=== PATIENT | female | born 1940 | race Caucasian/White ===

== ENCOUNTER → 2023-04-27 08:55 | Outpatient (REF) | payer OTHER, BC, SELFPAY | LOC: HWRCS 08:55 | PROVIDERS: ATTENDING PHYSICIAN Internal Medicine; FAMILY PHYSICIAN Family Medicine | DX: I35.0 Nonrheumatic aortic (valve) stenosis (principal) | CPT/HCPCS: 93306 ==

== ENCOUNTER 2023-08-06 00:07 | Emergency (ER) | payer OTHER, BC, SELFPAY ==
[2023-08-06] VITALS (7 sets, daily range): BP systolic 150–173; BP diastolic 72–91; PULSE 54–67; BMI 19.3
[2023-08-06 00:46] LABS: % Basophils 0.7 % (0-2); % Eosinophils 2.2 % (0-6); % Immature Granulocytes 0.4 % (0-0.5); % Lymphocytes 25.6 % (20.5-51.1); % Neutrophils 61.1 % (42.2-75.2); Absolute Eosinophils 0.1 10^3/uL (0-0.7); Absolute Lymphocytes 1.2 10^3/uL (1.2-3.4); Absolute Monocytes 0.5 10^3/uL (0.1-0.6); Absolute Neutrophils 2.7 10^3/uL (1.4-6.5); Hematocrit 34.5 % (37.0-47.0); Hemoglobin 12.3 g/dL (12.0-16.0); Mean Corp Hgb Conc. 35.7 g/dL (33.0-37.0); Mean Corpuscular Hgb 33.8 pg (27.0-31.0); Mean Corpuscular Volume 94.8 fL (81.0-99.0); Mean Platelet Volume 10.1 fL (7.4-10.4); Nucleated Red Blood Cells % 0 %; Platelet Count 208 10^3/uL (130-400); Red Blood Cell Count 3.64 10^6/uL (4.20-5.40); White Blood Cell Count 4.5 10^3/uL (4.8-10.8)
[2023-08-06 01:00] LABS: ALT (SGPT) 31 U/L (0-35); AST (SGOT) 43 U/L (14-36); Albumin 4.1 g/dl (3.5-5.0); Alkaline Phosphatase 74 U/L (38-126); Blood Urea Nitrogen 10 mg/dl (7-17); Calcium 9.3 mg/dl (8.4-10.2); Carbon Dioxide 28 mmol/L (22-30); Chloride 90 mmol/L (98-107); Estimated Creatinine Clearance 55 ml/min; Glucose 104 mg/dl (70-99); Potassium 4.3 mmol/L (3.5-5.1); Sodium 125 mmol/L (135-145); Total Bilirubin 1.9 mg/dl (0.2-1.3); eGFR > 60.00
--- NOTE | 2023-08-06 01:18 | ED.GENMED ---
History of Present Illness
General
Chief Complaint: Abdominal Symptoms
Source: patient and family
Exam Limitations: none
Time Seen by Provider: 08/06/23 00:38
Nursing documentation reviewed up to this point in time: agreed with
History of Present Illness
History of Present Illness:
Pleasant 82-year-old female who presents with hypertension and dizziness. She complains of nausea and vomiting. Was seen at urgent care and diagnosed with dehydration. She was given Zofran which did not help her symptoms.
Past History
Past History
ED Past Medical History: Cancer (Cervical cancer, treated with hysterectomy and radiation), HTN and Other (Kidney stones)
ED Past Surgical History: and Gynecological (Hysterectomy with retroperitoneal symone dissection 18 years ago.)
Social History
Tobacco: Non-smoker
Alcohol: None
Personal:
Living: with family
Family History
Family History: Hypertension; Negative Early CAD or CAD
Phy Exam
Physical Exam
Physical Exam:
Physical Exam
Vital signs and allergy list reviewed and agreed with.
GENERAL: Alert , in minimal apparent distress
EYE: pupils equal, EOMI, anicteric. Funduscopic exam is normal. Negative nystagmus horizontal or vertical
NECK: Supple, no significant adenopathy. No masses. Trachea midline
ENT: Oropharynx is clear, mmm.
CARDIAC: Regular rate and rhythm . No M/R/G
LUNGS: Clear breath sounds bilaterally, no acute respiratory distress, no wheezes/rales/rhonchi
ABDOMEN: Soft, without focal tenderness, no r/g, no cvat. Normal BSx4q
NEUROLOGICAL: Alert and oriented, no focal neuro deficits
SKIN: Warm and dry, skin intact.
MUSCULOSKELETAL: No edema, well perfused. Moves all 4 extremities
PSYCH: Normal and appropriate interaction.
Course
Orders/Labs/Results
Orders:
Orders
08/06/23 00:40
Complete Blood Count/With Diff Urgent
Comprehensive Metabolic Panel Urgent
08/06/23 01:11
CT Head W/o Iv Contrast Urgent
Comment:
Reason For Exam: dizziness
0.9% Sodium Chloride 1000 ml [Nss] 1,000 ml IV BOLUS
Prochlorperazine [Compazine] 5 mg IV NOW STA
08/06/23 01:19
Electrocardiogram (*1) Urgent
Reason for Study: Vertigo / Dizzy
EKG- Treatment ONCE
08/06/23 02:54
Orthostatic VS- Treatment ONCE
08/06/23 03:23
Basic Metabolic Panel Urgent
Abnormal Lab Results
08/06/23 08/06/23
00:40 03:23
WBC 4.5 L 10^3/uL
(4.8-10.8)
RBC 3.64 L 10^6/uL
(4.20-5.40)
Hct 34.5 L %
(37.0-47.0)
MCH 33.8 H pg
(27.0-31.0)
Monocytes % 10.0 H %
(1.7-9.3)
Sodium 125 L mmol/L 128 L mmol/L
(135-145) (135-145)
Chloride 90 L mmol/L 96 L mmol/L
(98-107) (98-107)
Glucose 104 H mg/dl
(70-99)
Total Bilirubin 1.9 H mg/dl
(0.2-1.3)
AST 43 H U/L
(14-36)
08/06/23 00:40
08/06/23 03:23
Vital Signs
Initial and Last Documented VS:
Initial Vital Signs
Temp Pulse Resp BP Pulse Ox
97.7 F 52 17 167/80 99
08/06/23 00:15 08/06/23 00:15 08/06/23 00:15 08/06/23 00:15 08/06/23 00:15
Last Documented Vital Signs
Temp Pulse Resp BP Pulse Ox
97.7 F 52 17 150/77 99
08/06/23 00:15 08/06/23 00:15 08/06/23 00:15 08/06/23 04:05 08/06/23 03:55
*Radiology
Radiology exam reviewed: radiology read reviewed
*EKG
Interpreted by ED Provider?: Yes
EKG Intrepretation Date: 08/06/23
Interpretation: abnormal
Comparison EKG: no comparison EKG present
Heart Rate: 53
Rate: bradycardiac
Rhythm: sinus
[place]: normal axis
Interval: normal interval
QRS Pattern: normal QRS
Ischemia: no ischemia
*Distribution Center Administrator Interpretation
Rate: normal
Heart Rate: 65
Rhythm: sinus
*Critical Care Note
Total Time (30-74mins, 75-104mins- exclusive of procedures): Not Applicable
Update Note
Update Note:
08/06/2023 0358 AM: Patient was able to ambulate around the department with a very brisk and steady gait. She had no return of symptoms or complaints. Sodium has improved with fluids. Patient to be discharged home. She will keep an eye on her
fluid intake. She will follow-up with her family doctor.
ED Attending Note
-
Portions of this chart may have been created with voice recognition software.� Occasional wrong word or��sound alike� substitutions may have occurred due to the inherent limitations of voice recognition software.
Discharge Plan
Departure
Patient Disposition: Home (Routine Discharge)
Date of Disposition: 08/06/23
Time of Disposition: 03:59
Patient with high blood pressure during this ER visit?: Yes
Condition: Good
Discharge Problem:
Vertigo, Acute hyponatremia
Instructions: Dehydration, Adult ED, Hyponatremia, BLOOD PRESSURE
Prescriptions:
No Action
levothyroxine 75 MCG tablet
75 mcg PO DAILY
cholecalciferol (vitamin D3) [Vitamin D3] 400 UNITS tablet
2,000 units PO DAILY
omega 1-yzn-war-fish oil [Fish Oil] 1,000 MG capsule
1,000 mg PO QPM
Prolia 60 MG/ML syringe
60 mg SQ [id number]
Rx Instructions:
Next dose 03/2022
aspirin 81 mg Tablet,Delayed Release (Dr/Ec)
81 mg PO DAILY
losartan 50 mg tablet
50 mg PO DAILY
bismuth subsalicylate [Pepto-Bismol] 262 mg/15 mL Suspension
262 mg PO QID PRN (Reason: GERD)
atorvastatin [Lipitor] 40 mg tablet
40 mg PO DAILY Qty: 30 0RF
gabapentin 300 mg Capsule
300 mg PO HS
calcium
650 mg PO DAILY
lorazepam 0.5 mg Tablet
0.5 mg PO DAILY PRN (Reason: anxiety)
colestipol 1 gram Tablet
1 g PO BID
Referrals:
Priscila Ramirez MD [Family Provider] -
Activity Restrictions/Additional Instructions:
It was a pleasure meeting you and taking part in your care. We hope for your continued healing and wellness.
Please read discharge instructions in their entirety. However, they are for general education and may not describe your exact diagnosis at discharge. Information on your ER visit and medical conditions were discussed with you along with appropriate
follow up information...
If indicated, please take your medications as instructed and indicated on discharge paperwork.
Please schedule a follow up appointment as directed. Call to schedule an appointment
Please return to the emergency department with ANY change in, persisting, or worsening of symptoms. If any of your symptoms do not improve, or persist, or become more severe within 6-12 hours, please return to the emergency department for further
care.
Please return to the emergency department if you develop a headache, neck pain/stiffness, fever greater than 100.4F, chest pain, shortness of breath, persistent nausea, vomiting, slurred speech, difficulty walking, numbness/tingling, weakness, signs
of infection or any other symptoms that are worrisome to you.
If you have any questions or concerns please do not hesitate to call the Hospital at or E-mail me directly at [email or web address]
Interventions
Interventions:
*Risk Screen - Suicide Last Done: 08/06/23 00:15
*General Assessment Last Done: 08/06/23 00:15
*Neglect/Abuse Screening Last Done: 08/06/23 00:15
ED- Fall Risk Assessment Last Done: 08/06/23 00:15
*ED COVID-19 Vaccine History Last Done: 08/06/23 00:15
*Nursing Disposition Last Done: 08/06/23 04:17
LX-Ekurqv-Hkdmagrsuh Assessment Last Done: 08/06/23 00:54
Discharge Date and Time
Discharge Date/Time: 08/06/23 04:18
Print Language: AMHARIC
[2023-08-06] MEDS: COMPAZINE 5 MG IV (01:25)
[2023-08-06] MEDS: NSS 1000 IV (01:25)
[2023-08-06 03:47] LABS: Blood Urea Nitrogen 9 mg/dl (7-17); Calcium 8.7 mg/dl (8.4-10.2); Carbon Dioxide 27 mmol/L (22-30); Chloride 96 mmol/L (98-107); Estimated Creatinine Clearance 55 ml/min; Glucose 90 mg/dl (70-99); Potassium 4.4 mmol/L (3.5-5.1); Sodium 128 mmol/L (135-145); eGFR > 60.00
== END 2023-08-06 04:18 | disposition home or self-care (01) ==
LOC: EMR 00:07
PROVIDERS: EMERGENCY PHYSICIAN Student in an Organized Health Care Education/Training Program; FAMILY PHYSICIAN Family Medicine
DX: R42 Dizziness and giddiness (principal); E87.1 Hypo-osmolality and hyponatremia; I10 Essential (primary) hypertension; E86.0 Dehydration
CPT/HCPCS: 99285; 96374; 70450; 80048; 80053; 85025; 93005

== ENCOUNTER → 2023-11-19 11:47 | Outpatient (REF) | payer OTHER, BC, SELFPAY | LOC: EMG 11:47 | PROVIDERS: ATTENDING PHYSICIAN Student in an Organized Health Care Education/Training Program; FAMILY PHYSICIAN Family Medicine | DX: R20.0 Anesthesia of skin (principal) | CPT/HCPCS: 95886; 95911 ==

== ENCOUNTER → 2024-01-03 07:56 | Outpatient (REF) | payer OTHER, BC, SELFPAY | LOC: RAD 07:56 | PROVIDERS: ATTENDING PHYSICIAN Nurse Practitioner Family; FAMILY PHYSICIAN Family Medicine | DX: R60.0 Localized edema (principal) | CPT/HCPCS: 93922; 93925; 93970 ==

== ENCOUNTER → 2024-01-21 06:40 | Outpatient (REF) | payer OTHER, BC, SELFPAY | LOC: PAVMRI 06:40 | PROVIDERS: ATTENDING PHYSICIAN Physical Medicine & Rehabilitation; FAMILY PHYSICIAN Family Medicine | DX: M54.16 Radiculopathy, lumbar region (principal) | CPT/HCPCS: 72148 ==

== ENCOUNTER 2024-01-24 15:18 | Emergency (ER) | payer OTHER, BC, SELFPAY ==
[2024-01-24 15:20] VITALS: BP 142/69
[2024-01-24 15:40] LABS: % Basophils 0.5 % (0-2); % Immature Granulocytes 0.4 % (0-0.5); % Lymphocytes 18.9 % (20.5-51.1); % Monocytes 10.6 % (1.7-9.3); % Neutrophils 67.6 % (42.2-75.2); Absolute Eosinophils 0.1 10^3/uL (0-0.7); Absolute Lymphocytes 1.1 10^3/uL (1.2-3.4); Absolute Monocytes 0.6 10^3/uL (0.1-0.6); Absolute Neutrophils 3.8 10^3/uL (1.4-6.5); Hematocrit 31.5 % (37.0-47.0); Hemoglobin 10.1 g/dL (12.0-16.0); Mean Corp Hgb Conc. 32.1 g/dL (33.0-37.0); Mean Corpuscular Hgb 33.7 pg (27.0-31.0); Mean Platelet Volume 9.2 fL (7.4-10.4); Nucleated Red Blood Cells % 0 %; Platelet Count 309 10^3/uL (130-400); Red Cell Dist. Width 14.3 % (11.5-14.5); White Blood Cell Count 5.6 10^3/uL (4.8-10.8)
[2024-01-24 16:00] LABS: ALT (SGPT) 30 U/L (0-35); AST (SGOT) 42 U/L (14-36); Albumin 3.6 g/dl (3.5-5.0); Alkaline Phosphatase 80 U/L (38-126); Blood Urea Nitrogen 16 mg/dl (7-17); Calcium 9.2 mg/dl (8.4-10.2); Carbon Dioxide 29 mmol/L (22-30); Chloride 104 mmol/L (98-107); Glucose 101 mg/dl (70-99); Potassium 3.8 mmol/L (3.5-5.1); Sodium 142 mmol/L (135-145); Total Bilirubin 0.5 mg/dl (0.2-1.3); Total Protein 6.4 g/dl (6.3-8.2); eGFR > 60.00
[2024-01-24 16:06] LABS: NT-proBNP 420 pg/ml
--- NOTE | 2024-01-24 16:16 | ED.GENMED ---
History of Present Illness
General
Chief Complaint: Swelling
Source: patient
Exam Limitations: none
Time Seen by Provider: 01/24/24 15:47
History of Present Illness
History of Present Illness:
See MDM
Past History
Past History
ED Past Medical History: Cancer (Cervical cancer, treated with hysterectomy and radiation), HTN and Other (Kidney stones)
ED Past Surgical History: and Gynecological (Hysterectomy with retroperitoneal symone dissection 18 years ago.)
Social History
Tobacco: Non-smoker
Alcohol: None
Personal:
Living: with family
Family History
Family History: Hypertension; Negative Early CAD or CAD
Phy Exam
Physical Exam
Physical Exam:
See MDM
Scores
Heart Failure Risk
Heart Failure Risk Score: Not Applicable
Course
Orders/Labs/Results
Orders:
Orders
01/24/24 15:31
Complete Blood Count/With Diff Urgent
Comprehensive Metabolic Panel Urgent
NT-proBNP Urgent
01/24/24 16:14
CT Abd Aorta Angio W/ Run Off Urgent
Comment:
Reason For Exam: b/l leg pain and swelling
Abnormal Lab Results
01/24/24
15:31
RBC 3.00 L 10^6/uL
(4.20-5.40)
Hgb 10.1 L g/dL
(12.0-16.0)
Hct 31.5 L %
(37.0-47.0)
MCV 105.0 H fL
(81.0-99.0)
MCH 33.7 H pg
(27.0-31.0)
MCHC 32.1 L g/dL
(33.0-37.0)
Absolute Lymphs (auto) 1.1 L 10^3/uL
(1.2-3.4)
Lymphocytes % 18.9 L %
(20.5-51.1)
Monocytes % 10.6 H %
(1.7-9.3)
Glucose 101 H mg/dl
(70-99)
AST 42 H U/L
(14-36)
01/24/24 15:31
01/24/24 15:31
Vital Signs
Initial and Last Documented VS:
Initial Vital Signs
Temp Pulse Resp BP Pulse Ox
98.6 F 67 18 142/69 99
01/24/24 15:20 01/24/24 15:20 01/24/24 15:20 01/24/24 15:20 01/24/24 15:20
Last Documented Vital Signs
Temp Pulse Resp BP Pulse Ox
98.6 F 67 18 142/69 99
01/24/24 15:20 01/24/24 15:20 01/24/24 15:20 01/24/24 15:20 01/24/24 15:20
MDM/Problems Addressed
Differential Diagnosis Includes:
HPI and MDM Narrative:
83-year-old female presenting for evaluation of bilateral leg swelling. This has been going on for months. She has since followed up with podiatry and her primary care doctor. She has received outpatient DVT rule out an arterial study. He has
received outpatient abdominal/pelvis MRI. Patient is frustrated that she does not have answers to why both of her legs are swelling. She is developing pain with walking. She does have vascular follow-up on Wednesday. Patient states that she
believes the ultrasound had some concern that required vascular surgery to get involved. She has not yet seen vascular surgery. I discussed with patient that her ultrasound is concerning for peripheral arterial disease. Case discussed with
vascular surgery and will obtain CTA aorta with runoff
Physical exam
General: Well appearing and non-toxic
HEENT: protecting airway
Neck: appears supple
CV: No evidence of cyanosis
Resp: No accessory muscle use
Abd: Non-distended
Extremities: Pitting edema bilateral lower extremities from knee down. Cap refill in distal right foot approximately 5 seconds. Cap refill in left foot approximately 3 seconds.
Neuro: alert
Psych: Normal affect
Skin: Intact
Problems Addressed including Acute and Chronic Conditions affecting care:
1. Peripheral arterial disease
Acuity: acute
Prognosis: stable
Details: Case discussed with vascular surgery. Will obtain CT aorta with runoff
Updates
CT shows significant atherosclerosis and plaque in the right arterial system. She has follow-up on Wednesday with vascular surgery. We discussed strict return precautions and having PCP follow-up the incidental findings on the CT
Differential Diagnosis (but not limited to): Arterial clot, claudication
Testing considered: DVT rule out
Drug therapy (if applicable): OTC meds, please see d/c instruction regarding Rx drugs
Amount and/or Complexity of Data Reviewed
Clinical info obtained from: Patient
External data reviewed: N/A
Labs I independently reviewed (but not limited to): Mild anemia
Radiology: The CT scan was personally and independently reviewed. In addition, official CT report reviewed.
Pulse Ox: not hypoxic
EKG independently reviewed: N/A
Financial Specialist: N/A
Critical Care: N/A
Risk of Complication:
Social Determinants of health: Good social support
Discussed with other providers: Vascular surgery
Escalation of Care includes Admit/Obs: After being observed in the Emergency Department, pt stable for discharge.
Occasional wrong word or 'sound a like' substitutions may have occurred due to the inherent limitations of voice recognition software. Read the chart carefully and recognize, using context, where substitutions have occurred.
*Critical Care Note
Total Time (30-74mins, 75-104mins- exclusive of procedures): Not Applicable
ED Attending Note
-
Portions of this chart may have been created with voice recognition software.� Occasional wrong word or��sound alike� substitutions may have occurred due to the inherent limitations of voice recognition software.
Discharge Plan
Departure
Patient Disposition: Home (Routine Discharge)
Date of Disposition: 01/24/24
Time of Disposition: 18:34
Patient with high blood pressure during this ER visit?: Yes
Discharge Problem:
Peripheral artery disease
Instructions: BLOOD PRESSURE
Prescriptions:
New
furosemide [Lasix] 20 mg tablet
20 mg PO DAILY Qty: 7 0RF
oxycodone 5 mg tablet
2.5 mg PO Q8H PRN (Reason: Pain) Qty: 7 0RF
No Action
levothyroxine 75 MCG tablet
75 mcg PO DAILY
cholecalciferol (vitamin D3) [Vitamin D3] 400 UNITS tablet
2,000 units PO DAILY
omega 1-ffx-tpj-fish oil [Fish Oil] 1,000 MG capsule
1,000 mg PO QPM
Prolia 60 MG/ML syringe
60 mg SQ [id number]
Rx Instructions:
Next dose 03/2022
aspirin 81 mg Tablet,Delayed Release (Dr/Ec)
81 mg PO DAILY
losartan 50 mg tablet
50 mg PO DAILY
bismuth subsalicylate [Pepto-Bismol] 262 mg/15 mL Suspension
262 mg PO QID PRN (Reason: GERD)
atorvastatin [Lipitor] 40 mg tablet
40 mg PO DAILY Qty: 30 0RF
gabapentin 300 mg Capsule
300 mg PO HS
calcium
650 mg PO DAILY
lorazepam 0.5 mg Tablet
0.5 mg PO DAILY PRN (Reason: anxiety)
colestipol 1 gram Tablet
1 g PO BID
Activity Restrictions/Additional Instructions:
Please return for any worsening symptoms.
You may return at any time if you have further concerns.
Please follow up with your doctor at the first available appointment, preferably this week. Please talk to your doctor about the incidental findings on the CT scan, specifically the lesion seen on the pancreas. The radiologist suggested a special
MRI to assess the pancreas.
Please keep your appointment with the vascular surgeon on Wednesday.
You were given a prescription for narcotics. If you require this pain medicine, please take a daily [id number] stool softener to avoid constipation.
I am placing you on a water pill which may help with your leg swelling. Make sure you have a potassium rich diet while on this medicine.
Thank you for choosing [facility].
Interventions
Interventions:
*General Assessment Last Done: 01/24/24 15:20
*Neglect/Abuse Screening Last Done: 01/24/24 15:20
ED- Fall Risk Assessment Last Done: 01/24/24 15:53
ED- Cardiac Assessment Last Done: 01/24/24 15:53
ED- Pulmonary Assessment Last Done: 01/24/24 15:53
ED-Skin Assessment Last Done: 01/24/24 15:53
Discharge Date and Time
Print Language: CHADIAN
== END 2024-01-24 19:03 | disposition home or self-care (01) ==
LOC: EMR 15:18
PROVIDERS: EMERGENCY PHYSICIAN Student in an Organized Health Care Education/Training Program; FAMILY PHYSICIAN Family Medicine
DX: I73.9 Peripheral vascular disease, unspecified (principal); I10 Essential (primary) hypertension; Z85.41 Personal history of malignant neoplasm of cervix uteri; Z90.710 Acquired absence of both cervix and uterus
CPT/HCPCS: 99284; 75635; 80053; 83880; 85025; Q9967

== ENCOUNTER 2024-02-13 02:31 | Inpatient (IN) | payer OTHER, BC, SELFPAY ==
[2024-02-12 17:06] VITALS: BMI 19.4
[2024-02-12 17:09] VITALS: BP 102/54
[2024-02-12 21:04] VITALS: BP 98/54
--- NOTE | 2024-02-12 21:18 | ED.GENMED ---
History of Present Illness
<Ruddy Morales Jr., PA-C - Last Filed: 02/12/24 23:37>
General
Chief Complaint: Extremity Pain (non-traumatic)
Source: patient, spouse and family
Exam Limitations: none
Time Seen by Provider: 02/12/24 20:14
Nursing documentation reviewed up to this point in time: agreed with
History of Present Illness
History of Present Illness:
83-year-old female with past history of significant vascular disease previous stroke hypertension hyperlipidemia presenting to the emergency department with worsening discomfort to the right leg with worsening purple discoloration. Has scheduled
vascular surgery in 1 week but claims symptoms were too severe. She has been calling her vascular surgeon and asking for pain medication but did not have any discussion about the worsening of symptoms. She has had trouble walking due to pain and
blistering of the foot. She denies any fevers chest pain shortness of breath.
Past History
<Ruddy Morales Jr., PA-C - Last Filed: 02/12/24 23:37>
Past History
ED Past Medical History: Cancer (Cervical cancer, treated with hysterectomy and radiation), HTN and Other (Kidney stones)
ED Past Surgical History: and Gynecological (Hysterectomy with retroperitoneal symone dissection 18 years ago.)
Social History
Tobacco: Non-smoker
Alcohol: None
Personal:
Living: with family
Family History
Family History: Hypertension; Negative Early CAD or CAD
Review of Systems
<ELTITIA Benitez Jr. Last Filed: 02/12/24 23:37>
Review of Systems
Allergies reviewed?: Yes
All Other Systems: ROS reviewed and negative except as documented in HPI and ROS
Phy Exam
<Ruddy Morales Jr., PA-C - Last Filed: 02/12/24 23:37>
Physical Exam
Physical Exam:
GENERAL: Alert , in no apparent distress
EYE: pupils equal and reactive
NECK: Supple, no significant adenopathy.
ENT: o/p clr, mmm.
CARDIAC: Regular rate and rhythm .
LUNGS: Clear breath sounds bilaterally, no acute respiratory distress, no wheezes/rales/rhonchi
ABDOMEN: Soft, without focal tenderness, no r/g, no cvat
NEUROLOGICAL: Alert and oriented, no focal neuro deficits
SKIN: Significant purple discoloration of the right lower extremity from the mid ebnitez distal increasing purple discoloration as you move distally. Cap refill roughly 15 seconds throughout the foot and toes. Patient able to move at the ankle and
move the toes of the right side which claims it feels somewhat weaker than the left. Also claims have some decreased sensation though she does have gross sensation intact. Unable to get a dorsalis pedis or posterior tibialis pulse with Doppler.
Warm and dry, skin intact.
MUSCULOSKELETAL: No edema, well perfused.
PSYCH: Normal and appropriate interaction.
Course
<Ruddy Morales Jr., LETITIA - Last Filed: 02/12/24 23:37>
Orders/Labs/Results
Orders:
Orders
02/12/24 21:07
CT Abd Aorta Angio W/ Run Off Urgent
Comment:
Reason For Exam: RLE vascular changes
02/12/24 21:10
CBC/With Diff [Complete Blood Count/With Diff] Urgent
CMP [Comprehensive Metabolic Panel] Urgent
PT/INR [Prothrombin Time] Urgent
PTT Urgent
02/12/24 21:[address] See Dose Instructions PO NOW STA
Discontinue all Active Warfarin orders?: Yes
Nursing to Place Non Medication Order As Directed
Physician Order: PTT 6 hours after initial start of Heparin infusion
Above order entered?: Yes
02/12/24 21:30
Heparin 88897 Units/250 ml 25,000 units in 250 ml IV PER PROTOCOL
Weight to be used for heparin protocol in kilograms (kg):: 46.6
Protocol:: Vascular Surgery
PTT Goal Range to be used:: PTT 73 to 111 seconds
Order type:: Initial
INITIAL Infusion Dose (UNITS/KG/hr) & then follow protocol:: 18 units/kg/hr
Infusion Dose in UNITS/hr & then follow protocol (UNITS/hr):: 800
INFUSION RATE in mL/hr & then follow protocol (mL/hr):: 8
PTT less than or equal to 64 seconds:: Notify Ordering Provider. obtain orders for rate increase &
possible bolus
PTT 64.1 to 72.9 seconds:: Increase rate by 100 units/hr (+ 1 mL/hr)
PTT 73 to 111 seconds:: Target Range. No change in rate.
PTT 111.1 to 130.9 seconds:: Decrease rate by 100 units/hr (- 1 mL/hr)
PTT 131 to 199.9 seconds:: HOLD for 1 hour. Then decrease rate by 200 units/hr (- 2 mL/hr)
PTT greater than or equal to 200 seconds:: STOP INFUSION. Notify Ordering provider to obtain further orders.
Lab follow-up:: Each change, PTT q6h until 2 consecutive are therapeutic. Then PTT
daily.
02/12/24 22:[address] See Dose Instructions IV DIRECTED
02/12/24 23:28
HYDROmorphone [Dilaudid] 0.5 mg IV NOW STA
02/13/24 04:12
Protime/PTT Urgent
Abnormal Lab Results
02/12/24
21:10
WBC 15.6 H 10^3/uL
(4.8-10.8)
RBC 2.77 L 10^6/uL
(4.20-5.40)
Hgb 9.0 L g/dL
(12.0-16.0)
Hct 26.5 L %
(37.0-47.0)
MCH 32.5 H pg
(27.0-31.0)
Abs Immat Gran (auto) 0.1 H 10^3/uL
(0-0.05)
Absolute Neuts (auto) 14.5 H 10^3/uL
(1.4-6.5)
Absolute Lymphs (auto) 0.5 L 10^3/uL
(1.2-3.4)
Immature Gran % 0.6 H %
(0-0.5)
Neutrophils % 92.7 H %
(42.2-75.2)
Lymphocytes % 3.3 L %
(20.5-51.1)
PT 15.8 H Sec
(11.4-14.6)
APTT 35.5 H Sec
(23.4-35.0)
Sodium 130 L mmol/L
(135-145)
Potassium 3.3 L mmol/L
(3.5-5.1)
BUN 18 H mg/dl
(7-17)
Glucose 124 H mg/dl
(70-99)
Calcium 8.3 L mg/dl
(8.4-10.2)
AST 64 H U/L
(14-36)
Total Protein 5.8 L g/dl
(6.3-8.2)
Albumin 3.0 L g/dl
(3.5-5.0)
02/12/24 21:10
02/12/24 21:10
Vital Signs
Initial and Last Documented VS:
Initial Vital Signs
Temp Pulse Resp BP Pulse Ox
98.1 F 71 16 102/54 98
02/12/24 17:09 02/12/24 17:09 02/12/24 17:09 02/12/24 17:09 02/12/24 17:09
Last Documented Vital Signs
Temp Pulse Resp BP Pulse Ox
98.1 F 61 29 107/60 99
02/12/24 17:09 02/12/24 23:30 02/12/24 23:30 02/12/24 23:00 02/12/24 23:30
<Becky Neal MD - Last Filed: 02/12/24 22:28>
Orders/Labs/Results
Orders:
Orders
02/12/24 21:07
CT Abd Aorta Angio W/ Run Off Urgent
Comment:
Reason For Exam: RLE vascular changes
02/12/24 21:10
CBC/With Diff [Complete Blood Count/With Diff] Urgent
CMP [Comprehensive Metabolic Panel] Urgent
PT/INR [Prothrombin Time] Urgent
PTT Urgent
02/12/24 21:[address] See Dose Instructions PO NOW STA
Discontinue all Active Warfarin orders?: Yes
Nursing to Place Non Medication Order As Directed
Physician Order: PTT 6 hours after initial start of Heparin infusion
Above order entered?: Yes
02/12/24 21:30
Heparin 31615 Units/250 ml 25,000 units in 250 ml IV PER PROTOCOL
Weight to be used for heparin protocol in kilograms (kg):: 46.6
Protocol:: Vascular Surgery
PTT Goal Range to be used:: PTT 73 to 111 seconds
Order type:: Initial
INITIAL Infusion Dose (UNITS/KG/hr) & then follow protocol:: 18 units/kg/hr
Infusion Dose in UNITS/hr & then follow protocol (UNITS/hr):: 800
INFUSION RATE in mL/hr & then follow protocol (mL/hr):: 8
PTT less than or equal to 64 seconds:: Notify Ordering Provider. obtain orders for rate increase &
possible bolus
PTT 64.1 to 72.9 seconds:: Increase rate by 100 units/hr (+ 1 mL/hr)
PTT 73 to 111 seconds:: Target Range. No change in rate.
PTT 111.1 to 130.9 seconds:: Decrease rate by 100 units/hr (- 1 mL/hr)
PTT 131 to 199.9 seconds:: HOLD for 1 hour. Then decrease rate by 200 units/hr (- 2 mL/hr)
PTT greater than or equal to 200 seconds:: STOP INFUSION. Notify Ordering provider to obtain further orders.
Lab follow-up:: Each change, PTT q6h until 2 consecutive are therapeutic. Then PTT
daily.
02/12/24 22:[address] See Dose Instructions IV DIRECTED
02/12/24 23:28
HYDROmorphone [Dilaudid] 0.5 mg IV NOW STA
02/13/24 04:12
Protime/PTT Urgent
Abnormal Lab Results
02/12/24
21:10
WBC 15.6 H 10^3/uL
(4.8-10.8)
RBC 2.77 L 10^6/uL
(4.20-5.40)
Hgb 9.0 L g/dL
(12.0-16.0)
Hct 26.5 L %
(37.0-47.0)
MCH 32.5 H pg
(27.0-31.0)
Abs Immat Gran (auto) 0.1 H 10^3/uL
(0-0.05)
Absolute Neuts (auto) 14.5 H 10^3/uL
(1.4-6.5)
Absolute Lymphs (auto) 0.5 L 10^3/uL
(1.2-3.4)
Immature Gran % 0.6 H %
(0-0.5)
Neutrophils % 92.7 H %
(42.2-75.2)
Lymphocytes % 3.3 L %
(20.5-51.1)
PT 15.8 H Sec
(11.4-14.6)
APTT 35.5 H Sec
(23.4-35.0)
Sodium 130 L mmol/L
(135-145)
Potassium 3.3 L mmol/L
(3.5-5.1)
BUN 18 H mg/dl
(7-17)
Glucose 124 H mg/dl
(70-99)
Calcium 8.3 L mg/dl
(8.4-10.2)
AST 64 H U/L
(14-36)
Total Protein 5.8 L g/dl
(6.3-8.2)
Albumin 3.0 L g/dl
(3.5-5.0)
02/12/24 21:10
02/12/24 21:10
Vital Signs
Initial and Last Documented VS:
Initial Vital Signs
Temp Pulse Resp BP Pulse Ox
98.1 F 71 16 102/54 98
02/12/24 17:09 02/12/24 17:09 02/12/24 17:09 02/12/24 17:09 02/12/24 17:09
Last Documented Vital Signs
Temp Pulse Resp BP Pulse Ox
98.1 F 61 29 107/60 99
02/12/24 17:09 02/12/24 23:30 02/12/24 23:30 02/12/24 23:00 02/12/24 23:30
<IZABELA Benitez Jr.C - Last Filed: 02/12/24 23:37>
MDM/Problems Addressed
MDM/Problems Addressed:
83-year-old female presenting to the emergency department with worsening right leg discomfort. Has known vascular disease to the femoral. Scheduled surgery in 1 week but claims symptoms are too severe to wait. Here unable to get distal pulses cap
refill is significantly extended. Case was discussed with vascular surgery recommending CT angiogram as well as heparin for further management. CT showing similar findings to previous with common femoral and superficial femoral occlusions. Case
again discussed with vascular surgery recommended heparin overnight monitoring reassessment in the morning.
<Ruddy Morales Jr., PA-C - Last Filed: 02/12/24 23:37>
*Critical Care Note
Total Time (30-74mins, 75-104mins- exclusive of procedures): Not Applicable
ED Attending Note
<Ruddy Morales Jr., PA-C - Last Filed: 02/12/24 23:37>
-
Portions of this chart may have been created with voice recognition software.� Occasional wrong word or��sound alike� substitutions may have occurred due to the inherent limitations of voice recognition software.
<Becky Neal MD - Last Filed: 02/12/24 22:28>
ED Attending Note
Patient seen and examined by attending physician: Yes
I performed the substantive portion of visit, reviewed & personally made and approve the management plan that is documented in note by myself or KWESI.: Yes
ED Attending Note:
83 yr old female with progressive R LE pain, has had a variety of specialists/workup, most recently with vascular and scheduled for bypass/stent on 02/17. However, especially in last week, R LE worse with increasing discoloartion. She is noting
difficulyt sleeping/walking due to pain. No f/c/n/v/cp/sob. Unclear if gravity helps sxs. ON exam, pt is uncomfortable. R LE with foot red/purple discoloration to distal benitez, foot is cool, painful to touch. Cap refill delayed. There are
bruising/wound noted heel area. Using Doppler, no dp or pt noted, but albe to get popliteal and femoral. Case d/w vascular and PA--plan is heparin gtt, pain control, CTA and discuss furthe rmanagement, suspect pt candidate for more urgent surgical
care.
Discharge Plan
Departure
Patient Disposition: Admit
Date of Disposition: 02/12/24
Time of Disposition: 23:36
Admit to: Telemetry
Admit to doctor: Yoni
Presentation/result/management discussed w/ accepting MD/DO: Hospitalist
Patient with high blood pressure during this ER visit?: No
Condition: Fair
Covid-19: Not Applicable
Discharge Problem:
Femoral artery occlusion, right
Prescriptions:
No Action
losartan 50 mg tablet
50 mg PO DAILY
atorvastatin [Lipitor] 40 mg tablet
40 mg PO DAILY Qty: 30 0RF
colestipol 1 gram Tablet
1 g PO BID
furosemide [Lasix] 20 mg tablet
20 mg PO DAILY Qty: 7 0RF
amoxicillin 500 mg Capsule
500 mg PO BID
cyanocobalamin (vitamin B-12) [Vitamin B-12] 1,000 mcg Tablet Extended Release
1,000 mcg PO DAILY
calcium carbonate [Calcium 600] 600 mg calcium (1,500 mg) Tablet
600 mg PO DAILY
docusate sodium [Colace] 100 mg Capsule
100 mg PO BID PRN (Reason: constipation)
oxycodone 5 mg Tablet
5 mg PO TID PRN (Reason: pain)
omega 6-crt-onf-fish oil [Fish Oil] 1,200 (144-216) mg Capsule
1 cap PO DAILY
Centrum Adult 50 Plus 80 mcg Tablet,Chewable
1 tab PO DAILY
Probiotic
1 cap PO DAILY
Referrals:
Priscila Ramirez MD [Family Provider] -
Interventions
Interventions:
*Risk Screen - Suicide Last Done: 02/12/24 17:09
*General Assessment Last Done: 02/12/24 21:31
*Neglect/Abuse Screening Last Done: 02/12/24 17:09
*ED COVID-19 Vaccine History Last Done: 02/12/24 21:16
ED-Skin Assessment Last Done: 02/12/24 21:29
ED-Peripheral Vascular Assessment Last Done: 02/12/24 21:29
ED-Musculoskeletal Assessment Last Done: 02/12/24 21:29
Discharge Date and Time
Print Language: DIVEHI
[2024-02-12 21:20] LABS: % Basophils 0.3 % (0-2); % Immature Granulocytes 0.6 % (0-0.5); % Lymphocytes 3.3 % (20.5-51.1); % Monocytes 3.1 % (1.7-9.3); % Neutrophils 92.7 % (42.2-75.2); Absolute Immature Granulocytes 0.1 10^3/uL (0-0.05); Absolute Lymphocytes 0.5 10^3/uL (1.2-3.4); Absolute Monocytes 0.5 10^3/uL (0.1-0.6); Absolute Neutrophils 14.5 10^3/uL (1.4-6.5); Hematocrit 26.5 % (37.0-47.0); Mean Corpuscular Hgb 32.5 pg (27.0-31.0); Mean Corpuscular Volume 95.7 fL (81.0-99.0); Mean Platelet Volume 8.9 fL (7.4-10.4); Nucleated Red Blood Cells % 0 %; Platelet Count 317 10^3/uL (130-400); Red Blood Cell Count 2.77 10^6/uL (4.20-5.40); Red Cell Dist. Width 13.8 % (11.5-14.5); White Blood Cell Count 15.6 10^3/uL (4.8-10.8)
[2024-02-12 21:21] VITALS: BP 93/55
[2024-02-12 21:31] LABS: INR 1.21; PT 15.8 Sec (11.4-14.6)
[2024-02-12 21:32] LABS: APTT 35.5 Sec (23.4-35.0)
[2024-02-12 21:36] LABS: ALT (SGPT) 32 U/L (0-35); AST (SGOT) 64 U/L (14-36); Alkaline Phosphatase 93 U/L (38-126); Blood Urea Nitrogen 18 mg/dl (7-17); Calcium 8.3 mg/dl (8.4-10.2); Carbon Dioxide 22 mmol/L (22-30); Chloride 99 mmol/L (98-107); Estimated Creatinine Clearance 46 ml/min; Glucose 124 mg/dl (70-99); Potassium 3.3 mmol/L (3.5-5.1); Sodium 130 mmol/L (135-145); Total Protein 5.8 g/dl (6.3-8.2); eGFR > 60.00
[2024-02-12 22:09] VITALS: BP 103/60
[2024-02-12] MEDS: HEPARIN 25000 UNITS/250 ML IV (22:12)
[2024-02-12 23:00] VITALS: BP 107/60
[2024-02-12] MEDS: DILAUDID 0.5 MG IV (23:36)
[2024-02-12 23:47] VITALS: BP 90/73
[2024-02-13] VITALS (60 sets, daily range): BP systolic 66–120; BP diastolic 46–91; BMI 18.8
--- NOTE | 2024-02-13 00:15 | EDRN ---
Pt.'s pulse ox. dropped to 88% on RA while sleeping s/p dilaudid administration. Pt. placed on 2L NC while sleeping, pulse ox. now 97%.
--- NOTE | 2024-02-13 02:07 | HPS.HSE ---
Family Physician
-
Family Physician: Priscila Ramirez
Chief Complaint
-
LE Pain
History of Present Illness
Patient is an 83y F with PMH significant for ASCVD, hypertension and prior stroke who presents to ED complaining of R > L LE pain. Patient notes that she has been having pain in the RLE since October. Her pain has steadily increased over
time. She had extensive evaluation ultimately revealing significant PAD in the RLE > LLE. Patient was scheduled for RLE angio on 02/17/23.
Unfortunately, her pain has continued to increase and this evening was quite unbearable. Prompting her to present to the ED for further evaluation and treatment.
Patient denies any chest pain, palpitations, cough, SOB, N/V/D, etc.
Patient states that she has chronic incontinence of bowel and bladder which she attributes to prior history of cervical cancer / XRT.
Medical History
Past Medical History
Past Medical History: Reports Other
Additional Past Medical History:
ASCVD (Carotid, PAD)
Hypertension
Polyneuropathy
Cervical Cancer s/p Surgery and XRT
Hypothyroidism
IBS
Past Surgical History: Reports Other
Additional Past Surgical History:
Left Wrist ORIF
Loop Recorder Implanted
Hysterectomy
Social History
Tobacco: Non-smoker
Alcohol: None
Drug: None
Family History
Family History: Not pertinent
Allergies / Home Medications
Allergies reflects when Allergies were last updated in [facility].
Home Medications with original date entered in [facility]
Allergy/Medication List:
Allergies
Allergy/AdvReac Type Severity Reaction Status Date / Time
alendronate sodium Allergy Severe Verified 02/12/24 17:09
[From Fosamax] abdominal
pain
pollen extracts Allergy seasonal Verified 02/12/24 17:09
allergies
Home Medications
losartan 50 mg tablet 50 mg PO DAILY Blood pressure 12/04/21
atorvastatin 40 mg tablet (Lipitor) 40 mg PO DAILY #30 tabs 12/05/21
colestipol 1 gram tablet 1 g PO BID 08/06/23
furosemide 20 mg tablet (Lasix) 20 mg PO DAILY #7 tabs 01/24/24
calcium carbonate (Calcium 600) 600 mg PO DAILY 02/08/24
cyanocobalamin (vitamin B-12) 1,000 mcg tablet,extended release (Vitamin B-12 ER) 1,000 mcg PO DAILY 02/08/24
docusate sodium 100 mg capsule (Colace) 100 mg PO BID PRN constipation 02/08/24
multivitamin with minerals-folic acid 80 mcg chewable tablet (Centrum Adult 50 Plus) 1 tab PO DAILY 02/08/24
omega 2-wsc-fbc-fish oil 1,200 mg (144 mg-216 mg) capsule (Fish Oil) 1 cap PO DAILY 02/08/24
oxycodone 5 mg tablet 5 mg PO TID PRN pain 02/08/24
Review of Systems
-
History Source: Patient
A 12 point ROS was completed and negative except as noted: Yes
Constitutional: Denies Fever or Chills
Respiratory: Denies Cough or Trouble Breathing
Cardiac: Denies Chest Pain or Palpitations
Abdomen/GI: Denies Abdominal Pain, Nausea, Vomiting or Diarrhea
: Reports Incontinence; Denies Dysuria
Musculoskeletal: Reports Muscle Pain and Edema
Neurological: Denies Dizzy
Psych: Denies Depression or Anxiety
Physical Exam
Vital Signs
Vital Signs
Temp Pulse Resp BP Pulse Ox
98.1 F 79 20 93/77 97
02/12/24 17:09 02/13/24 02:00 02/13/24 02:00 02/13/24 02:00 02/13/24 01:45
Physical Exam
General: Other (83y F in no acute distress.)
HEENT: Moist mucous membranes and PERRLA
Respiratory: Clear; No Wheezes, Rales or Rhonchi
Cardiac: S1/S2 and Regular Rhythm; No Murmur
GI: Other (Softly distended. Firm / distended bladder over suprapubic region. No tenderness / rebound. Pos BS.)
Musculoskeletal: Other (Edema of the LLE > RLE. LLE is warm without significant erythema. RLE is cool, red. Wound over plantar aspect of the R heel with associated ecchymosis / superficial hematoma.)
Hematologic/Lymphatic: Other (Cannot appreciate pulses in R foot. )
Laboratory Results
-
02/12/24 21:10
02/12/24 21:10
Laboratory Results
PT 15.8 Sec (11.4-14.6) H 02/12/24 21:10
INR 1.21 02/12/24 21:10
APTT 35.5 Sec (23.4-35.0) H 02/12/24 21:10
Total Bilirubin 1.0 mg/dl (0.2-1.3) 02/12/24 21:10
AST 64 U/L (14-36) H 02/12/24 21:10
ALT 32 U/L (0-35) 02/12/24 21:10
Alkaline Phosphatase 93 U/L (38-126) 02/12/24 21:10
Impression/Plan
-
A/P: Patient is an 83y F with PMH significant for ASCVD, HTN and history of cervical cancer who presents to ED complaining of uncontrolled LE pain.
ASCVD
PAD
Limb Ischemia of the RLE > LLE
- Admit for further evaluation and treatment.
- Supportive care with pain control, etc.
- IV heparin infusion overnight.
- Vascular Surgery evaluation - probable earlier revascularization procedure.
- Follow for clinical improvement.
- Continue current CV medications including ASA, statin, etc.
- Wound Care eval for R foot wound / local care.
- Cover with IV abx for now.
- Avoid hypotension.
Normocytic Anemia
- Progressed from baseline of 12 g/dl a few months ago to now 9 g/dL.
- Unclear etiology of worsened anemia.
- Heme test stools. Check iron studies, etc.
- Follow H&H and consider transfusion if needed.
Urinary Retention
Left Hydronephrosis
- Patient with urinary incontinence for some time.
- ? chronic urinary retention with overflow incontinence.
- Place Neal now for bladder decompression. Begin tamsulosin.
- Urology evaluation for additional recommendations.
- Note prior h/o hysterectomy and XRT.
Benign Hypertension
- Stable. Hold BP meds acutely to avoid hypotension.
Hypothyroidism
- Stable. Continue T4 replacement.
Mild Hyponatremia
Mild Hypokalemia
- Hold further Lasix for now.
- Gentle IVFs with LR and follow labs / lytes for improvement.
DVT Prophylaxis: On IV Heparin
Code Status: Full
[2024-02-13] MEDS: ZOSYN 50 IV ×4 (04:18→22:38)
[2024-02-13] MEDS: LR 1000 IV (04:50)
[2024-02-13 04:54] LABS: INR 1.22
[2024-02-13 04:56] LABS: APTT 88.1 Sec (23.4-35.0)
[2024-02-13 05:04] LABS: Iron 29 ug/dl (37-170)
[2024-02-13 05:05] LABS: Blood Urea Nitrogen 19 mg/dl (7-17); Calcium 7.9 mg/dl (8.4-10.2); Carbon Dioxide 19 mmol/L (22-30); Chloride 101 mmol/L (98-107); Estimated Creatinine Clearance 41 ml/min; Glucose 90 mg/dl (70-99); HDL Cholesterol 34 mg/dl; LDL Cholesterol, Calculated 24 mg/dl; Potassium 3.4 mmol/L (3.5-5.1); Sodium 132 mmol/L (135-145); Total Cholesterol 70 mg/dl (50-199); Triglyceride 60 mg/dl (10-149); Very Low Density Lipoprotein 12 mg/dl (0-30); eGFR > 60.00
[2024-02-13 05:14] LABS: Percent Saturation 13 % (20-50); Total Iron Binding Capacity 214 ug/dl (265-497)
[2024-02-13 05:53] LABS: Vitamin B12 698 pg/ml (239-931)
--- NOTE | 2024-02-13 07:44 | W.PN.HOSP.TC ---
Today's Communication/Plan
-
see A/P
Assessment / Plan
Assessment / Plan
83 yo F with PMH significant for ASCVD, hypertension and prior stroke; who presented to complaining of R > L LE pain. Patient notes that she has been having pain in the RLE since October. Her pain has steadily increased over time. She had
extensive evaluation ultimately revealing significant PAD in the RLE > LLE. Patient was scheduled for RLE angio on 02/17/23.
Unfortunately, her pain has continued to increase and became quite unbearable, prompting her to present to the ED
Patient states that she has chronic incontinence of bowel and bladder which she attributes to prior history of cervical cancer / XRT.
A/P:
# ASCVD
# PAD
# Critical Limb Ischemia of the RLE > LLE
Supportive care with pain control, etc.
IV heparin infusion.
Vascular Surgery evaluation - probable earlier revascularization procedure.
Pt is medically optimized and stable for urgent procedure. Benefits of procedure outweighs risks.
Follow for clinical improvement.
Continue current CV medications including ASA, statin, etc.
Wound Care eval for R foot wound / local care.
Cover with IV abx Zosyn for now.
Avoid hypotension.
# Normocytic Anemia
Progressed from baseline of 12 g/dl a few months ago to now 9 g/dL.
Unclear etiology of worsened anemia.
Heme test stools. Check iron studies, etc.
Follow H&H and consider transfusion if needed.
# Urinary Retention
# Left Hydronephrosis
# Note prior h/o hysterectomy and XRT.
Patient with urinary incontinence for some time.
? chronic urinary retention with overflow incontinence.
Placed Neal on admission for bladder decompression. Begin tamsulosin.
Urology evaluation for additional recommendations.
# Benign Hypertension, Stable.
Hold BP meds acutely to avoid hypotension.
# Hypothyroidism, Stable.
Continue T4 replacement.
# Mild Hyponatremia
# Mild Hypokalemia
Hold further IVF with BL LE edema
NOTE SPECIALIST Lasix on hold, consider resuming sooner than later.
Replete K
follow labs / lytes for improvement.
DVT Prophylaxis: On IV Heparin
Code Status: Full
DW RN
CC mx for critical limb ischemia
Anticipated Discharge: > 48 hours
Subjective/Interval History
-
Date of Service: February 13, 2024
Objective Data
-
Labs:
Laboratory Results
02/12/24 02/13/24 02/13/24
21:10 04:16 10:12
WBC 15.6 H
Hgb 9.0 L
Hct 26.5 L
Plt Count 317
PT 15.8 H 16.0 H Pending
INR 1.21 1.22 Pending
APTT 35.5 H 88.1 H Pending
Sodium 130 L 132 L
Potassium 3.3 L 3.4 L
Chloride 99 101
Carbon Dioxide 22 19 L
BUN 18 H 19 H
Creatinine 0.7 0.8
Glucose 124 H 90
Calcium 8.3 L 7.9 L
Total Bilirubin 1.0
AST 64 H
ALT 32
Alkaline Phosphatase 93
Vital Signs:
Vital Signs
Temp Pulse Resp BP Pulse Ox
36.7 C 69 17 116/89 96
02/12/24 17:09 02/13/24 06:15 02/13/24 06:15 02/13/24 06:01 02/13/24 06:15
Review of Systems
-
Musculoskeletal: Reports Other (R leg red and ischemic appearing )
Physical Exam
-
General: Well Developed, Well Nourished, No Apparent Distress, Comfortable and Conversant
HEENT: Normocephalic, Atraumatic, Nose Appears Normal, Ears Appear Normal and Oxygen (2L NC)
Respiratory: Clear to Auscultation and Non Labored Respirations; Negative Accessory Resp Muscle Use
Cardiac: Regular Rhythm and S1/S2
GI: Soft, Nontender, Nondistended and Normal Bowel Sounds
Musculoskeletal: Edema, Right Lower Extrem and Edema, Left Lower Extrem
Skin: Warm, Dry and Lesions (R LE )
Neuro: Awake and Alert
Psych: Calm and Intact Judgement/Insight
Data Reviewed
-
Labs: Labs Reviewed by me
--- NOTE | 2024-02-13 09:53 | CON.VAS ---
Medical History
-
Chief Complaint: RLE Pain
History of Present Illness:
83F known to vascular surgery service with RLE CLTI. Patient has had pain and a heel wound since october with worsening pain in the RLE. Seen by Ángel 01/25 who scheduled outpatient R fem endart on 02/17. Pain progressed over last few days and
became unbearable. Characteristic of rest pain. On exam, she has chronic diminshed sensation that is not worse. 5/5 motor function. Heel wound. Since heparin has been started, patient feels better. CTA reviwed by my and compared to 01/23 shows new
total R femoral occlusion; likely thrombus in situ.
Past Medical History
Past Medical History: CAD and Hypothyroidism
Allergies / Home Medications
Allergy/AdvReac Type Severity Reaction Status Date / Time
alendronate sodium Allergy Severe Verified 02/12/24 17:09
[From Fosamax] abdominal
pain
pollen extracts Allergy seasonal Verified 02/12/24 17:09
allergies
�Medication �Instructions �Recorded �Confirmed �Type
losartan 50 mg tablet 50 mg PO DAILY Blood pressure 12/04/21 02/13/24 History
atorvastatin 40 mg tablet (Lipitor) 40 mg PO DAILY #30 tabs 12/05/21 02/13/24 Rx
colestipol 1 gram tablet 1 g PO BID 08/06/23 02/13/24 History
furosemide 20 mg tablet (Lasix) 20 mg PO DAILY #7 tabs 01/24/24 02/13/24 Rx
calcium carbonate (Calcium 600) 600 mg PO DAILY 02/08/24 02/13/24 History
cyanocobalamin (vitamin B-12) 1,000 mcg PO DAILY 02/08/24 02/13/24 History
1,000 mcg tablet,extended release
(Vitamin B-12 ER)
docusate sodium 100 mg capsule 100 mg PO BID PRN constipation 02/08/24 02/13/24 History
(Colace)
multivitamin with minerals-folic 1 tab PO DAILY 02/08/24 02/13/24 History
acid 80 mcg chewable tablet
(Centrum Adult 50 Plus)
omega 9-sxa-boj-fish oil 1,200 mg 1 cap PO DAILY 02/08/24 02/13/24 History
(144 mg-216 mg) capsule (Fish Oil)
oxycodone 5 mg tablet 5 mg PO TID PRN pain 02/08/24 02/13/24 History
Physical Exam
Vital Signs
Temp Pulse Resp BP Pulse Ox
98.1 F 69 17 116/89 96
02/12/24 17:09 02/13/24 06:15 02/13/24 06:15 02/13/24 06:01 02/13/24 06:15
Lab Results
02/12/24 21:10
02/13/24 04:16
Physical Exam
General: Well Developed and Well Nourished
HEENT: Normocephalic
Respiratory: Clear
Cardiac: S1/S2
Breast: Deferred by me
GI: Soft
Skin: Warm
Neuro: Awake, AO x 3 and No Motor Deficits
Assessment / Plan
-
83F RLE CLTI with tissue loss.
-although CTA shows new R fem occlusion, clot is insitu thrombosis from high grade right femorla disease; leg not acutely threatened
-should patient develop worsening sensory or motor function, she will need urgent intervention.
-okay for diet today; NPO at midnight
-continue heparin drip
-cardiology consultation
-will plan for revasc this week
[2024-02-13 09:54] LABS: Ferritin 94.2 ng/ml (11.1-264.0)
[2024-02-13 10:41] LABS: Glycohemoglobin (HgbA1c) 5.2 % (4.0-5.6)
[2024-02-13 10:46] LABS: APTT 113.7 Sec (23.4-35.0)
[2024-02-13 10:50] LABS: INR 1.23
[2024-02-13] MEDS: LOW STRENGTH ASPIRIN 81 MG PO (11:32)
[2024-02-13] MEDS: FLOMAX 0.4 MG PO (11:32)
[2024-02-13] MEDS: LIPITOR 40 MG PO (11:32)
[2024-02-13] MEDS: KCL 40 MEQ PO (11:32)
[2024-02-13 14:00] LABS: Urine Albumin 1+ (Neg - Trace); Urine Bilirubin Negative (Negative); Urine Character Clear (Clear); Urine Color Yellow; Urine Glucose Negative (Negative); Urine Ketone Negative (Negative); Urine Leukocyte 2+ (Negative); Urine Nitrite Positive (Negative); Urine Occult Blood 4+ (Negative); Urine Urobilinogen Negative (Neg - 1+)
[2024-02-13 14:30] LABS: Urine Bacteria Few (Negative); Urine White Cell 80-90 /HPF (0-5)
[2024-02-13] MEDS: NSS 500 IV (17:07)
[2024-02-13 17:57] LABS: APTT 78.3 Sec (23.4-35.0)
--- NOTE | 2024-02-13 19:26 | W.PN.UPDATE ---
Update Note
Progress Note Update
Patient presenting w/ worsening known RLE pain - tentatively scheduled for endarterectomy w/ Vascular Surgery on 02/17.
Admitted for planned surgical intervention.
CT Angio => bilateral hydroureter (L>R), distended bladder
Notes chronic bladder and bowel incontinence - suspected overflow incontinence.
Neal catheter placed on admission in ED - clear yellow return of urine.
Cr WNL (no h/o CKD)
Plan:
- Maintain Neal catheter pending surgical intervention by Vascular Surgery
- Consider voiding trial vs. CIC teaching POD#1 pending post-void bladder scans
- No surgical indication for CT finding of bilateral hydroureter w/ normal renal function - possible ureteral reflux from neurogenic bladder vs. radiation fibrosis from XRT (h/o cervical cancer)
[2024-02-13] MEDS: DILAUDID 0.5 MG IV (22:37)
[2024-02-14] VITALS (15 sets, daily range): BP systolic 96–139; BP diastolic 59–110; BMI 18.0
--- NOTE | 2024-02-14 | PTCARENOTE ---
Received verbal report from MAHI Coulter. Pt arrived to unit via stretcher. Pt aaox3. sinus jas on monitor. Heparin gtt infusing at 7 mL/hr. Oriented pt to unit. admission assessment completed and q1 neurovascular assessments ongoing (see
worklist). Pt resting in bed with call harper in reach.
[2024-02-14 00:14] LABS: APTT 88.1 Sec (23.4-35.0)
[2024-02-14] MEDS: ZOSYN 50 IV ×4 (05:12→22:42)
[2024-02-14 05:51] LABS: % Basophils 0.4 % (0-2); % Eosinophils 0.8 % (0-6); % Immature Granulocytes 0.6 % (0-0.5); % Lymphocytes 8.7 % (20.5-51.1); % Monocytes 8.6 % (1.7-9.3); % Neutrophils 80.9 % (42.2-75.2); Absolute Eosinophils 0.1 10^3/uL (0-0.7); Absolute Immature Granulocytes 0.1 10^3/uL (0-0.05); Absolute Lymphocytes 0.9 10^3/uL (1.2-3.4); Absolute Monocytes 0.9 10^3/uL (0.1-0.6); Absolute Neutrophils 8.8 10^3/uL (1.4-6.5); Hematocrit 28.7 % (37.0-47.0); Hemoglobin 9.8 g/dL (12.0-16.0); Mean Corp Hgb Conc. 34.1 g/dL (33.0-37.0); Mean Corpuscular Hgb 32.6 pg (27.0-31.0); Mean Corpuscular Volume 95.3 fL (81.0-99.0); Mean Platelet Volume 9.7 fL (7.4-10.4); Nucleated Red Blood Cells % 0 %; Platelet Count 325 10^3/uL (130-400); Red Blood Cell Count 3.01 10^6/uL (4.20-5.40); Red Cell Dist. Width 14.1 % (11.5-14.5); White Blood Cell Count 10.8 10^3/uL (4.8-10.8)
[2024-02-14 06:17] LABS: Blood Urea Nitrogen 16 mg/dl (7-17); Calcium 7.7 mg/dl (8.4-10.2); Carbon Dioxide 22 mmol/L (22-30); Chloride 105 mmol/L (98-107); Estimated Creatinine Clearance 43 ml/min; Glucose 102 mg/dl (70-99); Magnesium 1.8 mg/dl (1.6-2.3); Potassium 3.7 mmol/L (3.5-5.1); Sodium 135 mmol/L (135-145); eGFR > 60.00
[2024-02-14 06:19] LABS: APTT 55.4 Sec (23.4-35.0)
[2024-02-14] MEDS: HEPARIN 25000 UNITS/250 ML IV ×2 (07:29→14:41)
[2024-02-14] MEDS: LOW STRENGTH ASPIRIN 81 MG PO (09:16)
[2024-02-14] MEDS: FLOMAX 0.4 MG PO (09:16)
[2024-02-14] MEDS: LIPITOR 40 MG PO (09:16)
--- NOTE | 2024-02-14 11:03 | W.PN.VS ---
Addendum entered and electronically signed by Yury Neal III, MD 02/14/24 20:01:
This patient was seen and examined with JOE Villarreal. I agree with the history and physical exam as well as the assessment and plan. I have the following additions:
OR tomorrow morning for right common femoral endarterectomy and possible additional endovascular intervention. Possible bypass.
Technical aspects of the procedure were discussed with patient and family in detail
Benefits and rationale for this approach were discussed with them in detail.
Operative risks were discussed with them in detail including but not limited to heart attack, stroke, bleeding, infection, wound healing complications, ongoing ischemia, need for additional procedures and limb loss.
Patient and family expressed clear understanding of our conversation and agreed to proceed with plan.
Signed:
Yury Neal III, MD
[facility] Vascular Surgery
[phone] (hmet)
Original Note:
Today's Communication / Plan
-
Patient seen and examined at bedside with Dr. Yury Neal III, below plan reviewed with attending.
Assessment/Plan
-
Assessment: 83-year-old female with PAD admitted for worsening of chronic limb threatening ischemia and rest pain
Plan:
Patient initially scheduled in the outpatient setting for surgery on 02/18/2024, we will expedite planned surgery of right lower extremity femoral endarterectomy with antegrade angio and possible intervention to tomorrow 02/15/2024.
Continue heparin infusion, will hold when patient is called to the OR tomorrow
N.p.o. after midnight
Plan relayed to hospitalist and nurse via [place] text
In anticipation of possible requirement of bypass for further revascularization options we will obtain venous ultrasound for mapping today
Given no changes in neurovascular assessment over the past 24 hours can change neurovascular checks to Q 4-hour
Patient should be in heel offloading boots at all times while in bed
Subjective Data
-
Date of Service: February 14, 2024
Patient reports ongoing right lower extremity foot pain, acutely worsened with elevation. Does endorse improvement in pain since admission with initiation of heparin and as needed pain medications. Denies calf or thigh pain. Denies decreased
motor or neuro sensation.
Objective Data
-
Vital Signs
Temp Pulse Resp BP Pulse Ox
97.9 F 57 15 138/69 96
02/14/24 07:45 02/14/24 10:00 02/14/24 10:00 02/14/24 10:00 02/14/24 10:42
Intake and Output
02/13/24 02/14/24 02/15/24
06:59 06:59 06:59
Output Total 500 / 500
Balance -500 / -500
Output:
Urine, Neal 500 / 500
Lab Results
02/14/24 05:29
02/14/24 05:29
Calcium 7.7 mg/dl (8.4-10.2) L 02/14/24 05:29
Magnesium 1.8 mg/dl (1.6-2.3) 02/14/24 05:29
Total Bilirubin 1.0 mg/dl (0.2-1.3) 02/12/24 21:10
AST 64 U/L (14-36) H 02/12/24 21:10
ALT 32 U/L (0-35) 02/12/24 21:10
Alkaline Phosphatase 93 U/L (38-126) 02/12/24 21:10
Total Protein 5.8 g/dl (6.3-8.2) L 02/12/24 21:10
Albumin 3.0 g/dl (3.5-5.0) L 02/12/24 21:10
Physical Exam
-
No apparent distress, resting in bed comfortably
No tachycardia
No dyspnea on room air
ABD flat
Right foot with new heel/plantar wound, Doppler popliteal and AT signal, calf soft, motor and sensation intact
--- NOTE | 2024-02-14 12:08 | WOUNDNOTE ---
RIGHT PLANTAR FOOT
--- NOTE | 2024-02-14 12:08 | WOUNDNOTE ---
RIGHT DORSAL FOOT
--- NOTE | 2024-02-14 12:29 | WOUNDNOTE ---
[facility] RN note: Patient admitted with right foot wound necrotic wound. Plan for angio tomorrow.
See H&P for complete history.
PMH: Cervical and endometrial cancer with radiation 30 years ago, severe PAD in bilateral LE, HTN, hyperlipidemia, frequent urination/stress incontinence, osteoporosis, hypothyroidism.
Wound Location and type/assessment: Patient admitted with stage 2 deep dermal wound of sacral/coccyx. Skin surrounding wound is non-blanchable red. Patient reports the wound has been ongoing since she experiences stress and fecal incontinence due
to past radiation treatment 30 years ago. She also reports she has been sitting more due to LE pain. Right foot is necrotic appearing, angio planned for tomorrow morning. No draining or odor noted to right foot. Heels intact and left foot intact.
Appetite: Fair to poor
Pressure redistribution devices in place: Centrella Max Air, turns well with assistance, heels off-loaded with pillows under calves.
Plan: Calazime and sacral silicone border foam to sacrum. Reviewed off-loading, skin care, and incontinence management with patient and daughter. Will update discharge and orders. Will follow peripherally regarding right foot wound. Will confirm
orders with hospitalist and MAHI Merlos updated. Patient repositioned with additional air cushion under sacrum. Updated care plan and will follow as needed.
[2024-02-14] MEDS: TYLENOL 650 MG PO (13:13)
--- NOTE | 2024-02-14 13:40 | PTCARENOTE ---
Patient is at ultrasound at this time in preparation for surgery tomorrow. Patient complaining of mild 'throbbing pain' on right lower leg. Vascular checks completed, and findings discussed with vascular surgeon. Patient eating well, compliant with
plan of care. Patient out of bed to commode once this shift with no weight bearing to right lower extremity. Wound care completred with wound care team. Sacral wound dressed and assessed.
--- NOTE | 2024-02-14 13:49 | W.PN.HOSP.TC ---
Today's Communication/Plan
-
Monitor vital signs see plan
Continue antibiotics
N.p.o. for OR tomorrow by vascular
IV heparin
Assessment / Plan
Assessment / Plan
83 yo F with PMH significant for ASCVD, hypertension and prior stroke; who presented to complaining of R > L LE pain. Patient notes that she has been having pain in the RLE since October. Her pain has steadily increased over time. She had
extensive evaluation ultimately revealing significant PAD in the RLE > LLE. Patient was scheduled for RLE angio on 02/17/23.
Unfortunately, her pain has continued to increase and became quite unbearable, prompting her to present to the ED
Patient states that she has chronic incontinence of bowel and bladder which she attributes to prior history of cervical cancer / XRT.
A/P:
# ASCVD
# PAD
# Critical Limb Ischemia of the RLE > LLE
Supportive care with pain control, etc.
IV heparin infusion.
Vascular Surgery evaluation - probable earlier revascularization procedure.
Pt is medically optimized and stable for urgent procedure. Benefits of procedure outweighs risks.
Follow for clinical improvement.
Continue current CV medications including ASA, statin, etc.
Wound Care eval for R foot wound / local care.
Cover with IV abx Zosyn for now.
Avoid hypotension.
# Normocytic Anemia
Progressed from baseline of 12 g/dl a few months ago to now 9 g/dL.
Unclear etiology of worsened anemia.
Follow H&H and consider transfusion if needed.
# Urinary Retention
# Left Hydronephrosis
# Note prior h/o hysterectomy and XRT.
Suspected UTI, continue antibiotics. Urine culture with E. coli
Patient with urinary incontinence for some time.
? chronic urinary retention with overflow incontinence.
Placed Neal on admission for bladder decompression. Begin tamsulosin.
Urology evaluation for additional recommendations.
# Benign Hypertension, Stable.
Hold BP meds acutely to avoid hypotension.
# Hypothyroidism, Stable.
Continue T4 replacement.
Prolonged QTc
Monitor
# Mild Hyponatremia
# Mild Hypokalemia
Hold further IVF with BL LE edema
[employer]MENT REPA[employer]ER Lasix on hold, consider resuming sooner than later.
follow labs / lytes for improvement.
DVT Prophylaxis: On IV Heparin
Code Status: Full
General: Well Developed, Well Nourished, No Apparent Distress, Comfortable and Conversant
HEENT: Normocephalic, Atraumatic, Nose Appears Normal, Ears Appear Normal and Oxygen (2L NC)
Respiratory: Clear to Auscultation and Non Labored Respirations; Negative Accessory Resp Muscle Use
Cardiac: Regular Rhythm and S1/S2
GI: Soft, Nontender, Nondistended and Normal Bowel Sounds
Musculoskeletal: Edema, Right Lower Extrem and Edema, Left Lower Extrem
Skin: Warm, Dry and Lesions (R LE )
Neuro: Awake and Alert
Psych: Calm and Intact Judgement/Insight
I spent a total of 52 minutes with the patient or on the floor. More than 50% of this time involved counseling and coordination of care.
Anticipated Discharge: > 48 hours
Subjective/Interval History
-
Date of Service: February 14, 2024
denies nausea
Objective Data
-
Labs:
Laboratory Results
02/14/24 02/14/24
05:29 13:19
WBC 10.8
Hgb 9.8 L
Hct 28.7 L
Plt Count 325
APTT 55.4 H Pending
Sodium 135
Potassium 3.7
Chloride 105
Carbon Dioxide 22
BUN 16
Creatinine 0.7
Glucose 102 H
Calcium 7.7 L
Vital Signs:
Vital Signs
Temp Pulse Resp BP Pulse Ox
97.9 F 70 12 139/99 96
02/14/24 07:45 02/14/24 12:00 02/14/24 12:00 02/14/24 12:00 02/14/24 10:42
I&O
02/13/24 02/14/24 02/15/24
06:59 06:59 06:59
Output Total 500 / 500
Balance -500 / -500
[2024-02-14 13:50] LABS: APTT 62.3 Sec (23.4-35.0)
--- NOTE | 2024-02-14 15:08 | PTCARENOTE ---
Patient had an episode of sinus tach. Patient is asymptomatic and is now in Normal sinus with PVCs. Notified Dr. Lozano.
[2024-02-14] MEDS: KCL 40 MEQ PO (15:23)
--- NOTE | 2024-02-14 15:42 | W.PN.URO.CBU ---
Today's Communication / Plan
-
- Maintain Neal catheter pending surgical intervention 02/14
- Recommend voiding trial w/n 24-48 hrs post-op once OOB/ambulatory
- Patient offered CIC teaching vs. baseline volitional voiding prior to discharge
- F/U w/ Dr. Nguyễn as outpatient - VUDS advised for bladder function study
Urology signing off - please TT w/ questions.
D/w patient and family in room.
Assessment / Plan
-
Bilateral hydroureter
Urinary retention
Overflow incontinence
Suspect underlying neurogenic bladder dysfunction contributing to chronic overflow incontinence and bilateral reflux.
Cr WNL - no renal compromise noted.
Notes chronic bladder and bowel incontinence.
Diagnosis
-
Date of Service: February 14, 2024
-
Patient Diagnosis:
Bilateral hydroureter
Urinary retention
Overflow incontinence
Subjective
-
Neal catheter w/ clear yellow UOP.
Patient comfortable w/o complaints.
Objective
-
Vital Signs
Temp Pulse Resp BP Pulse Ox
97.9 F 78 19 103/59 96
02/14/24 07:45 02/14/24 14:52 02/14/24 14:52 02/14/24 14:52 02/14/24 14:52
Intake and Output
02/13/24 02/14/24 02/15/24
06:59 06:59 06:59
Output Total 500 / 500
Balance -500 / -500
Output:
Urine, Neal 500 / 500
Laboratory Results
02/14/24 05:29
02/14/24 05:29
Physical Exam
-
General - well developed, well nourished, no acute distress
Abdomen - soft, non-tender, non-distended
- Neal catheter w/ clear yellow UOP
Skin - warm & dry with no rash
Neuro - AOx3, no motor deficits
Care Review
Data Reviewed
Discussed with: Hospitalist and Family
CT Scan: Report Pers Reviewed and Image Pers Reviewed
Total Time Spent with Patient (in minutes): 35
--- NOTE | 2024-02-14 15:52 | CM ---
CM met with pt, spouse and dtr bedside
Pt and spouse reside in [place] with dtr, KAREN and 23 y/o granddtr
[place] with 2 SHARLA, stair glide
Pt is indep with her ADLs with use of a WW, has quad cane as well
Supervision is provided while bathing
Denies financial insecurities
PCP- Priscila Ramirez
Rx- Cole Almanza
Plan for OR tomorrow with vascular surgery
Will likely benefit from post op PT/OT
Pt has a script for wheelchair provided by PCP
Would like assistance for setting up wheelchair on dc
Pt does not have POAs or advanced directives
Packet provided and she will complete
Pt would like dtr Kip Broadwater to be primary contact [phone]
Discharge Disposition- anticipate home with VN and new wheelchair, watch for higher needs
[2024-02-14] MEDS: MAGNESIUM SULFATE 50 IV (15:58)
[2024-02-14 21:20] LABS: APTT 133.5 Sec (23.4-35.0)
[2024-02-15] VITALS (28 sets, daily range): BP systolic 90–158; BP diastolic 50–90; BMI 18.8
--- NOTE | 2024-02-15 00:12 | PTCARENOTE ---
Patient AOx3, NSR on monitor. Q4 neurovascular checks completed. Patient is NPO due to scheduled surgery in AM. Heparin gtt held for 1 hour decreased to 9 per ptt assessment and heparin order. Neal in place draining yellow urine. Patient resting in
bed with call harper in reach, care ongoing.
[2024-02-15] MEDS: ZOSYN 50 IV ×4 (03:54→22:13)
[2024-02-15] MEDS: PERIDEX 0.12% ORAL RINSE 15 ML PO (05:40)
[2024-02-15] MEDS: SYNTHROID 88 MCG PO (05:40)
[2024-02-15] MEDS: BACTROBAN 2% OINTMENT 1 APPLIC NASAL (05:40)
[2024-02-15 06:32] LABS: Hematocrit 28.4 % (37.0-47.0); Hemoglobin 9.6 g/dL (12.0-16.0); Mean Corp Hgb Conc. 33.8 g/dL (33.0-37.0); Mean Corpuscular Hgb 32.4 pg (27.0-31.0); Mean Corpuscular Volume 95.9 fL (81.0-99.0); Mean Platelet Volume 9.5 fL (7.4-10.4); Platelet Count 377 10^3/uL (130-400); Red Blood Cell Count 2.96 10^6/uL (4.20-5.40); Red Cell Dist. Width 14.2 % (11.5-14.5); White Blood Cell Count 11.3 10^3/uL (4.8-10.8)
[2024-02-15 06:36] LABS: INR 1.09; PT 14.6 Sec (11.4-14.6)
[2024-02-15 06:38] LABS: APTT 103.5 Sec (23.4-35.0)
[2024-02-15 06:48] LABS: Blood Urea Nitrogen 11 mg/dl (7-17); Carbon Dioxide 24 mmol/L (22-30); Chloride 103 mmol/L (98-107); Estimated Creatinine Clearance 45 ml/min; Glucose 101 mg/dl (70-99); Potassium 4.5 mmol/L (3.5-5.1); Sodium 136 mmol/L (135-145); eGFR > 60.00
--- NOTE | 2024-02-15 07:26 | PTCARENOTE ---
Patient taken to OR by vascular team prior to patient report; did not meet or assess patient prior to transfer. Prior RN d/c'd heparin before sent to OR.
--- NOTE | 2024-02-15 07:33 | W.SUR.PREOP ---
Pre-Operative Surgical Note
-
I have examined this patient prior to the performance of the scheduled procedure.
The patient's condition is unchanged from the time of the current History and
Physical and the patient is able to undergo the scheduled procedure.
[2024-02-15 08:38] LABS: ACT-LR - POC 168 Seconds (116-155)
[2024-02-15 08:48] LABS: ACT-LR - POC 258 Seconds (116-155)
[2024-02-15 09:46] LABS: ACT-LR - POC 227 Seconds (116-155)
--- NOTE | 2024-02-15 10:21 | W.SUR.POST ---
Surgical Immediate Post Op
Note
Pre Op Diagnosis: Critical limb ischemia
Post Op Diagnosis: same
Procedure Performed: Right femoral endarterectomy with bovine pericardial patch angioplasty, on table angiogram via patch puncture, DCB proximal SFA
Primary Surgeon: Ángel
Assist: Nayely DIAZ
Anesthesia: General
Estimated Blood Loss: 50cc
Fluids: See anesthesia flow sheet
Drains/Shunts: none
Specimens/Cultures: R femoral plaque
Doppler/Duplex/Angio (Y/N): Y
Complications: none
Operative Findings: Palp Right DP pulse
[2024-02-15 10:59] LABS: Hematocrit 26.5 % (37.0-47.0); Hemoglobin 8.6 g/dL (12.0-16.0); Mean Corp Hgb Conc. 32.5 g/dL (33.0-37.0); Mean Corpuscular Hgb 32.6 pg (27.0-31.0); Mean Corpuscular Volume 100.4 fL (81.0-99.0); Mean Platelet Volume 9.2 fL (7.4-10.4); Platelet Count 341 10^3/uL (130-400); Red Blood Cell Count 2.64 10^6/uL (4.20-5.40); Red Cell Dist. Width 14.5 % (11.5-14.5); White Blood Cell Count 8.7 10^3/uL (4.8-10.8)
[2024-02-15 11:09] LABS: INR 1.22; PT 15.9 Sec (11.4-14.6)
[2024-02-15 11:11] LABS: APTT 39.4 Sec (23.4-35.0)
[2024-02-15 11:16] LABS: Blood Urea Nitrogen 9 mg/dl (7-17); Calcium 7.4 mg/dl (8.4-10.2); Carbon Dioxide 25 mmol/L (22-30); Chloride 105 mmol/L (98-107); Estimated Creatinine Clearance 52 ml/min; Glucose 112 mg/dl (70-99); Sodium 136 mmol/L (135-145); eGFR > 60.00
[2024-02-15] MEDS: LOW STRENGTH ASPIRIN 81 MG PO (11:27)
[2024-02-15] MEDS: PLAVIX 300 MG PO (11:27)
--- NOTE | 2024-02-15 11:38 | OR.RPT ---
Operative Report
Operative Report
Date of Operation: 02/15/2024
Pre Op Diagnosis: Acute on chronic limb threatening ischemia, right lower extremity with ischemic rest pain and dry gangrene of the foot
Post Op Diagnosis: Acute on chronic limb threatening ischemia, right lower extremity with ischemic rest pain and dry gangrene of the foot
Procedure:
1. Right common femoral endarterectomy with patch angioplasty using bovine pericardium
2. Drug-coated balloon angioplasty of right superficial femoral artery (5 mm x 80 mm Lutonix)
3. Right lower extremity arteriogram
Surgeon: Yury Neal III, MD
Extrusion Operator: JOE Quintero (Assisted with incision, exposure, endarterectomy, patch repair, closure)
Anesthesia: General
Complications: None
Estimated Blood Loss: 50 cc
History and Indications for Procedure: 83-year-old female with acute on chronic limb threatening ischemia of the right lower extremity manifested by severe ischemic rest pain and dry gangrenous wounds on the plantar surface of the foot.
Procedure in Detail: Amado Calle was correctly identified and placed supine on the operating table. After adequate induction of anesthesia her abdomen, pelvis, bilateral groins and right lower extremity circumferentially were prepped and draped
in the usual sterile fashion. She received preoperative antibiotics. A timeout procedure was performed with the nursing and anesthesia staff confirming the patient's identity as well as the nature and laterality of the procedure.
I made a vertical incision in the right groin. Electrocautery and sharp dissection were used to expose the right common femoral artery. Lymphatics were divided between silk ties. Dissection continued under the inguinal ligament to the distal
external iliac artery. This was encircled with a vessel loop. There was eggshell type calcification of the distal external iliac artery however I felt this was suitable for gentle clamping. The right common femoral artery was densely calcified
and occluded on the preoperative CT angiogram. Dissection was carried distally towards the femoral bifurcation which was also densely calcified. I continued dissection along the proximal superficial femoral artery and obtained a soft spot distal
to the calcified plaque and this was encircled with a vessel loop. The profunda femoral artery was soft and encircled with a vessel loop.
Systemic heparin was administered. The distal vessel loops were secured. A Derra clamp was applied to the distal external iliac artery. I used an 11 blade to make an arteriotomy in the soft area of the proximal superficial femoral artery. This
was extended proximally across the femoral bifurcation and common femoral artery with Brunson scissors. I ended the arteriotomy at the distal external iliac artery at the inguinal ligament. An endarterectomy was performed in the standard fashion
with a [place] elevator. The endarterectomy was carried onto the proximal superficial femoral artery. The distal endpoint in the proximal superficial femoral artery feathered with a slight distal intimal flap. This was tacked down with a single 6-0
Prolene along the posterior wall. The calcified plaque was completely removed from the common femoral artery. Additional plaque elements were removed with forceps and hemostat from the distal external iliac artery. The lumen of the distal
external iliac artery was widely patent. The endarterectomy plane was irrigated with heparinized saline solution. Any loose fronds of tissue and debris were removed. The profunda femoral artery origin was patent and free of plaque. The
superficial femoral artery and profunda femoral artery were allowed to back bleed and were individually flushed with heparinized saline solution. A precut piece of bovine pericardium was brought onto the field and sewn as a patch angioplasty with a
running 6-0 Prolene suture. Prior to the completion of the anastomosis the proximal clamp was temporarily released and allowed to forward bleed. The distal vessel loops similarly were temporarily released and allowed to backbleed. The area under
the anastomosis was flushed with heparinized saline to remove any potential thrombus or debris. The anastomosis was completed. The proximal clamp and distal vessel loops were released. There was a strong pulse in the common femoral artery,
proximal profunda femoral artery and proximal superficial femoral artery. The suture line was closely inspected for hemostasis which was achieved.
I then punctured the patch in an antegrade direction with a micropuncture needle. The wire was advanced under radiographic guidance down the superficial femoral artery. I then upsized to a 5 [place] sheath. A lower extremity arteriogram was
performed which demonstrated a moderate to high-grade stenosis in the proximal superficial femoral artery. The mid and distal superficial femoral artery were widely patent. The popliteal artery was widely patent. Tibial artery runoff was via the
anterior tibial and peroneal arteries predominantly. The posterior tibial artery was patent but flow lagged behind. At the ankle the peroneal artery reconstituted the posterior tibial artery via a very large robust posterior collateral. The
anterior tibial artery continued across the ankle to form the dorsalis pedis artery.
Under roadmap guidance and over the Zinioson wire I positioned a 5 mm x 80 mm Lutonix drug-coated balloon in the proximal superficial femoral artery. This was inflated to nominal pressure in the desired location and left in place for 3 minutes. I
slowly deflated the balloon and removed it over the wire. A completion arteriogram demonstrated an excellent technical result with a widely patent superficial femoral artery, brisk flow and no residual stenosis identified. Satisfied with this
result I then remove the wire and 5 [place] sheath. The patch puncture site was repaired with a 5-0 Prolene suture. Hemostasis was achieved.
Protamine was administered. The suture lines were both inspected for hemostasis. The wound was irrigated with saline solution. Hemostasis was achieved in the wound bed. The wound was then closed in layers and a sterile KAYA dressing was applied.
The patient tolerated the procedure well was taken to the recovery room in good condition.
Attestation: I was present and responsible for the entire procedure
Signed:
Yury Neal III, MD
[facility] Vascular Surgery
[phone] (rrbl)
[2024-02-15] MEDS: NSS 1000 IV (12:48)
--- NOTE | 2024-02-15 13:10 | CON.INTV ---
Consultation
Consultation Request
Date/Time Consultation Requested: 02/15/2024
Date/Time Consultation Performed: 02/15/2024
Requesting Provider: Dr. Neal
Performing Provider: Dr. Andrew Huang
Reason for Consultation: Status post right common femoral endarterectomy with patch angioplasty.
Medical History
-
History of Present Illness:
83-year-old female with history of atherosclerosis cardiovascular disease, peripheral arterial disease, hypertension, prior history of CVA. Came to [facility] initially complaining of bilateral lower extremity pain right greater than left.
Pain on lower extremities in October. Evaluation revealed significant peripheral arterial disease. Pain continued to increase, unable to ambulate properly.
Subsequently during this hospital stay evaluated by vascular surgery. He was deemed candidate for revascularization.
Procedure underwent on 02/15/2024. Transferred to the critical care unit for further care.
Currently she denies any complaints
Ordering lunch
Denies any pain
Past Medical History
Past Medical History: Other (See assessment and plan)
Social History
Tobacco: Non-smoker
Alcohol: None
Drug: None
Family History
Family History: Reviewed & Not Pertinent
Allergies / Home Medications
Allergies
Allergy/AdvReac Type Severity Reaction Status Date / Time
alendronate sodium Allergy Severe Verified 02/12/24 17:09
[From Fosamax] abdominal
pain
pollen extracts Allergy seasonal Verified 02/12/24 17:09
allergies
Home Medications
�Medication �Instructions �Recorded �Confirmed �Last Taken �Type
losartan 50 mg tablet 50 mg PO DAILY Blood pressure 12/04/21 02/13/24 02/12/24 History
atorvastatin 40 mg tablet (Lipitor) 40 mg PO DAILY #30 tabs 12/05/21 02/13/24 02/12/24 Rx
colestipol 1 gram tablet 2 g PO BID High Cholesterol 08/06/23 02/13/24 02/12/24 History
furosemide 20 mg tablet (Lasix) 20 mg PO DAILY #7 tabs 01/24/24 02/13/24 02/12/24 Rx
calcium carbonate (Calcium 600) 600 mg PO DAILY Supplement 02/08/24 02/08/24 Unknown History
cyanocobalamin (vitamin B-12) 1,000 mcg PO DAILY Supplement 02/08/24 02/08/24 Unknown History
1,000 mcg tablet,extended release
(Vitamin B-12 ER)
docusate sodium 100 mg capsule 100 mg PO DAILY Constipation 02/08/24 02/08/24 Unknown History
(Colace)
multivitamin with minerals-folic 1 tab PO DAILY Supplement 02/08/24 02/08/24 Unknown History
acid 80 mcg chewable tablet
(Centrum Adult 50 Plus)
omega 7-rsy-kze-fish oil 1,200 mg 1 cap PO DAILY Supplement 02/08/24 02/08/24 Unknown History
(144 mg-216 mg) capsule (Fish Oil)
oxycodone 5 mg tablet 5 mg PO TIDPRN PRN severe pain 02/08/24 02/08/24 Unknown History
levothyroxine 88 mcg tablet 88 mcg PO DAILY Thyroid 02/13/24 02/13/24 02/12/24 History
(Synthroid) 75 mcg
Review of Systems
Vitals / Labs / Diagnostic Testing
Vital Signs
Temp Pulse Resp BP Pulse Ox
98.4 F 52 16 121/56 99
02/15/24 12:45 02/15/24 12:45 02/15/24 12:45 02/15/24 12:45 02/15/24 12:45
Lab Data
02/15/24 10:49
02/15/24 10:49
Laboratory Results
02/14/24 02/14/24 02/15/24
13:19 20:58 06:01
PT 14.6
INR 1.09
APTT 62.3 H 133.5 H 103.5 H
02/15/24
10:49
PT 15.9 H
INR 1.22
APTT 39.4 H
Microbiology
02/13/24 13:20 Urine Urine Culture - Final
Escherichia coli
Diagnostic Testing:
Physical Exam
-
HEENT: Normocephalic
Cardiovascular: S1/S2
Respiratory: Non-Labored Respirations
GI: Soft and Non Distended
Neurology: Awake, Alert, AO x 3 and No Motor Deficits
Skin: Other (Both extremities are warm.) and Other (No incisional hematoma)
General: Comfortable
Assessment
-
83-year-old woman admitted with lower extremity pain. Found to have peripheral arterial disease. Also found to have urinary tract infection with hydronephrosis. Treated with antibiotics and optimized. Vascular evaluated patient and recommended
revascularization. Underwent right common femoral endarterectomy with patch angioplasty that underwent on 02/15/2024. Transferred to the critical care unit postoperatively per further care
Status post: 02/15/2024-Dr. Neal
Right common femoral endarterectomy with patch angioplasty using bovine pericardium
Drug-coated balloon angioplasty of right superficial femoral artery
Urinary retention with left hydronephrosis
Conditions present prior admission:
Peripheral arterial disease with critical limb ischemia right greater than left lower extremity
History of hysterectomy with XRT
Hypertension
Hypothyroidism
Polyneuropathy
History of cervical cancer status post hysterectomy and XRT
implantable loop recorder
Left wrist ORIF in the past
Assessment and plan:
Postoperative surgical intensive care unit monitoring
Supplemental oxygen as needed
Incentive spirometry
Aspiration precautions
Nebulizers if needed-currently not bronchospastic
Chest x-ray 11/21/18 reviewed-small right pleural effusion
Neuro and vascular checks per protocol
Groin without hematoma
Extremities are warm
Vascular surgery following-correspondence and operative notes reviewed
Continue hemodynamic monitoring
Follow hemoglobin-chronic anemia stable.
Follow renal function
Follow blood sugars target 1040-180 while in hospital.
Insulin supplementation as needed
E. coli UTI: On Zosyn per primary team-afebrile/leukocytosis resolved
Urinary incontinence: Neal in place per urology
Eventual voiding trial in the next 24 to 48 hours
Outpatient follow-up recommended
Gentle IV fluids for today.
Advance diet
DVT prophylaxis
Early nutrition
Early mobilization
--- NOTE | 2024-02-15 13:45 | PTCARENOTE ---
pt received from pacu. aaox3. states no pain or sob. room air breath sounds clear. ivf running as ordered. right groin site with peco drain intact. no swelling noted. right pulses present as documented. foot red. cap refill <2. reviewed pt
condition and plan of care. right heel dressing in place.
--- NOTE | 2024-02-15 13:49 | W.PN.HOSP.TC ---
Today's Communication/Plan
-
Monitor vital signs see plan
Continue with antibiotics for now
Maintain Neal for now
Vascular checks
Assessment / Plan
Assessment / Plan
83 yo F with PMH significant for ASCVD, hypertension and prior stroke; who presented to complaining of R > L LE pain. Patient notes that she has been having pain in the RLE since October. Her pain has steadily increased over time. She had
extensive evaluation ultimately revealing significant PAD in the RLE > LLE. Patient was scheduled for RLE angio on 02/17/23.
Unfortunately, her pain has continued to increase and became quite unbearable, prompting her to present to the ED
Patient states that she has chronic incontinence of bowel and bladder which she attributes to prior history of cervical cancer / XRT.
A/P:
# ASCVD
# PAD
# Critical Limb Ischemia of the RLE > LLE
Supportive care with pain control, etc.
IV heparin infusion.
Vascular Surgery following, status post right common femoral enterectomy 02/14. Postop transferred to ICU for frequent vascular monitoring.
Follow for clinical improvement.
Continue current CV medications including ASA, statin, etc.
Wound Care eval for R foot wound / local care.
Cover with IV abx Zosyn for now.
Avoid hypotension.
# Normocytic Anemia
Progressed from baseline of 12 g/dl a few months ago to now 9 g/dL.
Unclear etiology of worsened anemia.
Follow H&H and consider transfusion if needed.
# Urinary Retention
# Left Hydronephrosis
# Note prior h/o hysterectomy and XRT.
Suspected UTI, continue antibiotics. Urine culture with E. coli
Patient with urinary incontinence for some time.
? chronic urinary retention with overflow incontinence.
Placed Neal on admission for bladder decompression. Begin tamsulosin.
Urology following, patient will follow-up with them outpatient. Voiding trial once ambulatory
# Benign Hypertension, Stable.
Hold BP meds acutely to avoid hypotension.
# Hypothyroidism, Stable.
Continue T4 replacement.
Prolonged QTc
Monitor
# Mild Hyponatremia
# Mild Hypokalemia
Hold further IVF with BL LE edema
TRAFFIC II MANAGER Lasix on hold, consider resuming sooner than later.
follow labs / lytes for improvement.
DVT Prophylaxis: On IV Heparin
Code Status: Full
General: Well Developed, Well Nourished, No Apparent Distress, Comfortable and Conversant
HEENT: Normocephalic, Atraumatic, Nose Appears Normal, Ears Appear Normal and Oxygen (2L NC)
Respiratory: Clear to Auscultation and Non Labored Respirations; Negative Accessory Resp Muscle Use
Cardiac: Regular Rhythm and S1/S2
GI: Soft, Nontender, Nondistended and Normal Bowel Sounds
Musculoskeletal: Edema, Right Lower Extrem and Edema, Left Lower Extrem
Skin: Warm, Dry and Lesions (R LE )
Neuro: Awake and Alert
Psych: Calm and Intact Judgement/Insight
I spent a total of 51 minutes with the patient or on the floor. More than 50% of this time involved counseling and coordination of care.
Anticipated Discharge: > 48 hours
Subjective/Interval History
-
Date of Service: February 15, 2024
denies pain
Objective Data
-
Labs:
Laboratory Results
02/15/24 02/15/24 02/15/24
06:01 10:49 13:00
WBC 11.3 H 8.7
Hgb 9.6 L 8.6 L
Hct 28.4 L 26.5 L
Plt Count 377 341
PT 14.6 15.9 H
INR 1.09 1.22
APTT 103.5 H 39.4 H Pending
Sodium 136 136
Potassium 4.5 4.0
Chloride 103 105
Carbon Dioxide 24 25
BUN 11 9
Creatinine 0.7 0.6
Glucose 101 H 112 H
Calcium 8.0 L 7.4 L
Vital Signs:
Vital Signs
Temp Pulse Resp BP Pulse Ox
98.4 F 52 16 116/63 98
02/15/24 12:45 02/15/24 12:45 02/15/24 12:45 02/15/24 13:08 02/15/24 13:08
I&O
02/14/24 02/15/24 02/16/24
06:59 06:59 06:59
Intake Total 200 / 200
Output Total 500 / 500 700 / 700 2675 / 2675
Balance -500 / -500 -700 / -700 -2475 / -8385
[2024-02-15] MEDS: FLOMAX PO (15:38)
[2024-02-15] MEDS: LIPITOR PO (15:38)
[2024-02-15] MEDS: ROXICODONE 5 MG PO (15:41)
--- NOTE | 2024-02-15 18:57 | PTCARENOTE ---
can verify accuracy of vs starting at this time for shift.
--- NOTE | 2024-02-15 19:30 | PTCARENOTE ---
aquarium specialist, pt aaox3, pain tolerable at this time per pt, SB HR 50s, IV x 3 WNL. Neal WNL. KFlahertyNP aware of pt's SBPs prev few reads- pt for 500cc NSS bolus and 1u PRBC per covering vasc MD. POC discussed w/pt, call harper in reach.
[2024-02-15] MEDS: NSS 500 IV (19:42)
--- NOTE | 2024-02-15 20:00 | W.PN.UPDATE ---
Update Note
Progress Note Update
02/15/24
1929- Patient hypotensive sustained 90s SBP. Dr. Mooney, vascular surgeon called and updated, recommendations received: 500cc NSS bolus x1 and PRBC x1 (hgb 8.6 from 9.6). Orders placed and RN updated.
[2024-02-16] VITALS (18 sets, daily range): BP systolic 97–136; BP diastolic 52–101; BMI 19.8
--- NOTE | 2024-02-16 | PTCARENOTE ---
pt resting with eyes closed, no changes in assessment.
[2024-02-16] MEDS: ROXICODONE 5 MG PO ×3 (01:42→20:15)
[2024-02-16] MEDS: NSS 1000 IV (03:29)
[2024-02-16] MEDS: ZOSYN 50 IV ×4 (03:29→22:24)
[2024-02-16 04:04] LABS: Hematocrit 29.9 % (37.0-47.0); Hemoglobin 9.9 g/dL (12.0-16.0); Mean Corp Hgb Conc. 33.1 g/dL (33.0-37.0); Mean Corpuscular Hgb 32.1 pg (27.0-31.0); Mean Corpuscular Volume 97.1 fL (81.0-99.0); Mean Platelet Volume 9.6 fL (7.4-10.4); Platelet Count 335 10^3/uL (130-400); Red Blood Cell Count 3.08 10^6/uL (4.20-5.40); Red Cell Dist. Width 16.3 % (11.5-14.5); White Blood Cell Count 8.9 10^3/uL (4.8-10.8)
[2024-02-16 04:25] LABS: APTT 35.4 Sec (23.4-35.0); PT 14.7 Sec (11.4-14.6)
[2024-02-16 04:28] LABS: Blood Urea Nitrogen 14 mg/dl (7-17); Calcium 7.2 mg/dl (8.4-10.2); Carbon Dioxide 23 mmol/L (22-30); Chloride 105 mmol/L (98-107); Estimated Creatinine Clearance 47 ml/min; Glucose 91 mg/dl (70-99); Potassium 4.4 mmol/L (3.5-5.1); Sodium 134 mmol/L (135-145); eGFR > 60.00
[2024-02-16] MEDS: SYNTHROID 88 MCG PO (06:12)
--- NOTE | 2024-02-16 07:28 | W.PN.VS ---
Today's Communication / Plan
-
heplock ivf
downgrade to tele
increase ambulation today
Assessment/Plan
-
Assessment: 83-year-old female with PAD admitted for worsening of chronic limb threatening ischemia and rest pain
underwent Right fem endart
Plan:
doing well
vitals stable
hgb responded to transfusion
looks great overall
oob and ambulate
heplock ivf today
po meds
ok to downgrade to tele
Subjective Data
-
Date of Service: February 16, 2024
Patient doing well
no complaints
pain controlled
Objective Data
-
Vital Signs
Temp Pulse Resp BP Pulse Ox
97.7 F 52 9 112/54 98
02/16/24 03:00 02/16/24 06:00 02/16/24 06:00 02/16/24 06:00 02/16/24 06:00
Intake and Output
02/15/24 02/16/24 02/17/24
06:59 06:59 06:59
Intake Total 2420 / 2420
Output Total 700 / 700 3400 / 3400
Balance -700 / -700 -980 / -980
Intake:
Oral fluids 480 / 480
IV fluids (Total) 1640 / 1640
Normosol 200 / 200
Nss 1,000 ml @ 80 mls/hr IV . 1440 / 1440
[id number] JOSE DE JESUS Rx#:[id number]
IV piggybacks 50 / 50
Blood Product Amount Infused ( 250 / 250
mL)
Packed Rbc Leukoreduced Unit 250 / 250
[id number]
Output:
Urine, Neal 700 / 700 3125 / 3125
Urine, Voided 275 / 275
Lab Results
02/16/24 03:46
02/16/24 03:46
Calcium 7.2 mg/dl (8.4-10.2) L 02/16/24 03:46
Magnesium 1.8 mg/dl (1.6-2.3) 02/14/24 05:29
Total Bilirubin 1.0 mg/dl (0.2-1.3) 02/12/24 21:10
AST 64 U/L (14-36) H 02/12/24 21:10
ALT 32 U/L (0-35) 02/12/24 21:10
Alkaline Phosphatase 93 U/L (38-126) 02/12/24 21:10
Total Protein 5.8 g/dl (6.3-8.2) L 02/12/24 21:10
Albumin 3.0 g/dl (3.5-5.0) L 02/12/24 21:10
Physical Exam
-
rrr
ctab
dressing intact
abd soft
minimal tenderness
+DP pulse
[2024-02-16] MEDS: PLAVIX 75 MG PO (07:45)
[2024-02-16] MEDS: LOW STRENGTH ASPIRIN 81 MG PO (07:45)
[2024-02-16] MEDS: LIPITOR 40 MG PO (07:45)
[2024-02-16] MEDS: FLOMAX 0.4 MG PO (07:45)
--- NOTE | 2024-02-16 08:17 | PTCARENOTE ---
pt aaox3. states min pain 2/10 in groin. does not want pain med at this time. groin site c/d/i. right foot pulses present. ivf capped as ordered.
--- NOTE | 2024-02-16 12:54 | W.PN.HOSP.TC ---
Today's Communication/Plan
-
Monitor vitals
See plan
Ambulation per vascular surgery
Transfer to telemetry
Continue antibiotics
Maintain Neal for now
Assessment / Plan
Assessment / Plan
83 yo F with PMH significant for ASCVD, hypertension and prior stroke; who presented to complaining of R > L LE pain. Patient notes that she has been having pain in the RLE since October. Her pain has steadily increased over time. She had
extensive evaluation ultimately revealing significant PAD in the RLE > LLE. Patient was scheduled for RLE angio on 02/17/23.
Unfortunately, her pain has continued to increase and became quite unbearable, prompting her to present to the ED
Patient states that she has chronic incontinence of bowel and bladder which she attributes to prior history of cervical cancer / XRT.
A/P:
# ASCVD
# PAD
# Critical Limb Ischemia of the RLE > LLE
Supportive care with pain control, etc.
IV heparin infusion.
Vascular Surgery following, status post right common femoral enterectomy 02/14. Postop transferred to ICU for frequent vascular monitoring.
Follow for clinical improvement.
Continue current CV medications including ASA, statin, etc.
Wound Care eval for R foot wound / local care.
Cover with IV abx Zosyn for now.
Avoid hypotension.
# Normocytic Anemia
Progressed from baseline of 12 g/dl a few months ago to now 9 g/dL.
Unclear etiology of worsened anemia.
Follow H&H and consider transfusion if needed.
# Urinary Retention
# Left Hydronephrosis
# Note prior h/o hysterectomy and XRT.
Suspected UTI, continue antibiotics. Urine culture with E. coli
Patient with urinary incontinence for some time.
? chronic urinary retention with overflow incontinence.
Placed Neal on admission for bladder decompression. Begin tamsulosin.
Urology following, patient will follow-up with them outpatient. Voiding trial once ambulatory
# Benign Hypertension, Stable.
Hold BP meds acutely to avoid hypotension.
# Hypothyroidism, Stable.
Continue T4 replacement.
Prolonged QTc
Monitor
# Mild Hyponatremia
# Mild Hypokalemia
Hold further IVF with BL LE edema
MONITORING MANAGER Lasix on hold, consider resuming sooner than later.
follow labs / lytes for improvement.
DVT Prophylaxis: On IV Heparin
Code Status: Full
General: Well Developed, Well Nourished, No Apparent Distress, Comfortable and Conversant
HEENT: Normocephalic, Atraumatic, Nose Appears Normal, Ears Appear Normal and Oxygen (2L NC)
Respiratory: Clear to Auscultation and Non Labored Respirations; Negative Accessory Resp Muscle Use
Cardiac: Regular Rhythm and S1/S2
GI: Soft, Nontender, Nondistended and Normal Bowel Sounds
Musculoskeletal: Edema, Right Lower Extrem and Edema, Left Lower Extrem
Skin: Warm, Dry and Lesions (R LE )
Neuro: Awake and Alert
Psych: Calm and Intact Judgement/Insight
Anticipated Discharge: > 48 hours
Subjective/Interval History
-
Date of Service: February 16, 2024
denies pain
Objective Data
-
Labs:
Laboratory Results
02/16/24
03:46
WBC 8.9
Hgb 9.9 L
Hct 29.9 L
Plt Count 335
PT 14.7 H
INR 1.10
APTT 35.4 H
Sodium 134 L
Potassium 4.4
Chloride 105
Carbon Dioxide 23
BUN 14
Creatinine 0.7
Glucose 91
Calcium 7.2 L
Vital Signs:
Vital Signs
Temp Pulse Resp BP Pulse Ox
97.9 F 61 14 129/71 96
02/16/24 11:00 02/16/24 12:01 02/16/24 12:01 02/16/24 12:01 02/16/24 12:01
I&O
02/15/24 02/16/24 02/17/24
06:59 06:59 06:59
Intake Total 2420 / 2500 330 / 330
Output Total 700 / 700 3400 / 3440 480 / 480
Balance -700 / -700 -980 / -940 -150 / -150
--- NOTE | 2024-02-16 13:13 | W.PN.INTV ---
Today's Communication / Plan
Recommendations
Continue with postoperative care
Antibiotic
Increase activity as able
Continue neurovascular checks
Telemetry phase
Sign off
Assessment
-
83-year-old woman admitted with lower extremity pain. Found to have peripheral arterial disease. Also found to have urinary tract infection with hydronephrosis. Treated with antibiotics and optimized. Vascular evaluated patient and recommended
revascularization. Underwent right common femoral endarterectomy with patch angioplasty that underwent on 02/15/2024. Transferred to the critical care unit postoperatively per further care
Status post: 02/15/2024-Dr. Neal
Right common femoral endarterectomy with patch angioplasty using bovine pericardium
Drug-coated balloon angioplasty of right superficial femoral artery
Urinary retention with left hydronephrosis
Conditions present prior admission:
Peripheral arterial disease with critical limb ischemia right greater than left lower extremity
History of hysterectomy with XRT
Hypertension
Hypothyroidism
Polyneuropathy
History of cervical cancer status post hysterectomy and XRT
implantable loop recorder
Left wrist ORIF in the past
Assessment and plan:
Postoperative day 1
Doing well
Hemodynamically stable
Pain is controlled
No hematoma on incision
Bilateral extremities are warm.
Neuro and vascular checks per protocol
Groin without hematoma
Extremities are warm
Vascular surgery following-correspondence and operative notes reviewed
Continue postoperative care
Patient doing well from the surgical perspective
Hemodynamically stable
Follow hemoglobin-chronic anemia stable.
Follow renal function
E. coli UTI: On Zosyn per primary team-afebrile/leukocytosis resolved
Urinary incontinence: Neal in place per urology
Eventual voiding trial in the next 24 to 48 hours
Outpatient follow-up recommended
Discontinue IV fluids
Tolerating diet
DVT prophylaxis
Critical care team will sign off.
Patient has been transferred to telemetry.
Please call pulmonary if any respiratory issues or
Subjective Dataa
Subjective Data
Date of Service:
Date of Service: February 16, 2024
Chief Complaint: Door Opener Follow Up (Status post right common femoral endarterectomy 02/15/2024)
Subjective:
No overnight events
Denies any pain
Denies shortness of breath
Tolerating diet
Review of Systems
Cardiopulmonary: Dyspnea (n) and Dyspnea on Exertion (n)
GI: Abdominal Pain (n)
Objective Data
Data Reviewed
Vital Signs / I&O / Oxygen:
Vital Signs
Temp Pulse Resp BP Pulse Ox
97.9 F 61 14 129/71 96
02/16/24 11:00 02/16/24 12:01 02/16/24 12:01 02/16/24 12:01 02/16/24 12:01
Intake and Output
02/15/24 02/16/24 02/17/24
06:59 06:59 06:59
Intake Total 2420 / 2500 330 / 330
Output Total 700 / 700 3400 / 3440 480 / 480
Balance -700 / -700 -980 / -940 -150 / -150
SaO2 96
Nasal Cannula flow liters per 2
minute
Physical Exam
General: Comfortable
HEENT: Normocephalic
Cardiovascular: S1-S2
Respiratory: Non-Labored Respirations
GI: Soft and Non Distended
Neurology: Awake, Alert and No Motor Deficits
Skin: Warm, Other (Both extremities are warm) and Other (Incision intact without hematoma)
Labs/Micro/Reports
Lab Data
02/16/24 03:46
02/16/24 03:46
Laboratory Results
02/15/24 02/16/24
13:00 03:46
PT 14.7 H
INR 1.10
APTT Cancelled 35.4 H
Microbiology
02/13/24 13:20 Urine Urine Culture - Final
Escherichia coli
--- NOTE | 2024-02-16 13:19 | PTCARENOTE ---
report given to 2s rn. pt transferred to floor on tele.
--- NOTE | 2024-02-16 18:24 | PTCARENOTE ---
No void since catheter removal. Bladder scan=50ml. Dr. Lozano aware.
[2024-02-16] MEDS: TYLENOL 650 MG PO (19:15)
[2024-02-17] VITALS (7 sets, daily range): BP systolic 93–139; BP diastolic 62–94; BMI 19.4
[2024-02-17] MEDS: ROXICODONE 5 MG PO ×2 (00:32→20:13)
[2024-02-17] MEDS: ZOSYN 50 IV ×4 (04:19→21:52)
[2024-02-17] MEDS: SYNTHROID 88 MCG PO (04:49)
--- NOTE | 2024-02-17 05:27 | PTCARENOTE ---
Pt with urinary retention. CAFETERIA SUPERVISOR notified. bladder scan 950cc and initial st cath done at 2045 for 1100cc, bladder scan done again at 0430 825cc, CAFETERIA SUPERVISOR notified and 14 fr rice placed with output of 750cc yellow urine
[2024-02-17 07:45] LABS: Hematocrit 33.3 % (37.0-47.0); Hemoglobin 10.9 g/dL (12.0-16.0); Mean Corp Hgb Conc. 32.7 g/dL (33.0-37.0); Mean Corpuscular Hgb 31.3 pg (27.0-31.0); Mean Corpuscular Volume 95.7 fL (81.0-99.0); Mean Platelet Volume 9.3 fL (7.4-10.4); Platelet Count 391 10^3/uL (130-400); Red Blood Cell Count 3.48 10^6/uL (4.20-5.40); Red Cell Dist. Width 16.1 % (11.5-14.5); White Blood Cell Count 8.3 10^3/uL (4.8-10.8)
[2024-02-17] MEDS: LOW STRENGTH ASPIRIN 81 MG PO (08:06)
[2024-02-17] MEDS: PLAVIX 75 MG PO (08:06)
[2024-02-17] MEDS: LIPITOR 40 MG PO (08:06)
[2024-02-17] MEDS: FLOMAX 0.4 MG PO (08:06)
[2024-02-17 09:20] LABS: Hematocrit 32.9 % (37.0-47.0); Hemoglobin 10.7 g/dL (12.0-16.0)
--- NOTE | 2024-02-17 09:30 | CON.GI ---
Addendum entered and electronically signed by Rubi Bryant DO 02/17/24 14:10:
Patient seen and examined independently of the PETAL CUTTER. I agree with her note with my additions below
Caro is an 83-year-old female with history of endometrial cancer status post hysterectomy and radiation years ago, CVA, peripheral arterial disease admitted with right lower extremity pain underwent right common femoral endarterectomy with patch
angioplasty who had a Plavix load on 1231 with continuation of aspirin and Plavix daily. Also on antibiotics for an E. coli UTI. Today, 02/17/24 GI was asked to see her for hemodynamically stable rectal bleeding with passage of bright red blood with
clots. Her hemoglobin has been stable in the tens. Her last colonoscopy was in 2012. She is followed as an outpatient with Dr. Diaz for erratic bowel habits with alternating diarrhea and constipation. Also prior imaging showed a 1.2 cm
pancreatic tail cyst.
Currently she is in no acute distress. She is not in pain other than expected discomfort at the right femoral groin surgery. No prior GI bleeding.
She did get 1 unit of blood postop and her hemoglobin has been stable at 10. Postop it was 8.6 then given 1 unit and she has been in the tens since.
She underwent CT angio today which showed a suspected ' small' GI bleed in the sigmoid colon.
I did discuss this with interventional radiology with Dr. Esquivel. They would be unable to use the right groin of course since surgery. Her left femoral vasculature does not look amendable either. Her ANTWAN looks stenotic. If she became unstable
and there were no other options he would attempt it but would not be optimistic about success. She is stable so will not go that route.
I also discussed with vascular surgery, Dr. Rice who is okay for holding her Plavix and continuing the aspirin. He is also okay if she is on her left lateral side for colonoscopy.
I discussed with the patient potentially giving her an enema now and taking her for emergent sigmoidoscopy and trying to find the lesion versus prepping her since she is stable and proceeding for colonoscopy tomorrow.
Our discussion led to prepping her and going for colonoscopy tomorrow.
Clear liquid diet, MiraLAX Gatorade prep. Potentially enema in the morning depending on her prep. Monitor her hemoglobin every 6 hours and moved to IMU for monitoring. Ensure she has 2 IV access.
Type and screen is good from surgery.
Original Note:
Consultation
-
Date/Time Consultation Requested: 02/17/2418
Date/Time Consultation Performed: 02/17/24929
Requesting Provider: Jon Lozano MD
Performing Provider: JOE Lynch, Rubi Bryant DO
Reason for Consultation: rectal bleeding
Medical History
Chief Complaint / HPI
Chief Complaint: rectal bleeding
History of Present Illness:
Pt is an 83yo with hx ASCVD with PAD, carotid disease, endometrial and cervical Ca with prior surgery and radiation, HTN, CVA, hypothyroidism, polyneuropathy, IBS with admission 02/11 with LE pain with plan for angio 02/17 and noted with concern for
worsening of chronic limb threatening ischemia with rest pain with gangrene of foot. Pt went to OR 02/14 for right common femoral endarterectomy with patch angioplasty using bovine pericardium, drug coating balloon angioplasty of right
superficial artery and right LE arterogram. Pt was given Plavix load of 300mg on 02/14 with continued Plavix and ASA 81mg continued daily. Pt also noted with Ecoli UTI. Asked to see today for increased rectal bleeding passing large volumes of
clots. hbg was 10.1 on 01/23 then 9 02/11 on admission with drop as low as 8.6 on 02/14 then 10.9 02/16. Last colonoscopy [address] Knight with diverticulosis in sigmoid and descending colon, non bleeding hemorrhoids. Pt also noted with [address] angio 01/23 with femoral art stenosis, ileus enteritis less likely obstruction, pancreatic tail cystic lesion 1.2 pseudocyst vs IPMN consider MRI, and 02/11 CT with stable stenosis, worsening left hydroureter reflecting partial obstruction
distally from adhesions, and persistent diffuse ileus/enteritis.
In review with patient she has has issues for IBS for years with diarrhea and constipation. . She was on Viberzi but unable to afford and last few months using Colestipol which has not been as effective. She also admits to passing small
volume of clots intermittently for last few months. She also admits to chronic GERD but denies any nausea, vomiting, abdominal pain, or black stools.
Past Medical History
Past Medical History: Cancer (cervical and endometrial CA with prior surgery and XRT ), CVA, HTN, Hypothyroidism and Other (ASCVD with PAD, Carotid disease, polyneuropathy, IBS, osteoporosis, renal cyst, hepatic cyst, b/l sacroilitis,
cholelithiasis, rosacea)
Past Surgical History: Cardiac (loop recorder), , Gynecological (hysterectomy with BSO) and Orthopedic (wrist ORIF)
Social History
Tobacco: Non-Smoker
Alcohol: None
Drug: None
Personal:
Living: With Family
Employment: Retired
Family History
Family History: Other (father with lung CA, mother endometrial/cervical CA, )
Allergies / Home Medications
Allergy/AdvReac Type Severity Reaction Status Date / Time
alendronate sodium Allergy Severe Verified 02/12/24 17:09
[From Fosamax] abdominal
pain
pollen extracts Allergy seasonal Verified 02/12/24 17:09
allergies
�Medication �Instructions �Recorded
losartan 50 mg tablet 50 mg PO DAILY Blood pressure 12/04/21
atorvastatin 40 mg tablet (Lipitor) 40 mg PO DAILY #30 tabs 12/05/21
colestipol 1 gram tablet 2 g PO BID High Cholesterol 08/06/23
furosemide 20 mg tablet (Lasix) 20 mg PO DAILY #7 tabs 01/24/24
calcium carbonate (Calcium 600) 600 mg PO DAILY Supplement 02/08/24
cyanocobalamin (vitamin B-12) 1,000 mcg PO DAILY Supplement 02/08/24
1,000 mcg tablet,extended release
(Vitamin B-12 ER)
docusate sodium 100 mg capsule 100 mg PO DAILY Constipation 02/08/24
(Colace)
multivitamin with minerals-folic 1 tab PO DAILY Supplement 02/08/24
acid 80 mcg chewable tablet
(Centrum Adult 50 Plus)
omega 0-err-uol-fish oil 1,200 mg 1 cap PO DAILY Supplement 02/08/24
(144 mg-216 mg) capsule (Fish Oil)
oxycodone 5 mg tablet 5 mg PO TIDPRN PRN severe pain 02/08/24
levothyroxine 88 mcg tablet 88 mcg PO DAILY Thyroid 02/13/24
(Synthroid)
Review of Systems
-
History Source: Patient
Constitutional: Reports Weight Loss ( 15 years ago and kept wt off )
EENT: Reports No Symptoms
Respiratory: Reports No Symptoms
Cardiac: Reports No Symptoms
Abdomen/GI: Reports Diarrhea, Constipated and Bloody Stools
: Reports No Symptoms
Skin: Reports No Symptoms
Neurological: Reports Weakness
Endocrine: Reports No Symptoms
Hematologic/Lymphatic: Reports Bleeding
Vital Signs
Temp Pulse Resp BP Pulse Ox
98.0 F 57 18 129/94 97
02/17/24 07:00 02/17/24 07:00 02/17/24 07:00 02/17/24 07:00 02/17/24 07:00
Physical Exam
Exam
General: Well Developed, Well Nourished and No Apparent Distress
HEENT: Normocephalic and Anicteric
Respiratory: Clear
Cardiac: Regular Rhythm
GI: Soft, Non Tender and Distended (mild )
Rectal: Hemorrhoids and Other (large amount of red clots )
Genito-urinary: Other (rice with clear yellow urine )
Skin: Other (right groin with intact dressing and wound device )
Neuro: Awake, Alert and AO x 3
Psych: Calm
Results
WBC 8.3 10^3/uL (4.8-10.8) 02/17/24 05:58
Hgb 10.7 g/dL (12.0-16.0) L 02/17/24 08:59
Hct 32.9 % (37.0-47.0) L 02/17/24 08:59
MCV 95.7 fL (81.0-99.0) 02/17/24 05:58
Plt Count 391 10^3/uL (130-400) 02/17/24 05:58
Absolute Neuts (auto) 8.8 10^3/uL (1.4-6.5) H 02/14/24 05:29
PT 14.7 Sec (11.4-14.6) H 02/16/24 03:46
INR 1.10 02/16/24 03:46
APTT 35.4 Sec (23.4-35.0) H 02/16/24 03:46
Sodium 134 mmol/L (135-145) L 02/16/24 03:46
Potassium 4.4 mmol/L (3.5-5.1) 02/16/24 03:46
Chloride 105 mmol/L (98-107) 02/16/24 03:46
Carbon Dioxide 23 mmol/L (22-30) 02/16/24 03:46
BUN 14 mg/dl (7-17) 02/16/24 03:46
Creatinine 0.7 mg/dL (0.6-1.0) 02/16/24 03:46
Calcium 7.2 mg/dl (8.4-10.2) L 02/16/24 03:46
Total Bilirubin 1.0 mg/dl (0.2-1.3) 02/12/24 21:10
AST 64 U/L (14-36) H 02/12/24 21:10
ALT 32 U/L (0-35) 02/12/24 21:10
Alkaline Phosphatase 93 U/L (38-126) 02/12/24 21:10
Diagnostic Image Results:
02/12/24 CT Abd Aorta Angio W/ Run Off
1. Stable exam with prominent stenosis involving the right common and superficial femoral arteries as described.
2. Worsening left hydroureter possibly reflecting partial obstruction distally in the pelvis from adhesions.
3. Persistent findings suggesting diffuse ileus/enteritis.
01/24/24 CT Abd Aorta Angio W/ Run Off
1. Right common femoral artery contains moderate calcification with focal 70% stenosis. Right superficial femoral artery contains scattered plaque and calcification with focal near complete occlusion proximally and moderate stenosis throughout the
remainder.
2. Findings suggesting diffuse ileus/enteritis, less likely obstruction. Consider imaging follow-up as clinically indicated.
3. A cystic pancreatic tail lesion measuring 1.2 cm could represent a pseudocyst or side branch intraductal papillary mucinous neoplasm. Recommend nonemergent outpatient workup with dedicated MRI/MRCP abdomen without and with gadolinium contrast.
Prior GI Procedures:
EGD: none
Colonoscopy:
2012- colonoscopy - jesús --Diverticulosis in the sigmoid colon and in the
descending colon.
- Non-bleeding external hemorrhoids.
- Normal mucosa in the entire examined colon. Biopsied.
- The examined portion of the ileum was normal.
Assessment / Plan
-
Pt is an 83yo with hx ASCVD with PAD, carotid disease, endometrial and cervical Ca with prior surgery and radiation, HTN, CVA, hypothyroidism, polyneuropathy, IBS with admission 02/11 with LE pain with plan for angio 02/17 and noted with concern for
worsening of chronic limb threatening ischemia with rest pain with gangrene of foot. Pt went to OR 02/14 for right common femoral endarterectomy with patch angioplasty using bovine pericardium, drug coating balloon angioplasty of right
superficial artery and right LE arterogram. Pt was given Plavix load of 300mg on 02/14 with continued Plavix and ASA 81mg continued daily. Pt also noted with Ecoli UTI. Asked to see today for increased rectal bleeding passing large volumes of
clots. hbg was 10.1 on 01/23 then 9 02/11 on admission with drop as low as 8.6 on 02/14 then 10.9 02/16. Last colonoscopy [address] Knight with diverticulosis in sigmoid and descending colon, non bleeding hemorrhoids. Pt also noted with [address] angio 01/23 with femoral art stenosis, ileus enteritis less likely obstruction, pancreatic tail cystic lesion 1.2 pseudocyst vs IPMN consider MRI, and 02/11 CT with stable stenosis, worsening left hydroureter reflecting partial obstruction
distally from adhesions, and persistent diffuse ileus/enteritis.
-rectal bleeding with large volume clots on exam
-recent intermittent rectal bleeding prior to admission
-CT 01/23 and 02/12 with enteritis/ileus
-chronic limb ischemia with foot pain 02/14 s/p femoral endarterectomy, angio, bovine pericardium/drug coated stent, right superficial artery and right LE angio
-anemia
-pancreatic tail 1.2 cm lesion
-IBS with recent change from Viberzi to Colestipol due to cost
other med problems:
-endometrial/cervical CA with prior surgery and radiation
-ASCVD - PAD, carotid disease
-HTN
-CVA
-hypothyroidism
-polyneuropathy
-diverticulosis
-hemorrhoids
PLAN:
Etiology of bleeding related to recent noted Enteritis (? radiation inducted vs other) vs diverticular bleeding, ischemic process, mass vs other
with several large volume stools with clots this am will proceed with CTA now
unsure if Angio can be done with recent vascular procedure but CTA can assist with location of bleeding
trend hbg -- transfuse as needed
pt remain on ASA and Plavix -- dose given this am with recent vascular procedure 02/14
NPO
t/c eventual colon when able OP if bleeding improves vs Inpatient if persistent bleeding
t/c OP MRI with pancreatic tail lesion to further characterize
vascular following
will also need OP follow up with IBS issues and medication changes but symptoms may be due to underlying enteritis issues
will follow
-
-
Thank you for consultation and allowing me to participate in the patient's care. Please call the precision aircraft structure assembler GI physician during the after hours with any questions or concerns.
[2024-02-17] MEDS: PROTONIX IV 80 MG IV (09:34)
[2024-02-17] MEDS: NSS (PRESERVATIVE FREE) 20 ML IV (09:35)
--- NOTE | 2024-02-17 10:48 | PTCARENOTE ---
Pt incontinent of large blood clots and bright red liquid, with little stool. MD aware. Pt NPO, GI consulted. Pt off unit for CT scan.
--- NOTE | 2024-02-17 11:24 | CM ---
CM following re: discharge planning.
Reviewed pt's chart, met with pt.
Pt is a POD#2 s/p Right common femoral endarterectomy.
PT and OT evaluations requested to determine a level of care at discharge.
Pt feels she will need to go to a SNF upon the discharge and she preferred [facility] or [facility] [place] [facility]. CM will make a referral to requested SNF after PT/OT evaluations and recommendations.
D/C plan: pt feels she will need to go to a SNF. Preferred SNFs: [facility], [facility].
CM will follow with discharged plan updates as hospitalization progresses
--- NOTE | 2024-02-17 12:17 | W.PN.HOSP.TC ---
Today's Communication/Plan
-
monitor vitals
see plan
CTA
GI evaluation
PPI
monitor H/H
NPO
Assessment / Plan
Assessment / Plan
83 yo F with PMH significant for ASCVD, hypertension and prior stroke; who presented to complaining of R > L LE pain. Patient notes that she has been having pain in the RLE since October. Her pain has steadily increased over time. She had
extensive evaluation ultimately revealing significant PAD in the RLE > LLE. Patient was scheduled for RLE angio on 02/17/23.
Unfortunately, her pain has continued to increase and became quite unbearable, prompting her to present to the ED
Patient states that she has chronic incontinence of bowel and bladder which she attributes to prior history of cervical cancer / XRT.
A/P:
# ASCVD
# PAD
# Critical Limb Ischemia of the RLE > LLE
Supportive care with pain control, etc.
IV heparin infusion.
Vascular Surgery following, status post right common femoral enterectomy 02/14.
Follow for clinical improvement.
On aspirin, Plavix and statin
Wound Care eval for R foot wound / local care.
Cover with IV abx Zosyn for now.
Avoid hypotension.
consider holding plavix if ok with vascular
Anemia likely secondary to acute blood loss
rectal bleeding 1/2
GI consulted
N.p.o.
PPI
CTA
Trend hemoglobin
Transfuse as necessary to keep hemoglobin greater than 8
# Urinary Retention
# Left Hydronephrosis
# Note prior h/o hysterectomy and XRT.
Suspected UTI, continue antibiotics. Urine culture with E. coli
Patient with urinary incontinence for some time.
? chronic urinary retention with overflow incontinence.
Placed Neal on admission for bladder decompression. Begin tamsulosin.
Urology following, patient will follow-up with them outpatient. Voiding trial once ambulatory. Failed voiding trial x 1
# Benign Hypertension, Stable.
Hold BP meds acutely to avoid hypotension.
# Hypothyroidism, Stable.
Continue T4 replacement.
Prolonged QTc
Monitor
# Mild Hyponatremia
# Mild Hypokalemia
Hold further IVF with BL LE edema
ORACLE ANALYST Lasix on hold, consider resuming sooner than later.
follow labs / lytes for improvement.
DVT Prophylaxis: On IV Heparin
Code Status: Full
General: Well Developed, Well Nourished, No Apparent Distress, Comfortable and Conversant
HEENT: Normocephalic, Atraumatic, Nose Appears Normal, Ears Appear Normal and Oxygen (2L NC)
Respiratory: Clear to Auscultation and Non Labored Respirations; Negative Accessory Resp Muscle Use
Cardiac: Regular Rhythm and S1/S2
GI: Soft, Nontender, Nondistended and Normal Bowel Sounds
Musculoskeletal: Edema, Right Lower Extrem and Edema, Left Lower Extrem
Skin: Warm, Dry and Lesions (R LE )
Neuro: Awake and Alert
Psych: Calm and Intact Judgement/Insight
I spent a total of 52 minutes with the patient or on the floor. More than 50% of this time involved counseling and coordination of care.
Anticipated Discharge: > 48 hours
Subjective/Interval History
-
Date of Service: February 17, 2024
Episode of bright red blood per rectum this morning
Objective Data
-
Labs:
Laboratory Results
02/17/24 02/17/24 02/17/24
05:58 08:59 15:00
WBC 8.3
Hgb 10.9 L 10.7 L Pending
Hct 33.3 L 32.9 L Pending
Plt Count 391
02/17/24
23:00
WBC
Hgb Pending
Hct Pending
Plt Count
Vital Signs:
Vital Signs
Temp Pulse Resp BP Pulse Ox
98.1 F 61 18 132/88 97
02/17/24 11:00 02/17/24 11:00 02/17/24 11:00 02/17/24 11:00 02/17/24 11:00
I&O
02/16/24 02/17/24 02/18/24
06:59 06:59 06:59
Intake Total 2420 / 2500 330 / 330
Output Total 3400 / 3440 2330 / 2330
Balance -980 / -940 -1999 / -1999
[2024-02-17] MEDS: NSS 1000 IV (13:02)
[2024-02-17 14:40] LABS: Hematocrit 29.2 % (37.0-47.0); Hemoglobin 9.7 g/dL (12.0-16.0)
[2024-02-17] MEDS: GAVILAX 238 GM PO (14:46)
--- NOTE | 2024-02-17 15:09 | PTCARENOTE ---
Pt incontinent of many large bloody bms today, with large clots. Miralax/gatorade bowel prep started at 1500.
--- NOTE | 2024-02-17 16:19 | PN.CDI ---
CDI
- -
CDI:
Physician Documentation Request
Admit Date: 02/13/24 02:31
Dear Doctor Blake,
Please review the following and provide your response in the progress notes.
Clinical Indicators:
Height: 5 ft 1 in
Weight:95 lb ( 02/13)
BMI:18.0 ( 02/13 )
Other Clinical Notes: Nutrition note 02/16,'BMI: 18.0 (underweight)..'
If possible, please provide an associated diagnosis related to the abnormal BMI, such as:
Underweight
Cachectic
- Other
Use of terms such as suspected, likely, concern for, or probable (associated with a specific diagnosis that is being evaluated, monitored, or treated as if it exists) are acceptable and can be coded in the inpatient setting, when documented at the
time of discharge.
Thank you,
Jessica Oswald RN
CDI Specialist
[place] [facility]
Please use your independent medical judgment in providing your response.
--- NOTE | 2024-02-17 16:22 | PN.CDI ---
CDI
- -
CDI:
Physician Documentation Request
Admit Date: 02/13/24 02:31
Dear Doctor Blake,
Please review the following and provide your response in the progress notes.
Clinical Indicators:
Pt admitted with PVD/Critical limb ischemia right leg
Documented per [facility] note 02/13,'Patient admitted with stage 2 deep dermal wound of sacral/coccyx....Calazime and sacral silicone border foam to sacrum.....'
Physician documentation of the type and location of wounds is required for compliant documentation. Based on the above clinical findings and your assessment, please provide the following in your progress note:
1. Location of the ulcer/wound, including laterality.
2. Type (etiology) of ulcer/wound:
- Pressure (decubitus) ulcer
- Non-pressure ulcer
- Other
Use of terms such as suspected, likely, concern for, or probable (associated with a specific diagnosis that is being evaluated, monitored, or treated as if it exists) are acceptable and can be coded in the inpatient setting, when documented at the
time of discharge.
Thank you,
Jessica Oswald RN
CDI Specialist
[place] [facility]
Please use your independent medical judgment in providing your response.
*Source: National Pressure Ulcer Advisory Panel (NPUAP)
--- NOTE | 2024-02-17 18:22 | W.PN.VS ---
Today's Communication / Plan
-
See plan below for today 02/17/2024.
Assessment/Plan
-
Assessment: 83-year-old female with PAD admitted for worsening of chronic limb threatening ischemia and rest pain
underwent Right fem endart
Plan:
Doing well from a postoperative standpoint. Okay for out of bed/PT/OT from a vascular surgical perspective. However, patient being worked up for ongoing GI bleed with finding on CT angiogram of small blush in the sigmoid colon. Likely
colonoscopy tomorrow.
-
Total Time Spent with Patient (in minutes): 10
Subjective Data
-
Date of Service: February 17, 2024
This is a late entry. Patient was seen earlier this afternoon. At that time she was without specific complaints. She had had earlier bright red bowel movements. Was being scheduled for colonoscopy for tomorrow. She was in good spirits and
without significant complaints. No abdominal pain.
Objective Data
-
Vital Signs
Temp Pulse Resp BP Pulse Ox
97.1 F 79 16 139/77 99
02/17/24 15:10 02/17/24 15:10 02/17/24 15:10 02/17/24 15:10 02/17/24 15:10
Intake and Output
02/16/24 02/17/24 02/18/24
06:59 06:59 06:59
Intake Total 2420 / 2500 330 / 330 1180 / 1180
Output Total 3400 / 3440 2330 / 2330 1450 / 1450
Balance -980 / -940 -2000 / -2000 -270 / -270
Intake:
Oral fluids 480 / 480 200 / 200 1080 / 1080
IV fluids (Total) 1640 / 1720 80 / 80
Normosol 200 / 200
Nss 1,000 ml @ 80 mls/hr IV . 1440 / 1520 80 / 80
[id number] JOSE DE JESUS Rx#:[id number]
IV piggybacks 50 / 50 50 / 50 100 / 100
Blood Product Amount Infused ( 250 / 250
mL)
Packed Rbc Leukoreduced Unit 250 / 250
[id number]
Output:
Urine, Neal 3125 / 3165 2029 / 2030 1450 / 1450
Urine, Voided 275 / 275 300 / 300
Lab Results
02/16/24 03:46
Calcium 7.2 mg/dl (8.4-10.2) L 02/16/24 03:46
Magnesium 1.8 mg/dl (1.6-2.3) 02/14/24 05:29
Total Bilirubin 1.0 mg/dl (0.2-1.3) 02/12/24 21:10
AST 64 U/L (14-36) H 02/12/24 21:10
ALT 32 U/L (0-35) 02/12/24 21:10
Alkaline Phosphatase 93 U/L (38-126) 02/12/24 21:10
Total Protein 5.8 g/dl (6.3-8.2) L 02/12/24 21:10
Albumin 3.0 g/dl (3.5-5.0) L 02/12/24 21:10
Physical Exam
-
Vital signs reviewed. She is awake and alert. Abdomen soft, nondistended, nontender. Right groin dressing clean dry and intact. Groins flat. 2+ palpable femoral pulse. Right foot warm with palpable DP pulse 2+.
[2024-02-17] MEDS: TYLENOL 650 MG PO (18:25)
--- NOTE | 2024-02-17 19:00 | PTCARENOTE ---
Patient received right at change of shift into room [address] [place] [address]. Pt settled in bed and placed on monitor. Report given to MAHI Montoya.
--- NOTE | 2024-02-17 19:04 | PTCARENOTE ---
Pt transferred to IMU, report given to MAHI Gonsalez
[2024-02-17] MEDS: NSS (PRESERVATIVE FREE) 10 ML IV (20:16)
[2024-02-17] MEDS: PROTONIX IV 40 MG IV (20:16)
--- NOTE | 2024-02-17 21:36 | PTCARENOTE ---
Pt c/o new 11/24 'jumping pain', when asked if it can be described as shooting pt states yes, in LLE. When assessed LLE (ankle down) is pink, cool, having a mottled appearance, cap refill >2 seconds (4 seconds), pedal pulses present with Doppler.
Sensation is present and pt able to wiggle toes and ankle. messaged [employer]. instructed to reach out to pets and pet supplies salesperson vascular. Leon text sent, This RN spoke to Dr. Menjivar and made him aware of new assessment. This RN is continuing assess Pts sensation and
mobility of limb LLE, and making vascular aware of any changes assessed. no new orders at this time.
[2024-02-18] VITALS (24 sets, daily range): BP systolic 97–133; BP diastolic 53–91; BMI 21.4
[2024-02-18 00:01] LABS: Hematocrit 24.8 % (37.0-47.0)
[2024-02-18] MEDS: NSS 1000 IV ×2 (00:01→17:01)
--- NOTE | 2024-02-18 01:05 | PTCARENOTE ---
hgb 8.0. DEPUTY FIRE CHIEF made aware. order received for 1 unit PRBC. T&S drawn and sent. Blood consent present in chart.
[2024-02-18] MEDS: ZOSYN 50 IV ×4 (03:30→21:01)
[2024-02-18] MEDS: SYNTHROID 88 MCG PO (05:44)
[2024-02-18 06:40] LABS: % Basophils 0.5 % (0-2); % Eosinophils 1.1 % (0-6); % Immature Granulocytes 1.1 % (0-0.5); % Monocytes 5.4 % (1.7-9.3); % Neutrophils 80.9 % (42.2-75.2); Absolute Basophils 0.1 10^3/uL (0-0.2); Absolute Eosinophils 0.1 10^3/uL (0-0.7); Absolute Immature Granulocytes 0.1 10^3/uL (0-0.05); Absolute Lymphocytes 1.2 10^3/uL (1.2-3.4); Absolute Monocytes 0.6 10^3/uL (0.1-0.6); Absolute Neutrophils 8.7 10^3/uL (1.4-6.5); Hematocrit 30.2 % (37.0-47.0); Hemoglobin 9.9 g/dL (12.0-16.0); Mean Corp Hgb Conc. 32.8 g/dL (33.0-37.0); Mean Corpuscular Hgb 32.1 pg (27.0-31.0); Mean Corpuscular Volume 98.1 fL (81.0-99.0); Mean Platelet Volume 9.3 fL (7.4-10.4); Nucleated Red Blood Cells % 0.3 %; Platelet Count 324 10^3/uL (130-400); Red Blood Cell Count 3.08 10^6/uL (4.20-5.40); Red Cell Dist. Width 15.5 % (11.5-14.5); White Blood Cell Count 10.8 10^3/uL (4.8-10.8)
[2024-02-18 06:57] LABS: Blood Urea Nitrogen 8 mg/dl (7-17); Calcium 7.4 mg/dl (8.4-10.2); Carbon Dioxide 22 mmol/L (22-30); Chloride 105 mmol/L (98-107); Estimated Creatinine Clearance 55 ml/min; Glucose 87 mg/dl (70-99); Potassium 4.3 mmol/L (3.5-5.1); Sodium 133 mmol/L (135-145); eGFR > 60.00
--- NOTE | 2024-02-18 07:52 | W.PN.VS ---
Addendum entered and electronically signed by Yury Neal III, MD 02/18/24 10:43:
This patient was seen and examined with JOE Quintero. I agree with the history and physical exam as well as the assessment and plan. I have the following additions:
Patient comfortable and without complaints this morning
Right groin jessie dressing dry and holding suction
Right foot is warm with palpable DP pulse
Colonoscopy today for ongoing GI bleeding
Continue to transfuse as needed
May need colorectal surgery involvement if colonoscopy cannot identify/control bleeding source
Continue aspirin (Plavix on hold)
Signed:
Yury Neal III, MD
[facility] Vascular Surgery
[phone] (cell)
Original Note:
Today's Communication / Plan
-
Seen and assessed with Dr. Neal
Assessment/Plan
-
Assessment: 83-year-old female with PAD admitted for worsening of chronic limb threatening ischemia and rest pain
underwent Right fem endart
Plan:
Colonoscopy today
Right heel offloading boot for walking ordered
Out of bed/ambulate
Monitor hemoglobin
Doing well overall from vascular standpoint
Subjective Data
-
Date of Service: February 18, 2024
Patient seen at bedside this a.m. with Dr. Neal. Patient offers no complaints at this time. Patient was noted to have severe pain to the right foot and toes overnight which patient states has completely resolved. Patient also was noted to have
low hemoglobin overnight and was given 1 unit of packed red blood cells.
Objective Data
-
Vital Signs
Temp Pulse Resp BP Pulse Ox
97.5 F 68 18 133/79 98
02/18/24 06:01 02/18/24 06:01 02/18/24 06:01 02/18/24 06:01 02/18/24 02:48
Intake and Output
02/17/24 02/18/24 02/19/24
06:59 06:59 06:59
Intake Total 330 / 330 1430 / 1430
Output Total 2330 / 2330 1949 225 / 225
Balance -1999 / -2000 -520 / -745 -225 / -225
Intake:
Oral fluids 200 / 200 1080 / 1080
IV fluids (Total) 80 / 80
Nss 1,000 ml @ 80 mls/hr IV . 80 / 80
[id number] REPLACED BY [facility] Rx#:[id number]
IV piggybacks 50 / 50 100 / 100
Blood Product Amount Infused ( 250 / 250
mL)
Packed Rbc Leukoreduced Unit 250 / 250
[id number]
Output:
Urine, Neal 2029 225 / 225
Urine, Voided 300 / 300
Other:
Number of unmeasured liquid
stools
Rectum 2
Lab Results
02/18/24 06:18
02/18/24 06:18
Calcium 7.4 mg/dl (8.4-10.2) L 02/18/24 06:18
Magnesium 1.8 mg/dl (1.6-2.3) 02/14/24 05:29
Total Bilirubin 1.0 mg/dl (0.2-1.3) 02/12/24 21:10
AST 64 U/L (14-36) H 02/12/24 21:10
ALT 32 U/L (0-35) 02/12/24 21:10
Alkaline Phosphatase 93 U/L (38-126) 02/12/24 21:10
Total Protein 5.8 g/dl (6.3-8.2) L 02/12/24 21:10
Albumin 3.0 g/dl (3.5-5.0) L 02/12/24 21:10
Physical Exam
-
No apparent distress, resting in bed comfortably
No tachycardia
No dyspnea on room air
ABD flat
Groins flat. 2+ palpable femoral pulse. Right foot warm with palpable DP pulse 2+.
--- NOTE | 2024-02-18 09:18 | PTCARENOTE ---
Patient transferred to GI lab at approximately 0810. Patient noted to be incontinent of large amount of blood; Dr Blake in room and made aware.
--- NOTE | 2024-02-18 09:46 | PTCARENOTE ---
Patient currently in GI lab; cannot verify accuracy of vital signs captured while in GI.
[2024-02-18] MEDS: NSS (PRESERVATIVE FREE) 10 ML IV ×2 (10:45→20:38)
[2024-02-18] MEDS: PROTONIX IV 40 MG IV ×2 (10:45→20:41)
[2024-02-18] MEDS: FLOMAX 0.4 MG PO (10:48)
[2024-02-18] MEDS: LOW STRENGTH ASPIRIN PO (10:48)
[2024-02-18] MEDS: LIPITOR 40 MG PO (10:48)
[2024-02-18] MEDS: ROXICODONE 5 MG PO ×2 (11:00→16:07)
--- NOTE | 2024-02-18 11:09 | CM ---
Patient who is s/p Right common femoral endarterectomy, angioplasties right femoral arteries, RLE arteriogram. Colonoscopy today. Room air. Receiving IV Abx, Roxicodone, IVF. Right groin jessie dressing. Order for right foot heel offloading boot.
Messages with Dr Lozano; will need PT/OT Evals, however patient needs offloading boot from [place] before she can walk.
Per prior CM notes 02/17/24, patient prefers [facility] or [facility].
CM will make a referral to requested SNFs after PT/OT evaluations are available.
Plan follow up after seen by PT/OT.
--- NOTE | 2024-02-18 11:11 | PTCARENOTE ---
Patient returned from GI via stretcher; pulled over onto bed [id number]. RN giving report stated she changed patient 4 times for blood with clots. Verified with Dr Blake that patient may receive po meds but to hold aspirin. Ordered 1 unit PRBCs;
currently infusing.
--- NOTE | 2024-02-18 15:30 | W.PN.HOSP.TC ---
Today's Communication/Plan
-
Monitor vital signs
see plan
1 unit PRBC
Continue to monitor hemoglobin
Monitor further bleeding
PT/OT when able
Assessment / Plan
Assessment / Plan
83 yo F with PMH significant for ASCVD, hypertension and prior stroke; who presented to complaining of R > L LE pain. Patient notes that she has been having pain in the RLE since October. Her pain has steadily increased over time. She had
extensive evaluation ultimately revealing significant PAD in the RLE > LLE. Patient was scheduled for RLE angio on 02/17/23.
Unfortunately, her pain has continued to increase and became quite unbearable, prompting her to present to the ED
Patient states that she has chronic incontinence of bowel and bladder which she attributes to prior history of cervical cancer / XRT.
A/P:
# ASCVD
# PAD
# Critical Limb Ischemia of the RLE > LLE
Supportive care with pain control, etc.
IV heparin infusion.
Vascular Surgery following, status post right common femoral enterectomy 02/14.
Follow for clinical improvement.
On aspirin, Plavix and statin
Wound Care eval for R foot wound / local care.
Cover with IV abx Zosyn for now.
Avoid hypotension.
consider holding plavix if ok with vascular
Anemia likely secondary to acute blood loss from hemorrhoids and diverticulosis
rectal bleeding /2
GI following, status post colonoscopy with multiple large diverticula in sigmoid colon. Stricture in the sigmoid colon. Barium enema ordered by GI. Per GI n.p.o. for now. Plavix on hold. Aspirin per GI and vascular. Transfuse as necessary.
Monitor H&H
PPI
CTA showed active sigmoid bleed. GI spoke with IR 1/2 Pool. The patient right groin would be unable to use due to her recent surgery. Left femoral vasculature also was not amenable. If patient becomes unstable no further options then IR can
try.
Trend hemoglobin
Transfuse as necessary to keep hemoglobin greater than 8
# Urinary Retention
# Left Hydronephrosis
# Note prior h/o hysterectomy and XRT.
Suspected UTI, continue antibiotics. Urine culture with E. coli
Patient with urinary incontinence for some time.
? chronic urinary retention with overflow incontinence.
Placed Neal on admission for bladder decompression. Begin tamsulosin.
Urology following, patient will follow-up with them outpatient. Voiding trial once ambulatory. Failed voiding trial x 1
# Benign Hypertension, Stable.
Hold BP meds acutely to avoid hypotension.
# Hypothyroidism, Stable.
Continue T4 replacement.
Prolonged QTc
Monitor
# Mild Hyponatremia
# Mild Hypokalemia
Hold further IVF with BL LE edema
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
follow labs / lytes for improvement.
DVT Prophylaxis: On IV Heparin
Code Status: Full
PT/OT when able
General: Well Developed, Well Nourished, No Apparent Distress, Comfortable and Conversant
HEENT: Normocephalic, Atraumatic, Nose Appears Normal, Ears Appear Normal and Oxygen (2L NC)
Respiratory: Clear to Auscultation and Non Labored Respirations; Negative Accessory Resp Muscle Use
Cardiac: Regular Rhythm and S1/S2
GI: Soft, Nontender, Nondistended and Normal Bowel Sounds
Musculoskeletal: Edema, Right Lower Extrem and Edema, Left Lower Extrem
Skin: Warm, Dry and Lesions (R LE )
Neuro: Awake and Alert
Psych: Calm and Intact Judgement/Insight
I spent a total of 52 minutes with the patient or on the floor. More than 50% of this time involved counseling and coordination of care.
Anticipated Discharge: > 48 hours
Subjective/Interval History
-
Date of Service: February 18, 2024
denies pain
Objective Data
-
Labs:
Laboratory Results
02/18/24 02/18/24 02/18/24
06:18 12:00 15:29
WBC 10.8
Hgb 9.9 L D Cancelled Pending
Hct 30.2 L Cancelled Pending
Plt Count 324
Sodium 133 L
Potassium 4.3
Chloride 105
Carbon Dioxide 22
BUN 8
Creatinine 0.6
Glucose 87
Calcium 7.4 L
02/18/24 02/18/24
18:00 21:00
WBC
Hgb Cancelled Pending
Hct Cancelled Pending
Plt Count
Sodium
Potassium
Chloride
Carbon Dioxide
BUN
Creatinine
Glucose
Calcium
Vital Signs:
Vital Signs
Temp Pulse Resp BP Pulse Ox
97.4 F 70 20 119/71 93
02/18/24 13:10 02/18/24 14:00 02/18/24 14:00 02/18/24 14:00 02/18/24 13:10
I&O
02/17/24 02/18/24 02/19/24
06:59 06:59 06:59
Intake Total 330 / 330 1430 / 1430 500 / 500
Output Total 2330 / 2330 1950 / 2175 1525 / 1525
Balance -1999 / -1999 -520 / -745 -1025 / -1025
[2024-02-18 15:39] LABS: Hemoglobin 9.8 g/dL (12.0-16.0)
--- NOTE | 2024-02-18 16:34 | PTCARENOTE ---
Patient received off-loading boot from [facility]. PRBCs infused without difficulty. Remains incontinent of bowel: bloody with clots on return from GI lab and white/red after return from barium enema. Medicated with roxicodone as ordered for c/o R foot
pain. Denies nausea or abdominal pain. Family at bedside. See worklist for full assessment and vital signs.
[2024-02-18 21:01] LABS: Hematocrit 25.8 % (37.0-47.0); Hemoglobin 8.8 g/dL (12.0-16.0)
[2024-02-19] VITALS (15 sets, daily range): BP systolic 93–136; BP diastolic 55–113; BMI 21.2
[2024-02-19] MEDS: NSS 1000 IV ×2 (03:03→19:03)
[2024-02-19] MEDS: ZOSYN 50 IV ×4 (03:04→21:45)
[2024-02-19] MEDS: ROXICODONE 5 MG PO ×4 (03:09→19:49)
[2024-02-19 03:26] LABS: % Basophils 0.6 % (0-2); % Lymphocytes 10.4 % (20.5-51.1); % Monocytes 4.7 % (1.7-9.3); % Neutrophils 81.3 % (42.2-75.2); Absolute Basophils 0.1 10^3/uL (0-0.2); Absolute Eosinophils 0.2 10^3/uL (0-0.7); Absolute Immature Granulocytes 0.1 10^3/uL (0-0.05); Absolute Lymphocytes 1.1 10^3/uL (1.2-3.4); Absolute Monocytes 0.5 10^3/uL (0.1-0.6); Absolute Neutrophils 8.6 10^3/uL (1.4-6.5); Hematocrit 25.5 % (37.0-47.0); Hemoglobin 8.5 g/dL (12.0-16.0); Mean Corp Hgb Conc. 33.3 g/dL (33.0-37.0); Mean Corpuscular Hgb 30.8 pg (27.0-31.0); Mean Corpuscular Volume 92.4 fL (81.0-99.0); Mean Platelet Volume 9.3 fL (7.4-10.4); Nucleated Red Blood Cells % 0.3 %; Platelet Count 287 10^3/uL (130-400); Red Blood Cell Count 2.76 10^6/uL (4.20-5.40); White Blood Cell Count 10.6 10^3/uL (4.8-10.8)
[2024-02-19 03:52] LABS: Blood Urea Nitrogen 5 mg/dl (7-17); Calcium 6.9 mg/dl (8.4-10.2); Carbon Dioxide 22 mmol/L (22-30); Chloride 109 mmol/L (98-107); Estimated Creatinine Clearance 55 ml/min; Glucose 79 mg/dl (70-99); Sodium 135 mmol/L (135-145); eGFR > 60.00
[2024-02-19] MEDS: CALCIUM GLUCONATE 100 IV (04:56)
[2024-02-19] MEDS: SYNTHROID 88 MCG PO (04:59)
--- NOTE | 2024-02-19 05:24 | PTCARENOTE ---
Pt resting well overnight. Admits to 3-4/10 pain to right heel. Medicated with Roxicodone x 1 with good relief. Neurovascular checks completed as documented. Incontinent x 1 for loose leone bm. CHG bath given with shampoo. Neal drained 300ml yellow
urine. Sacrum dressing changed during bath. Rest of assessment unchanged from previous. IVF's infusing as ordered. AM Ca+ 6.9. Ruth DIAZ TT'd and Calcium gluconate ordered and infusing. Maintained on Q2hr turns. KAYA to right groin in
place. VSS. Afebrile. SR on CM. Call harper remains within reach. Will continue to monitor.
[2024-02-19] MEDS: FLOMAX 0.4 MG PO (08:47)
[2024-02-19] MEDS: LOW STRENGTH ASPIRIN 81 MG PO (08:47)
[2024-02-19] MEDS: PROTONIX IV 40 MG IV ×2 (08:48→19:50)
[2024-02-19] MEDS: NSS (PRESERVATIVE FREE) 10 ML IV ×2 (08:48→19:50)
[2024-02-19] MEDS: LIPITOR 40 MG PO (08:54)
--- NOTE | 2024-02-19 09:54 | W.PN.VS ---
Today's Communication / Plan
-
doing well from vasc standpoint
Assessment/Plan
-
Assessment: 83-year-old female with PAD admitted for worsening of chronic limb threatening ischemia and rest pain
underwent Right fem endart
Plan:
Right heel offloading boot for walking ordered
Out of bed/ambulate
Monitor hemoglobin
Doing well overall from vascular standpoint
no vascular issues at this time
Subjective Data
-
Date of Service: February 19, 2024
doing well
no complaints
Objective Data
-
Vital Signs
Temp Pulse Resp BP Pulse Ox
97.6 F 75 13 129/63 98
02/19/24 03:18 02/19/24 06:00 02/19/24 06:00 02/19/24 06:00 02/19/24 06:00
Intake and Output
02/18/24 02/19/24 02/20/24
06:59 06:59 06:59
Intake Total 1430 / 1430 1700 / 1700
Output Total 1949 245 / 245
Balance -520 / -745 -750 / -750
Intake:
Oral fluids 1080 / 1080
IV fluids (Total) 1000 / 1000
IV piggybacks 100 / 100 200 / 200
Blood products 250 / 250
Blood Product Amount Infused ( 250 / 250 250 / 250
mL)
Packed Rbc Leukoreduced Unit 250 / 250
[id number]
Packed Rbc Leukoreduced Unit 250 / 250
[id number]
Output:
Urine, Neal 19490 / 245
Other:
Number of unmeasured liquid
stools
Rectum 2
Lab Results
02/19/24 03:03
Calcium 6.9 mg/dl (8.4-10.2) L* 02/19/24 03:03
Magnesium 1.8 mg/dl (1.6-2.3) 02/14/24 05:29
Total Bilirubin 1.0 mg/dl (0.2-1.3) 02/12/24 21:10
AST 64 U/L (14-36) H 02/12/24 21:10
ALT 32 U/L (0-35) 02/12/24 21:10
Alkaline Phosphatase 93 U/L (38-126) 02/12/24 21:10
Total Protein 5.8 g/dl (6.3-8.2) L 02/12/24 21:10
Albumin 3.0 g/dl (3.5-5.0) L 02/12/24 21:10
Physical Exam
-
rrr ctab
dressing intact
+DP pulse
[2024-02-19 10:03] LABS: Hematocrit 25.4 % (37.0-47.0); Hemoglobin 8.6 g/dL (12.0-16.0)
--- NOTE | 2024-02-19 10:51 | W.PN.GI.CBS2 ---
Today's Communication / Plan
-
Adv to [facility] for now, if remains stable low residue diet for dinner
Results of barium enema d/w pt and daughter
Will follow with you
Assessment / Plan
-
Caro 83yo with hx ASCVD with PAD, carotid disease, endometrial and cervical Ca with prior surgery and radiation, HTN, CVA, hypothyroidism, polyneuropathy, IBS with admission 02/11 with LE pain with plan for angio 02/17 and noted with concern for
worsening of chronic limb threatening ischemia with rest pain with gangrene of foot. Pt went to OR 02/14 for right common femoral endarterectomy with patch angioplasty using bovine pericardium, drug coating balloon angioplasty of right
superficial artery and right LE arterogram. Pt was given Plavix load of 300mg on 02/14 with continued Plavix and ASA 81mg continued daily. Pt also noted with Ecoli UTI. GI consulted with hematochezia thought related to diverticular
Impression:
-rectal bleeding with large volume clots on exam
-recent intermittent rectal bleeding prior to admission
-CT 01/23 and 02/12 with enteritis/ileus
-chronic limb ischemia with foot pain 02/14 s/p femoral endarterectomy, angio, bovine pericardium/drug coated stent, right superficial artery and right LE angio
-anemia
-pancreatic tail 1.2 cm lesion
-IBS with recent change from Viberzi to Colestipol due to cost
-endometrial/cervical CA with prior surgery and radiation
-ASCVD - PAD, carotid disease
-HTN
-CVA
-hypothyroidism
-polyneuropathy
-diverticulosis
-hemorrhoids
Plan:
- Colonoscopy done 02/17 incomplete due to diverticular stricture. Suspect diverticular bleeding now stopped
- Results of barium enema d/w pt
- Monitor stool output, Hbg thus far stable
- Continue to hold plavix
- Adv to [facility] and low residue diet for dinner if tolerates
- Will need OP MRI to FU on pancreatic tail cyst
Will follow with you.
Subjective
Subjective
Date of Service: February 19, 2024
No further rectal bleeding. Denies abd pain, nausea/vomiting. Daughter is bedside. She is eager to have diet today
Objective
Data Reviewed
Laboratory Data:
Laboratory Results
02/19/24 03:03
Laboratory Results
PT 14.7 Sec (11.4-14.6) H 02/16/24 03:46
INR 1.10 02/16/24 03:46
APTT 35.4 Sec (23.4-35.0) H 02/16/24 03:46
Magnesium 1.8 mg/dl (1.6-2.3) 02/14/24 05:29
Total Bilirubin 1.0 mg/dl (0.2-1.3) 02/12/24 21:10
AST 64 U/L (14-36) H 02/12/24 21:10
ALT 32 U/L (0-35) 02/12/24 21:10
Alkaline Phosphatase 93 U/L (38-126) 02/12/24 21:10
Vital Signs and I&O:
Vital Signs
Temp Pulse Resp BP Pulse Ox
97.5 F 75 13 129/63 98
02/19/24 07:05 02/19/24 06:00 02/19/24 06:00 02/19/24 06:00 02/19/24 06:00
I&O
02/18/24 02/19/24 02/20/24
06:59 06:59 06:59
Intake Total 1430 / 1430 1700 / 1700
Output Total 1950 / 2175 2450 / 2450
Balance -520 / -745 -750 / -750
Physical Exam
Physical Exam
GEN: No acute distress, conversant, pleasant
HEENT: anicteric, extraocular movements intact, clear oropharynx without exudates
GI: soft, soft, non-distended, large midline surgical scar not tender to palpation, normal active bowel sounds, no hepatosplenomegaly
EXT: warm, well perfused, trace edema bilaterally
NEURO: AAOx3, non-focal
--- NOTE | 2024-02-19 14:19 | W.PN.HOSP.TC ---
Today's Communication/Plan
-
Monitor vital signs see plan
PT/OT
Monitor hemoglobin
Trial of clears
Aspirin
Replete calcium
Assessment / Plan
Assessment / Plan
83 yo F with PMH significant for ASCVD, hypertension and prior stroke; who presented to complaining of R > L LE pain. Patient notes that she has been having pain in the RLE since October. Her pain has steadily increased over time. She had
extensive evaluation ultimately revealing significant PAD in the RLE > LLE. Patient was scheduled for RLE angio on 02/17/23.
Unfortunately, her pain has continued to increase and became quite unbearable, prompting her to present to the ED
Patient states that she has chronic incontinence of bowel and bladder which she attributes to prior history of cervical cancer / XRT.
A/P:
# ASCVD
# PAD
# Critical Limb Ischemia of the RLE > LLE
Supportive care with pain control, etc.
Vascular Surgery following, status post right common femoral enderectomy 02/14.
Follow for clinical improvement.
Wound Care eval for R foot wound / local care.
Cover with IV abx Zosyn for now.
Avoid hypotension.
Holding Plavix per vascular
Aspirin
Anemia likely secondary to acute blood loss from hemorrhoids and diverticulosis
rectal bleeding /2
GI following, status post colonoscopy with multiple large diverticula in sigmoid colon. Stricture in the sigmoid colon. Barium enema noted. GI discussed findings with patient. Per GI n.p.o. for now. Plavix on hold. Aspirin per GI and vascular.
Transfuse as necessary. Monitor H&H
PPI
CTA showed active sigmoid bleed. GI spoke with IR 1/2 Pool. The patient right groin would be unable to use due to her recent surgery. Left femoral vasculature also was not amenable. If patient becomes unstable no further options then IR can
try. Bleeding now appears to be getting better. Started on clears
Trend hemoglobin
Transfuse as necessary to keep hemoglobin greater than 8
# Urinary Retention
# Left Hydronephrosis
# Note prior h/o hysterectomy and XRT.
Suspected UTI, continue antibiotics. Urine culture with E. coli
Patient with urinary incontinence for some time.
? chronic urinary retention with overflow incontinence.
Placed Neal on admission for bladder decompression. Begin tamsulosin.
Urology following, patient will follow-up with them outpatient. Voiding trial once ambulatory. Failed voiding trial x 1
# Benign Hypertension, Stable.
Hold BP meds acutely to avoid hypotension.
Hypocalcemia
Replete
# Hypothyroidism, Stable.
Continue T4 replacement.
Prolonged QTc
Monitor
# Mild Hyponatremia
# Mild Hypokalemia
Hold further IVF with BL LE edema
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
follow labs / lytes for improvement.
stage 2 deep dermal wound of sacral/coccyx
BMI is appropriate
DVT Prophylaxis: SCD's
Code Status: Full
PT/OT when able
General: Well Developed, Well Nourished, No Apparent Distress, Comfortable and Conversant
HEENT: Normocephalic, Atraumatic, Nose Appears Normal, Ears Appear Normal and Oxygen (2L NC)
Respiratory: Clear to Auscultation and Non Labored Respirations; Negative Accessory Resp Muscle Use
Cardiac: Regular Rhythm and S1/S2
GI: Soft, Nontender, Nondistended and Normal Bowel Sounds
Musculoskeletal: Edema, Right Lower Extrem and Edema, Left Lower Extrem
Skin: Warm, Dry and Lesions (R LE )
Neuro: Awake and Alert
Psych: Calm and Intact Judgement/Insight
I spent a total of 52 minutes with the patient or on the floor. More than 50% of this time involved counseling and coordination of care.
Anticipated Discharge: > 48 hours
Subjective/Interval History
-
Date of Service: February 19, 2024
denies pain
Objective Data
-
Labs:
Laboratory Results
02/19/24 02/19/24
03:03 09:38
WBC 10.6
Hgb 8.5 L 8.6 L
Hct 25.5 L 25.4 L
Plt Count 287
Sodium 135
Potassium 4.0
Chloride 109 H
Carbon Dioxide 22
BUN 5 L
Creatinine 0.6
Glucose 79
Calcium 6.9 L*
Vital Signs:
Vital Signs
Temp Pulse Resp BP Pulse Ox
97.5 F 76 18 121/69 96
02/19/24 07:05 02/19/24 12:00 02/19/24 12:00 02/19/24 12:00 02/19/24 12:00
I&O
02/18/24 02/19/24 02/20/24
06:59 06:59 06:59
Intake Total 1430 / 1430 1700 / 1700
Output Total 1950 / 2175 2450 / 2450
Balance -520 / -745 -750 / -750
[2024-02-19] MEDS: NSS IV (19:03)
[2024-02-20] VITALS (21 sets, daily range): BP systolic 91–169; BP diastolic 53–147; PULSE 70; BMI 21.5
[2024-02-20] MEDS: ZOSYN 50 IV ×2 (03:54→08:58)
[2024-02-20] MEDS: ROXICODONE 5 MG PO ×4 (03:54→20:29)
[2024-02-20] MEDS: SYNTHROID 88 MCG PO (03:56)
[2024-02-20 04:05] LABS: % Basophils 0.6 % (0-2); % Eosinophils 2.2 % (0-6); % Immature Granulocytes 0.6 % (0-0.5); % Lymphocytes 14.2 % (20.5-51.1); % Monocytes 6.1 % (1.7-9.3); % Neutrophils 76.3 % (42.2-75.2); Absolute Basophils 0.1 10^3/uL (0-0.2); Absolute Eosinophils 0.2 10^3/uL (0-0.7); Absolute Immature Granulocytes 0.1 10^3/uL (0-0.05); Absolute Lymphocytes 1.4 10^3/uL (1.2-3.4); Absolute Monocytes 0.6 10^3/uL (0.1-0.6); Absolute Neutrophils 7.7 10^3/uL (1.4-6.5); Hematocrit 22.5 % (37.0-47.0); Hemoglobin 7.3 g/dL (12.0-16.0); Mean Corp Hgb Conc. 32.4 g/dL (33.0-37.0); Mean Corpuscular Hgb 30.7 pg (27.0-31.0); Mean Corpuscular Volume 94.5 fL (81.0-99.0); Mean Platelet Volume 9.4 fL (7.4-10.4); Nucleated Red Blood Cells % 0 %; Platelet Count 301 10^3/uL (130-400); Red Blood Cell Count 2.38 10^6/uL (4.20-5.40); Red Cell Dist. Width 17.2 % (11.5-14.5); White Blood Cell Count 10.1 10^3/uL (4.8-10.8)
--- NOTE | 2024-02-20 04:17 | PTCARENOTE ---
Pt sleeping throughout shift. Medicated with Roxicodone x 2 for 5/10 pain to right heel/foot with good relief. VSS. Afebrile. SB/SR on CM. Neurovascular checks to RLE without change. One loose BM overnight without melena. Neal draining clear yellow
urine. Sudhir remains intact right groin. IVF's infusing as ordered. Maintained on Q2hr turns. Air cushion under sacrum with turns. Rest of assessment unchanged from previous. Call harper remains within reach. Will continue to monitor.
[2024-02-20 04:32] LABS: Blood Urea Nitrogen 4 mg/dl (7-17); Calcium 6.9 mg/dl (8.4-10.2); Carbon Dioxide 21 mmol/L (22-30); Chloride 110 mmol/L (98-107); Estimated Creatinine Clearance 48 ml/min; Glucose 75 mg/dl (70-99); Potassium 3.9 mmol/L (3.5-5.1); Sodium 135 mmol/L (135-145); eGFR > 60.00
--- NOTE | 2024-02-20 05:30 | PTCARENOTE ---
Ca+ 6.9 and Hgb 7.3. Pt without active bleeding. Ruth DIAZ TT'd and made aware. Orders entered for Calcium gluconate rider which is infusing at present time and 1 unit PRBC. Will report off to day shift RN.
[2024-02-20] MEDS: CALCIUM GLUCONATE 100 IV (05:48)
[2024-02-20] MEDS: FLOMAX 0.4 MG PO (08:07)
[2024-02-20] MEDS: LOW STRENGTH ASPIRIN 81 MG PO (08:07)
[2024-02-20] MEDS: PROTONIX IV 40 MG IV ×2 (08:07→20:30)
[2024-02-20] MEDS: NSS (PRESERVATIVE FREE) 10 ML IV ×2 (08:07→20:30)
[2024-02-20] MEDS: LIPITOR 40 MG PO (08:07)
--- NOTE | 2024-02-20 12:55 | W.PN.GI.CBS2 ---
Today's Communication / Plan
-
C/w ASA
D/w vascular surgeon today about plavix. Continue to hold
Tolerating low residue diet
OP FU with GI Dr Diaz. Will sign off please call for ?
Assessment / Plan
-
Caro 83yo with hx ASCVD with PAD, carotid disease, endometrial and cervical Ca with prior surgery and radiation, HTN, CVA, hypothyroidism, polyneuropathy, IBS with admission 02/11 with LE pain with plan for angio 02/17 and noted with concern for
worsening of chronic limb threatening ischemia with rest pain with gangrene of foot. Pt went to OR 02/14 for right common femoral endarterectomy with patch angioplasty using bovine pericardium, drug coating balloon angioplasty of right
superficial artery and right LE arterogram. Pt was given Plavix load of 300mg on 02/14 with continued Plavix and ASA 81mg continued daily. Pt also noted with Ecoli UTI. GI consulted with hematochezia thought related to diverticular
Impression:
-rectal bleeding with large volume clots on exam
-recent intermittent rectal bleeding prior to admission
-CT 01/23 and 02/12 with enteritis/ileus
-chronic limb ischemia with foot pain 02/14 s/p femoral endarterectomy, angio, bovine pericardium/drug coated stent, right superficial artery and right LE angio
-anemia
-pancreatic tail 1.2 cm lesion
-IBS with recent change from Viberzi to Colestipol due to cost
-endometrial/cervical CA with prior surgery and radiation
-ASCVD - PAD, carotid disease
-HTN
-CVA
-hypothyroidism
-polyneuropathy
-diverticulosis
-hemorrhoids
Plan:
- Colonoscopy done 02/17 incomplete due to diverticular stricture. Suspect diverticular bleeding now stopped given tanned stools on low residue diet
- Agree with transfusion of 1u PRBC today
- Continue to hold plavix. D/w vascular surgery today 02/19 and ok to hold for now.
- C/w ASA
- C/w low residue diet
- She can FU with Dr Diaz in our office. Will need OP MRI to FU on pancreatic tail cyst.
GI will sign off please call for ?
D/c paperwork updated for GI info
Subjective
Subjective
Date of Service: February 20, 2024
She is passing tanned stools and tolerating low residue diet. She feels well. Denies abd pain, nausea or vomiting
Objective
Data Reviewed
Laboratory Data:
Laboratory Results
02/20/24 03:35
02/20/24 03:35
Laboratory Results
PT 14.7 Sec (11.4-14.6) H 02/16/24 03:46
INR 1.10 02/16/24 03:46
APTT 35.4 Sec (23.4-35.0) H 02/16/24 03:46
Magnesium 1.8 mg/dl (1.6-2.3) 02/14/24 05:29
Total Bilirubin 1.0 mg/dl (0.2-1.3) 02/12/24 21:10
AST 64 U/L (14-36) H 02/12/24 21:10
ALT 32 U/L (0-35) 02/12/24 21:10
Alkaline Phosphatase 93 U/L (38-126) 02/12/24 21:10
Vital Signs and I&O:
Vital Signs
Temp Pulse Resp BP Pulse Ox
98.1 F 69 22 122/61 97
02/20/24 11:37 02/20/24 10:29 02/20/24 10:29 02/20/24 10:29 02/20/24 10:29
I&O
02/19/24 02/20/24 02/21/24
06:59 06:59 06:59
Intake Total 1700 / 1700 1360 / 1360 0 / 0
Output Total 2450 / 2450 1825 / 1825
Balance -750 / -750 -465 / -465 0 / 0
Physical Exam
Physical Exam
GEN: No acute distress, conversant, pleasant
HEENT: anicteric, extraocular movements intact, clear oropharynx without exudates
GI: soft, scars well healed non-distended, not tender to palpation, normal active bowel sounds, no hepatosplenomegaly
EXT: warm, well perfused, trace edema bilaterally
NEURO: AAOx3, non-focal
--- NOTE | 2024-02-20 14:12 | W.PN.HOSP.TC ---
Today's Communication/Plan
-
monitor vital signs
see plan
PT/OT
Continue aspirin, hold Plavix
Transfuse 1 unit today, monitor h/H
Replete calcium
Assessment / Plan
Assessment / Plan
83 yo F with PMH significant for ASCVD, hypertension and prior stroke; who presented to complaining of R > L LE pain. Patient notes that she has been having pain in the RLE since October. Her pain has steadily increased over time. She had
extensive evaluation ultimately revealing significant PAD in the RLE > LLE. Patient was scheduled for RLE angio on 02/17/23.
Unfortunately, her pain has continued to increase and became quite unbearable, prompting her to present to the ED
Patient states that she has chronic incontinence of bowel and bladder which she attributes to prior history of cervical cancer / XRT.
A/P:
# ASCVD
# PAD
# Critical Limb Ischemia of the RLE > LLE
Supportive care with pain control, etc.
Vascular Surgery following, status post right common femoral enderectomy 02/14.
Follow for clinical improvement.
Wound Care eval for R foot wound / local care.
Cover with IV abx Zosyn for now.
Avoid hypotension.
Holding Plavix per vascular
Aspirin
Anemia likely secondary to acute blood loss from hemorrhoids and diverticulosis
rectal bleeding /
GI following, status post colonoscopy with multiple large diverticula in sigmoid colon. Stricture in the sigmoid colon. Barium enema noted. GI discussed findings with patient regarding stricture. Plavix on hold. Okay to use aspirin and hold
Plavix. Vascular surgery following. Transfuse as necessary. Monitor H&H
PPI
CTA showed active sigmoid bleed. GI spoke with IR 1/2 Pool. The patient right groin would be unable to use due to her recent surgery. Left femoral vasculature also was not amenable. If patient becomes unstable no further options then IR can
try. Bleeding now appears to be getting better. Started on clears
Trend hemoglobin
Transfuse as necessary to keep hemoglobin greater than 8
# Urinary Retention
# Left Hydronephrosis
# Note prior h/o hysterectomy and XRT.
Suspected UTI, continue antibiotics. Urine culture with E. coli. Switch to cefdinir to complete course
Patient with urinary incontinence for some time.
? chronic urinary retention with overflow incontinence.
Placed Neal on admission for bladder decompression. Begin tamsulosin.
Urology following, patient will follow-up with them outpatient. Voiding trial once ambulatory. Failed voiding trial x 1
F/U w/ Dr. Nguyễn as outpatient - VUDS advised for bladder function study
# Benign Hypertension, Stable.
Hold BP meds acutely to avoid hypotension.
Hypocalcemia
Replete
# Hypothyroidism, Stable.
Continue T4 replacement.
Prolonged QTc
Monitor
# Mild Hyponatremia
# Mild Hypokalemia
Both now improving
Hold further IVF with BL LE edema
[employer] Lasix on hold, consider resuming sooner than later.
follow labs / lytes for improvement.
stage 2 deep dermal wound of sacral/coccyx
BMI is appropriate
DVT Prophylaxis: SCD's. start pharm ppx if hgb remains stable and no further bleeding
Code Status: Full
PT/OT when able
General: Well Developed, Well Nourished, No Apparent Distress, Comfortable and Conversant
HEENT: Normocephalic, Atraumatic, Nose Appears Normal, Ears Appear Normal and Oxygen (2L NC)
Respiratory: Clear to Auscultation and Non Labored Respirations; Negative Accessory Resp Muscle Use
Cardiac: Regular Rhythm and S1/S2
GI: Soft, Nontender, Nondistended and Normal Bowel Sounds
Musculoskeletal: Edema, Right Lower Extrem and Edema, Left Lower Extrem
Skin: Warm, Dry and Lesions (R LE )
Neuro: Awake and Alert
Psych: Calm and Intact Judgement/Insight
I spent a total of 51 minutes with the patient or on the floor. More than 50% of this time involved counseling and coordination of care.
Anticipated Discharge: 24 - 48 hours
Subjective/Interval History
-
Date of Service: February 20, 2024
denies pain
Objective Data
-
Labs:
Laboratory Results
02/20/24
03:35
WBC 10.1
Hgb 7.3 L
Hct 22.5 L
Plt Count 301
Sodium 135
Potassium 3.9
Chloride 110 H
Carbon Dioxide 21 L
BUN 4 L
Creatinine 0.7
Glucose 75
Calcium 6.9 L*
Vital Signs:
Vital Signs
Temp Pulse Resp BP Pulse Ox
98.2 F 67 21 110/57 96
02/20/24 13:15 02/20/24 13:15 02/20/24 13:15 02/20/24 13:15 02/20/24 13:15
I&O
02/19/24 02/20/24 02/21/24
06:59 06:59 06:59
Intake Total 1700 / 1700 1360 / 1360 250 / 250
Output Total 2450 / 2450 1825 / 1825
Balance -750 / -750 -465 / -465 250 / 250
--- NOTE | 2024-02-20 20:00 | PTCARENOTE ---
Resumed care of pt sitting in chair AAOx3. Pt assisted back to bed X2 assist with walker. Pt with significant right foot pain with ambulation. Right foot shoe in place. pt settled in bed per comfort. Pain medication administered as ordered. HR in
the 60's in NSR/SB on the monitor with occasional PVC's, POX 95% on Ra. Lungs clear. + bowel. Pt inc of pantoja colored loose stool, daxa care provided. Neal catheter in place draining yellow urine. Right groin jessie drain in place. Right heel dressing
in place. Sacral foam in place. Palpable peripheral pulses present, see Neurovascular check documentation. +1 pitting B/L LE edema noted. Heels elevated on pillows. Waffle pillow under sacrum per pt request. Left wrist int in place. Call harper in
reach. Will continue to monitor.
[2024-02-20] MEDS: OMNICEF 300 MG PO (20:29)
[2024-02-20 23:41] LABS: Hematocrit 26.1 % (37.0-47.0); Hemoglobin 8.7 g/dL (12.0-16.0)
[2024-02-21] VITALS (18 sets, daily range): BP systolic 100–154; BP diastolic 58–95; BMI 21.9
--- NOTE | 2024-02-21 01:06 | PTCARENOTE ---
Pt with episode of large loose blood clotty stool. Tiny care provided. Wound care provided to stage 2 sacral wound. No other changes in assessment noted at this time. Vital signs stable. Repeat H&H stable. Will continue to monitor.
[2024-02-21 05:06] LABS: Blood Urea Nitrogen 6 mg/dl (7-17); Calcium 7.8 mg/dl (8.4-10.2); Carbon Dioxide 24 mmol/L (22-30); Chloride 107 mmol/L (98-107); Estimated Creatinine Clearance 48 ml/min; Glucose 101 mg/dl (70-99); Potassium 4.4 mmol/L (3.5-5.1); Sodium 135 mmol/L (135-145); eGFR > 60.00
[2024-02-21 05:09] LABS: Hematocrit 23.8 % (37.0-47.0); Hemoglobin 7.8 g/dL (12.0-16.0); Mean Corp Hgb Conc. 32.8 g/dL (33.0-37.0); Mean Corpuscular Hgb 31.8 pg (27.0-31.0); Mean Corpuscular Volume 97.1 fL (81.0-99.0); Mean Platelet Volume 9.4 fL (7.4-10.4); Platelet Count 362 10^3/uL (130-400); Red Blood Cell Count 2.45 10^6/uL (4.20-5.40); Red Cell Dist. Width 17.2 % (11.5-14.5); White Blood Cell Count 12.2 10^3/uL (4.8-10.8)
[2024-02-21] MEDS: SYNTHROID 88 MCG PO (06:11)
[2024-02-21] MEDS: OMNICEF 300 MG PO ×2 (09:24→20:26)
[2024-02-21] MEDS: LIPITOR 40 MG PO (09:24)
[2024-02-21] MEDS: ROXICODONE 5 MG PO ×3 (09:24→23:23)
[2024-02-21] MEDS: LOW STRENGTH ASPIRIN 81 MG PO (09:25)
[2024-02-21] MEDS: FLOMAX 0.4 MG PO (09:25)
[2024-02-21] MEDS: PROTONIX IV 40 MG IV ×2 (09:25→20:26)
[2024-02-21] MEDS: NSS (PRESERVATIVE FREE) 10 ML IV ×2 (09:26→20:26)
--- NOTE | 2024-02-21 13:54 | PTCARENOTE ---
Assumed care of pt this am after walking rounds. Pt is awke, alert and oriented x3. She anxious in regard to her current hospitalization and ongoing rectal bleeding with clots. She passed 2 moderate amounts of clots this am. Dr. Guardado and Dr. Mel Blake
notified. Pt receiving 1 unit PRBCs at this time and tolerating. RN at bedside x first 15 minutes, and pt without complaints. Teach back for reporting s/s of blood reaction symptoms completed. GI doctor notified of GI clotting episodes and Dr. Guardado
also.
--- NOTE | 2024-02-21 14:53 | CON.CRS ---
Consultation
-
Date/Time Consultation Requested: 02/21/2024, 13:51
Date/Time Consultation Performed: 02/21/2024, 15:30
Requesting Provider: Sonido Guardado DO
Performing Provider: Terrance Donovan MD
Reason for Consultation: rectal bleeding
Medical History
-
Chief Complaint: rectal bleeding
History of Present Illness:
83-year-old female presents to [facility] on 02/03/2024 complaining of right greater than left lower extremity pain. She apparently had been having this left lower extremity pain since October 2023 and having increasing in severity. She
ultimately went to the operating room for right femoral endarterectomy and bovine pericardial patch angioplasty with Dr. Neal from vascular surgery. She was loaded with Plavix and continued on Plavix daily and aspirin 81 until today. She had been
having increased rectal bleeding and passage of large clots over the past 4 to 5 days. GI saw the patient in consultation and she underwent a colonoscopy. There was red blood and clot in the sigmoid and rectum and severe stenosis in the sigmoid
colon that could not be transversed. She then underwent a barium enema which showed mild relative narrowing in the proximal and mid sigmoid colon with no evidence of leak. CT of the abdomen and pelvis showed a small GI bleed in the mid sigmoid
colon. She is not a candidate for embolization per IR. She has been transfused several times the last being today due to hemoglobin of 7.8., As recently today due to anemia with a hemoglobin this morning of 7.8. She had apparently stopped
bleeding yesterday but has rebled again today after her morning dose of aspirin and is currently bleeding. She states she has never had rectal bleeding prior to this hospitalization. She denies a history of rectal or colon cancer or previous colon
surgeries. She has not been on blood thinners prior to this admission. SHe denies nausea or vomiting. Typically her bowels are 'all over the place' for the past twenty years after pelvic radiation from cervical cancer 32 years ago. She is tolerating
a diet without difficulty. Given the continued bleeding, we have been asked to see the patient in consultation for further surgical opinion.
Past Medical History
Past Medical History: Other (cervical and endometrial CA with prior surgery and XRT, CVA, HTN, Hypothyroidism, ASCVD with PAD, Carotid disease, polyneuropathy, IBS, osteoporosis, renal cyst, hepatic cyst, b/l sacroilitis, cholelithiasis, rosacea)
Past Surgical History: Other (loop recorder, , hysterectomy with BSO, wrist ORIF)
Social History
Tobacco: Non-Smoker
Alcohol: None
Drug: None
Living: With Family
Family History
Family History: Reviewed & Not Pertinent
Allergies / Home Medications
Allergy/AdvReac Type Severity Reaction Status Date / Time
alendronate sodium Allergy Severe Verified 02/12/24 17:09
[From Fosamax] abdominal
pain
pollen extracts Allergy seasonal Verified 02/12/24 17:09
allergies
�Medication �Instructions �Recorded �Confirmed �Type
losartan 50 mg tablet 50 mg PO DAILY Blood pressure 12/04/21 02/13/24 History
atorvastatin 40 mg tablet (Lipitor) 40 mg PO DAILY #30 tabs 12/05/21 02/13/24 Rx
colestipol 1 gram tablet 2 g PO BID High Cholesterol 08/06/23 02/13/24 History
furosemide 20 mg tablet (Lasix) 20 mg PO DAILY #7 tabs 01/24/24 02/13/24 Rx
calcium carbonate (Calcium 600) 600 mg PO DAILY Supplement 02/08/24 02/08/24 History
cyanocobalamin (vitamin B-12) 1,000 mcg PO DAILY Supplement 02/08/24 02/08/24 History
1,000 mcg tablet,extended release
(Vitamin B-12 ER)
docusate sodium 100 mg capsule 100 mg PO DAILY Constipation 02/08/24 02/08/24 History
(Colace)
multivitamin with minerals-folic 1 tab PO DAILY Supplement 02/08/24 02/08/24 History
acid 80 mcg chewable tablet
(Centrum Adult 50 Plus)
omega 1-jpd-tmv-fish oil 1,200 mg 1 cap PO DAILY Supplement 02/08/24 02/08/24 History
(144 mg-216 mg) capsule (Fish Oil)
oxycodone 5 mg tablet 5 mg PO TIDPRN PRN severe pain 02/08/24 02/08/24 History
levothyroxine 88 mcg tablet 88 mcg PO DAILY Thyroid 02/13/24 02/13/24 History
(Synthroid)
Review of Systems
-
History Source: Patient
All other systems: Negative unless noted
Abdomen/GI: Diarrhea, Constipated and Bloody Stools
A 10 point review of systems was completed, and was negative except as per HPI.
Physical Exam
Vital Signs
Temp 97.8 F 02/21/24 13:55
Pulse 66 02/21/24 13:55
Resp Rate 20 02/21/24 13:55
Blood pressure 142/69 02/21/24 13:55
SaO2 92 02/21/24 12:11
02/20/24 02/21/24 02/22/24
06:59 06:59 06:59
Actual Weight 51.5 kg 52.6 kg
Body Mass Index (BMI) 21.9
Lab Results / Allergies
02/21/24 04:18
WBC 12.2 10^3/uL (4.8-10.8) H 02/21/24 04:18
Hgb 7.8 g/dL (12.0-16.0) L 02/21/24 04:18
Hct 23.8 % (37.0-47.0) L 02/21/24 04:18
Plt Count 362 10^3/uL (130-400) D 02/21/24 04:18
Abs Immat Gran (auto) Cancelled 02/21/24 06:00
Neutrophils % Cancelled 02/21/24 06:00
Allergy/AdvReac Type Severity Reaction Status Date / Time
alendronate sodium Allergy Severe Verified 12/28/24 17:09
[From Fosamax] abdominal
pain
pollen extracts Allergy seasonal Verified 02/12/24 17:09
allergies
Physical Exam
General: Well Developed, Well Nourished and No Apparent Distress
GI: Soft, Non Tender and Distended (?mild)
Rectal: Other (dark clotty blood in underwear)
Skin: Warm and Dry
Neuro: AO x 3
Data Reviewed
-
CT Scan: Image Personally Visualized and interpreted, Report Reviewed by me and Discussed with Patient
Labs: Labs Reviewed by me, Discussed with Physician and Discussed with Patient
Old Records: Reviewed
Assessment / Plan
-
Assessment: 83-year-old female status post right femoral endarterectomy with bovine pericardial patch angioplasty on 02/15/2024 now with rectal bleeding status post multiple transfusions and found to have a sigmoid colon stricture on colonoscopy,
with persistent bloody bowel movements
Plan:
This is a challenging case given her recent surgery. I will discuss this case with Dr. Donovan, my colorectal surgeon, who will see the patient later today in consultation. Agree with holding Plavix and aspirin for now. Continue to trend hemoglobin
and transfuse as needed. Agree with clear liquids. Will follow.
--- NOTE | 2024-02-21 14:57 | CM ---
Patient who is s/p Right common femoral endarterectomy, angioplasties right femoral arteries, RLE arteriogram, s/p transfusions. Room air. Clear liquids. Offloading boot for right foot. PT recommends skilled rehab. OT Eval pending.
Met with patient who expressed concern about her medical status, specifically whether she is continuing to have rectal bleeding- encouraged her to speak with MD bess; her condition. Discussed eventual d/c to SNF for rehab -patient confirms she would
want to go to [facility] - agree to make referrals.
SNF referrals placed.
CM continuing to follow for d/c needs.
Plan follow up SNF referrals.
--- NOTE | 2024-02-21 15:15 | W.PN.HOSP.TC ---
Today's Communication/Plan
-
Transfuse 1 more unit PRBC
N.p.o. due to recurrent LGIB
Hold aspirin and Plavix
Colorectal surgery consult
Assessment / Plan
Assessment / Plan
#LGIB from diverticular bleed
-Status post colonoscopy with multiple large diverticula and sigmoid stricture
-Status post 1 unit of PRBC yesterday for hemoglobin goal >8.0 with recent vascular intervention
-Hemoglobin down trended after unit of PRBC, hemoglobin this morning 7.8
-Now holding both DAPT due to ongoing bleeding despite holding Plavix
-Per GI no further intervention they can perform, IR stated not candidate for embolization
-Will consult colorectal surgery for consideration of sigmoidectomy
-Hold anticoagulation, trend CBC with hemoglobin goal >8.0
-Transfuse 1 more unit of PRBC today
#Critical limb ischemia of RLE
-Status post right common femoral endarterectomy on 02/14
-Was on aspirin and Plavix as well as statin; Plavix held for GIB
-Has had continuing GI bleeding, holding aspirin as of today
-Will monitor lower extremities closely for signs of ischemia
-Avoid hypotension, plan to resume aspirin when possible
#Urinary retention with suspected UTI
#Left hydronephrosis
#H/O hysterectomy and XRT
-Was started on IV Zosyn empirically; urine culture showing E. coli
-Status post Neal catheter, failed TOV x 1 while nonambulatory
-Will plan for trial of void when ambulatory; continue with Flomax
-Plan to transition to cefdinir to complete 7-day antibiotic
-Will follow-up with Dr. Hughes with urology as OP, plan for VUDS
#Hypertension
-No known history of hypertensive systemic disease
-Home regimen includes losartan and Lasix
-Holding antihypertensive regimen due to hypotension on arrival
-Plan to resume antihypertensives sequentially as BP improves
#Hypothyroidism
-Unclear etiology, remains on home levothyroxine regimen
-No signs of thyroid dysfunction at this time
#Electrolyte depletion
-Had low potassium and sodium upon arrival
-Has improved with Lasix on hold
-Trend BMP
#Stage II deep dermal wound of sacrum/coccyx
Diet: N.p.o. pending colorectal evaluation
DVT prophylaxis: SCDs
CODE STATUS: Full
Anticipated Discharge: > 48 hours
Subjective/Interval History
-
Date of Service: February 21, 2024
Seen and examined at the bedside. No acute events overnight, however after morning medications had bloody bowel movement with some clots noted by RN. AFVSS otherwise
Patient states she feels generally well and has no acute complaints. Denies abdomen pain or lower extremity pain at this time.
Hemoglobin down trended to 7.8 following unit of blood yesterday
Objective Data
-
Labs:
Laboratory Results
02/21/24 02/21/24
04:18 20:00
WBC 12.2 H Pending
Hgb 7.8 L Pending
Hct 23.8 L Pending
Plt Count 362 D Pending
Sodium 135
Potassium 4.4
Chloride 107
Carbon Dioxide 24
BUN 6 L
Creatinine 0.7
Glucose 101 H
Calcium 7.8 L
Vital Signs:
Vital Signs
Temp Pulse Resp BP Pulse Ox
97.8 F 66 20 142/69 92
02/21/24 13:55 02/21/24 13:55 02/21/24 13:55 02/21/24 13:55 02/21/24 12:11
I&O
02/20/24 02/21/24 02/22/24
06:59 06:59 06:59
Intake Total 1360 / 1360 730 / 730 0 / 0
Output Total 1825 / 1825 700 / 700 1300 / 1300
Balance -465 / -465 30 / 30 -1300 / -1300
Review of Systems
-
History Source: Patient
All other systems: Reviewed and negative
Physical Exam
-
General: Well Developed, No Apparent Distress, Comfortable and Other (Thin female)
HEENT: Normocephalic, Atraumatic, Moist Mucous Membranes and Anicteric
Respiratory: Clear to Auscultation and Non Labored Respirations
Cardiac: Regular Rhythm and S1/S2; Negative Murmur, Rub or Gallop
GI: Soft, Nontender, Nondistended and Normal Bowel Sounds
Musculoskeletal: No Clubbing, No Cyanosis and No Edema
Skin: Warm, Dry, Normal Turgor and Other (Distal lower extremities warm with signs of adequate perfusion); Negative Rash
Neuro: AO x 3 and Nonfocal/Grossly Intact
Psych: Calm
Data Reviewed
-
Labs: Labs Reviewed by me, Discussed with Physician (Colorectal surgery) and Discussed with Patient
--- NOTE | 2024-02-21 19:47 | PTCARENOTE ---
Patient's rt groin KAYA dressing is soiled with stool. Dr. Neal notified and telephone order received to remove the dressing, cleanse with soap and water and apply a clean dry dressing. Wound is approximated with abner and stitches. no drainage
noted. Area is soft with swelling but no pain upon palpation.
[2024-02-21 21:06] LABS: Hematocrit 29.8 % (37.0-47.0); Hemoglobin 10.2 g/dL (12.0-16.0); Mean Corp Hgb Conc. 34.2 g/dL (33.0-37.0); Mean Corpuscular Hgb 31.3 pg (27.0-31.0); Mean Corpuscular Volume 91.4 fL (81.0-99.0); Platelet Count 327 10^3/uL (130-400); Red Blood Cell Count 3.26 10^6/uL (4.20-5.40); White Blood Cell Count 8.2 10^3/uL (4.8-10.8)
[2024-02-22] VITALS (17 sets, daily range): BP systolic 112–156; BP diastolic 58–113; PULSE 62; O2SAT 100; BMI 20.5
--- NOTE | 2024-02-22 00:46 | PTCARENOTE ---
Caring for pt overnight. aaox3, pleasant. Repeat H&H improved. Pain meds given around 2300 for throbbing pain in R foot. R foot dressing CDI. R groin dressing CDI. NSR/SB on monitor. VSS. NO other issues, will monitor.
[2024-02-22 04:59] LABS: % Basophils 0.5 % (0-2); % Eosinophils 2.9 % (0-6); % Immature Granulocytes 0.5 % (0-0.5); % Lymphocytes 13.9 % (20.5-51.1); % Monocytes 7.6 % (1.7-9.3); % Neutrophils 74.6 % (42.2-75.2); Absolute Eosinophils 0.2 10^3/uL (0-0.7); Absolute Lymphocytes 1.1 10^3/uL (1.2-3.4); Absolute Monocytes 0.6 10^3/uL (0.1-0.6); Absolute Neutrophils 5.7 10^3/uL (1.4-6.5); Hematocrit 30.9 % (37.0-47.0); Hemoglobin 10.4 g/dL (12.0-16.0); Mean Corp Hgb Conc. 33.7 g/dL (33.0-37.0); Mean Corpuscular Hgb 31.9 pg (27.0-31.0); Mean Corpuscular Volume 94.8 fL (81.0-99.0); Mean Platelet Volume 9.3 fL (7.4-10.4); Nucleated Red Blood Cells % 0 %; Platelet Count 335 10^3/uL (130-400); Red Blood Cell Count 3.26 10^6/uL (4.20-5.40); Red Cell Dist. Width 17.2 % (11.5-14.5); White Blood Cell Count 7.6 10^3/uL (4.8-10.8)
[2024-02-22] MEDS: ROXICODONE 5 MG PO ×3 (05:04→16:31)
[2024-02-22] MEDS: SYNTHROID 88 MCG PO (05:04)
[2024-02-22 05:19] LABS: Blood Urea Nitrogen 3 mg/dl (7-17); Calcium 7.7 mg/dl (8.4-10.2); Carbon Dioxide 24 mmol/L (22-30); Chloride 107 mmol/L (98-107); Estimated Creatinine Clearance 55 ml/min; Glucose 84 mg/dl (70-99); Potassium 4.1 mmol/L (3.5-5.1); Sodium 135 mmol/L (135-145); eGFR > 60.00
[2024-02-22] MEDS: LIPITOR 40 MG PO (08:56)
[2024-02-22] MEDS: FLOMAX 0.4 MG PO (08:56)
[2024-02-22] MEDS: OMNICEF 300 MG PO (08:56)
[2024-02-22] MEDS: PROTONIX IV 40 MG IV ×2 (08:57→19:52)
[2024-02-22] MEDS: FLUSH (NSS) 1 FLUSH IV (08:57)
[2024-02-22] MEDS: NSS (PRESERVATIVE FREE) 10 ML IV ×2 (08:57→19:53)
--- NOTE | 2024-02-22 09:02 | W.PN.CRS1 ---
Today's Communication / Plan
-
As below
Assessment/Plan
-
83-year-old female with PMH of CAD, HTN, HLD, hypothyroidism, CVA, cervical cancer s/p hysterectomy and RT, fecal/bladder incontinence, PAD (being worked up as an outpatient and had a planned angio for 02/18/2024) who presented with significant
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
developed a GI bleed with bright red blood and clots per rectum on 02/16; CTA showed a small blush in the mid sigmoid colon; IR options were limited due to her recent vascular procedure so she underwent a colonoscopy on 02/[address] Snowden, which
demonstrated blood and blood clot in the rectum and sigmoid, sigmoid diverticulosis and a sigmoid stricture that was not able to be traversed with a gastroscope; her Plavix was held starting 02/16, but her ASA was continued; she required PRBCs x 2 on
02/17; her GI bleed improved and she had brown stool on 02/19; she received a PRBC x 1 on 02/19; her diet was advanced, but last night and today, she had multiple episodes of blood and blood clots per rectum again; her hemoglobin this a.m. was 7.8 and she
received another PRBC on 02/20; due to inability to perform colonoscopy and limited options for IR, colorectal surgery was consulted for possible surgical resection
AFVSS
WBC 7.6 from 8.2, Hb 10.4 from 10.2, CR 0.6, UOP 2.7 L
� Acute GI bleed s/p revascularization procedure requiring DAPT; Plavix being held since 02/16
�D/w vascular surgery, due to risk of complications with revascularization, unable to hold aspirin
�D/w IR; right groin is not available for access; patient has stenosis of left SFA, iliac and ANTWAN, so embolization would be technically challenging and high likelihood of not being successful
�If rebleeds, will order CTA prior to IR attempt
�No blood per rectum since yesterday; continue nonoperative measures
�Continue n.p.o. with complete bowel rest for another 24 hours
� Appreciate vascular surgery for activity restrictions; okay for OOB from my standpoint
� Appreciate GI; currently signed off
� Remainder of care per hospitalist
Subjective Data
Subjective Data
Date of Service: February 22, 2024
No overnight events.
Denies pain.
No nausea/vomiting. Pt is NPO.
No blood OH overnight. No BMs since yesterday.
Objective Data
-
Vital Signs
Temp Pulse Resp BP Pulse Ox
97.7 F 62 14 141/77 97
02/22/24 07:27 02/22/24 08:00 02/22/24 08:00 02/22/24 08:00 02/22/24 08:00
Intake & Output
02/21/24 02/22/24 02/23/24
06:59 06:59 06:59
Intake Total 730 / 730 1280 / 1280
Output Total 700 / 700 2700 / 2700 450 / 450
Balance 30 / 30 -1420 / -1420 -450 / -450
Intake:
Oral fluids 480 / 480 780 / 780
Blood products 250 / 250
Blood Product Amount Infused ( 250 / 250 250 / 250
mL)
Packed Rbc Leukoreduced Unit 250 / 250
[id number]
Packed Rbc Leukoreduced Unit 250 / 250
[id number]
Output:
Urine, Neal 700 / 700 2700 / 2700 450 / 450
Lab Results
02/22/24 04:38
02/22/24 04:38
Physical Exam
-
General: No Acute Distress and AOx3
HEENT: Grossly Normal
Abdomen: Soft, Non Distended, Non Tender, No Guarding and No Rebound
Skin: Warm and Dry
--- NOTE | 2024-02-22 09:32 | CM ---
Patient who is s/p Right common femoral endarterectomy, angioplasties right femoral arteries, RLE arteriogram, s/p transfusions. Room air. NPO. Receiving IV Protonix, Roxicodone prn. Offloading boot for right foot. PT recommends skilled rehab.
OT Eval pending.
SNF referrals reviewed in [facility]; declined by [facility] due to not accepting [facility] insurance. No response [facility].
Spoke with [facility]; discussed patient's status, rehab needs, home setup. She will review the referral and let CM know if she can accept. They may have an available bed on Wednesday if patient is medically ready for d/c.
CM continuing to follow for d/c needs.
Plan follow up with [facility] for acceptance.
--- NOTE | 2024-02-22 12:03 | PTCARENOTE ---
Patient out to chair with assistance x1 and left offload shoe. Medicated patient with pain medication as ordered for pain at left heel rating 5/10. NPO except for sips and medication as per colorectal surgery. Patient AAOX3. Uses call harper
appropriately. VS stable.
--- NOTE | 2024-02-22 12:29 | W.PN.HOSP.TC ---
Today's Communication/Plan
-
Continue with aspirin, hold Plavix
Trend CBC
N.p.o. for now
Continue antibiotics
Assessment / Plan
Assessment / Plan
#LGIB from diverticular bleed
-Status post colonoscopy with multiple large diverticula and sigmoid stricture
-Status post 2 unit of PRBC with repeat hemoglobin 10.4, no signs of rebleed
-Per vascular surgery, needs to be on antiplatelet agent due to high risk following endarterectomy
-Per GI no further intervention they can perform, IR stated not candidate for embolization due to PAD
-Colorectal surgery following, considering sigmoidectomy
-Hold Plavix, continue with aspirin
-Trend CBC, hemoglobin goal >8
#Critical limb ischemia of RLE
-Status post right common femoral endarterectomy on 02/14
-Was on aspirin and Plavix as well as statin; Plavix held for GIB
-Will monitor lower extremities closely for signs of ischemia
-Avoid hypotension, continue with aspirin and statin
#Urinary retention with suspected UTI
#Left hydronephrosis
#H/O hysterectomy and XRT
-Was started on IV Zosyn empirically; urine culture showing E. coli
-Status post Neal catheter, failed TOV x 1 while nonambulatory
-Will plan for trial of void when ambulatory; continue with Flomax
-Plan to transition to cefdinir to complete 7-day antibiotic when not n.p.o.
-Will follow-up with Dr. Hughes with urology as OP, plan for VUDS
#Hypertension
-No known history of hypertensive systemic disease
-Home regimen includes losartan and Lasix
-Holding antihypertensive regimen due to hypotension on arrival
-Plan to resume antihypertensives sequentially as BP improves
#Hypothyroidism
-Unclear etiology, remains on home levothyroxine regimen
-No signs of thyroid dysfunction at this time
#Electrolyte depletion
-Had low potassium and sodium upon arrival
-Has improved with Lasix on hold
-Trend BMP
#Stage II deep dermal wound of sacrum/coccyx
Diet: N.p.o. pending colorectal evaluation
DVT prophylaxis: SCDs
CODE STATUS: Full
Anticipated Discharge: > 48 hours
Subjective/Interval History
-
Date of Service: February 22, 2024
Seen and examined while sitting in the chair today. No acute events overnight. AFVSS this morning
Hemoglobin improved to 10.4 after unit of blood. Denies any recurrence of bloody stools. Denies dark stools as well. States she feels very well today
Denies any acute complaint
Objective Data
-
Labs:
Laboratory Results
02/22/24
04:38
WBC 7.6
Hgb 10.4 L
Hct 30.9 L
Plt Count 335
Sodium 135
Potassium 4.1
Chloride 107
Carbon Dioxide 24
BUN 3 L
Creatinine 0.6
Glucose 84
Calcium 7.7 L
Vital Signs:
Vital Signs
Temp Pulse Resp BP Pulse Ox
97.9 F 62 14 141/77 97
02/22/24 11:10 02/22/24 08:00 02/22/24 08:00 02/22/24 08:00 02/22/24 08:00
I&O
02/21/24 02/22/24 02/23/24
06:59 06:59 06:59
Intake Total 730 / 730 1280 / 1280
Output Total 700 / 700 2700 / 2700 450 / 450
Balance 30 / 30 -1420 / -1420 -450 / -450
Review of Systems
-
History Source: Patient
All other systems: Reviewed and negative
Physical Exam
-
General: Well Developed, No Apparent Distress, Comfortable and Other (Thin female)
HEENT: Normocephalic, Atraumatic, Moist Mucous Membranes and Anicteric
Respiratory: Clear to Auscultation and Non Labored Respirations
Cardiac: Regular Rhythm, S1/S2 and Other (Palpable peripheral pulses, good capillary refill to distal extremities); Negative Murmur, Rub or Gallop
GI: Soft, Nontender, Nondistended and Normal Bowel Sounds
Musculoskeletal: No Clubbing, No Cyanosis and No Edema
Skin: Warm, Dry and Normal Turgor; Negative Rash
Neuro: AO x 3 and Nonfocal/Grossly Intact
Psych: Calm
Data Reviewed
-
Labs: Labs Reviewed by me, Discussed with Physician (Colorectal surgery) and Discussed with Patient
[2024-02-22] MEDS: TYLENOL 650 MG PO (16:30)
[2024-02-23] VITALS (12 sets, daily range): BP systolic 102–150; BP diastolic 56–84; BMI 20.2
--- NOTE | 2024-02-23 01:22 | PTCARENOTE ---
Assumed care for patient overnight, received report from mike RN. Pt AAOx3, pleasant. NSR on tele, HR down to low 50's when sleeping. RLE warm positive pulses. LLE cooler than the right pulses with doppler. Pt on RA 95%. Rice draining yellow
urine, verbal order to remove rice @ 0600 verified order. Groin dressing clean dry and intact. Pt denies pain at this time, will reassess. Hygiene care done. Pt rings call harper appropriately, call harper is within reach.
[2024-02-23] MEDS: TYLENOL 650 MG PO (06:01)
[2024-02-23] MEDS: ROXICODONE 5 MG PO ×4 (06:01→22:34)
[2024-02-23] MEDS: SYNTHROID 88 MCG PO (06:02)
[2024-02-23 06:14] LABS: % Basophils 0.9 % (0-2); % Eosinophils 2.1 % (0-6); % Immature Granulocytes 0.3 % (0-0.5); % Lymphocytes 12.2 % (20.5-51.1); % Neutrophils 78.5 % (42.2-75.2); Absolute Basophils 0.1 10^3/uL (0-0.2); Absolute Eosinophils 0.2 10^3/uL (0-0.7); Absolute Lymphocytes 0.9 10^3/uL (1.2-3.4); Absolute Monocytes 0.5 10^3/uL (0.1-0.6); Absolute Neutrophils 6.1 10^3/uL (1.4-6.5); Hematocrit 30.9 % (37.0-47.0); Hemoglobin 10.4 g/dL (12.0-16.0); Mean Corp Hgb Conc. 33.7 g/dL (33.0-37.0); Mean Corpuscular Hgb 31.6 pg (27.0-31.0); Mean Corpuscular Volume 93.9 fL (81.0-99.0); Mean Platelet Volume 9.2 fL (7.4-10.4); Nucleated Red Blood Cells % 0 %; Platelet Count 382 10^3/uL (130-400); Red Blood Cell Count 3.29 10^6/uL (4.20-5.40); White Blood Cell Count 7.7 10^3/uL (4.8-10.8)
[2024-02-23 06:34] LABS: Blood Urea Nitrogen 7 mg/dl (7-17); Calcium 7.8 mg/dl (8.4-10.2); Carbon Dioxide 22 mmol/L (22-30); Chloride 105 mmol/L (98-107); Estimated Creatinine Clearance 55 ml/min; Glucose 54 mg/dl (70-99); Potassium 4.2 mmol/L (3.5-5.1); Sodium 134 mmol/L (135-145); eGFR > 60.00
[2024-02-23 07:06] LABS: Glucose - Point of Care 54 mg/dl (70-99)
[2024-02-23 07:56] LABS: Glucose - Point of Care 94 mg/dl (70-99)
--- NOTE | 2024-02-23 08:34 | W.PN.CRS1 ---
Today's Communication / Plan
-
clears
no blood bm x 2 days
Assessment/Plan
-
83-year-old female with PMH of CAD, HTN, HLD, hypothyroidism, CVA, cervical cancer s/p hysterectomy and RT, fecal/bladder incontinence, PAD (being worked up as an outpatient and had a planned angio for 02/18/2024) who presented with significant
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
developed a GI bleed with bright red blood and clots per rectum on 02/16; CTA showed a small blush in the mid sigmoid colon; IR options were limited due to her recent vascular procedure so she underwent a colonoscopy on 02/[address] Snowden, which
demonstrated blood and blood clot in the rectum and sigmoid, sigmoid diverticulosis and a sigmoid stricture that was not able to be traversed with a gastroscope; her Plavix was held starting 02/16, but her ASA was continued; she required PRBCs x 2 on
02/17; her GI bleed improved and she had brown stool on 02/19; she received a PRBC x 1 on 02/19; her diet was advanced, but last night and today, she had multiple episodes of blood and blood clots per rectum again; her hemoglobin this a.m. was 7.8 and she
received another PRBC on 02/20; due to inability to perform colonoscopy and limited options for IR, colorectal surgery was consulted for possible surgical resection
AFVSS
WBC 7.7 from 8.4, Hb 10.4 from 10.4
� Acute GI bleed s/p revascularization procedure requiring DAPT; Plavix being held since 02/16
�D/w vascular surgery, due to risk of complications with revascularization, unable to hold aspirin
�D/w IR; right groin is not available for access; patient has stenosis of left SFA, iliac and ANTWAN, so embolization would be technically challenging and high likelihood of not being successful
�If rebleeds, will order CTA prior to IR attempt
�No blood per rectum since 02/20; continue nonoperative measures
�Start on clear liquid diet today
� Appreciate GI; currently signed off
� Remainder of care per hospitalist
Subjective Data
Subjective Data
Date of Service: February 23, 2024
Patient states she has not had a bowel movement today but she did yesterday. She denies nausea or vomiting. She does not have any more bleeding.
Objective Data
-
Vital Signs
Temp Pulse Resp BP Pulse Ox
97.6 F 63 16 139/67 98
02/23/24 07:51 02/23/24 06:00 02/23/24 06:00 02/23/24 06:00 02/23/24 06:00
Intake & Output
02/22/24 02/23/24 02/24/24
06:59 06:59 06:59
Intake Total 1280 / 1280 240 / 240
Output Total 2700 / 2700 925 / 925
Balance -1420 / -1420 -685 / -685
Intake:
Oral fluids 780 / 780 240 / 240
Blood products 250 / 250
Blood Product Amount Infused ( 250 / 250
mL)
Packed Rbc Leukoreduced Unit 250 / 250
[id number]
Output:
Urine, Neal 2700 / 2700 925 / 925
Lab Results
02/23/24 05:49
02/23/24 05:49
Physical Exam
-
General: No Acute Distress and AOx3
Abdomen: Soft, Non Distended and Non Tender
Skin: Warm and Dry
[2024-02-23] MEDS: LOW STRENGTH ASPIRIN 81 MG PO (10:05)
[2024-02-23] MEDS: FLOMAX 0.4 MG PO (10:05)
[2024-02-23] MEDS: LIPITOR 40 MG PO (10:05)
[2024-02-23] MEDS: PROTONIX IV 40 MG IV ×2 (10:05→21:25)
[2024-02-23] MEDS: NSS (PRESERVATIVE FREE) 10 ML IV ×2 (10:06→21:26)
[2024-02-23] MEDS: FLUSH (NSS) 1 FLUSH IV (10:06)
--- NOTE | 2024-02-23 10:20 | WOUNDNOTE ---
[facility] RN NOTE: Visited patient to follow up on wounds since vascular surgery on 02/14. Patient is s/p Right common femoral endarterectomy with patch angioplasty using bovine pericardium, Drug-coated balloon angioplasty of right superficial femoral
artery, and right lower extremity arteriogram. Right foot is now pink with + pulse. Right heel wound with adherent black and yellow adherent eschar/slough and small opening with some purulent drainage. Pictures of right heel wound texted to Briseyda
JOSE G Adler NP and Dr. Guardado. Stage 2 on sacrum with non-blanchable periwound and sacral skin. Patient states she has been off-loading areas but it continues to feel uncomfortable at times. Patient given and instructed on use of Z Roc
Fluidized positioner to help off-load sacrum. Explained to patient that the positioner should not be directly applied to the sacrum, but may help position under back and leg to off-load sacrum. Patient now on clear liquid diet but was NPO for
several days. We discussed importance of good nutrition in wound healing and patient states understanding and is looking forward to diet advancing. MAHI Fairchild given update. Will continue to follow with patient during in-patient stay.
--- NOTE | 2024-02-23 14:08 | W.PN.HOSP.TC ---
Today's Communication/Plan
-
Advance diet per colorectal surgery
Trend CBC
Speak to podiatry about debridement
Assessment / Plan
Assessment / Plan
#LGIB from diverticular bleed
-Status post colonoscopy with multiple large diverticula and sigmoid stricture
-Status post 2 unit of PRBC with repeat hemoglobin 10.4, no signs of rebleed
-Per vascular surgery, needs to be on antiplatelet agent due to high risk following endarterectomy
-Per GI no further intervention they can perform, IR stated not candidate for embolization due to PAD
-Currently on clear liquid diet, planning to transition to full liquid tomorrow if no rebleeding
-Colorectal surgery following, considering sigmoidectomy
-Hold Plavix, continue with aspirin
-Trend CBC, hemoglobin goal >8
#Critical limb ischemia of RLE
-Status post right common femoral endarterectomy on 02/14
-Was on aspirin and Plavix as well as statin; Plavix held for GIB
-Will monitor lower extremities closely for signs of ischemia
-Avoid hypotension, continue with aspirin and statin
-Will speak with podiatry about debridement of tissue
#Urinary retention with suspected UTI
#Left hydronephrosis
#H/O hysterectomy and XRT
-Was started on IV Zosyn empirically; urine culture showing E. coli
-Status post Neal catheter, failed TOV x 1 while nonambulatory
-Will plan for trial of void when ambulatory; continue with Flomax
-Plan to transition to cefdinir to complete 7-day antibiotic when not n.p.o.
-Will follow-up with Dr. Hughes with urology as OP, plan for VUDS
#Hypertension
-No known history of hypertensive systemic disease
-Home regimen includes losartan and Lasix
-Holding antihypertensive regimen due to hypotension on arrival
-Plan to resume antihypertensives sequentially as BP improves
#Hypothyroidism
-Unclear etiology, remains on home levothyroxine regimen
-No signs of thyroid dysfunction at this time
#Electrolyte depletion
-Had low potassium and sodium upon arrival
-Has improved with Lasix on hold
-Trend BMP
#Stage II deep dermal wound of sacrum/coccyx
Diet: CLD, possible full liquids tomorrow
DVT prophylaxis: SCDs
CODE STATUS: Full
Anticipated Discharge: > 48 hours
Subjective/Interval History
-
Date of Service: February 23, 2024
Seen and examined at the bedside. No acute events reported overnight. AFVSS this morning.
Hemoglobin remained stable. Trend denies any blood in the stool or melena
Denies any acute complaints.
Objective Data
-
Labs:
Laboratory Results
02/23/24
05:49
WBC 7.7
Hgb 10.4 L
Hct 30.9 L
Plt Count 382
Sodium 134 L
Potassium 4.2
Chloride 105
Carbon Dioxide 22
BUN 7
Creatinine 0.6
Glucose 54 L*
Calcium 7.8 L
Vital Signs:
Vital Signs
Temp Pulse Resp BP Pulse Ox
97.7 F 61 14 125/66 98
02/23/24 11:05 02/23/24 10:00 02/23/24 10:00 02/23/24 10:00 02/23/24 06:00
I&O
02/22/24 02/23/24 02/24/24
06:59 06:59 06:59
Intake Total 1280 / 1280 240 / 240
Output Total 2700 / 2700 925 / 925
Balance -1420 / -1420 -685 / -685
Review of Systems
-
History Source: Patient
All other systems: Reviewed and negative
Physical Exam
-
General: Well Developed, No Apparent Distress, Comfortable and Other (Thin female)
HEENT: Normocephalic, Atraumatic, Moist Mucous Membranes and Anicteric
Respiratory: Clear to Auscultation and Non Labored Respirations
Cardiac: Regular Rhythm and S1/S2; Negative Murmur, Rub or Gallop
GI: Soft, Nontender, Nondistended and Normal Bowel Sounds
Musculoskeletal: No Clubbing, No Cyanosis and No Edema
Skin: Warm, Dry, Normal Turgor and Other (Necrotic appearing tissue near right heel wound); Negative Rash
Neuro: AO x 3 and Nonfocal/Grossly Intact
Psych: Calm
Data Reviewed
-
Labs: Labs Reviewed by me, Discussed with Patient and Discussed with Family
--- NOTE | 2024-02-23 16:31 | PTCARENOTE ---
Patient unable to void after rice catheter removal. Patient bladder scanned for > 440. Patient tried to void on commode and unable to void but had small burgundy BM. Straight cathed patient as per protocol for 520 mls clear yellow urine. Will
continue to monitor.
--- NOTE | 2024-02-23 16:35 | CM ---
Patient who is s/p Right common femoral endarterectomy, angioplasties right femoral arteries, RLE arteriogram, s/p transfusions. Plan debridement right heel by podiatry. Room air. Receiving Plavix, Roxicodone, IV Protonix. Clear liquids. Seen
by wound care nurse today. Offloading boot for right foot. PT/OT recommend skilled rehab.
Spoke with [facility]; they cannot accept due to stage 2 decub sacrum, as they have no wound care nurse presently.
CM continuing to follow for d/c needs.
Plan speak with patient about alternate SNF choices.
--- NOTE | 2024-02-23 18:15 | PTCARENOTE ---
Patient out of bed to chair assist x1 with walker. Off load shoe on right foot. Right heel dressing done by wound banquet director. Patient currently out of bed to chair. Medicated with pain medication as ordered for sacral wound and right heel pain.
VS stable.
[2024-02-24] VITALS (9 sets, daily range): BP systolic 113–143; BP diastolic 60–96; BMI 20.5
[2024-02-24] MEDS: SYNTHROID 88 MCG PO (05:02)
[2024-02-24] MEDS: ROXICODONE 5 MG PO ×3 (05:25→20:26)
--- NOTE | 2024-02-24 05:39 | W.PN.UPDATE ---
Update Note
Progress Note Update
patient continues to retain urine, 850 CC Bladder scan. was straight cath x [address] Neal cath. Recently treated with antibiotics for UTI.
[2024-02-24 05:56] LABS: % Basophils 0.7 % (0-2); % Eosinophils 1.8 % (0-6); % Immature Granulocytes 0.2 % (0-0.5); % Lymphocytes 14.2 % (20.5-51.1); % Monocytes 5.9 % (1.7-9.3); % Neutrophils 77.2 % (42.2-75.2); Absolute Basophils 0.1 10^3/uL (0-0.2); Absolute Eosinophils 0.2 10^3/uL (0-0.7); Absolute Lymphocytes 1.2 10^3/uL (1.2-3.4); Absolute Monocytes 0.5 10^3/uL (0.1-0.6); Absolute Neutrophils 6.5 10^3/uL (1.4-6.5); Hematocrit 32.7 % (37.0-47.0); Hemoglobin 10.9 g/dL (12.0-16.0); Mean Corp Hgb Conc. 33.3 g/dL (33.0-37.0); Mean Corpuscular Hgb 31.6 pg (27.0-31.0); Mean Corpuscular Volume 94.8 fL (81.0-99.0); Mean Platelet Volume 9.2 fL (7.4-10.4); Nucleated Red Blood Cells % 0 %; Platelet Count 434 10^3/uL (130-400); Red Blood Cell Count 3.45 10^6/uL (4.20-5.40); Red Cell Dist. Width 16.9 % (11.5-14.5); White Blood Cell Count 8.5 10^3/uL (4.8-10.8)
[2024-02-24 06:15] LABS: Blood Urea Nitrogen 5 mg/dl (7-17); Calcium 8.1 mg/dl (8.4-10.2); Carbon Dioxide 22 mmol/L (22-30); Chloride 104 mmol/L (98-107); Estimated Creatinine Clearance 55 ml/min; Glucose 91 mg/dl (70-99); Potassium 4.2 mmol/L (3.5-5.1); Sodium 134 mmol/L (135-145); eGFR > 60.00
--- NOTE | 2024-02-24 07:23 | PTCARENOTE ---
Rice placed this morning. pt unable to void since previous rice removal yesterday morning. Pt was straight cathed multiple times, and assisted to BSC in hopes of voiding, but no success. Tolerated rice catheter insertion. Clear yellow urine
draining at bedside, urine sample sent. Small brown/burgundy BM in BSC. Denies nausea, tolerating clears; pt hoping to eat solid food soon. NSR/SB on tele. Neurovascular checks unchanged. Pt repositioned throughout the night using the foam pillow,
heels floated. Right groin site dressing and sacrum dressing changed. PRN oxycodone provided for right foot pain. Call harper and tray table within reach, pt calls appropriately. Pt appreciative of care.
[2024-02-24 07:27] LABS: Urine Albumin Trace (Neg - Trace); Urine Bilirubin Negative (Negative); Urine Character Clear (Clear); Urine Color Yellow; Urine Glucose Negative (Negative); Urine Ketone Negative (Negative); Urine Leukocyte Trace (Negative); Urine Nitrite Negative (Negative); Urine Occult Blood 2+ (Negative); Urine Urobilinogen Negative (Neg - 1+)
[2024-02-24] MEDS: FLOMAX 0.4 MG PO (08:48)
[2024-02-24] MEDS: NSS (PRESERVATIVE FREE) 10 ML IV (08:50)
[2024-02-24] MEDS: PROTONIX IV 40 MG IV (08:50)
[2024-02-24] MEDS: LOW STRENGTH ASPIRIN 81 MG PO (08:50)
[2024-02-24] MEDS: LIPITOR 40 MG PO (08:50)
[2024-02-24 09:10] LABS: Urine Squamous Cell 0-2 /LPF (Few)
[2024-02-24 09:11] LABS: Urine Urothelial Cell 0-2 /LPF (FEW)
[2024-02-24 09:12] LABS: Urine Red Blood Cell 0-2 /HPF (0-2)
--- NOTE | 2024-02-24 09:46 | W.PN.CRS1 ---
Today's Communication / Plan
-
regular diet
continue to hold plavix
Assessment/Plan
-
83-year-old female with PMH of CAD, HTN, HLD, hypothyroidism, CVA, cervical cancer s/p hysterectomy and RT, fecal/bladder incontinence, PAD (being worked up as an outpatient and had a planned angio for 02/18/2024) who presented with significant
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
developed a GI bleed with bright red blood and clots per rectum on 02/16; CTA showed a small blush in the mid sigmoid colon; IR options were limited due to her recent vascular procedure so she underwent a colonoscopy on 02/[address] Snowden, which
demonstrated blood and blood clot in the rectum and sigmoid, sigmoid diverticulosis and a sigmoid stricture that was not able to be traversed with a gastroscope; her Plavix was held starting 02/16, but her ASA was continued; she required PRBCs x 2 on
02/17; her GI bleed improved and she had brown stool on 02/19; she received a PRBC x 1 on 02/19; her diet was advanced, but last night and today, she had multiple episodes of blood and blood clots per rectum again; her hemoglobin this a.m. was 7.8 and she
received another PRBC on 02/20; due to inability to perform colonoscopy and limited options for IR, colorectal surgery was consulted for possible surgical resection
AFVSS
WBC 8.5 from 7.7, Hb 10.9 from 10.4
� Acute GI bleed s/p revascularization procedure requiring DAPT; Plavix being held since 02/16 - would prefer it held 7 full days if possible
�D/w vascular surgery, due to risk of complications with revascularization, unable to hold aspirin
�D/w IR; right groin is not available for access; patient has stenosis of left SFA, iliac and ANTWAN, so embolization would be technically challenging and high likelihood of not being successful
�If rebleeds, will order CTA prior to IR attempt
�No blood per rectum since 02/20. Had a normal BM yesterday.
�Advance diet to regular.
� Appreciate GI; currently signed off
� Remainder of care per hospitalist
Subjective Data
Subjective Data
Date of Service: February 24, 2024
Patient states she has no nausea or vomiting. She has had no blood in her stool yesterday or today. She did have a bowel movement yesterday. She denies pain. She tolerated fulls without difficulty.
Objective Data
-
Vital Signs
Temp Pulse Resp BP Pulse Ox
97.8 F 55 11 130/70 98
02/24/24 07:15 02/24/24 06:00 02/24/24 06:00 02/24/24 06:00 02/23/24 21:56
Intake & Output
02/23/24 02/24/24 02/25/24
06:59 06:59 06:59
Intake Total 240 / 240 2320 / 2320
Output Total 925 / 925 800 / 800
Balance -685 / -685 1520 / 1520
Intake:
Oral fluids 240 / 240 1800 / 1800
Neal intermittent irrigation 520 / 520
Output:
Urine, Neal 925 / 925 300 / 300
Straight cath output 500 / 500
Lab Results
02/24/24 05:23
02/24/24 05:23
Physical Exam
-
General: No Acute Distress and AOx3
Abdomen: Soft, Non Distended and Non Tender
Skin: Warm and Dry
--- NOTE | 2024-02-24 11:19 | CM ---
Patient seen at bedside, update provided regarding [facility] not having wound care nurse currently. Patient also asked about [facility] and CM updated her that currently they were not accepting [employer] at [facility]. Patient then stated she would talk to
her daughter about other options but she was anticipating further surgery so it would be a while. CM will continue to follow for discharge planning needs.
Plan; SNF; pending patient choice for further referrals
--- NOTE | 2024-02-24 14:12 | W.PN.HOSP.TC ---
Today's Communication/Plan
-
Continue aspirin and trend CBC
Podiatry consult for debridement
Maintain Neal catheter
Assessment / Plan
Assessment / Plan
#LGIB from diverticular bleed
-Status post colonoscopy with multiple large diverticula and sigmoid stricture
-Status post 2 unit of PRBC with repeat hemoglobin 10.4, no signs of rebleed
-Per vascular surgery, needs to be on antiplatelet agent due to high risk following endarterectomy
-Per GI no further intervention they can perform, IR stated not candidate for embolization due to PAD
-Has been advanced back to full diet as of this morning, no further evidence of bleeding
-Colorectal surgery following, considering sigmoidectomy if rebleeding occurs
-Hold Plavix, continue with aspirin
-Trend CBC, hemoglobin goal >8
#Critical limb ischemia of RLE
#Skin necrosis
-Status post right common femoral endarterectomy on 02/14
-Was on aspirin and Plavix as well as statin; Plavix held for GIB
-Will monitor lower extremities closely for signs of ischemia
-Avoid hypotension, continue with aspirin and statin
-Podiatry consulted for debridement
-Continue vascular checks
#Urinary retention with suspected UTI
#Left hydronephrosis
#H/O hysterectomy and XRT
-Was started on IV Zosyn empirically; urine culture showing E. coli
-Status post Neal catheter, failed TOV x 1 while nonambulatory
-Completed course of antibiotics for UTI (Zosyn and cefdinir)
-Currently on Flomax, nonambulatory; failed TOV x 2
-Will follow-up with Dr. Hughes with urology as OP, plan for VUDS
#Hypertension
-No known history of hypertensive systemic disease
-Home regimen includes losartan and Lasix
-Holding antihypertensive regimen due to hypotension on arrival
-Plan to resume antihypertensives sequentially as BP improves
#Hypothyroidism
-Unclear etiology, remains on home levothyroxine regimen
-No signs of thyroid dysfunction at this time
#Electrolyte depletion
-Had low potassium and sodium upon arrival
-Has improved with Lasix on hold
-Trend BMP
#Stage II deep dermal wound of sacrum/coccyx
Diet: CLD, possible full liquids tomorrow
DVT prophylaxis: SCDs
CODE STATUS: Full
Anticipated Discharge: > 48 hours
Subjective/Interval History
-
Date of Service: February 24, 2024
Seen and examined at the bedside. No acute events reported overnight. AFVSS this morning.
Hemoglobin this morning continues to be stable. She denies any blood in her stool or melena.
Denies any acute complaints.
Objective Data
-
Labs:
Laboratory Results
02/24/24
05:23
WBC 8.5
Hgb 10.9 L
Hct 32.7 L
Plt Count 434 H
Sodium 134 L
Potassium 4.2
Chloride 104
Carbon Dioxide 22
BUN 5 L
Creatinine 0.6
Glucose 91
Calcium 8.1 L
Vital Signs:
Vital Signs
Temp Pulse Resp BP Pulse Ox
97.8 F 72 15 128/60 98
02/24/24 07:15 02/24/24 12:00 02/24/24 12:00 02/24/24 10:00 02/23/24 21:56
I&O
02/23/24 02/24/24 02/25/24
06:59 06:59 06:59
Intake Total 240 / 240 2320 / 2320
Output Total 925 / 925 800 / 800
Balance -685 / -685 1520 / 1520
Review of Systems
-
History Source: Patient
All other systems: Reviewed and negative
Physical Exam
-
General: Well Developed, No Apparent Distress, Comfortable and Other (Thin)
HEENT: Normocephalic, Atraumatic, Moist Mucous Membranes and Anicteric
Respiratory: Clear to Auscultation and Non Labored Respirations
Cardiac: Regular Rhythm, S1/S2 and Other (Peripheral pulses palpable); Negative Murmur, Rub or Gallop
GI: Soft, Nontender, Nondistended and Normal Bowel Sounds
Musculoskeletal: No Clubbing, No Cyanosis and No Edema
Skin: Warm, Dry, Normal Turgor and Other (Right foot wrapped in bandage); Negative Rash
Neuro: AO x 3 and Nonfocal/Grossly Intact
Psych: Calm
Data Reviewed
-
Labs: Labs Reviewed by me and Discussed with Patient
--- NOTE | 2024-02-24 15:32 | CON.SURG ---
Surgical Consultation
-
History of Present Illness
Patient is an 83y F with PMH significant for ASCVD, hypertension and prior stroke who presents to with R leg pain now s/p R femoral endarterectomy. Patient is known to Dr. Reyez for bilateral lower extremity pain with known peripheral vascular
disease. She has a multiple month history of worsening right heel pain with a new pressure sore. It had continued to worsen which eventually prompted her presentation to , requiring vascular intervention. Since the RLE procedure, her pain has
improved. Patient denies any chest pain, palpitations, cough, SOB, N/V/D.
Medical History
Past Medical History
Past Medical History: Reports Other
Additional Past Medical History:
ASCVD (Carotid, PAD)
Hypertension
Polyneuropathy
Cervical Cancer s/p Surgery and XRT
Hypothyroidism
IBS
Past Surgical History: Reports Other
Additional Past Surgical History:
Left Wrist ORIF
Loop Recorder Implanted
Hysterectomy
Social History
Tobacco: Non-smoker
Alcohol: None
Drug: None
Family History
Family History: Not pertinent
Allergies / Home Medications
Allergies reflects when Allergies were last updated in [facility].
Home Medications with original date entered in [facility]
Allergy/Medication List:
Allergies
Allergy/AdvReac Type Severity Reaction Status Date / Time
alendronate sodium Allergy Severe Verified 02/12/24 17:09
[From Fosamax] abdominal
pain
pollen extracts Allergy seasonal Verified 02/12/24 17:09
allergies
Home Medications
losartan 50 mg tablet 50 mg PO DAILY Blood pressure 12/04/21
atorvastatin 40 mg tablet (Lipitor) 40 mg PO DAILY #30 tabs 12/05/21
colestipol 1 gram tablet 1 g PO BID 08/06/23
furosemide 20 mg tablet (Lasix) 20 mg PO DAILY #7 tabs 01/24/24
calcium carbonate (Calcium 600) 600 mg PO DAILY 02/08/24
cyanocobalamin (vitamin B-12) 1,000 mcg tablet,extended release (Vitamin B-12 ER) 1,000 mcg PO DAILY 02/08/24
docusate sodium 100 mg capsule (Colace) 100 mg PO BID PRN constipation 02/08/24
multivitamin with minerals-folic acid 80 mcg chewable tablet (Centrum Adult 50 Plus) 1 tab PO DAILY 02/08/24
omega 6-her-mmh-fish oil 1,200 mg (144 mg-216 mg) capsule (Fish Oil) 1 cap PO DAILY 02/08/24
oxycodone 5 mg tablet 5 mg PO TID PRN pain 02/08/24
Review of Systems
-
History Source: Patient
A 12 point ROS was completed and negative except as noted: Yes
Constitutional: Denies Fever or Chills
Respiratory: Denies Cough or Trouble Breathing
Cardiac: Denies Chest Pain or Palpitations
Abdomen/GI: Denies Abdominal Pain, Nausea, Vomiting or Diarrhea
: Reports Incontinence; Denies Dysuria
Musculoskeletal: Reports Muscle Pain and Edema
Neurological: Denies Dizzy
Psych: Denies Depression or Anxiety
Physical Exam
Physical Exam
General: Other (83y F in no acute distress.)
HEENT: Moist mucous membranes and PERRLA
Respiratory: Clear; No Wheezes, Rales or Rhonchi
Cardiac: S1/S2 and Regular Rhythm; No Murmur
GI: Other (Softly distended. Firm / distended bladder over suprapubic region. No tenderness / rebound. Pos BS.)
Musculoskeletal: Other (Edema of the LLE > RLE. LLE is warm without significant erythema. RLE is cool, red. Wound over plantar aspect of the R heel with associated ecchymosis / superficial hematoma.)
RLE Exam
DP/PT pulses palpable, 1/4 with sluggish capillary refill
Right decubitus ulcer with overlying eschar with palpable bogginess.
No deep probing wounds, purulence, or fluctuance. Notable surrounding erythema
Laboratory Results
-
02/12/24 21:10
02/12/24 21:10
Laboratory Results
PT 15.8 Sec (11.4-14.6) H 02/12/24 21:10
INR 1.21 02/12/24 21:10
APTT 35.5 Sec (23.4-35.0) H 02/12/24 21:10
Total Bilirubin 1.0 mg/dl (0.2-1.3) 02/12/24 21:10
AST 64 U/L (14-36) H 02/12/24 21:10
ALT 32 U/L (0-35) 02/12/24 21:10
Alkaline Phosphatase 93 U/L (38-126) 02/12/24 21:10
Impression/Plan
Patient is an 83y F with PMH significant for ASCVD, hypertension and prior stroke who presents to with R leg pain now s/p R femoral endarterectomy. She has a right heel decubitus ulcer without any purulence or deep probing
-Patient seen and evaluated at bedside
-Recommend daily dressing changes with betadine to decubitus ulcer, 4x4/ABD and loosely wrapped kerlix
-Radiographs show no definitive evidence of osteomyelitis, but bogginess of ulcer is concerning
-Recommend R ankle/rearfoot MRI
-Can hold antibiotics assuming patient remains hemodynamically stable
-Recommend strict heel offloading precautions to RLE
-WBAT in rearfoot offloading shoe is acceptable
-Will continue to follow
--- NOTE | 2024-02-24 17:21 | PTCARENOTE ---
OOB to bsc/ recliner chair this pm with heel relief boot intact. Podiatry consult now completed. Dressing changed earlier now changed by provider. Started regular diet today- tolerating and making good choices however she has been having some
incontinence of loose stool this afternoon. Used bsc just now- encouraging/ discussed kegel exercises. Neal patent - cleansed several times with the stools she was having. Also foams kept being soiled so cleansed sacral wound and placed thick
layer Cal[place]. Tele remains [id number], BP 130/80 this pm. May downgrade to tele per provider.
--- NOTE | 2024-02-24 20:30 | PTCARENOTE ---
Pt arrived via wheelchair from IMU. Pt was able to transfer to bed using RW. VSS. no complaints of pain. oriented to room and call harper. bed in lowest position and locked.
--- NOTE | 2024-02-24 21:27 | PTCARENOTE ---
Called and gave verbal report to Guera RN. Transported patient to [address] [place] [address], room 2105 by wheelchair. No issues while transporting.
[2024-02-25] VITALS (9 sets, daily range): BP systolic 109–171; BP diastolic 58–76; PULSE 61; O2SAT 99; BMI 21.2
[2024-02-25] MEDS: SYNTHROID 88 MCG PO (05:44)
[2024-02-25] MEDS: FLOMAX 0.4 MG PO (08:02)
[2024-02-25] MEDS: LIPITOR 40 MG PO (08:02)
[2024-02-25] MEDS: LOW STRENGTH ASPIRIN 81 MG PO (08:03)
[2024-02-25 08:25] LABS: Hematocrit 29.5 % (37.0-47.0); Hemoglobin 10.1 g/dL (12.0-16.0); Mean Corp Hgb Conc. 34.2 g/dL (33.0-37.0); Mean Corpuscular Hgb 32.1 pg (27.0-31.0); Mean Corpuscular Volume 93.7 fL (81.0-99.0); Mean Platelet Volume 9.5 fL (7.4-10.4); Platelet Count 372 10^3/uL (130-400); Red Blood Cell Count 3.15 10^6/uL (4.20-5.40); Red Cell Dist. Width 16.5 % (11.5-14.5); White Blood Cell Count 7.1 10^3/uL (4.8-10.8)
--- NOTE | 2024-02-25 09:38 | W.PN.CRS1 ---
Today's Communication / Plan
-
continue diet
recommend holding plavix for 7 days total
will s/o, please call us if rebleeds
Assessment/Plan
-
83-year-old female with PMH of CAD, HTN, HLD, hypothyroidism, CVA, cervical cancer s/p hysterectomy and RT, fecal/bladder incontinence, PAD (being worked up as an outpatient and had a planned angio for 02/18/2024) who presented with significant
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
developed a GI bleed with bright red blood and clots per rectum on 02/16; CTA showed a small blush in the mid sigmoid colon; IR options were limited due to her recent vascular procedure so she underwent a colonoscopy on 02/[address] Snowden, which
demonstrated blood and blood clot in the rectum and sigmoid, sigmoid diverticulosis and a sigmoid stricture that was not able to be traversed with a gastroscope; her Plavix was held starting 02/16, but her ASA was continued; she required PRBCs x 2 on
02/17; her GI bleed improved and she had brown stool on 02/19; she received a PRBC x 1 on 02/19; her diet was advanced, but last night and today, she had multiple episodes of blood and blood clots per rectum again; her hemoglobin this a.m. was 7.8 and she
received another PRBC on 02/20; due to inability to perform colonoscopy and limited options for IR, colorectal surgery was consulted for possible surgical resection
AFVSS
WBC 7.1, Hgb 10.1
� Acute GI bleed s/p revascularization procedure requiring DAPT; Plavix being held since 02/16 - would prefer it held 7 full days if possible, okay to restart if no further bleeding
�D/w vascular surgery, due to risk of complications with revascularization, unable to hold aspirin
�D/w IR; right groin is not available for access; patient has stenosis of left SFA, iliac and ANTWAN, so embolization would be technically challenging and high likelihood of not being successful
�If rebleeds, will order CTA prior to IR attempt
�No blood per rectum since 02/20
�Continue regular diet
� Appreciate GI; currently signed off
� Remainder of care per hospitalist
- Will sign off, please contact us if she rebleeds
Subjective Data
Subjective Data
Date of Service: February 25, 2024
Patient states she has no bleeding or pain. She had two loose brown stools over the past 24 hours. She no complaints.
Objective Data
-
Vital Signs
Temp Pulse Resp BP Pulse Ox
97.2 F 59 16 149/75 100
02/25/24 07:04 02/25/24 07:04 02/25/24 07:04 02/25/24 07:04 02/25/24 07:04
Intake & Output
02/24/24 02/25/24 02/26/24
06:59 06:59 06:59
Intake Total 2320 / 2320 1020 / 1020
Output Total 800 / 800 1425 / 1425
Balance 1520 / 1520 -405 / -405
Intake:
Oral fluids 1800 / 1800 1020 / 1020
Neal intermittent irrigation 520 / 520
Output:
Urine, Neal 300 / 300 1425 / 1425
Straight cath output 500 / 500
Other:
Number of unmeasured liquid
stools
Rectum 5
Lab Results
02/25/24 05:27
02/24/24 05:23
Physical Exam
-
General: No Acute Distress and AOx3
Abdomen: Soft, Non Distended and Non Tender
Skin: Warm and Dry
--- NOTE | 2024-02-25 11:15 | WOUNDNOTE ---
R FOOT/ANKLE (ANTERIOR)
--- NOTE | 2024-02-25 11:15 | WOUNDNOTE ---
R PLANTAR HEEL/FOOT
--- NOTE | 2024-02-25 11:30 | WOUNDNOTE ---
WO RN note: Patient's sacral ulcer pink with yellow fibrin deep dermal stage 2 vs stage 3. Sacral silicone border foam changed. R heel dressing changed. R heel eschar detached laterally draining purulent serous drainage. +R pedal pulse palpable.
Betadine, gauze pads, ABD pad and loosely wrapped Kerlix applied as ordered. [place] texted Dr. Singh re: R lateral heel picture noting purulent serous drainage asking if debridement planned. Dr. Singh responded he is waiting for the MRI
results. Patient is on a [employer] Accumax with air chair cushion under her sacral/coccyx. Her heels remained elevated off bed with pillow under LLE and bariatric air chair cushion and pillow under RLE. Patient has a Globped heel off loading shoe
for RLE. Spoke with MAHI Camjeo who will apply an air overlay on patient's bed while patient in MRI. Instructed patient pressure injury prevention measures and she understands importance of consistent heel pressure relief. Protective foam applied to L
heel. Patient very thin however she reports a good appetite. Instructed patient to take the air cushions and the small Z david fluidizer positioner with her when discharged. Patient reports she likes using the positioner for turning. Patient can turn
self in bed. Will follow as needed.
--- NOTE | 2024-02-25 12:55 | W.PN.HOSP.TC ---
Today's Communication/Plan
-
Follow-up MRI
Trend daily CBC
Plavix to resume 02/28 if no bleeding
Assessment / Plan
Assessment / Plan
#LGIB from diverticular bleed
-Status post colonoscopy with multiple large diverticula and sigmoid stricture
-Status post 2 unit of PRBC with repeat hemoglobin 10.4, no signs of rebleed
-Per vascular surgery, needs to be on antiplatelet agent due to high risk following endarterectomy
-Per GI no further intervention they can perform, IR stated not candidate for embolization due to PAD
-Has been advanced back to full diet as of this morning, no further evidence of bleeding
-Colorectal surgery following, considering sigmoidectomy if rebleeding occurs
-Hold Plavix, continue with aspirin
-Plan to resume Plavix after 7 days without bleed (02/28)
-Trend CBC, hemoglobin goal >8
#Critical limb ischemia of RLE
#Skin necrosis
-Status post right common femoral endarterectomy on 02/14
-Was on aspirin and Plavix as well as statin; Plavix held for GIB
-Will monitor lower extremities closely for signs of ischemia
-Avoid hypotension, continue with aspirin and statin
-Podiatry consulted for debridement, MRI without contrast pending
-Continue vascular checks
#Urinary retention with suspected UTI
#Left hydronephrosis
#H/O hysterectomy and XRT
-Was started on IV Zosyn empirically; urine culture showing E. coli
-Status post Neal catheter, failed TOV x 1 while nonambulatory
-Completed course of antibiotics for UTI (Zosyn and cefdinir)
-Currently on Flomax, nonambulatory; failed TOV x 2
-Will follow-up with Dr. Hughes with urology as OP, plan for VUDS
#Hypertension
-No known history of hypertensive systemic disease
-Home regimen includes losartan and Lasix
-Holding antihypertensive regimen due to hypotension on arrival
-Plan to resume antihypertensives sequentially as BP improves
#Hypothyroidism
-Unclear etiology, remains on home levothyroxine regimen
-No signs of thyroid dysfunction at this time
#Electrolyte depletion
-Had low potassium and sodium upon arrival
-Has improved with Lasix on hold
-Trend BMP
#Stage II deep dermal wound of sacrum/coccyx
Diet: CLD, possible full liquids tomorrow
DVT prophylaxis: SCDs
CODE STATUS: Full
Anticipated Discharge: 24 - 48 hours
Subjective/Interval History
-
Date of Service: February 25, 2024
Seen and examined at the bedside. No acute events reported overnight. AFVSS this morning
Hemoglobin remained stable. She denies any blood in the stool. Tolerating full diet.
Denies any new complaints
Objective Data
-
Labs:
Laboratory Results
02/25/24
05:27
WBC 7.1
Hgb 10.1 L
Hct 29.5 L
Plt Count 372
Vital Signs:
Vital Signs
Temp Pulse Resp BP Pulse Ox
97.9 F 60 16 144/66 99
02/25/24 11:10 02/25/24 11:10 02/25/24 11:10 02/25/24 11:10 02/25/24 11:10
I&O
02/24/24 02/25/24 02/26/24
06:59 06:59 06:59
Intake Total 2320 / 2320 1020 / 1020
Output Total 800 / 800 1425 / 1425
Balance 1520 / 1520 -405 / -405
Review of Systems
-
History Source: Patient
All other systems: Reviewed and negative
Physical Exam
-
General: Well Developed, No Apparent Distress and Comfortable
HEENT: Normocephalic, Atraumatic and Moist Mucous Membranes
Respiratory: Clear to Auscultation and Non Labored Respirations
Cardiac: Regular Rhythm, S1/S2 and Other (Palpable RLE pulse, capillary refill to the RLE <2 seconds); Negative Murmur, Rub or Gallop
GI: Soft, Nontender, Nondistended and Normal Bowel Sounds
Musculoskeletal: No Clubbing, No Cyanosis and No Edema
Skin: Warm, Dry and Normal Turgor; Negative Rash
Neuro: AO x 3 and Nonfocal/Grossly Intact
Psych: Calm
Data Reviewed
-
Labs: Labs Reviewed by me, Discussed with Physician (colorectal) and Discussed with Patient
--- NOTE | 2024-02-25 16:14 | CM ---
Chart reviewed
Wound care following
PT/OT recs - SNF
Updates sent in care port
Will need auth
Plan - anticipate SNF when medically ready
[2024-02-25] MEDS: ROXICODONE 5 MG PO (20:43)
[2024-02-26 03:10] VITALS: BP 134/62
[2024-02-26] MEDS: SYNTHROID 88 MCG PO (05:49)
[2024-02-26 06:00] VITALS: BMI 21.4
[2024-02-26 07:20] VITALS: BP 130/58
[2024-02-26 07:32] LABS: % Basophils 0.4 % (0-2); % Eosinophils 0.5 % (0-6); % Immature Granulocytes 0.4 % (0-0.5); % Lymphocytes 9.1 % (20.5-51.1); % Monocytes 7.7 % (1.7-9.3); % Neutrophils 81.9 % (42.2-75.2); Absolute Lymphocytes 0.8 10^3/uL (1.2-3.4); Absolute Monocytes 0.7 10^3/uL (0.1-0.6); Hematocrit 32.2 % (37.0-47.0); Hemoglobin 10.7 g/dL (12.0-16.0); Mean Corp Hgb Conc. 33.2 g/dL (33.0-37.0); Mean Corpuscular Hgb 31.5 pg (27.0-31.0); Mean Corpuscular Volume 94.7 fL (81.0-99.0); Mean Platelet Volume 9.4 fL (7.4-10.4); Nucleated Red Blood Cells % 0 %; Platelet Count 398 10^3/uL (130-400); Red Cell Dist. Width 16.4 % (11.5-14.5); White Blood Cell Count 8.5 10^3/uL (4.8-10.8)
[2024-02-26] MEDS: LOW STRENGTH ASPIRIN 81 MG PO (09:19)
[2024-02-26] MEDS: FLOMAX 0.4 MG PO (09:19)
[2024-02-26] MEDS: LIPITOR 40 MG PO (09:19)
--- NOTE | 2024-02-26 14:29 | W.PN.HOSP.TC ---
Today's Communication/Plan
-
Speak with ID about antibiotics
Continue to offload right heel
Trend CBC
OP trial of void
Resume Plavix on 02/27
Assessment / Plan
Assessment / Plan
#Nonpurulent cellulitis of right rear foot
#Dry gangrene
-Secondary to PAD/critical limb ischemia, now s/p right femoral endarterectomy
-X-ray of the foot as well as MRI without contrast did not show signs of osteomyelitis
-Was evaluated by podiatry, no plan for debridement while here
-No fevers or leukocytosis, has remained hemodynamically stable
-Podiatry recommending course of antibiotics
-No purulence or fluctuance on exam
Plan
-Will speak with ID regarding antibiotics versus close observation
-Continue with WBAT with rearfoot boot in place for heel offloading
-Continue with as needed analgesia
-Trend CBC and temperature curve
#LGIB from diverticular bleed
-Status post colonoscopy with multiple large diverticula and sigmoid stricture
-Status post 2 unit of PRBC with repeat hemoglobin 10.4, no signs of rebleed
-Per vascular surgery, needs to be on antiplatelet agent due to high risk following endarterectomy
-Per GI no further intervention they can perform, IR stated not candidate for embolization due to PAD
-Has been advanced back to full diet as of this morning, no further evidence of bleeding
-Colorectal surgery following, considering sigmoidectomy if rebleeding occurs
-Hold Plavix, continue with aspirin
-Trend CBC, hemoglobin goal >8
#Critical limb ischemia of RLE
-Status post right common femoral endarterectomy on 02/14
-Was on aspirin and Plavix as well as statin; Plavix held for GIB
-Avoid hypotension, continue with aspirin and statin
-Plan to resume Plavix on 02/28 if no further bleeding
-Continue vascular checks
#Urinary retention with suspected UTI
#Left hydronephrosis
#H/O hysterectomy and XRT
-Was started on IV Zosyn empirically; urine culture showing E. coli
-Status post Neal catheter, failed TOV x 1 while nonambulatory
-Completed course of antibiotics for UTI (Zosyn and cefdinir)
-Currently on Flomax, nonambulatory; failed TOV x 2
-Will follow-up with Dr. Hughes with urology as OP, plan for VUDS
#Hypertension
-No known history of hypertensive systemic disease
-Home regimen includes losartan and Lasix
-Holding antihypertensive regimen due to hypotension on arrival
-Plan to resume antihypertensives sequentially as BP improves
#Hypothyroidism
-Unclear etiology, remains on home levothyroxine regimen
-No signs of thyroid dysfunction at this time
#Electrolyte depletion
-Had low potassium and sodium upon arrival
-Has improved with Lasix on hold
-Trend BMP
#Stage II deep dermal wound of sacrum/coccyx
Diet: CLD, possible full liquids tomorrow
DVT prophylaxis: SCDs
CODE STATUS: Full
Anticipated Discharge: 24 - 48 hours
Subjective/Interval History
-
Date of Service: February 26, 2024
Seen and examined at the bedside. No acute events reported overnight. AFVSS this morning
Hemoglobin remained stable. Pain in lower extremities is well-controlled, did not need pain meds yesterday
Denies any new complaints today
Objective Data
-
Labs:
Laboratory Results
02/26/24
06:37
WBC 8.5
Hgb 10.7 L
Hct 32.2 L
Plt Count 398
Vital Signs:
Vital Signs
Temp Pulse Resp BP Pulse Ox
98.0 F 65 16 130/58 97
02/26/24 07:20 02/26/24 07:20 02/26/24 07:20 02/26/24 07:20 02/26/24 07:20
I&O
02/25/24 02/26/24 02/27/24
06:59 06:59 06:59
Intake Total 1020 / 1020 480 / 480 240 / 240
Output Total 1425 / 1425 550 / 1300 2049
Balance -405 / -405 -70 / -820 -1810 / -1810
Review of Systems
-
History Source: Patient
All other systems: Reviewed and negative
Physical Exam
-
General: Well Developed, No Apparent Distress, Comfortable and Other (Thin, frail-appearing)
HEENT: Normocephalic, Atraumatic, Moist Mucous Membranes and Anicteric
Respiratory: Clear to Auscultation and Non Labored Respirations
Cardiac: Regular Rhythm and S1/S2; Negative Murmur, Rub or Gallop
GI: Soft, Nontender, Nondistended and Normal Bowel Sounds
Musculoskeletal: No Clubbing, No Cyanosis and No Edema
Skin: Warm, Dry, Lesions (Necrotic ulcer with eschar of the right plantar surface of heel, no purulence or fluctuance), Normal Turgor and Other (Cap refill <2 seconds to lower extremities); Negative Rash
Neuro: AO x 3 and Nonfocal/Grossly Intact
Psych: Calm
Data Reviewed
-
MRI: Report Reviewed by me and Discussed with Physician (Podiatry)
Labs: Labs Reviewed by me and Discussed with Patient
--- NOTE | 2024-02-26 15:31 | W.PN.POD ---
Subjective
Objective
Temp Pulse Resp BP Pulse Ox
98.0 F 65 16 130/58 97
02/26/24 07:20 02/26/24 07:20 02/26/24 07:20 02/26/24 07:20 02/26/24 07:20
02/26/24 06:37
02/24/24 05:23
Vital Signs and Lab results were reviewed.
--- NOTE | 2024-02-26 15:36 | W.PN.SURGUPD ---
Surgical Update
Surgical Update
Patient is an 83y F with right heel decubitus ulcer now s/p R femoral endarterectomy
-Patient seen and evaluated at bedside
-MRI shows extensive cellulitis without any evidence of osteomyelitis or abscess
-Right heel ulcer is stable, debridement not warranted at this time
-Given extensive SSTI, would recommend antibiotics, ID recs appreciated
-Recommend continued daily dressing changes with betadine DSD, see previous note/orders
-Will continue to follow. Patient to follow up with Noam Singh or Jose Rafael Reyez 2 weeks after discharge at [facility]
[2024-02-26 15:45] VITALS: BP 132/78
[2024-02-26] MEDS: ZOSYN 50 IV ×2 (17:04→22:44)
[2024-02-26] MEDS: PEPCID 40 MG PO (18:07)
[2024-02-26 19:15] VITALS: BP 142/67
[2024-02-26 23:10] VITALS: BP 109/56
[2024-02-27] VITALS (7 sets, daily range): BP systolic 106–144; BP diastolic 50–73; PULSE 65; O2SAT 99
[2024-02-27] MEDS: ZOSYN 50 IV ×2 (04:52→09:34)
[2024-02-27] MEDS: SYNTHROID 88 MCG PO (04:59)
[2024-02-27 05:50] LABS: % Basophils 0.7 % (0-2); % Eosinophils 1.2 % (0-6); % Immature Granulocytes 0.3 % (0-0.5); % Lymphocytes 8.8 % (20.5-51.1); % Monocytes 7.5 % (1.7-9.3); % Neutrophils 81.5 % (42.2-75.2); Absolute Basophils 0.1 10^3/uL (0-0.2); Absolute Eosinophils 0.1 10^3/uL (0-0.7); Absolute Lymphocytes 0.6 10^3/uL (1.2-3.4); Absolute Monocytes 0.5 10^3/uL (0.1-0.6); Absolute Neutrophils 5.7 10^3/uL (1.4-6.5); Hematocrit 29.2 % (37.0-47.0); Hemoglobin 9.7 g/dL (12.0-16.0); Mean Corp Hgb Conc. 33.2 g/dL (33.0-37.0); Mean Corpuscular Hgb 31.9 pg (27.0-31.0); Mean Corpuscular Volume 96.1 fL (81.0-99.0); Mean Platelet Volume 9.7 fL (7.4-10.4); Nucleated Red Blood Cells % 0 %; Platelet Count 347 10^3/uL (130-400); Red Blood Cell Count 3.04 10^6/uL (4.20-5.40); Red Cell Dist. Width 16.4 % (11.5-14.5); White Blood Cell Count 6.9 10^3/uL (4.8-10.8)
[2024-02-27 06:19] LABS: Blood Urea Nitrogen 9 mg/dl (7-17); Calcium 8.4 mg/dl (8.4-10.2); Carbon Dioxide 25 mmol/L (22-30); Chloride 101 mmol/L (98-107); Estimated Creatinine Clearance 55 ml/min; Glucose 78 mg/dl (70-99); Potassium 3.9 mmol/L (3.5-5.1); Sodium 133 mmol/L (135-145); eGFR > 60.00
[2024-02-27] MEDS: FLOMAX 0.4 MG PO (09:34)
[2024-02-27] MEDS: LOW STRENGTH ASPIRIN 81 MG PO (09:35)
[2024-02-27] MEDS: LIPITOR 40 MG PO (09:35)
--- NOTE | 2024-02-27 12:05 | CON.ID ---
Consultation
-
Date/Time Consultation Requested: 02/27/24 9:15
Date/Time Consultation Performed: 02/27/24 12:05
Requesting Provider: Dr Guardado
Performing Provider: Dr Crenshaw
Reason for Consultation: Non-purulent cellulitis/gangrene of right heel, Abx and duration
Chief Complaint / Past History
Chief Complaint
lower extremity pain
History of Present Illness
Ms Calle is an 83 year old female with history of ASCVD, stroke who presented here 02/12 - two weeks ago - for bilateral lower extremity pain right > left, increasing through time, began in october, known to have PAD and scheduled for RLE
angioplasty 02/17 however pain became unbearable and presented to the ER. Patient denied any chest pain, palpitations, cough, SOB, N/V/D, etc. Note chronic bowel/bladder incontinence due to cervical cancer/XRT. Since arrival here she has been
afebrile, bp stable, WBC count initally normal, cr normal throughout her stay she was assessed as having critical limb ischemia, started empirically on IV zosyn, course also notable for urinary retention and UTI with UA 80-90 wbc/hpf and culture
100K E coli, taken to the OR 02/12 and underwent Right femoral endarterectomy with bovine pericardial patch angioplasty, on table angiogram via patch puncture, DCB proximal SFA, procedure was uncomplicated. Patient was on zosyn 02/11-02/19 then
switched to cefdinir 02/19-02/21 (10 day course). Antibiotics were stopped afternoon of 02/21. Course additionally notable for lower GI bleeding from diverticula, sigmoid strictrue also noted on colonoscopy, IR stated not a candidate for embolization
due to PAD, sigmoidectomy was considered. Also note stage II dermal wound of sacrum and coccyx. Did develop dry gangrene of the R calcaneal region; MRI without evidence of osteomyelitis, seen by podatiry, who recommended antibiotics. Patient is
currently on zosyn restared yesterday. ID is consulted at podiatry recommendation for 'severe cellulitis' on MRI report.
Past History
Additional Past Medical History:
ASCVD (Carotid, PAD)
Hypertension
Polyneuropathy
Cervical Cancer s/p Surgery and XRT
Hypothyroidism
IBS
Additional Past Surgical History:
Left Wrist ORIF
Loop Recorder Implanted
Hysterectomy
Allergy History:
alendronate sodium [From Fosamax] Allergy (Verified 02/12/24 17:09)
Severe abdominal pain
pollen extracts Allergy (Verified 02/12/24 17:09)
seasonal allergies
Medications Reviewed: Yes
Social History
Tobacco: Non-Smoker
Alcohol: None
Drug: None
Family History
Family History: Not Pertinent
Review of Systems
Review of Systems
General: Negative Fever or Chills
All systems: All other systems were reviewed and were negative
Vital Signs
Temp Pulse Resp BP Pulse Ox
98.1 F 61 16 130/68 99
02/27/24 07:15 02/27/24 07:15 02/27/24 07:15 02/27/24 07:15 02/27/24 07:15
Physical Exam
Physical Exam
Constitutional: No Acute Distress
Cardiovascular: Regular Rate and S1/S2; Negative Murmur or Rub
Pulmonary: Clear and Symmetric; Negative Wheezes, Rales or Rhonchi
Gastrointestinal: Soft, Non Tender, Non Distended and Normal Bowel Sounds
Skin: Warm and Dry; Negative Rash or Jaundice
Wound: Other (dry gangrene of plantar surface of the right foot without surrounding erythema, warmth, selling, or drainage)
Lab / Diagnostic Study Results
02/27/24 04:21
02/27/24 04:21
Abs Immat Gran (auto) 0.0 10^3/uL (0-0.05) 02/27/24 04:21
Absolute Neuts (auto) 5.7 10^3/uL (1.4-6.5) 02/27/24 04:21
Absolute Lymphs (auto) 0.6 10^3/uL (1.2-3.4) L 02/27/24 04:21
Absolute Monos (auto) 0.5 10^3/uL (0.1-0.6) 02/27/24 04:21
Absolute Basos (auto) 0.1 10^3/uL (0-0.2) 02/27/24 04:21
Immature Gran % 0.3 % (0-0.5) 02/27/24 04:21
Neutrophils % 81.5 % (42.2-75.2) H 02/27/24 04:21
Lymphocytes % 8.8 % (20.5-51.1) L 02/27/24 04:21
Monocytes % 7.5 % (1.7-9.3) 02/27/24 04:21
Eosinophils % 1.2 % (0-6) 02/27/24 04:21
Basophils % 0.7 % (0-2) 02/27/24 04:21
PT 14.7 Sec (11.4-14.6) H 02/16/24 03:46
INR 1.10 02/16/24 03:46
Ur Squamous Epith Cells 0-2 /LPF (Few) 02/24/24 05:56
Microbiology Results
Micro:
02/13/24 13:20 Urine Culture - Final
Urine Escherichia coli
Assessment / Plan
Dry Gangrene on plantar surface of right foot
Resolved - critical limb ischemia of the RLE
Claudication LLE
- reviewed patients two week admission course
- cellulitis is typically a clinical diagnosis, feel that MRI changes interpreted as 'severe cellulitis' were actually the ischemic injury that has now developed into dry gangrene
- no need for further antibiotics, has already had 12 days of broad spectrum rx in any case - stopped
- follow up with vascular surgery
Care Review
Plan reviewed with: Physician (Dr Guardado - no cellulitis on physical exam)
--- NOTE | 2024-02-27 12:34 | W.PN.HOSP.TC ---
Today's Communication/Plan
-
Discontinue Zosyn
Continue aspirin and plan to resume Plavix 02/28 if no rebleeding
Trend CBC
Will need to reconsult colorectal surgery if diverticular bleed recurs
Plan for SNF this week
OP urology follow-up for trial of void
Assessment / Plan
Assessment / Plan
#Nonpurulent cellulitis of right rear foot
#Dry gangrene
-Secondary to PAD/critical limb ischemia, now s/p right femoral endarterectomy
-X-ray of the foot as well as MRI without contrast did not show signs of osteomyelitis
-Was evaluated by podiatry, no plan for debridement while here
-No fevers or leukocytosis, has remained hemodynamically stable
-Podiatry recommending course of antibiotics, ID states not needed
-No purulence or fluctuance on exam
Plan
-Discontinue Zosyn
-Continue with WBAT with rearfoot boot in place for heel offloading
-Continue with as needed analgesia
-Trend CBC and temperature curve
#LGIB from diverticular bleed
-Status post colonoscopy with multiple large diverticula and sigmoid stricture
-Status post 2 unit of PRBC with repeat hemoglobin 10.4, no signs of rebleed
-Per vascular surgery, needs to be on antiplatelet agent due to high risk following endarterectomy
-Per GI no further intervention they can perform, IR stated not candidate for embolization due to PAD
-Has been advanced back to full diet as of this morning, no further evidence of bleeding
-Colorectal surgery following, considering sigmoidectomy if rebleeding occurs
-Hold Plavix, continue with aspirin
-Trend CBC, hemoglobin goal >8
#Critical limb ischemia of RLE
-Status post right common femoral endarterectomy on 02/14
-Was on aspirin and Plavix as well as statin; Plavix held for GIB
-Avoid hypotension, continue with aspirin and statin
-Plan to resume Plavix on 02/28 if no further bleeding
-Continue vascular checks
#Urinary retention with suspected UTI
#Left hydronephrosis
#H/O hysterectomy and XRT
-Was started on IV Zosyn empirically; urine culture showing E. coli
-Status post Neal catheter, failed TOV x 1 while nonambulatory
-Completed course of antibiotics for UTI (Zosyn and cefdinir)
-Currently on Flomax, nonambulatory; failed TOV x 2
-Will follow-up with Dr. Hughes with urology as OP, plan for VUDS
#Hypertension
-No known history of hypertensive systemic disease
-Home regimen includes losartan and Lasix
-Holding antihypertensive regimen due to hypotension on arrival
-Plan to resume antihypertensives sequentially as BP improves
#Hypothyroidism
-Unclear etiology, remains on home levothyroxine regimen
-No signs of thyroid dysfunction at this time
#Electrolyte depletion
-Had low potassium and sodium upon arrival
-Has improved with Lasix on hold
-Trend BMP
#Stage II deep dermal wound of sacrum/coccyx
Diet: CLD, possible full liquids tomorrow
DVT prophylaxis: SCDs
CODE STATUS: Full
Anticipated Discharge: 24 - 48 hours
Subjective/Interval History
-
Date of Service: February 27, 2024
Seen and examined at the bedside. No acute events reported overnight. AFVSS this morning.
Hemoglobin is lower today down to 9.7. She continues to deny any rectal bleeding or hematochezia. States she feels well.
Denies any new complaints
Objective Data
-
Labs:
Laboratory Results
02/27/24
04:21
WBC 6.9
Hgb 9.7 L
Hct 29.2 L
Plt Count 347
Sodium 133 L
Potassium 3.9
Chloride 101
Carbon Dioxide 25
BUN 9
Creatinine 0.6
Glucose 78
Calcium 8.4
Vital Signs:
Vital Signs
Temp Pulse Resp BP Pulse Ox
98.1 F 61 16 130/68 99
02/27/24 07:15 02/27/24 07:15 02/27/24 07:15 02/27/24 07:15 02/27/24 07:15
I&O
02/26/24 02/27/24 02/28/24
06:59 06:59 06:59
Intake Total 480 / 480 1180 / 1180
Output Total 550 / 1300 3425 / 3425
Balance -70 / -820 -2245 / -2245
Review of Systems
-
History Source: Patient
All other systems: Reviewed and negative
Physical Exam
-
General: Well Developed, No Apparent Distress, Comfortable and Other (Thin and frail)
HEENT: Normocephalic, Atraumatic, Moist Mucous Membranes and Anicteric
Respiratory: Clear to Auscultation and Non Labored Respirations
Cardiac: Regular Rhythm, S1/S2 and Other (Palpable lower extremity pulse, cap refill <2 seconds); Negative Murmur, Rub or Gallop
GI: Soft, Nontender, Nondistended and Normal Bowel Sounds
Musculoskeletal: No Clubbing, No Cyanosis and No Edema
Skin: Warm, Dry and Normal Turgor; Negative Rash
Neuro: AO x 3 and Nonfocal/Grossly Intact
Psych: Calm
[2024-02-27] MEDS: SENNA SYRUP 8.8 MG PO (13:25)
--- NOTE | 2024-02-27 15:20 | PTCARENOTE ---
Addendum entered by Nell Pennington RN 02/27/24 16:56:
update received med PRAFO boot for off loading in bed from [facility], please f/u with wound
Original Note:
called [facility] in [place], regarding the PRAFO off-loading boot order, unsure if ordered. LM
[2024-02-27] MEDS: SENOKOT-S 1 TABLET PO (21:32)
[2024-02-28] MEDS: ROXICODONE 5 MG PO (03:46)
[2024-02-28] MEDS: SYNTHROID 88 MCG PO (05:04)
[2024-02-28 06:00] VITALS: BMI 20.2
[2024-02-28 06:28] LABS: % Basophils 0.8 % (0-2); % Eosinophils 1.4 % (0-6); % Immature Granulocytes 0.3 % (0-0.5); % Lymphocytes 11.1 % (20.5-51.1); % Monocytes 7.5 % (1.7-9.3); % Neutrophils 78.9 % (42.2-75.2); Absolute Basophils 0.1 10^3/uL (0-0.2); Absolute Eosinophils 0.1 10^3/uL (0-0.7); Absolute Lymphocytes 0.7 10^3/uL (1.2-3.4); Absolute Monocytes 0.5 10^3/uL (0.1-0.6); Hematocrit 28.5 % (37.0-47.0); Hemoglobin 9.3 g/dL (12.0-16.0); Mean Corp Hgb Conc. 32.6 g/dL (33.0-37.0); Mean Corpuscular Hgb 31.1 pg (27.0-31.0); Mean Corpuscular Volume 95.3 fL (81.0-99.0); Mean Platelet Volume 9.7 fL (7.4-10.4); Nucleated Red Blood Cells % 0 %; Platelet Count 339 10^3/uL (130-400); Red Blood Cell Count 2.99 10^6/uL (4.20-5.40); Red Cell Dist. Width 15.9 % (11.5-14.5); White Blood Cell Count 6.4 10^3/uL (4.8-10.8)
[2024-02-28 06:43] LABS: Blood Urea Nitrogen 11 mg/dl (7-17); Calcium 7.9 mg/dl (8.4-10.2); Carbon Dioxide 26 mmol/L (22-30); Chloride 102 mmol/L (98-107); Estimated Creatinine Clearance 55 ml/min; Glucose 73 mg/dl (70-99); Potassium 4.3 mmol/L (3.5-5.1); Sodium 134 mmol/L (135-145); eGFR > 60.00
[2024-02-28 07:12] VITALS: BP 128/64
[2024-02-28] MEDS: LOW STRENGTH ASPIRIN 81 MG PO (07:40)
[2024-02-28] MEDS: LIPITOR 40 MG PO (07:40)
[2024-02-28] MEDS: FLOMAX 0.4 MG PO (07:40)
--- NOTE | 2024-02-28 11:07 | CM ---
Chart reviewed. Met with pt
Will need SNF when medically ready -
[facility] does not accept insurance
[facility] - no beds
Discussed with pt - discussed other poss options - requested referral to be sent to [facility]
Referrals sent in [facility]
Will need auth
Plan - anticipate SNF when medically ready and auth obtained
--- NOTE | 2024-02-28 11:45 | W.PN.ID1 ---
Date of Service
Date of Service: February 28, 2024
Today's Communication
- remains well off of antibiotics
- follow up with vascular surgery
Assessment / Plan
Dry Gangrene on plantar surface of right foot
Resolved - critical limb ischemia of the RLE
Claudication LLE
- cellulitis is typically a clinical diagnosis, feel that MRI changes interpreted as 'severe cellulitis' were actually the ischemic injury that has now developed into dry gangrene
- remains well off of antibiotics
- follow up with vascular surgery
Chief Complaint
-: Other (dry gangrene)
Subjective / Review of Systems
remains afebrile
bp stable
no complaints
Vital Signs / Physical Exam
Vital Signs
Vital Signs
Temp Pulse Resp BP Pulse Ox
97.9 F 57 16 128/64 99
02/28/24 07:12 02/28/24 07:12 02/28/24 07:12 02/28/24 07:12 02/28/24 07:12
Physical Exam
Constitutional: No Acute Distress and Chronically Ill
Cardiovascular: Regular Rate and S1/S2; Negative Murmur or Rub
Pulmonary: Clear and Symmetric; Negative Wheezes or Rales
Gastrointestinal: Soft, Non Tender, Non Distended and Normal Bowel Sounds
Skin: Warm and Dry; Negative Rash or Jaundice
Wound: Other (deferred dressing take down today)
Objective Data
Lab Data
Lab Results
02/28/24 04:50
02/28/24 04:50
PT 14.7 Sec (11.4-14.6) H 02/16/24 03:46
INR 1.10 02/16/24 03:46
APTT 35.4 Sec (23.4-35.0) H 02/16/24 03:46
Estimated Creat Clear 55 ml/min 02/28/24 04:50
Total Bilirubin 1.0 mg/dl (0.2-1.3) 02/12/24 21:10
AST 64 U/L (14-36) H 02/12/24 21:10
ALT 32 U/L (0-35) 02/12/24 21:10
Alkaline Phosphatase 93 U/L (38-126) 02/12/24 21:10
Most recent labs reviewed.
Micro Results:
02/13/24 13:20 Urine Culture - Final
Urine Escherichia coli
--- NOTE | 2024-02-28 11:54 | W.PN.HOSP.TC ---
Today's Communication/Plan
-
Monitor vital signs see plan
PT/OT
Continue with aspirin
Restart Plavix tomorrow if no further bleeding
Discharge planning
Assessment / Plan
Assessment / Plan
#Nonpurulent cellulitis of right rear foot
#Dry gangrene
-Secondary to PAD/critical limb ischemia, now s/p right femoral endarterectomy
-X-ray of the foot as well as MRI without contrast did not show signs of osteomyelitis
-Was evaluated by podiatry, no plan for debridement while here
-No fevers or leukocytosis, has remained hemodynamically stable
-Podiatry recommending course of antibiotics, ID states not needed
-No purulence or fluctuance on exam
Plan
-Discontinue further abx per ID
-Continue with WBAT with rearfoot boot in place for heel offloading
-Continue with as needed analgesia
-Trend CBC and temperature curve
#LGIB from diverticular bleed
-Status post colonoscopy with multiple large diverticula and sigmoid stricture
-Status post 2 unit of PRBC with repeat hemoglobin 10.4, no signs of rebleed
-Per vascular surgery, needs to be on antiplatelet agent due to high risk following endarterectomy
-Per GI no further intervention they can perform, IR stated not candidate for embolization due to PAD
-Has been advanced back to full diet as of this morning, no further evidence of bleeding
-Colorectal surgery following, considering sigmoidectomy if rebleeding occurs
-Hold Plavix, continue with aspirin. Per colorectal surgery restart Plavix 02/28 if no further bleeding
-Trend CBC, hemoglobin goal >8
#Critical limb ischemia of RLE
-Status post right common femoral endarterectomy on 02/14
-Was on aspirin and Plavix as well as statin; Plavix held for GIB
-Avoid hypotension, continue with aspirin and statin
-Plan to resume Plavix on 02/28 if no further bleeding
-Continue vascular checks
#Urinary retention with suspected UTI
#Left hydronephrosis
#H/O hysterectomy and XRT
-Was started on IV Zosyn empirically; urine culture showing E. coli
-Status post Neal catheter, failed TOV x 1 while nonambulatory
-Completed course of antibiotics for UTI (Zosyn and cefdinir)
-Currently on Flomax, nonambulatory; failed TOV x 2
-Will follow-up with Dr. Nguyễn with urology as OP, plan for VUDS
#Hypertension
-No known history of hypertensive systemic disease
-Home regimen includes losartan and Lasix
-Holding antihypertensive regimen due to hypotension on arrival
-Plan to resume antihypertensives sequentially as BP improves
Hyponatremia
Monitor
#Hypothyroidism
-Unclear etiology, remains on home levothyroxine regimen
-No signs of thyroid dysfunction at this time
#Electrolyte depletion
-Had low potassium and sodium upon arrival
-Has improved with Lasix on hold
-Trend BMP
#Stage II deep dermal wound of sacrum/coccyx
DVT prophylaxis: SCDs
CODE STATUS: Full
PT/OT rec SNF;
General: Well Developed, No Apparent Distress, Comfortable and Other (Thin and frail)
HEENT: Normocephalic, Atraumatic, Moist Mucous Membranes and Anicteric
Respiratory: Clear to Auscultation and Non Labored Respirations
Cardiac: Regular Rhythm, S1/S2 and Other (Palpable lower extremity pulse, cap refill <2 seconds); Negative Murmur, Rub or Gallop
GI: Soft, Nontender, Nondistended and Normal Bowel Sounds
Musculoskeletal: No Clubbing, No Cyanosis and No Edema
Skin: Warm, Dry and Normal Turgor; Negative Rash
Neuro: AO x 3 and Nonfocal/Grossly Intact
Psych: Calm
Anticipated Discharge: 24 - 48 hours
Subjective/Interval History
-
Date of Service: February 28, 2024
Denies pain
Objective Data
-
Labs:
Laboratory Results
02/28/24
04:50
WBC 6.4
Hgb 9.3 L
Hct 28.5 L
Plt Count 339
Sodium 134 L
Potassium 4.3
Chloride 102
Carbon Dioxide 26
BUN 11
Creatinine 0.6
Glucose 73
Calcium 7.9 L
Vital Signs:
Vital Signs
Temp Pulse Resp BP Pulse Ox
97.9 F 57 16 128/64 99
02/28/24 07:12 02/28/24 07:12 02/28/24 07:12 02/28/24 07:12 02/28/24 07:12
I&O
02/27/24 02/28/24 02/29/24
06:59 06:59 06:59
Intake Total 1180 / 1180 260 / 260
Output Total 3425 / 3425 1425 / 1425
Balance -2245 / -2245 -1165 / -1165
[2024-02-28 15:11] VITALS: BP 117/61
[2024-02-28 23:15] VITALS: BP 120/60
[2024-02-29 05:38] LABS: % Basophils 0.7 % (0-2); % Eosinophils 1.3 % (0-6); % Immature Granulocytes 0.3 % (0-0.5); % Lymphocytes 12.6 % (20.5-51.1); % Monocytes 8.4 % (1.7-9.3); % Neutrophils 76.7 % (42.2-75.2); Absolute Basophils 0.1 10^3/uL (0-0.2); Absolute Eosinophils 0.1 10^3/uL (0-0.7); Absolute Lymphocytes 0.9 10^3/uL (1.2-3.4); Absolute Monocytes 0.6 10^3/uL (0.1-0.6); Absolute Neutrophils 5.3 10^3/uL (1.4-6.5); Hematocrit 25.4 % (37.0-47.0); Hemoglobin 8.6 g/dL (12.0-16.0); Mean Corp Hgb Conc. 33.9 g/dL (33.0-37.0); Mean Corpuscular Hgb 32.1 pg (27.0-31.0); Mean Corpuscular Volume 94.8 fL (81.0-99.0); Mean Platelet Volume 9.8 fL (7.4-10.4); Nucleated Red Blood Cells % 0 %; Platelet Count 332 10^3/uL (130-400); Red Blood Cell Count 2.68 10^6/uL (4.20-5.40); Red Cell Dist. Width 15.9 % (11.5-14.5); White Blood Cell Count 6.9 10^3/uL (4.8-10.8)
[2024-02-29 05:50] LABS: Blood Urea Nitrogen 11 mg/dl (7-17); Calcium 7.7 mg/dl (8.4-10.2); Carbon Dioxide 26 mmol/L (22-30); Chloride 102 mmol/L (98-107); Estimated Creatinine Clearance 55 ml/min; Glucose 78 mg/dl (70-99); Potassium 3.9 mmol/L (3.5-5.1); Sodium 135 mmol/L (135-145); eGFR > 60.00
[2024-02-29 06:00] VITALS: BMI 19.8
[2024-02-29] MEDS: SYNTHROID 88 MCG PO (06:11)
[2024-02-29] MEDS: ROXICODONE 5 MG PO (06:11)
[2024-02-29 07:00] VITALS: BP 133/64
[2024-02-29] MEDS: LIPITOR 40 MG PO (08:10)
[2024-02-29] MEDS: FLOMAX 0.4 MG PO (08:10)
[2024-02-29] MEDS: LOW STRENGTH ASPIRIN 81 MG PO (08:10)
--- NOTE | 2024-02-29 11:22 | W.PN.ID1 ---
Date of Service
Date of Service: February 29, 2024
Today's Communication
- remains well off of antibiotics
- follow up with vascular surgery
ID service will no longer actively follow this patient please recall for further questions
Assessment / Plan
Dry Gangrene on plantar surface of right foot
Resolved - critical limb ischemia of the RLE
Claudication LLE
- cellulitis is typically a clinical diagnosis, feel that MRI changes interpreted as 'severe cellulitis' were actually the ischemic injury that has now developed into dry gangrene
- remains well off of antibiotics
- follow up with vascular surgery
ID service will no longer actively follow this patient please recall for further questions
Chief Complaint
-: Other (dry gangrene)
Subjective / Review of Systems
afebrile
bp stable
no events overnight
dc planning
Vital Signs / Physical Exam
Vital Signs
Vital Signs
Temp Pulse Resp BP Pulse Ox
98.4 F 59 16 133/64 100
02/29/24 07:00 02/29/24 07:00 02/29/24 07:00 02/29/24 07:00 02/29/24 07:00
Physical Exam
Constitutional: No Acute Distress
Cardiovascular: Regular Rate and S1/S2; Negative Murmur or Rub
Pulmonary: Clear and Symmetric; Negative Wheezes or Rales
Gastrointestinal: Soft, Non Tender, Non Distended and Normal Bowel Sounds
Skin: Warm, Dry and Rash (dry gangrene of the R plantar foot without surrounding erythema, warmth, tenderness or drainage); Negative Jaundice
Objective Data
Lab Data
Lab Results
02/29/24 04:42
02/29/24 04:42
PT 14.7 Sec (11.4-14.6) H 02/16/24 03:46
INR 1.10 02/16/24 03:46
APTT 35.4 Sec (23.4-35.0) H 02/16/24 03:46
Estimated Creat Clear 55 ml/min 02/29/24 04:42
Total Bilirubin 1.0 mg/dl (0.2-1.3) 02/12/24 21:10
AST 64 U/L (14-36) H 02/12/24 21:10
ALT 32 U/L (0-35) 02/12/24 21:10
Alkaline Phosphatase 93 U/L (38-126) 02/12/24 21:10
Most recent labs reviewed.
no leukocytosis and L shift nearly resolved
Micro Results:
02/13/24 13:20 Urine Culture - Final
Urine Escherichia coli
--- NOTE | 2024-02-29 11:43 | W.PN.HOSP.TC ---
Today's Communication/Plan
-
Monitor vital signs
see plan
Restarted Plavix
Possible discharge tomorrow to rehab if no further bleeding
Monitor hemoglobin
Assessment / Plan
Assessment / Plan
#Nonpurulent cellulitis of right rear foot
#Dry gangrene
-Secondary to PAD/critical limb ischemia, now s/p right femoral endarterectomy
-X-ray of the foot as well as MRI without contrast did not show signs of osteomyelitis
-Was evaluated by podiatry, no plan for debridement while here
-No fevers or leukocytosis, has remained hemodynamically stable
-Podiatry recommending course of antibiotics, ID states not needed
-No purulence or fluctuance on exam
Plan
-Discontinue further abx per ID
-Continue with WBAT with rearfoot boot in place for heel offloading
-Continue with as needed analgesia
-Trend CBC and temperature curve
#LGIB from diverticular bleed
-Status post colonoscopy with multiple large diverticula and sigmoid stricture
-Status post 2 unit of PRBC with repeat hemoglobin 10.4, no signs of rebleed
-Per vascular surgery, needs to be on antiplatelet agent due to high risk following endarterectomy
-Per GI no further intervention they can perform, IR stated not candidate for embolization due to PAD
-Has been advanced back to full diet as of this morning, no further evidence of bleeding
-Colorectal surgery following, considering sigmoidectomy if rebleeding occurs
-Hold Plavix, continue with aspirin. Per colorectal surgery restart Plavix 02/28 if no further bleeding. Currently no further bleeding. Plavix restartED
-Trend CBC, hemoglobin goal >8
#Critical limb ischemia of RLE
-Status post right common femoral endarterectomy on 02/14
-Was on aspirin and Plavix as well as statin; Plavix held for GIB
-Avoid hypotension, continue with aspirin and statin
- resume Plavix on 1/14 if no further bleeding
-Continue vascular checks
#Urinary retention with suspected UTI
#Left hydronephrosis
#H/O hysterectomy and XRT
-Was started on IV Zosyn empirically; urine culture showing E. coli
-Status post Neal catheter, failed TOV x 1 while nonambulatory
-Completed course of antibiotics for UTI (Zosyn and cefdinir)
-Currently on Flomax, nonambulatory; failed TOV x 2
-Will follow-up with Dr. Nguyễn with urology as OP, plan for VUDS
#Hypertension
-No known history of hypertensive systemic disease
-Home regimen includes losartan and Lasix
-Holding antihypertensive regimen due to hypotension on arrival
-Plan to resume antihypertensives sequentially as BP improves
Hyponatremia
Monitor
#Hypothyroidism
-Unclear etiology, remains on home levothyroxine regimen
-No signs of thyroid dysfunction at this time
#Electrolyte depletion
-Had low potassium and sodium upon arrival
-Has improved with Lasix on hold
-Trend BMP
#Stage II deep dermal wound of sacrum/coccyx
DVT prophylaxis: SCDs
CODE STATUS: Full
PT/OT rec SNF;
General: Well Developed, No Apparent Distress, Comfortable and Other (Thin and frail)
HEENT: Normocephalic, Atraumatic, Moist Mucous Membranes and Anicteric
Respiratory: Clear to Auscultation and Non Labored Respirations
Cardiac: Regular Rhythm, S1/S2 and Other (Palpable lower extremity pulse, cap refill <2 seconds); Negative Murmur, Rub or Gallop
GI: Soft, Nontender, Nondistended and Normal Bowel Sounds
Musculoskeletal: No Clubbing, No Cyanosis and No Edema
Skin: Warm, Dry and Normal Turgor; Negative Rash
Neuro: AO x 3 and Nonfocal/Grossly Intact
Psych: Calm
Anticipated Discharge: Within 24 hours
Subjective/Interval History
-
Date of Service: February 29, 2024
Denies pain
Objective Data
-
Labs:
Laboratory Results
02/29/24
04:42
WBC 6.9
Hgb 8.6 L
Hct 25.4 L
Plt Count 332
Sodium 135
Potassium 3.9
Chloride 102
Carbon Dioxide 26
BUN 11
Creatinine 0.5 L
Glucose 78
Calcium 7.7 L
Vital Signs:
Vital Signs
Temp Pulse Resp BP Pulse Ox
98.4 F 59 16 133/64 100
02/29/24 07:00 02/29/24 07:00 02/29/24 07:00 02/29/24 07:00 02/29/24 07:00
I&O
02/28/24 02/29/24 03/01/24
06:59 06:59 06:59
Intake Total 260 / 260 2019
Output Total 1425 / 1425 800 / 800
Balance -1165 / -1165 1220 / 1220
[2024-02-29] MEDS: PLAVIX 75 MG PO (12:32)
[2024-02-29 15:00] VITALS: BP 141/59
--- NOTE | 2024-02-29 15:46 | CM ---
Addendum entered by Liya Jiang 02/29/24 16:35:
Auth started in [facility]
Ref # [id number]
Clinicals faxed to [phone]
Plan - anticipate transfer to [facility] when auth obtained and medically ready
Original Note:
Chart reviewed and met with pt. For discharge tomorrow
Updated pt regarding SNF bed availability
[facility]- no beds. [facility] - do not accept insurance
[facility] can accept - tomorrow - Pt aware and agreeable
Will need auth - Updated OT notes needed - message sent to OT
Will start auth when OT eval updated
Plan - anticipate transfer to [facility] when auth obtained and medically ready
[2024-02-29] MEDS: TYLENOL 650 MG PO (20:53)
[2024-02-29 23:15] VITALS: BP 114/54
[2024-03-01] MEDS: SYNTHROID 88 MCG PO (05:08)
[2024-03-01 06:00] VITALS: BMI 19.8
[2024-03-01 06:48] LABS: % Basophils 1.4 % (0-2); % Eosinophils 3.1 % (0-6); % Immature Granulocytes 0.4 % (0-0.5); % Lymphocytes 17.4 % (20.5-51.1); % Monocytes 11.6 % (1.7-9.3); % Neutrophils 66.1 % (42.2-75.2); Absolute Basophils 0.1 10^3/uL (0-0.2); Absolute Eosinophils 0.2 10^3/uL (0-0.7); Absolute Lymphocytes 0.9 10^3/uL (1.2-3.4); Absolute Monocytes 0.6 10^3/uL (0.1-0.6); Absolute Neutrophils 3.4 10^3/uL (1.4-6.5); Hematocrit 27.7 % (37.0-47.0); Hemoglobin 8.9 g/dL (12.0-16.0); Mean Corp Hgb Conc. 32.1 g/dL (33.0-37.0); Mean Corpuscular Hgb 31.1 pg (27.0-31.0); Mean Corpuscular Volume 96.9 fL (81.0-99.0); Mean Platelet Volume 9.8 fL (7.4-10.4); Nucleated Red Blood Cells % 0 %; Platelet Count 316 10^3/uL (130-400); Red Blood Cell Count 2.86 10^6/uL (4.20-5.40); Red Cell Dist. Width 15.9 % (11.5-14.5); White Blood Cell Count 5.2 10^3/uL (4.8-10.8)
[2024-03-01 07:02] VITALS: BP 130/63
[2024-03-01 07:02] LABS: Blood Urea Nitrogen 10 mg/dl (7-17); Calcium 8.3 mg/dl (8.4-10.2); Carbon Dioxide 27 mmol/L (22-30); Chloride 103 mmol/L (98-107); Estimated Creatinine Clearance 55 ml/min; Glucose 70 mg/dl (70-99); Sodium 135 mmol/L (135-145); eGFR > 60.00
[2024-03-01] MEDS: FLOMAX 0.4 MG PO (07:56)
[2024-03-01] MEDS: LOW STRENGTH ASPIRIN 81 MG PO (07:56)
[2024-03-01] MEDS: LIPITOR 40 MG PO (07:56)
[2024-03-01] MEDS: PLAVIX 75 MG PO (07:56)
[2024-03-01] MEDS: TYLENOL 650 MG PO (08:02)
--- NOTE | 2024-03-01 10:36 | W.PN.UPDATE ---
Update Note
Progress Note Update
Asked to reevaluate to assess if patient is eligible for removal of abner and sutures as she is 2 weeks out from vascular surgery, Right common femoral endarterectomy with patch angioplasty using bovine pericardium
2. Drug-coated balloon angioplasty of right superficial femoral artery (5 mm x 80 mm Lutonix). Right groin surgical site CDI, no erythema or warmth, no evidence of infection, suture line well-approximated. However, palpable small seroma at the
distal end medial end of incision. Given evidence of seroma will keep sutures and abner in for 1 additional week, and have them removed in the outpatient setting. Adjusted follow-up appointment to 03/08/2024 and placed new appointment on
discharge instructions. Reviewed with on-call attending Dr. Chris Macias who agrees with plan.
--- NOTE | 2024-03-01 10:41 | W.PN.HOSP.TC ---
Today's Communication/Plan
-
Monitor vital signs see plan
No further bleeding
Continue aspirin and Plavix per vascular recommendation
Discharged today to SNF
Time of discharge 39 minutes
Assessment / Plan
Assessment / Plan
#Nonpurulent cellulitis of right rear foot
#Dry gangrene
-Secondary to PAD/critical limb ischemia, now s/p right femoral endarterectomy
-X-ray of the foot as well as MRI without contrast did not show signs of osteomyelitis
-Was evaluated by podiatry, no plan for debridement while here
-No fevers or leukocytosis, has remained hemodynamically stable
-Podiatry recommending course of antibiotics, ID states not needed
-No purulence or fluctuance on exam
Plan
-Discontinue further abx per ID
-Continue with WBAT with rearfoot boot in place for heel offloading
-Continue with as needed analgesia
-Trend CBC and temperature curve
#LGIB from diverticular bleed
-Status post colonoscopy with multiple large diverticula and sigmoid stricture
-Status post 2 unit of PRBC with repeat hemoglobin 10.4, no signs of rebleed
-Per vascular surgery, needs to be on antiplatelet agent due to high risk following endarterectomy
-Per GI no further intervention they can perform, IR stated not candidate for embolization due to PAD
-Has been advanced back to full diet as of this morning, no further evidence of bleeding
-Colorectal surgery following, considering sigmoidectomy if rebleeding occurs
-Hold Plavix, continue with aspirin. Per colorectal surgery restart Plavix 02/28 if no further bleeding. Currently no further bleeding. Plavix restarted; no further bleeding
-Trend CBC, hemoglobin goal >8
#Critical limb ischemia of RLE
-Status post right common femoral endarterectomy on 02/14
-Was on aspirin and Plavix as well as statin; Plavix held for GIB
-Avoid hypotension, continue with aspirin and statin
- resume Plavix on 02/28 if no further bleeding
-Continue vascular checks
As vascular surgery again 12/30 to see if sutures can come out. Vascular surgery evaluated and patient still has small seroma so vascular surgery wants patient to follow-up with them outpatient in a week and suture likely will be removed in the
outpatient setting.
#Urinary retention with suspected UTI
#Left hydronephrosis
#H/O hysterectomy and XRT
-Was started on IV Zosyn empirically; urine culture showing E. coli
-Status post Neal catheter, failed TOV x 1 while nonambulatory
-Completed course of antibiotics for UTI (Zosyn and cefdinir)
-Currently on Flomax, nonambulatory; failed TOV x 2
-Will follow-up with Dr. Nguyễn with urology as OP, plan for VUDS
#Hypertension
-No known history of hypertensive systemic disease
-Home regimen includes losartan and Lasix
-Holding antihypertensive regimen due to hypotension on arrival
-Plan to resume antihypertensives sequentially as BP improves
Hyponatremia
Monitor
#Hypothyroidism
-Unclear etiology, remains on home levothyroxine regimen
-No signs of thyroid dysfunction at this time
#Electrolyte depletion
-Had low potassium and sodium upon arrival
-Has improved with Lasix on hold
-Trend BMP
#Stage II deep dermal wound of sacrum/coccyx
DVT prophylaxis: SCDs
CODE STATUS: Full
PT/OT rec SNF;
General: Well Developed, No Apparent Distress, Comfortable and Other (Thin and frail)
HEENT: Normocephalic, Atraumatic, Moist Mucous Membranes and Anicteric
Respiratory: Clear to Auscultation and Non Labored Respirations
Cardiac: Regular Rhythm, S1/S2 and Other (Palpable lower extremity pulse, cap refill <2 seconds); Negative Murmur, Rub or Gallop
GI: Soft, Nontender, Nondistended and Normal Bowel Sounds
Musculoskeletal: No Clubbing, No Cyanosis and No Edema
Skin: Warm, Dry and Normal Turgor; Negative Rash
Neuro: AO x 3 and Nonfocal/Grossly Intact
Psych: Calm
Anticipated Discharge: Today
Subjective/Interval History
-
Date of Service: March 01, 2024
denies pain
Objective Data
-
Labs:
Laboratory Results
03/01/24
04:17
WBC 5.2
Hgb 8.9 L
Hct 27.7 L
Plt Count 316
Sodium 135
Potassium 4.0
Chloride 103
Carbon Dioxide 27
BUN 10
Creatinine 0.6
Glucose 70
Calcium 8.3 L
Vital Signs:
Vital Signs
Temp Pulse Resp BP Pulse Ox
98.0 F 63 16 130/63 99
03/01/24 07:02 03/01/24 07:02 03/01/24 07:02 03/01/24 07:02 03/01/24 07:02
I&O
02/29/24 03/01/24 03/02/24
06:59 06:59 06:59
Intake Total 2019 720 / 720
Output Total 800 / 800 2900 / 2900
Balance 1220 / 1220 -2180 / -2180
--- NOTE | 2024-03-01 10:54 | W.DCSUMMARY ---
Discharge Summary
Discharge Data
Date of Admission: 02/13/24
Date of Discharge: 03/01/24
-
Pending Results: No
Hospital Course
83-year-old female with past medical history of hypertension, hypothyroidism, CVA, PAD came to the hospital with critical limb ischemia of right lower extremity. Patient was seen by vascular surgery and underwent right common femoral
endarterectomy. Later patient hospital course was complicated with gastrointestinal bleed. Patient was seen by gastroenterology. CT scan was done which showed active bleed however given patient's significant PAD, IR stated patient is not an ideal
candidate for any embolization at this time. In the meantime patient Plavix was held. Patient required blood transfusion to improve her hemoglobin. Her bleeding later stopped and GI did not recommend any further intervention. Patient was also
seen by colorectal surgery who considered sigmoidectomy if patient has rebleeding. Per colorectal surgery recommendation Plavix was restarted. While she was hospitalized she also had a nonpurulent cellulitis of right rear foot for which she was
seen by podiatry who did not recommended any debridement. Patient was treated with antibiotics which was later stopped by infectious disease. She also had urinary retention with urinary tract infection which was treated with antibiotics. She had
voiding trial twice while she was in the hospital which she failed. She was discharged with Neal catheter with instructions to follow-up with urology outpatient. Patient was also eval by physical therapy who recommended SNF. When she had no
further bleeding on aspirin and Plavix, she was then discharged to SNF with instructions to follow-up with all her physicians outpatient.
Discharge Plan
-
Patient Disposition: [facility]ci/SNF
Discharge Diagnosis/Procedures: Critical limb ischemia of right lower extremity status post right common femoral enderectomy
Urinary retention with urinary tract infection
GI bleed
Nonpurulent cellulitis
Condition: Fair
Diet: As tolerated
Activity: As tolerated and No strenuous activity
Driving Restrictions: No driving for 24 hours
Bathing Restrictions: OK to Shower
Activity Restrictions/Additional Instructions:
Wound Care Instructions
Sacral/Coccyx- Clean with soap and water and apply Calazime to open area. Cover with silicone border foam. Change Q 48 hours and as needed if soiled.
Right heel daily dressing with betadine to decubitus ulcer/ 4x4s/ ABD and loosely wrapped kerlex.
Elevate heels off bed.
WBAT in rear foot off loading shoe.
Air cushion, gel cushion, or 4 inch foam cushion to chair (Can order on [employer]).
Frequent incontinence care
Use a barrier ointment to protect skin from incontinence
Change position in bed/chair frequently
Increase protein and ensure good hydration
For your right groin surgical incision, you may leave it open to air. You may shower per usual but ensure that it is patted dry following shower. Do not submerge your incision in a tub or pool.
Please follow-up with vascular surgery for right groin incision and abner.
Stand Alone Forms: DC Instr - Vascular OR
Referrals:
Leah Gomez PA-C [Specified Professional Personl] - 03/08/24 9:30 am
Ace Nguyễn MD [Active] -
(Please call [facility] to schedule a follow up visit within 3-4 weeks of discharge.
You will be scheduled for a urodynamic study in the office after your initial office visit. )
Ya Diaz MD [Active] - (will need GI follow up for IBS, bleeding and to review pancreatic cyst and Outpatient MRI )
Terrance Donovan MD [Active] -
Noam Singh MD [Active] -
Priscila Ramirez MD [Family Provider] - in less than 1 week
Prescriptions:
New
acetaminophen 325 mg Tablet
650 mg PO Q4HPRN PRN (Reason: Mild Pain / Temp > 101) Qty: 0 0RF
sennosides-docusate sodium 8.6-50 mg Tablet
1 tab PO DAILYPRN PRN (Reason: constipation) Qty: 0 0RF
clopidogrel 75 mg Tablet
75 mg PO DAILY Qty: 0 0RF
tamsulosin 0.4 mg Capsule
0.4 mg PO DAILY Qty: 0 0RF
aspirin 81 mg Tablet,Chewable
81 mg PO DAILY Qty: 0 0RF
Continued
atorvastatin [Lipitor] 40 mg tablet
40 mg PO DAILY Qty: 30 0RF
colestipol 1 gram Tablet
2 g PO BID
cyanocobalamin (vitamin B-12) [Vitamin B-12] 1,000 mcg Tablet Extended Release
1,000 mcg PO DAILY
calcium carbonate [Calcium 600] 600 mg calcium (1,500 mg) Tablet
600 mg PO DAILY
docusate sodium [Colace] 100 mg Capsule
100 mg PO DAILY
omega 8-gsb-xql-fish oil [Fish Oil] 1,200 (144-216) mg Capsule
1 cap PO DAILY
Centrum Adult 50 Plus 80 mcg Tablet,Chewable
1 tab PO DAILY
levothyroxine [Synthroid] 88 mcg Tablet
88 mcg PO DAILY
Held
losartan 50 mg tablet
50 mg PO DAILY
Hold Instructions: Restart when blood pressure is greater than 140/90
Discontinued
furosemide [Lasix] 20 mg tablet
20 mg PO DAILY Qty: 7 0RF
oxycodone 5 mg Tablet
5 mg PO TIDPRN PRN (Reason: severe pain)
Discharge Orders:
Discharge Patient (As Directed); Ordered 03/01/24
Ordered By: oJn Lozano
Discharge Date and Time
Discharge Date/Time: 03/01/24 16:45
Print Language: ICELANDIC
--- NOTE | 2024-03-01 11:13 | CM ---
Addendum entered by Liya Jiang 03/01/24 12:43:
Pt given IMM
Transport at 1600
Facility and pt made aware
Original Note:
Auth approved for SNF
Certification # - [id number]
Approved 03/01-03/07/[address] Lugo made aware
Info given to Noemi at [facility]
Medically ready for discharge
Transport to be arranged
Plan - transfer to [facility]
R - [phone]
F - [phone]
[2024-03-01 14:43] VITALS: BP 114/52
== END 2024-03-01 16:45 | DRG 270 ==
LOC: 2 SOUTH 02:31
PROVIDERS: Internal Medicine; Internal Medicine Gastroenterology; Nurse Practitioner; Nurse Practitioner Acute Care; Nurse Practitioner Gerontology; Physician Assistant; Surgery Vascular Surgery; ADMITTING PHYSICIAN Hospitalist; ATTENDING PHYSICIAN Internal Medicine; CONSULT PHYSICIAN Internal Medicine; CONSULT PHYSICIAN Internal Medicine Critical Care Medicine; CONSULT PHYSICIAN Student in an Organized Health Care Education/Training Program; CONSULT PHYSICIAN Surgery; EMERGENCY PHYSICIAN Emergency Medicine; FAMILY PHYSICIAN Family Medicine; OTHER PHYSICIAN Surgery Vascular Surgery
PROC: 047K3Z1 Dilation of Right Femoral Artery using Drug-Coated Balloon, Percutaneous Approach (ICD-10-PCS; 2024-02-15)
PROC: 04CH0ZZ Extirpation of Matter from Right External Iliac Artery, Open Approach (ICD-10-PCS; 2024-02-15)
PROC: 04UH0KZ Supplement Right External Iliac Artery with Nonautologous Tissue Substitute, Open Approach (ICD-10-PCS; 2024-02-15)
PROC: 30233N1 Transfusion of Nonautologous Red Blood Cells into Peripheral Vein, Percutaneous Approach (ICD-10-PCS; 2024-02-15)
PROC: 0DJD8ZZ Inspection of Lower Intestinal Tract, Via Natural or Artificial Opening Endoscopic (ICD-10-PCS; 2024-02-18)
DX: I70.261 Atherosclerosis of native arteries of extremities with gangrene, right leg (principal); K57.31 Diverticulosis of large intestine without perforation or abscess with bleeding; D62 Acute posthemorrhagic anemia; E87.1 Hypo-osmolality and hyponatremia; N13.6 Pyonephrosis; K56.699 Other intestinal obstruction unspecified as to partial versus complete obstruction; N39.490 Overflow incontinence; B96.20 Unspecified Escherichia coli [E. coli] as the cause of diseases classified elsewhere; E87.6 Hypokalemia; E03.9 Hypothyroidism, unspecified; G62.9 Polyneuropathy, unspecified; I10 Essential (primary) hypertension; I35.0 Nonrheumatic aortic (valve) stenosis; I36.1 Nonrheumatic tricuspid (valve) insufficiency; E78.2 Mixed hyperlipidemia; M81.0 Age-related osteoporosis without current pathological fracture; L89.152 Pressure ulcer of sacral region, stage 2; R33.8 Other retention of urine; I70.212 Atherosclerosis of native arteries of extremities with intermittent claudication, left leg; K21.9 Gastro-esophageal reflux disease without esophagitis; K64.9 Unspecified hemorrhoids; E83.51 Hypocalcemia; I25.10 Atherosclerotic heart disease of native coronary artery without angina pectoris; Z79.82 Long term (current) use of aspirin; Z79.899 Other long term (current) drug therapy; Z92.3 Personal history of irradiation; Z90.710 Acquired absence of both cervix and uterus; Z86.73 Personal history of transient ischemic attack (TIA), and cerebral infarction without residual deficits; Z85.41 Personal history of malignant neoplasm of cervix uteri; Z79.890 Hormone replacement therapy
CPT/HCPCS: 88304; 88311; 35371; 37224; 51702; 73620; 73721; 74174; 74270; 75635; 75710; 80048; 80053; 80061; 81003; 81015; 82607; 82728; 82962; 83036; 83540; 83550; 83735; 85014; 85018; 85025; 85027; 85610; 85730; 86850; 86900; 86901; 86920; 87077; 87086; 87186; 93005; 93970; 96365; 96366; 96367; 96375; 97116; 97163; 97167; 97530; 97535; 99285; P9016; P9045; Q9967

== ENCOUNTER → 2024-03-27 07:56 | Outpatient (REF) | payer OTHER, BC, SELFPAY | LOC: WOUND 07:56 | PROVIDERS: ATTENDING PHYSICIAN Surgery; FAMILY PHYSICIAN Family Medicine | DX: L89.613 Pressure ulcer of right heel, stage 3 (principal); L89.322 Pressure ulcer of left buttock, stage 2; I73.9 Peripheral vascular disease, unspecified; I87.2 Venous insufficiency (chronic) (peripheral); I77.9 Disorder of arteries and arterioles, unspecified; I35.0 Nonrheumatic aortic (valve) stenosis; R26.81 Unsteadiness on feet | CPT/HCPCS: 11042; 99204 ==

== ENCOUNTER → 2024-03-27 09:01 | Outpatient (REF) | payer OTHER, BC, SELFPAY | LOC: RAD 09:01 | PROVIDERS: ATTENDING PHYSICIAN Surgery; FAMILY PHYSICIAN Family Medicine; OTHER PHYSICIAN Surgery Vascular Surgery | DX: L89.613 Pressure ulcer of right heel, stage 3 (principal); I87.2 Venous insufficiency (chronic) (peripheral) | CPT/HCPCS: 93922; 93925 ==

== ENCOUNTER → 2024-04-03 13:46 | Outpatient (REF) | payer OTHER, BC, SELFPAY | LOC: WOUND 13:46 | PROVIDERS: ATTENDING PHYSICIAN Surgery; FAMILY PHYSICIAN Family Medicine | DX: L89.613 Pressure ulcer of right heel, stage 3 (principal); L89.322 Pressure ulcer of left buttock, stage 2; I73.9 Peripheral vascular disease, unspecified; I87.2 Venous insufficiency (chronic) (peripheral); I77.9 Disorder of arteries and arterioles, unspecified | CPT/HCPCS: 11043 ==

== ENCOUNTER → 2024-04-20 08:46 | Outpatient (REF) | payer OTHER, BC, SELFPAY | LOC: WOUND 08:46 | PROVIDERS: ATTENDING PHYSICIAN Surgery; FAMILY PHYSICIAN Family Medicine | DX: L89.613 Pressure ulcer of right heel, stage 3 (principal); L89.322 Pressure ulcer of left buttock, stage 2; I73.9 Peripheral vascular disease, unspecified; I87.2 Venous insufficiency (chronic) (peripheral); I77.9 Disorder of arteries and arterioles, unspecified; I35.0 Nonrheumatic aortic (valve) stenosis; R26.81 Unsteadiness on feet | CPT/HCPCS: 11043 ==

== ENCOUNTER → 2024-04-27 08:49 | Outpatient (REF) | payer OTHER, BC, SELFPAY | LOC: WOUND 08:49 | PROVIDERS: ATTENDING PHYSICIAN Surgery; FAMILY PHYSICIAN Family Medicine | DX: L89.613 Pressure ulcer of right heel, stage 3 (principal); I73.9 Peripheral vascular disease, unspecified; I87.2 Venous insufficiency (chronic) (peripheral); I77.9 Disorder of arteries and arterioles, unspecified; I35.0 Nonrheumatic aortic (valve) stenosis; R26.81 Unsteadiness on feet | CPT/HCPCS: 11042 ==

== ENCOUNTER → 2024-04-27 09:48 | Outpatient (REF) | payer OTHER, BC, SELFPAY | LOC: RAD 09:48 | PROVIDERS: ATTENDING PHYSICIAN Surgery; FAMILY PHYSICIAN Family Medicine | DX: L89.613 Pressure ulcer of right heel, stage 3 (principal) | CPT/HCPCS: 73630 ==

== ENCOUNTER 2024-04-29 17:46 | Emergency (ER) | payer OTHER, BC, SELFPAY ==
[2024-04-29 17:48] VITALS: BP 125/61
[2024-04-29 18:05] LABS: % Basophils 1.1 % (0-2); % Eosinophils 2.5 % (0-6); % Immature Granulocytes 0.2 % (0-0.5); % Lymphocytes 20.4 % (20.5-51.1); % Monocytes 12.7 % (1.7-9.3); % Neutrophils 63.1 % (42.2-75.2); Absolute Basophils 0.1 10^3/uL (0-0.2); Absolute Eosinophils 0.1 10^3/uL (0-0.7); Absolute Lymphocytes 1.2 10^3/uL (1.2-3.4); Absolute Monocytes 0.7 10^3/uL (0.1-0.6); Absolute Neutrophils 3.6 10^3/uL (1.4-6.5); Hematocrit 23.7 % (37.0-47.0); Hemoglobin 7.8 g/dL (12.0-16.0); Mean Corp Hgb Conc. 32.9 g/dL (33.0-37.0); Mean Platelet Volume 9.3 fL (7.4-10.4); Nucleated Red Blood Cells % 0 %; Platelet Count 314 10^3/uL (130-400); Red Blood Cell Count 2.52 10^6/uL (4.20-5.40); White Blood Cell Count 5.7 10^3/uL (4.8-10.8)
[2024-04-29 18:25] LABS: ALT (SGPT) 67 U/L (0-35); AST (SGOT) 74 U/L (14-36); Albumin 3.4 g/dl (3.5-5.0); Alkaline Phosphatase 125 U/L (38-126); Blood Urea Nitrogen 25 mg/dl (7-17); Calcium 9.7 mg/dl (8.4-10.2); Carbon Dioxide 27 mmol/L (22-30); Chloride 103 mmol/L (98-107); Glucose 94 mg/dl (70-99); Potassium 4.3 mmol/L (3.5-5.1); Sodium 135 mmol/L (135-145); Total Bilirubin 0.6 mg/dl (0.2-1.3); Total Protein 6.6 g/dl (6.3-8.2); eGFR > 60.00
--- NOTE | 2024-04-29 19:26 | ED.GENMED ---
History of Present Illness
General
Chief Complaint: Catheter/Tube Problem
Source: patient, spouse and family
Exam Limitations: none
Time Seen by Provider: 04/29/24 19:10
Nursing documentation reviewed up to this point in time: agreed with
History of Present Illness
History of Present Illness:
83-year-old female presents to the emergency department due to blood in her urine for the past few days, and today noticed the urine was not coming out. She feels her abdomen is full.
Past History
Past History
ED Past Medical History: Cancer (Cervical cancer, treated with hysterectomy and radiation), HTN and Other (Kidney stones)
ED Past Surgical History: and Gynecological (Hysterectomy with retroperitoneal symone dissection 18 years ago.)
Social History
Tobacco: Non-smoker
Alcohol: None
Personal:
Living: with family
Family History
Family History: Hypertension; Negative Early CAD or CAD
Review of Systems
Review of Systems
Allergies reviewed?: Yes
All Other Systems: Not applicable
Constitutional: Reports no symptoms
EENT: Reports no symptoms
Respiratory: Reports no symptoms
Cardiac: Reports no symptoms
ABD/GI: Reports no symptoms
: Reports difficulty voiding and bleeding
Musculoskeletal: Reports no symptoms
Skin: Reports no symptoms
Neurological: Reports no symptoms
Endocrine: Reports no symptoms
Hematologic/Lymphatic: Reports no symptoms
Psychiatric: Reports no symptoms
Phy Exam
Physical Exam
Physical Exam:
Physical Exam
General: no apparent distress, not acutely ill
Neck: supple. no meningeal signs. normal posterior pharynx
Heart: s1/s2 regular rate and rhythm, no murmur. equal radial
pulses.
HEENT: Pupils equal round reactive to light, EOMI
Lungs: no acute respiratory distress. clear bilaterally
Abdomen: normal bowel sounds. not tender. no CVAT, suprapubic fullness
: Neal catheter in place, not draining
Neuro: alert and oriented. no focal neurological deficits cranial nerves II through XII intact
Skin: no rash
Psychiatric: well kept. interactive and cooperative
Extremities: no edema. no calf tenderness. negative homans. good distal pulses
Course
Orders/Labs/Results
Orders:
Orders
04/29/24 17:56
Complete Blood Count/With Diff Urgent
Comprehensive Metabolic Panel Urgent
Abnormal Lab Results
04/29/24
17:56
RBC 2.52 L 10^6/uL
(4.20-5.40)
Hgb 7.8 L g/dL
(12.0-16.0)
Hct 23.7 L %
(37.0-47.0)
MCHC 32.9 L g/dL
(33.0-37.0)
RDW 16.0 H %
(11.5-14.5)
Absolute Monos (auto) 0.7 H 10^3/uL
(0.1-0.6)
Lymphocytes % 20.4 L %
(20.5-51.1)
Monocytes % 12.7 H %
(1.7-9.3)
BUN 25 H mg/dl
(7-17)
AST 74 H U/L
(14-36)
ALT 67 H U/L
(0-35)
Albumin 3.4 L g/dl
(3.5-5.0)
04/29/24 17:56
04/29/24 17:56
Vital Signs
Initial and Last Documented VS:
Initial Vital Signs
Temp Pulse Resp BP Pulse Ox
98.1 F 78 18 125/61 100
04/29/24 17:48 04/29/24 17:48 04/29/24 17:48 04/29/24 17:48 04/29/24 17:48
Last Documented Vital Signs
Temp Pulse Resp BP Pulse Ox
98.1 F 78 18 125/61 100
04/29/24 17:48 04/29/24 17:48 04/29/24 17:48 04/29/24 17:48 04/29/24 17:48
MDM/Problems Addressed
Differential Diagnosis Includes:
Hematuria, clogged Neal
MDM/Problems Addressed:
83-year-old female with clogged Neal catheter. Catheter replaced. Patient has anemia, no indication for transfusion at this time. Stable for discharge.
Chronic conditions affecting care: Neurological disorder (Prior CVA)
*Pulse Oximetry
Patient hypoxic: no
*Critical Care Note
Total Time (30-74mins, 75-104mins- exclusive of procedures): Not Applicable
Data Reviewed
Review of Other/Old Records Reveals: Labs
Source: records (Prior hemoglobin 8.9)
Patient Management
Social determinants of health affecting care: Living situation
Escalation/DeEscalation of care consider admission/obs:
Admit not indicated
ED Attending Note
-
Portions of this chart may have been created with voice recognition software.� Occasional wrong word or��sound alike� substitutions may have occurred due to the inherent limitations of voice recognition software.
Discharge Plan
Departure
Patient Disposition: Home (Routine Discharge)
Date of Disposition: 04/29/24
Time of Disposition: 20:51
Patient with high blood pressure during this ER visit?: Yes
Condition: Good
Discharge Problem:
Complication, blocked Neal catheter
Instructions: How to Care for Your Neal Catheter, BLOOD PRESSURE
Prescriptions:
No Action
losartan 50 mg tablet
50 mg PO DAILY
atorvastatin [Lipitor] 40 mg tablet
40 mg PO DAILY Qty: 30 0RF
colestipol 1 gram Tablet
2 g PO BID
cyanocobalamin (vitamin B-12) [Vitamin B-12] 1,000 mcg Tablet Extended Release
1,000 mcg PO DAILY
calcium carbonate [Calcium 600] 600 mg calcium (1,500 mg) Tablet
600 mg PO DAILY
docusate sodium [Colace] 100 mg Capsule
100 mg PO DAILY
omega 4-xyp-qks-fish oil [Fish Oil] 1,200 (144-216) mg Capsule
1 cap PO DAILY
Centrum Adult 50 Plus 80 mcg Tablet,Chewable
1 tab PO DAILY
levothyroxine [Synthroid] 88 mcg Tablet
88 mcg PO DAILY
acetaminophen 325 mg Tablet
650 mg PO Q4HPRN PRN (Reason: Mild Pain / Temp > 101) Qty: 0 0RF
sennosides-docusate sodium 8.6-50 mg Tablet
1 tab PO DAILYPRN PRN (Reason: constipation) Qty: 0 0RF
clopidogrel 75 mg Tablet
75 mg PO DAILY Qty: 0 0RF
tamsulosin 0.4 mg Capsule
0.4 mg PO DAILY Qty: 0 0RF
aspirin 81 mg Tablet,Chewable
81 mg PO DAILY Qty: 0 0RF
Referrals:
Ace Nguyễn MD [Active] - Call in 1-3 days for appt
Priscila Ramirez MD [Family Provider] - Call in 1-3 days for appt
Interventions
Interventions:
*Risk Screen - Suicide Last Done: 04/29/24 17:50
*General Assessment Last Done: 04/29/24 17:50
*Neglect/Abuse Screening Last Done: 04/29/24 17:50
*ED- Fall Risk Assessment Last Done: 04/29/24 17:49
*ED COVID-19 Vaccine History Last Done: 04/29/24 17:49
RJ-Fnmgtw-Hidmakfhwz Assessment Last Done: 04/29/24 19:56
ED-Female Genitourinary Assessment Last Done: 04/29/24 19:56
Discharge Date and Time
Print Language: YAKUT
== END 2024-04-29 21:16 | disposition home or self-care (01) ==
LOC: EMR 17:46
PROVIDERS: Emergency Medicine; EMERGENCY PHYSICIAN Emergency Medicine; FAMILY PHYSICIAN Family Medicine
DX: T83.091A Other mechanical complication of indwelling urethral catheter, initial encounter (principal); X58.XXXA Exposure to other specified factors, initial encounter; D64.9 Anemia, unspecified; I10 Essential (primary) hypertension; Z85.41 Personal history of malignant neoplasm of cervix uteri; Z86.73 Personal history of transient ischemic attack (TIA), and cerebral infarction without residual deficits; Z90.710 Acquired absence of both cervix and uterus
CPT/HCPCS: 51702; 99283; 80053; 85025

== ENCOUNTER → 2024-05-04 08:50 | Outpatient (REF) | payer OTHER, BC, SELFPAY | LOC: WOUND 08:50 | PROVIDERS: ATTENDING PHYSICIAN Surgery; FAMILY PHYSICIAN Family Medicine | DX: L89.613 Pressure ulcer of right heel, stage 3 (principal); I73.9 Peripheral vascular disease, unspecified; I87.2 Venous insufficiency (chronic) (peripheral); I77.9 Disorder of arteries and arterioles, unspecified; I35.0 Nonrheumatic aortic (valve) stenosis; R26.81 Unsteadiness on feet | CPT/HCPCS: 11042 ==

== ENCOUNTER → 2024-05-11 08:47 | Outpatient (REF) | payer OTHER, BC, SELFPAY | LOC: WOUND 08:47 | PROVIDERS: ATTENDING PHYSICIAN Surgery; FAMILY PHYSICIAN Family Medicine | DX: L89.613 Pressure ulcer of right heel, stage 3 (principal); I73.9 Peripheral vascular disease, unspecified; I87.2 Venous insufficiency (chronic) (peripheral); I77.9 Disorder of arteries and arterioles, unspecified; I35.0 Nonrheumatic aortic (valve) stenosis; R26.81 Unsteadiness on feet | CPT/HCPCS: 11042 ==

== ENCOUNTER → 2024-05-15 06:20 | Day surgery (SDC) | payer OTHER, BC, SELFPAY | LOC: SDS 06:20 | PROVIDERS: ATTENDING PHYSICIAN Surgery | DX: D41.4 Neoplasm of uncertain behavior of bladder (principal); Z53.9 Procedure and treatment not carried out, unspecified reason ==

== ENCOUNTER → 2024-05-18 08:47 | Outpatient (REF) | payer OTHER, BC, SELFPAY | LOC: WOUND 08:47 | PROVIDERS: ATTENDING PHYSICIAN Surgery; FAMILY PHYSICIAN Family Medicine | DX: L89.613 Pressure ulcer of right heel, stage 3 (principal); I73.9 Peripheral vascular disease, unspecified; I87.2 Venous insufficiency (chronic) (peripheral); I77.9 Disorder of arteries and arterioles, unspecified; I35.0 Nonrheumatic aortic (valve) stenosis; R26.81 Unsteadiness on feet | CPT/HCPCS: 11042 ==

== ENCOUNTER 2024-06-02 06:16 | Day surgery (SDC) | payer OTHER, BC, SELFPAY ==
--- NOTE | 2024-05-29 15:32 | PTCARENOTE ---
Abnormal Hgb 7.8 on 04/29/24 reported to Evelia at Dr Nguyễn's office, more recent labwork uploaded to chart.
[2024-06-02] VITALS (11 sets, daily range): BP systolic 119–158; BP diastolic 58–107; BMI 19.8
[2024-06-02] MEDS: NORMOSOL-R/PLASMALYTE-A 1000 IV (12:06)
--- NOTE | 2024-06-02 14:15 | W.IMMPOSTOP ---
Surgical Immed Post Op Note
-
Primary Surgeon: Delma
Pre-op Diagnosis: Hematuria, radiation cystitis, inflammatory bladder lesions (not grossly c/w urothelial carcinoma)
Post-op Diagnosis: Same
Procedure Performed: TURBT (left lateral wall and bladder base) + extensive fulguration of bladder urothelium (predominantly posterior bladder wall)
Anesthesia Type: GETA
Specimen / Cultures: Bladder tumor/None
Estimated Blood Loss: Negligible
Complications: None
Operative Findings: final cystoscopy w/ satisfactory hemostasis, easy filling/emptying of bladder, manual irrigation of catheter at conclusion of procedure w/ faintly pink-tinged UOP, no active bleeding from urothelium.
[2024-06-02] MEDS: DETROL LA 4 MG PO (14:37)
[2024-06-02] MEDS: TYLENOL 650 MG PO (14:43)
== END 2024-06-02 15:55 | disposition home or self-care (01) ==
LOC: SDS 06:16
PROVIDERS: ATTENDING PHYSICIAN Surgery
DX: N32.89 Other specified disorders of bladder (principal); R31.9 Hematuria, unspecified
CPT/HCPCS: 52235; 88307; A9589

== ENCOUNTER → 2024-06-08 08:48 | Outpatient (REF) | payer OTHER, BC, SELFPAY | LOC: WOUND 08:48 | PROVIDERS: ATTENDING PHYSICIAN Surgery; FAMILY PHYSICIAN Family Medicine | DX: L89.613 Pressure ulcer of right heel, stage 3 (principal); I73.9 Peripheral vascular disease, unspecified; I87.2 Venous insufficiency (chronic) (peripheral); I77.9 Disorder of arteries and arterioles, unspecified; I35.0 Nonrheumatic aortic (valve) stenosis; R26.81 Unsteadiness on feet | CPT/HCPCS: 99213 ==

== ENCOUNTER → 2024-06-22 09:30 | Outpatient (REF) | payer OTHER, BC, SELFPAY | LOC: WOUND 09:30 | PROVIDERS: ATTENDING PHYSICIAN Surgery; FAMILY PHYSICIAN Family Medicine | DX: L89.613 Pressure ulcer of right heel, stage 3 (principal); I73.9 Peripheral vascular disease, unspecified; I87.2 Venous insufficiency (chronic) (peripheral); I77.9 Disorder of arteries and arterioles, unspecified; I35.0 Nonrheumatic aortic (valve) stenosis; R26.81 Unsteadiness on feet | CPT/HCPCS: 99213 ==

== ENCOUNTER → 2024-07-13 08:54 | Outpatient (REF) | payer OTHER, BC, SELFPAY | LOC: WOUND 08:54 | PROVIDERS: ATTENDING PHYSICIAN Surgery; FAMILY PHYSICIAN Family Medicine | DX: L89.613 Pressure ulcer of right heel, stage 3 (principal); I73.9 Peripheral vascular disease, unspecified; I87.2 Venous insufficiency (chronic) (peripheral); I77.9 Disorder of arteries and arterioles, unspecified; I35.0 Nonrheumatic aortic (valve) stenosis; R26.81 Unsteadiness on feet | CPT/HCPCS: 99212 ==

== ENCOUNTER → 2024-07-21 13:52 | Outpatient (REF) | payer OTHER, BC, SELFPAY | LOC: RAD 13:52 | PROVIDERS: ATTENDING PHYSICIAN Physician Assistant; FAMILY PHYSICIAN Family Medicine | DX: I77.9 Disorder of arteries and arterioles, unspecified (principal) | CPT/HCPCS: 93922; 93925 ==

== ENCOUNTER 2024-09-01 09:53 | Day surgery (SDC) | payer OTHER, BC, SELFPAY ==
[2024-09-01] VITALS (28 sets, daily range): BP systolic 112–157; BP diastolic 56–108
[2024-09-01 10:35] LABS: Hematocrit 36.2 % (37.0-47.0); Hemoglobin 12.4 g/dL (12.0-16.0); Mean Corp Hgb Conc. 34.3 g/dL (33.0-37.0); Mean Corpuscular Volume 91.2 fL (81.0-99.0); Platelet Count 271 10^3/uL (130-400); Red Cell Dist. Width 18.1 % (11.5-14.5)
[2024-09-01 10:45] LABS: APTT 29.6 Sec (23.4-35.0); INR 1.07; PT 14.3 Sec (11.4-14.6)
[2024-09-01 11:00] LABS: Blood Urea Nitrogen 11 mg/dl (7-17); Calcium 10.3 mg/dl (8.4-10.2); Carbon Dioxide 29 mmol/L (22-30); Chloride 102 mmol/L (98-107); Glucose 78 mg/dl (70-99); Potassium 4.1 mmol/L (3.5-5.1); Sodium 133 mmol/L (135-145); eGFR > 60.00
[2024-09-01] MEDS: NSS 500 IV (11:00)
--- NOTE | 2024-09-01 13:50 | W.SUR.POST ---
Surgical Immediate Post Op
Note
Pre Op Diagnosis: Peripheral arterial disease
Post Op Diagnosis: Peripheral arterial disease
Procedure Performed: RLE angiogram, angioplasty + stent mid/distal SFA. LLE diagnostic angiogram.
Primary Surgeon: Yury Neal III, MD
Secondary Surgeons: Michael Velazquez MD
Anesthesia: see anesthesia report
Estimated Blood Loss: 2 cc
Fluids: see anesthesia report
Drains/Shunts: none
Specimens/Cultures: none
Doppler/Duplex/Angio (Y/N): Y
Complications: none
Operative Findings: RLE angiogram, mid/distal SFA stenosis with distal reconstitution.
--- NOTE | 2024-09-01 14:28 | OR.RPT ---
Operative Report
Operative Report
Date of Operation: 09/01/2024
Pre Op Diagnosis:
1. Peripheral arterial occlusive disease with nonhealing right foot wound
2. Left foot hammertoe with possible upcoming podiatric surgery
Post Op Diagnosis:
1. Peripheral arterial occlusive disease with nonhealing right foot wound
2. Left foot hammertoe with possible upcoming podiatric surgery
Procedure:
1.) Balloon angioplasty and stenting of right proximal superficial femoral artery occlusion (6 mm x 60 mm Zilver PTX; postdilated with 5 mm angioplasty balloon)
2.) Diagnostic aortobiiliac arteriogram
3.) Diagnostic BILATERAL lower extremity arteriograms
4.) Ultrasound-guided percutaneous access to the left common femoral artery
Surgeon: Yury Neal III, MD
Parts Runner: Michael Velazquez MD PGY-6
Anesthesia: Sedation with local
Fluoroscopy:
19.1 min
139 mGy
23.75 gy.cm2
Complications: None
Estimated Blood Loss: Less than 20 cc
History and Indications for Procedure: 83-year-old female who is status post right femoral endarterectomy for nonhealing foot wound. She has a smaller but persistent foot wound and on surveillance imaging was found to have a new proximal SFA
occlusion. I brought her back to the operating room for right lower extremity arteriogram and possible endovascular intervention. She also has a symptomatic hammertoe on the left and is contemplating podiatric surgery in the future. I recommended
a left lower extremity arteriogram to evaluate her arterial disease before any surgery.
Procedure in Detail: Caro Calle was correctly identified and placed supine on the operating table. After adequate induction of anesthesia the bilateral groins were prepped and draped in the usual sterile fashion. A timeout was performed with the
nursing and anesthesia staff confirming the patient's identity as well as the nature and laterality of the procedure.
The left common femoral artery was identified under ultrasound guidance. The artery was patent and significant calcified luminal plaque was identified. The superior and inferior aspects of the femoral head were identified with radiographic guidance
and marked at the skin level. The proposed puncture site was infiltrated with local anesthesia. Under ultrasound guidance we accessed the left common femoral artery with a micropuncture needle and upsized to a 5 Fr sheath over a Badge wire. The
wire and a ShepherYagantec hook flush catheter were advanced into the distal abdominal aorta and a diagnostic aorto-biiliac arteriogram was performed:
AORTO-ILIAC ARTERIOGRAM:
Aorta: Calcified but patent with no significant stenosis identified
Right common iliac artery: Patent with no significant stenosis identified
Right external iliac artery: Patent with no significant stenosis identified
Left common iliac artery: Patent with no significant stenosis identified
Left external iliac artery: Patent with no significant stenosis identified
Under roadmap guidance using a Glidewire and the Shepherds hook catheter we selected the right common iliac artery and then the external iliac artery. A catheter was tracked up and over the aortic bifurcation and placed in the distal external iliac
artery. A diagnostic right lower extremity arteriogram was then performed which demonstrated the following:
RIGHT LOWER EXTREMITY:
Common femoral artery: Widely patent femoral endarterectomy with no stenosis identified
Profunda femoral artery: Widely patent with no stenosis identified
Superficial femoral artery: Proximal occlusion, short segment with distal reconstitution identified
Popliteal artery: Patent with no stenosis identified
Patent three-vessel tibial artery runoff identified
ENDOVASCULAR INTERVENTION: Systemic heparin was administered. Exchanged out for a 6 Fr 45 cm sheath over a Storq wire. Selected the superficial femoral stump artery under roadmap guidance with Quickcross catheter and glidewire. The segmental SFA
occlusion was crossed with a Quickcross and stiff Glidewire. The wire and catheter were advanced into the distal superficial femoral artery and subtraction angio confirmed proper position in the true lumen. Exchanged out for a V18 wire. A 5 mm x 100
mm angioplasty balloon was placed across the occlusion under roadmap guidance. The balloon was inflated to nominal pressure and then deflated and removed over the wire. I followed this with a 6 mm x 60 mm Zilver PTX stent which was positioned and
deployed in the proximal superficial femoral artery in the desired location under roadmap guidance. The stent was profiled with a 5 mm angioplasty balloon.
COMPLETION ARTERIOGRAM: Excellent technical result. Widely patent superficial femoral artery with brisk flow. SFA stent widely patent with no residual stenosis identified. Brisk runoff through the popliteal artery and again demonstrated
three-vessel tibial artery runoff which was brisk.
Satisfied with this result we concluded the procedure. The sheath tip was pulled back into the left external iliac artery. A runoff arteriogram of the left lower extremity was performed which demonstrated the following:
LEFT LOWER EXTREMITY:
Common femoral artery: Significant calcified plaque. High-grade stenosis with sluggish flow
Profunda femoral artery: Calcified plaque at the origin. Stenosis.
Superficial femoral artery: High-grade stenosis with calcified plaque at the origin and proximal aspect contributing to sluggish flow throughout the SFA
Popliteal artery: Patent with no stenosis identified above the knee, behind the knee or below the knee
Two-vessel tibial artery runoff is identified through the anterior tibial artery and peroneal artery.
The posterior tibial artery appears to be occluded.
The sheath was secured in place with the plan to pull it in the recovery area. The patient tolerated the procedure well and was taken to the recovery area in stable condition.
Attestation: I was present and responsible for the entire procedure.
Signed:
Yury Neal III, MD
Vascular Surgery
[facility]
[2024-09-01] MEDS: PLAVIX 300 MG PO (14:39)
[2024-09-01] MEDS: NSS 1000 IV (17:10)
[2024-09-01] MEDS: TYLENOL 650 MG PO (17:15)
== END 2024-09-01 19:30 | disposition home or self-care (01) ==
LOC: CATH 09:53
PROVIDERS: ATTENDING PHYSICIAN Surgery Vascular Surgery; OTHER PHYSICIAN Internal Medicine; PRIMARYCARE PHYSICIAN Family Medicine
DX: I70.235 Atherosclerosis of native arteries of right leg with ulceration of other part of foot (principal); L97.519 Non-pressure chronic ulcer of other part of right foot with unspecified severity; Z79.82 Long term (current) use of aspirin; M20.42 Other hammer toe(s) (acquired), left foot; Z79.890 Hormone replacement therapy; Z79.899 Other long term (current) drug therapy
CPT/HCPCS: 37226; 75625; 75710; 80048; 85027; 85610; 85730; C1725; C1769; C1874; C1894

== ENCOUNTER → 2024-09-25 14:41 | Outpatient (REF) | payer OTHER, BC, SELFPAY | LOC: DHVS 14:41 | PROVIDERS: ATTENDING PHYSICIAN Surgery Vascular Surgery; FAMILY PHYSICIAN Family Medicine | DX: I73.9 Peripheral vascular disease, unspecified (principal) | CPT/HCPCS: 93922; 93925 ==

== ENCOUNTER 2024-09-28 12:50 | Inpatient (IN) | payer OTHER, BC, SELFPAY ==
[2024-09-28 06:46] VITALS: BP 124/63
[2024-09-28 07:27] VITALS: BMI 19.6
--- NOTE | 2024-09-28 07:27 | ED.GENMED ---
History of Present Illness
General
Chief Complaint: Abdominal Symptoms
Source: patient and spouse
Exam Limitations: none
Time Seen by Provider: 09/28/24 07:07
Nursing documentation reviewed up to this point in time: agreed with
History of Present Illness
History of Present Illness:
Note:
CHIEF COMPLAINT(S)
Diarrhea and constipation.
HISTORY OF PRESENT ILLNESS
The patient is an 83-year-old female with a significant past medical history of endometrial and cervical cancer. She presented to the hospital due to worsening diarrhea, which began on Wednesday. She describes experiencing diarrhea consistently for
years, attributing it to the effects of radiation therapy, which has reportedly damaged her bowels. The patient reports a longstanding history of bowel irregularities, alternating between diarrhea and constipation, which has been increasingly
problematic. Due to the severity that led her to cancel an appointment she had with Dr. Holbrook because of the symptom, she seeks answers and a more expedient resolution than the three-month wait she faces. She denies any current pain but reports
discomfort and loud gastric noises. She also reports feeling that the symptoms exacerbate her existing discomfort and has a history of undergoing stent placements.
PAST MEDICAL AND SURGICAL HISTORY
History of endometrial and cervical cancer, previously treated with radiation. She has undergone a hysterectomy as part of her treatment.
SOCIAL DETERMINANTS AFFECTING HEALTH
The patient indicates scheduled medical appointments that are difficult to maintain due to her symptoms, affecting her ability to get timely medical help.
PHYSICAL EXAM
General: Afebrile, no evident distress.
Skin: Warm, dry.
Head: Normocephalic, atraumatic.
Neck: Supple, trachea midline.
Eyes, ears, nose, mouth, and throat: Oral mucosa moist.
Cardiovascular: Regular heart rate and rhythm, heart sounds S1, S2 present, no pathological murmurs noted.
Respiratory: Lungs clear to auscultation bilaterally, no respiratory distress observed.
Gastrointestinal: Abdomen soft, nondistended, notable for vertical lower abdominal incision scar, likely from past surgery.
Back: Normal range of motion, normal alignment.
Musculoskeletal: Normal range of motion, normal strength.
Neurological: Alert and oriented to person, place, time, and situation. No focal neurological deficit observed.
Psychiatric: Cooperative, appropriate mood and affect.
PLAN
1. Obtain laboratory tests to evaluate possible underlying causes of her diarrhea and constipation.
2. Conduct a computed tomography scan of the abdomen with contrast to assess any structural abnormalities or complications.
3. Address the patients concerns regarding rapid follow-up by recommending consultation with a marble mechanic helper, if not already scheduled, to address chronic diarrhea and associated symptoms.
DIFFERENTIAL DIAGNOSIS
The Differential Diagnosis includes, in no particular order and is not limited to:
1. Radiation enteritis
2. Irritable bowel syndrome
3. Infectious gastroenteritis
4. Inflammatory bowel disease
5. Diverticulitis
6. Bowel obstruction
7. Colorectal cancer
8. Celiac disease
9. Medication-induced diarrhea
10. Microscopic colitis
CARE-UPDATE
09/28/24 - 12:09
The differential diagnosis includes possible ileus versus small bowel obstruction; however, a recent episode of diarrhea makes small bowel obstruction less likely. The patient exhibits hyponatremia and will be admitted to the hospitalist service for
further evaluation and management.
Disposition:
SUMMARY OF ENCOUNTER
The patient, an 83-year-old female with a history of endometrial and cervical cancer, presented to the emergency department with complaints of worsening diarrhea, which she has experienced consistently for years. She attributes the bowel
irregularities to the effects of past radiation therapy, having a history of alternating episodes of diarrhea and constipation. She expressed concern over the severity of her symptoms recently, which have disrupted her daily activities and medical
appointments. Her examination in the emergency department showed no acute distress, and her vital signs were stable. A decision was made to admit her for further workup and management.
DISPOSITION
Admit to hospitalist service.
MANAGEMENT OF THE PATIENTS CARE WAS DISCUSSED WITH
Discussion with hospitalist regarding admission for further evaluation and management of her gastrointestinal symptoms.
PLAN
Admit to hospitalist service to manage and investigate the chronic diarrhea and constipation further. Plan involves conducting lab tests, a comprehensive CT abdomen with contrast for assessment of any structural abnormalities, and ensuring
appropriate specialist follow-up.
MEDICAL DECISION MAKING
- Number and Complexity of Problems Addressed: Chronic conditions affecting care: endometrial and cervical cancer, history of radiation therapy. Differential Diagnosis includes possible ileus, radiation enteritis, IBS, infectious gastroenteritis,
IBD, diverticulitis, bowel obstruction, colorectal cancer, celiac disease, medication-induced diarrhea, microscopic colitis.
-Data:
Category 1: Lab tests and CT imaging with contrast ordered to evaluate causes of diarrhea and constipation.
Category 2: Discussion of management with hospitalist for admission.
Care significantly affected by Social Determinants of Health: Difficulty maintaining scheduled medical appointments and obtaining timely help due to symptoms.
DIAGNOSIS
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
Past History
Past History
ED Past Medical History: Cancer (Cervical cancer, treated with hysterectomy and radiation), HTN and Other (Kidney stones)
ED Past Surgical History: and Gynecological (Hysterectomy with retroperitoneal symone dissection 18 years ago.)
Social History
Tobacco: Non-smoker
Alcohol: None
Personal:
Living: with family
Family History
Family History: Hypertension; Negative Early CAD or CAD
Phy Exam
Physical Exam
Physical Exam:
.
Course
Orders/Labs/Results
Orders:
Orders
09/28/24 07:27
CT Abd/pel W Iv And Oral Contr Urgent
Comment:
Reason For Exam: lower abd pain, blood in stool
IV Insert/Care/Rem.- Treatment PRN
Iohexol [Omnipaque] See Protocol PO NOW STA
09/28/24 08:22
Complete Blood Count/With Diff Urgent
Comprehensive Metabolic Panel Urgent
Lipase Urgent
Serum Osmolality Urgent
Comment: ADD ON
09/28/24 09:50
Osmolality, Random Urine Urgent
Date Specimen was Collected: 09/28/24
Time Specimen was Collected: 10:56
Urine Sodium Urgent
Date Specimen was Collected: 09/28/24
Time Specimen was Collected: 10:56
09/28/24 09:52
Add On- LAB Urgent
Tests Added?: serum osmolality
09/28/24 11:13
0.9% Sodium Chloride 1000 ml [Nss] 1,000 ml IV BOLUS
Abnormal Lab Results
09/28/24
08:22
RBC 3.87 L 10^6/uL
(4.20-5.40)
Hct 35.7 L %
(37.0-47.0)
MCH 31.3 H pg
(27.0-31.0)
RDW 15.9 H %
(11.5-14.5)
Absolute Lymphs (auto) 0.7 L 10^3/uL
(1.2-3.4)
Neutrophils % 82.8 H %
(42.2-75.2)
Lymphocytes % 9.7 L %
(20.5-51.1)
Sodium 125 L mmol/L
(135-145)
Chloride 96 L mmol/L
(98-107)
Creatinine 0.5 L mg/dL
(0.6-1.0)
Serum Osmolality 264 L mOsm/kg
(275-300)
Total Bilirubin 2.6 H mg/dl
(0.2-1.3)
AST 39 H U/L
(14-36)
ALT 36 H U/L
(0-35)
09/28/24 08:22
09/28/24 08:22
Vital Signs
Initial and Last Documented VS:
Initial Vital Signs
Temp Pulse Resp BP Pulse Ox
98.5 F 68 16 124/63 97
09/28/24 06:46 09/28/24 06:46 09/28/24 06:46 09/28/24 06:46 09/28/24 06:46
Last Documented Vital Signs
Temp Pulse Resp BP Pulse Ox
98.5 F 68 16 124/63 97
09/28/24 06:46 09/28/24 06:46 09/28/24 06:46 09/28/24 06:46 09/28/24 07:28
*Pulse Oximetry
SaO2: 97
Oxygen Mode of Delivery: Room air
Patient hypoxic: no
*Critical Care Note
Total Time (30-74mins, 75-104mins- exclusive of procedures): Not Applicable
ED Attending Note
-
Portions of this chart may have been created with voice recognition software.� Occasional wrong word or��sound alike� substitutions may have occurred due to the inherent limitations of voice recognition software.
Discharge Plan
Departure
Patient Disposition: Admit
Date of Disposition: 09/28/24
Time of Disposition: 11:14
Admit to: Telemetry
Presentation/result/management discussed w/ accepting MD/DO: Hospitalist
Patient with high blood pressure during this ER visit?: Yes
Condition: Fair
Discharge Problem:
Acute hyponatremia, Ileus
Prescriptions:
No Action
losartan 50 mg tablet
50 mg PO DAILY
atorvastatin [Lipitor] 40 mg tablet
40 mg PO DAILY Qty: 30 0RF
cyanocobalamin (vitamin B-12) [Vitamin B-12] 1,000 mcg Tablet Extended Release
1,000 mcg PO DAILY
calcium carbonate [Calcium 600] 600 mg calcium (1,500 mg) Tablet
600 mg PO DAILY
omega 9-aae-zlr-fish oil [Fish Oil] 1,200 (144-216) mg Capsule
1 cap PO DAILY
levothyroxine [Synthroid] 88 mcg Tablet
88 mcg PO DAILY
sennosides-docusate sodium 8.6-50 mg Tablet
1 tab PO DAILYPRN PRN (Reason: constipation) Qty: 0 0RF
aspirin 81 mg Tablet,Chewable
81 mg PO DAILY Qty: 0 0RF
loperamide 2 mg Capsule
2 mg PO Q6HPRN PRN (Reason: diarrhea)
acetaminophen [Tylenol Extra Strength] 500 mg Tablet
1,000 mg PO Q6H PRN (Reason: pain)
Metamucil Packet
1 packet PO DAILY Qty: 0
Saccharomyces boulardii [Florastor] 250 mg Capsule
250 mg PO DAILY Qty: 0
cholecalciferol (vitamin D3) [Vitamin D3] 25 mcg (1,000 unit) Tablet
25 mcg PO DAILY Qty: 0
ferrous sulfate 27 mg iron Tablet
27 mg PO DAILY
clopidogrel 75 mg Tablet
75 mg PO DAILY Qty: 90 0RF
Theragen Tablet
1 tab PO DAILY
Referrals:
Priscila Ramirez MD [Family Provider, Family Practice]
Interventions
Interventions:
*Risk Screen - Suicide Last Done: 09/28/24 06:46
*Neglect/Abuse Screening Last Done: 09/28/24 06:46
*ED- Fall Risk Assessment Last Done: 09/28/24 06:46
*ED COVID-19 Vaccine History Last Done: 09/28/24 06:46
Discharge Date and Time
Print Language: SWEDISH
[2024-09-28] MEDS: OMNIPAQUE 50 ML PO (07:37)
[2024-09-28 08:46] LABS: Hematocrit 35.7 % (37.0-47.0); Hemoglobin 12.1 g/dL (12.0-16.0); Mean Corp Hgb Conc. 33.9 g/dL (33.0-37.0); Mean Corpuscular Volume 92.2 fL (81.0-99.0); Nucleated Red Blood Cells % 0 %; Platelet Count 230 10^3/uL (130-400); Red Cell Dist. Width 15.9 % (11.5-14.5)
[2024-09-28 09:21] LABS: ALT (SGPT) 36 U/L (0-35); AST (SGOT) 39 U/L (14-36); Albumin 4.0 g/dl (3.5-5.0); Alkaline Phosphatase 120 U/L (38-126); Blood Urea Nitrogen 15 mg/dl (7-17); Calcium 9.5 mg/dl (8.4-10.2); Carbon Dioxide 22 mmol/L (22-30); Chloride 96 mmol/L (98-107); Estimated Creatinine Clearance 55 ml/min; Glucose 82 mg/dl (70-99); Lipase 49 U/L (23-300); Potassium 4.7 mmol/L (3.5-5.1); Sodium 125 mmol/L (135-145); Total Protein 7.1 g/dl (6.3-8.2); eGFR > 60.00
[2024-09-28 11:20] VITALS: BP 132/74
--- NOTE | 2024-09-28 12:13 | HPS.HSE ---
Family Physician
-
Family Physician: Priscila Ramirez
Chief Complaint
-
Diarrhea
History of Present Illness
Patient is an 83 y/o female past medical history of ASCVD, hypertension, hyperlipidemia, and cervical cancer s/p hysterectomy and radiation resulting in urinary retention and irritable bowels who presents with diarrhea. Patient reports increasing
difficulty with her bowels. She reports she previously was having diarrhea so she started taking Imodium which then caused her to become constipated. She then started taking increased dose Metamucil and is now complaining about increased diarrhea
again. She presented to the emergency department today as diarrhea has been worse over the past several days, described as almost non-stop. She reports very poor appetite, and notes yesterday she developed increased reflux with sour taste in her
mouth. She denies any fevers, sweats or chills. She notes she has also been increasing her fluid intake drinking about 2L of water, plus 2 dose of metamucil mixed with 8oz water each plus coffee in the morning.
Medical History
Past Medical History
Past Medical History: Reports Other
Additional Past Medical History:
Peripheral Arterial Disease: Right Proximal SFA stent, Right Common Femoral Endarterectomy
Essential Hypertension
Hyperlipidemia
Polyneuropathy
Cervical Cancer s/p Surgery and XRT
Chronic Urinary Retention requiring intermittent straight cath
Hypothyroidism
IBS
Past Surgical History: Reports Other
Additional Past Surgical History:
Right Femoral Endarterectomy
Left Wrist ORIF
Loop Recorder Implanted
Hysterectomy
Bilateral Breast Lumpectomy
Hernia Repair
Social History
Tobacco: Non-smoker
Alcohol: None
Drug: None
Family History
Family History: Not pertinent
Allergies / Home Medications
Allergies reflects when Allergies were last updated in [facility].
Home Medications with original date entered in [facility]
Allergy/Medication List:
Allergies
Allergy/AdvReac Type Severity Reaction Status Date / Time
No Known Allergies Allergy Unverified 09/28/24 06:46
Home Medications
losartan 50 mg tablet 50 mg PO DAILY Blood pressure 12/04/21
atorvastatin 40 mg tablet (Lipitor) 40 mg PO DAILY #30 tabs 12/05/21
calcium carbonate (Calcium 600) 600 mg PO DAILY Supplement 02/08/24
cyanocobalamin (vitamin B-12) 1,000 mcg tablet,extended release (Vitamin B-12 ER) 1,000 mcg PO DAILY Supplement 02/08/24
omega 0-jmp-slv-fish oil 1,200 mg (144 mg-216 mg) capsule (Fish Oil) 1 cap PO DAILY Supplement 02/08/24
levothyroxine 88 mcg tablet (Synthroid) 88 mcg PO DAILY Thyroid 02/13/24
aspirin 81 mg chewable tablet 81 mg PO DAILY #0 tabs 03/01/24
sennosides 8.6 mg-docusate sodium 50 mg tablet 1 tab PO DAILYPRN PRN constipation #0 tabs 03/01/24
loperamide 2 mg capsule 2 mg PO Q6HPRN PRN diarrhea 05/10/24
acetaminophen 500 mg tablet (Tylenol Extra Strength) 1,000 mg PO Q6H PRN pain 05/31/24
psyllium 1 packet PO DAILY ##0 06/02/24
Saccharomyces boulardii 250 mg capsule (Florastor) 250 mg PO DAILY ##0 08/30/24
cholecalciferol (vitamin D3) 25 mcg (1,000 unit) tablet (Vitamin D3) 25 mcg PO DAILY ##0 08/30/24
clopidogrel 75 mg tablet 75 mg PO DAILY #90 tabs 09/01/24
ferrous sulfate 27 mg iron tablet 27 mg PO DAILY 09/01/24
therapeutic multivitamin 1 tab PO DAILY 09/28/24
Review of Systems
-
A 12 point ROS was completed and negative except as noted: Yes
Constitutional: Denies Fever or Chills
Respiratory: Denies Cough or Trouble Breathing
Cardiac: Denies Chest Pain or Palpitations
Abdomen/GI: Reports See HPI
Physical Exam
Vital Signs
Vital Signs
Temp Pulse Resp BP Pulse Ox
98.5 F 68 16 124/63 97
09/28/24 06:46 09/28/24 06:46 09/28/24 06:46 09/28/24 06:46 09/28/24 07:28
Physical Exam
General: Comfortable and Conversant
HEENT: Anicteric and Moist mucous membranes
Respiratory: Clear and Non Labored Respirations
Cardiac: S1/S2 and Regular Rhythm
GI: Soft and Other (Slight distention but non-tender to palpation)
Genito-urinary: Clear Urine
Musculoskeletal: No Clubbing, No Cyanosis and Other (Trace lower extremity edema)
Skin: Warm and Dry
Neuro: Awake, Alert, Oriented and Nonfocal/grossly intact
Psych: Calm
Laboratory Results
-
09/28/24 08:22
09/28/24 08:22
Laboratory Results
Total Bilirubin 2.6 mg/dl (0.2-1.3) H 09/28/24 08:22
AST 39 U/L (14-36) H 09/28/24 08:22
ALT 36 U/L (0-35) H 09/28/24 08:22
Alkaline Phosphatase 120 U/L (38-126) 09/28/24 08:22
Lipase 49 U/L (23-300) 09/28/24 08:22
Abd/Pelvis CT Scan:
Small bowel loops are distended. No point of transition is identified and findings may be related to an ileus as opposed to a small bowel obstruction. There is air and stool in the colon but no contrast within the colon.
The gallbladder is distended with calculi but no evidence of acute cholecystitis
There are large bilateral renal cysts
There are large hepatic cysts
Data Reviewed
-
CT Scan: Report Reviewed by me
Lab Data: Labs Reviewed by me
Impression/Plan
-
Small Bowel Ileus, likely cause of her alternating diarrhea and constipation
-Hold all anti-diarrhea and constipation medications
-Allow clear liquids
-Check stool studies to evaluate for other causes of diarrhea
-Check Abd X-Ray in AM to follow oral contrast from CT scan
-Consider surgical consult
Hyponatremia, suspect related to excess fluid intake as patient reports about 90oz per day
-Check urine electrolyte
-Start fluid restriction
-Monitor sodium every 4 hours
Elevated Bilirubin
-Patient without complaints of abdominal pain
-CT scan without significant biliary duct dilation
-Check repeat LFTs in AM
Peripheral Arterial Disease: Right Proximal SFA stent, Right Common Femoral Endarterectomy
-Continue aspirin and clopidogrel
-Continue atorvastatin
Essential Hypertension
-Continue losartan with hold parameters
Hypothyroidism
-Continue levothyroxine
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
-Continue bladder scans with intermittent straight cath
Hx Cervical Cancer s/p Surgery and XRT
DVT proph: Lovenox
Code Status: Full Code
[2024-09-28] MEDS: NSS 1000 IV (12:23)
--- NOTE | 2024-09-28 13:16 | W.PN.UPDATE ---
Update Note
Progress Note Update
This note serves as an addendum to the H&P by gas station service attendant KWESI�
Katelyn DIETERICK
HPI
83F HX ASCVD, hypertension, hyperlipidemia, and cervical cancer s/p hysterectomy and radiation resulting in urinary retention and irritable bowels who presents with diarrhea.
PHX; se above
Relevant�VS:
Vital Signs
Temp Pulse Resp BP Pulse Ox
98.5 F 68 16 124/63 97
09/28/24 06:46 09/28/24 06:46 09/28/24 06:46 09/28/24 06:46 09/28/24 07:28
PE
Physical Exam
General: No toxic
HEENT: Anicteric and Moist mucous membranes
Respiratory: Clear and Non Labored Respirations
Cardiac: S1/S2 and Regular Rhythm
GI: Soft and mild distention but non-tender to palpation
Genito-urinary: Clear Urine
MS : No Clubbing, No Cyanosis and Other (Trace lower extremity edema)
Skin: Warm and Dry
Neuro: Awake, Alert, Oriented and Nonfocal/grossly intact
Psych: Calm
Relevant data�
Abnormal Lab Results
09/28/24
08:22
RBC 3.87 L
Hct 35.7 L
MCH 31.3 H
RDW 15.9 H
Absolute Lymphs (auto) 0.7 L
Neutrophils % 82.8 H
Lymphocytes % 9.7 L
Sodium 125 L
Chloride 96 L
Creatinine 0.5 L
Serum Osmolality 264 L
Total Bilirubin 2.6 H
AST 39 H
ALT 36 H
Abd/Pelvis CT Scan:
Small bowel loops are distended. No point of transition is identified and findings may be related to an ileus as opposed to a small bowel obstruction. There is air and stool in the colon but no contrast within the colon.
The gallbladder is distended with calculi but no evidence of acute cholecystitis
There are large bilateral renal cysts
There are large hepatic cysts
ASSESSMENT & PLAN
Small Bowel Ileus, likely cause of her alternating diarrhea and constipation
-Hold all anti-diarrhea and constipation medications
- clear liquids - ADAT
-Check stool studies to evaluate for other causes of diarrhea
-Check Abd X-Ray in AM to follow oral contrast from CT scan
- To consider surgical consult in AM if no progress
Hyponatremia, suspect related to excess fluid intake as patient reports about 90oz per day
-Check urine electrolyte
-Start fluid restriction
-Monitor sodium every 4 hours
Elevated Bilirubin
-Patient without complaints of abdominal pain
-CT scan without significant biliary duct dilation
-Check repeat LFTs in AM
DVT Px: LMWH
Full Code:
IP MS
[2024-09-28 14:02] VITALS: BP 155/69; BMI 18.2
[2024-09-28 14:28] LABS: Sodium 126 mmol/L (135-145)
--- NOTE | 2024-09-28 15:32 | PTCARENOTE ---
Received patient from ED on stretcher. Walked from stretcher to bed with cane brought from home. AAOx3 able to make needs known. Pt straight caths self. At 1500 was bladder scanned fro 526 and SC with an output of 500cc of yellow clear urine.
Discussed with patient CLD and fluid restrict due to her dx hyponatremia. Discussed with patient what can cause hyponatremia. Oriented pt to room and use of call harper. Denies/discomfort pain. Call harper within reach.
[2024-09-28] MEDS: LOVENOX 30 MG SC (19:19)
[2024-09-28 21:21] LABS: Glucose - Point of Care 81 mg/dl (70-99)
[2024-09-28 23:08] LABS: Sodium 130 mmol/L (135-145)
[2024-09-28 23:13] VITALS: BP 129/63
[2024-09-29 03:07] LABS: Sodium 132 mmol/L (135-145)
[2024-09-29] MEDS: SYNTHROID 88 MCG PO (05:58)
[2024-09-29] MEDS: LOW STRENGTH ASPIRIN 81 MG PO (07:49)
[2024-09-29] MEDS: FLOMAX 0.4 MG PO (07:49)
[2024-09-29] MEDS: PLAVIX 75 MG PO (07:49)
[2024-09-29] MEDS: COZAAR 50 MG PO (07:49)
[2024-09-29] MEDS: FLORASTOR 250 MG PO (07:49)
[2024-09-29] MEDS: LIPITOR 40 MG PO (07:49)
[2024-09-29 07:57] LABS: Hematocrit 35.2 % (37.0-47.0); Hemoglobin 12.2 g/dL (12.0-16.0); Mean Corp Hgb Conc. 34.7 g/dL (33.0-37.0); Mean Corpuscular Volume 91.7 fL (81.0-99.0); Platelet Count 225 10^3/uL (130-400); Red Cell Dist. Width 15.7 % (11.5-14.5)
[2024-09-29 08:21] LABS: ALT (SGPT) 30 U/L (0-35); AST (SGOT) 31 U/L (14-36); Albumin 3.6 g/dl (3.5-5.0); Alkaline Phosphatase 115 U/L (38-126); Blood Urea Nitrogen 11 mg/dl (7-17); Calcium 9.8 mg/dl (8.4-10.2); Carbon Dioxide 22 mmol/L (22-30); Chloride 105 mmol/L (98-107); Estimated Creatinine Clearance 51 ml/min; Glucose 70 mg/dl (70-99); Magnesium 2.2 mg/dl (1.6-2.3); Potassium 4.4 mmol/L (3.5-5.1); Sodium 132 mmol/L (135-145); Total Protein 6.6 g/dl (6.3-8.2); eGFR > 60.00
[2024-09-29 08:36] VITALS: BP 147/58
[2024-09-29 10:54] VITALS: BMI 19.5
--- NOTE | 2024-09-29 13:44 | CM ---
Patient seen at bedside
IA completed
Dx: hyponatremia, small bowel ileus
PMH: ASCVD, hypertension, hyperlipidemia, and cervical cancer s/p hysterectomy and radiation
Lives with , daughter, son in law & grand-daughter in 2 story home, 2STE, flight of stairs to bed/bath, powder room on 1st floor
PLOF: Independent with walker/cane
DME: Cane, walker, stair glide
has had [facility] in past, [facility] in past
Denies insecurities
pcp: Priscila Ramirez
Pharmacy: [facility]
PLAN: TBD, follow hospital progress, CM to follow for needs
--- NOTE | 2024-09-29 14:17 | CON.GI ---
Addendum entered and electronically signed by Roel Dillard MD 09/29/24 17:21:
I saw and examined the patient.
The PA's note was reviewed and I agree with the note.
Comment:
Patient is a 83-year-old female with h/o endometrial/cervical cancer s/p RTX in 1991 complicated by radiation cystitis, IBS, ASCVD, and PVD who p/w altered bowel habits. She c/o diarrhea which alternates with constipation. Her symptoms have been
ongoing for the past 2 to 3 years but she feels it has gotten worse recently. Denies radha severe diarrhea. Denies vomiting. She has been tolerating oral diet without difficulty. She was hyponatremic on presentation with sodium of 125. She had
CT of abdomen which showed dilated loops of small bowel without transition point concerning for possible ileus. However this does not correlate with her clinical symptoms as she is tolerating oral diet without any nausea or vomiting. She was here
on 02/2024 with limb threatening ischemia. She had hematochezia during that admission and a colonoscopy was attempted however failed to advance beyond the sigmoid.
Given that her symptoms are chronic, her evaluation can be done electively as OP. Would advance her diet to regular and if she tolerates her diet, can DC home with GI follow-up. I will plan for repeat colonoscopy with me given her recent failed
colonoscopy to complete the procedure and for biopsy (rule out MC). GI will sign off, please call with questions.
Addendum entered and electronically signed by Slade Burnett DO, Resident 09/29/24 16:42:
OK to advance to regular diet; if tolerating, patient can be discharged from GI perspective for outpatient follow up. Patient would benefit from repeat full colonoscopy in the setting of prior incomplete scope in February, including biopsies to rule
out microscopic colitis.
Original Note:
Consultation
-
Date/Time Consultation Requested: 09/29/2024 11:05
Date/Time Consultation Performed: 09/29/2024 14:00
Requesting Provider: Chidi Tam MD
Performing Provider: Slade Burnett DO (Resident); Roel Dillard MD
Reason for Consultation: Diarrhea, Episodic Hematochezia
Medical History
Chief Complaint / HPI
Chief Complaint: Diarrhea, Episodic Hematochezia
History of Present Illness:
Caro Calle is a 83F with a PMHx of endometrial and cervical cancer s/p radiation therapy in 1991, IBS, diverticulosis, internal hemorrhoids, external hemorrhoids, ASCVD, HTN, HLD, PVD, and urinary retention who is presenting for chronic diarrhea.
The patient states that she first started noticing diarrhea that alternates with constipation approximately 2 years ago. She states the in this time period, she has been trying to control diarrheal symptoms with Immodium which will often cause her
to become constipated, and then she will need to take Metamucil, which will cause her to become diarrheal again. She will alternate between these two states and thinks her last normal bowel movement was 2 years ago. She describes the diarrhea as a
light brown 'mud' with small fecal pieces interspersed. She states that she will occasionally notice bright red blood mixed in with the muddy diarrhea, but not bright red blood in the bowl. She endorses both high frequency and large volume, but says
that is so relative to how little she eats.
Notably, patient admitted in February 2024 for limb threatening ischemia. She had a hematochezial GI bleed during that admission. Colonoscopy was attempted but GI was unable to get past a sigmoid stricture. Colorectal surgery was deferred. Patient
had an appointment with Dr. Diaz (GI) to evaluate diarrhea/constipation, but was unable to make her appointment due to diarrheal episodes. Patient's rescheduled date was too far in the future so she came to ED. Patient states that her diarrhea
has increased in frequency over the last several days. She also endorses poor appetite and reflux symptoms. She denies abdominal pain but endorses bloating. Endorses sometimes feeling like she has to go and then being unable to make it to the
bathroom in time. Denies fevers, abdominal pains, tenesmus, nausea or vomiting. Diarrhea sometimes wakes her from sleep, will have to go to bathroom approx. 3 times per night, sometimes for diarrhea, sometimes for urination secondary to retention in
the setting of radiation cystitis.
Only recent travel was to [place], [place], no recent abx, no sick contacts, most recent hospitalization was 02/2024, with 2 same day visits since then.
ED Course:
AFVSS, slight distension, otherwise benign abdominal exam. CBC unremarkable, BMP unremarkable. TBili 2.6, AST 39, ALT 36, AlkPhos 120.
CT A/P distended small bowel loops without clear transition point, more likely ileus. Air/stool in colon without passage of contrast.
Hospital Course
Antidiarrheals and anti-constipation meds held, CLD, C Diff neg, stool studies pending, ABD XR this AM showing contrast progession to colon, LFTs downtrending.
Past Medical History
Past Medical History: Other (endometrial and cervical cancer s/p radiation therapy in 1991, IBS, diverticulosis, internal hemorrhoids, external hemorrhoids, ASCVD, HTN, HLD, PVD, and urinary retention)
Past Surgical History: Other (R femoral endarterectomy, L wrist ORIF, loop recorder implantation, hysterectomy, b/l breast lumpectomy, herniorrhaphy)
Social History
Tobacco: Non-Smoker
Alcohol: None
Drug: None
Family History
Family History: Other (No Fhx of esophageal, gastric, or colon CA. No fhx of IBD. )
Allergies / Home Medications
Allergy/AdvReac Type Severity Reaction Status Date / Time
No Known Allergies Allergy Unverified 09/28/24 06:46
�Medication �Instructions �Recorded
losartan 50 mg tablet 50 mg PO DAILY Blood pressure 12/04/21
atorvastatin 40 mg tablet (Lipitor) 40 mg PO DAILY #30 tabs 12/05/21
calcium carbonate (Calcium 600) 600 mg PO DAILY Supplement 02/08/24
omega 6-hcc-zdb-fish oil 1,200 mg 1 cap PO DAILY Supplement 02/08/24
(144 mg-216 mg) capsule (Fish Oil)
levothyroxine 88 mcg tablet 88 mcg PO DAILY Thyroid 02/13/24
(Synthroid)
aspirin 81 mg chewable tablet 81 mg PO DAILY #0 tabs 03/01/24
sennosides 8.6 mg-docusate sodium 1 tab PO DAILYPRN PRN constipation 03/01/24
50 mg tablet #0 tabs
loperamide 2 mg capsule 2 mg PO Q6HPRN PRN diarrhea 05/10/24
acetaminophen 500 mg tablet 1,000 mg PO Q6H PRN pain 05/31/24
(Tylenol Extra Strength)
psyllium 1 packet PO DAILY ##0 06/02/24
Saccharomyces boulardii 250 mg 250 mg PO DAILY ##0 08/30/24
capsule (Florastor)
cholecalciferol (vitamin D3) 25 25 mcg PO DAILY ##0 08/30/24
mcg (1,000 unit) tablet (Vitamin
D3)
clopidogrel 75 mg tablet 75 mg PO DAILY #90 tabs 09/01/24
ferrous sulfate 27 mg iron tablet 27 mg PO DAILY 09/01/24
ascorbic acid (vitamin C) 250 mg 250 mg PO DAILY 09/28/24
tablet (Vitamin C)
cyanocobalamin (vitamin B-12) 1,000 mcg PO DAILY 09/28/24
1,000 mcg tablet
docusate sodium 100 mg capsule 100 mg PO DAILY 09/28/24
(Colace)
tamsulosin 0.4 mg capsule (Flomax) 0.4 mg PO DAILY 09/28/24
therapeutic multivitamin 1 tab PO DAILY 09/28/24
Review of Systems
-
History Source: Patient
All other systems: A 12 pt ROS was Negative except as stated above in HPI
Vital Signs
Temp Pulse Resp BP Pulse Ox
98.1 F 50 16 147/58 98
09/29/24 08:36 09/29/24 08:36 09/29/24 08:36 09/29/24 08:36 09/29/24 08:36
Physical Exam
Exam
General: No Apparent Distress
HEENT: Anicteric and Moist Mucous Membranes
Respiratory: Clear
Cardiac: S1/S2
GI: Soft, Non Tender, Normal Bowel Sounds, Distended (moderate) and Other (tympanic on percussion)
Skin: Warm
Neuro: Awake
Psych: Calm
Results
WBC 5.1 10^3/uL (4.8-10.8) 09/29/24 07:14
Hgb 12.2 g/dL (12.0-16.0) 09/29/24 07:14
Hct 35.2 % (37.0-47.0) L 09/29/24 07:14
MCV 91.7 fL (81.0-99.0) 09/29/24 07:14
Plt Count 225 10^3/uL (130-400) 09/29/24 07:14
Absolute Neuts (auto) 5.6 10^3/uL (1.4-6.5) 09/28/24 08:22
Sodium 132 mmol/L (135-145) L 09/29/24 07:14
Potassium 4.4 mmol/L (3.5-5.1) 09/29/24 07:14
Chloride 105 mmol/L (98-107) 09/29/24 07:14
Carbon Dioxide 22 mmol/L (22-30) 09/29/24 07:14
BUN 11 mg/dl (7-17) 09/29/24 07:14
Creatinine 0.5 mg/dL (0.6-1.0) L 09/29/24 07:14
Calcium 9.8 mg/dl (8.4-10.2) 09/29/24 07:14
Total Bilirubin 2.2 mg/dl (0.2-1.3) H 09/29/24 07:14
AST 31 U/L (14-36) 09/29/24 07:14
ALT 30 U/L (0-35) 09/29/24 07:14
Alkaline Phosphatase 115 U/L (38-126) 09/29/24 07:14
Lipase 49 U/L (23-300) 09/28/24 08:22
Colonoscopy 02/18/24:
- Stricture in the sigmoid colon that could not be
transversed despite change in position and scope
change to adult endoscope.
-Diverticulosis
Colonoscopy 02/13/13
- Diverticulosis in the sigmoid colon and in the
descending colon.
- Non-bleeding external hemorrhoids.
- Normal mucosa in the entire examined colon. Biopsied.
- The examined portion of the ileum was normal.
Assessment / Plan
-
Caro Calle is an 83F with a PMHx of endometrial and cervical cancer s/p radiation therapy in 1991, IBS, diverticulosis, internal hemorrhoids, external hemorrhoids, ASCVD, HTN, HLD, PVD, and urinary retention who is presenting for chronic diarrhea
of approximately 2 years duration that has recently worsened in frequency. She also presents with episodic hematochezia. Patient with a recent colonoscopy in 02/2024 that showed stricture in the sigmoid colon that could not be transversed. The
patient's current symptoms are likely explained by underlying stricturing disease that may be on the basis of prior radiation for gynecologic cancers 30 years ago. The patient is currently not completely obstructed as evidenced by passage of stool
and passage of contrast on XR Abdomen s/p CT Abd/Pelv w/ oral contrast. We recommend to continue monitor for bleeding with daily CBC. The patient is tolerating a CLD and trial of advancement to FLD is appropriate. Currently there is no indication
for scope. if the patient presents with signs of worsening distension or obstructive process, consider colorectal evaluation. Additionally, continue to correct sodium, as hyponatremia has a known associated with ileus. Continue to hold
antidiarrheals/anticonstipation medications for now.
Plan:
Continue to Monitor for Bleeding/Daily CBC
Added Nursing Order to Monitor Stool Volume, Consistency and Frequency
Trial of advancement to FLD
Monitor for worsning distansion or obstructive process
Consider colorectal eval in the setting of the above
Hyponatremia correction
Continue to hold antidiarrheal and anticonstipation medications for now
Total Time Spent with Patient (in minutes): 50
Data Reviewed
-
CT Scan: Image Personally Visualized and interpreted, Report Reviewed by me and Discussed with Patient
Old Records: Reviewed
-
-
Thank you for consultation and allowing me to participate in the patient's care. Please call the iron cutter GI physician during the after hours with any questions or concerns.
--- NOTE | 2024-09-29 14:32 | W.PN.HOSP.TC ---
Today's Communication/Plan
-
start on [place] diet
advance diet as tolerated
monitor bowel habits
monitor hbg
consult GI
Assessment / Plan
Assessment / Plan
Ileus - improved
- Took imodium for diarrhea, felt constipated.
- CT a/p showing ileus on admission imaging
- f/u abd xr showing contrast passing to colon
- on CL diet, can be advanced to FL diet
Chronic diarrhea
- patient have terminal carman diarrhea with constipation in between
- C scope earlier this year showing sigmoid stricture
- Patent have constipation intermixed with diarrhea
- GI asked for further evaluation
Blood in stool
- reported some blood mixed stool, small amount
- denies h/o of GIB in past
- no anemia, monitor Hbg
Hyponatremia
- suspect related to excess fluid intake as patient reports about 90oz per day
- Na improved to 132, was 130 yesterday, mointor.
Elevated Bilirubin
-isolated TBilli elevation
-CT scan without significant biliary duct dilation
-T sandy down to 2.2
Peripheral Arterial Disease
-Right Proximal SFA stent, Right Common Femoral Endarterectomy
-Continue aspirin and clopidogrel
-Continue atorvastatin
Essential Hypertension
-Continue losartan with hold parameters
Hypothyroidism
-Continue levothyroxine
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
-Continue bladder scans with intermittent straight cath
Hx Cervical Cancer s/p Surgery and XRT
DVT proph: Lovenox
Code Status: Full Code
Total time spent ; 54 mins
discussed care plan with GI
Anticipated Discharge: Within 24 hours
Subjective/Interval History
-
Date of Service: September 29, 2024
patient denies of having any nausea/vomiting
having BM
passing gas
Objective Data
-
Labs:
Laboratory Results
09/29/24 09/29/24
02:43 07:14
WBC 5.1
Hgb 12.2
Hct 35.2 L
Plt Count 225
Sodium 132 L 132 L
Potassium 4.4
Chloride 105
Carbon Dioxide 22
BUN 11
Creatinine 0.5 L
Glucose 70
Calcium 9.8
Total Bilirubin 2.2 H
AST 31
ALT 30
Alkaline Phosphatase 115
Vital Signs:
Vital Signs
Temp Pulse Resp BP Pulse Ox
98.1 F 50 16 147/58 98
09/29/24 08:36 09/29/24 08:36 09/29/24 08:36 09/29/24 08:36 09/29/24 08:36
I&O
09/28/24 09/29/24 09/30/24
06:59 06:59 06:59
Intake Total 240 / 240
Output Total 1000 / 1000
Balance -760 / -760
Review of Systems
-
Respiratory: Reports No Symptoms
Cardiac: Reports No Symptoms
Abdomen/GI: Reports No Symptoms
Physical Exam
-
General: Negative Obese
HEENT: Negative Oxygen
GI: Soft, Nontender, Nondistended and Normal Bowel Sounds
Neuro: Awake, Alert, Oriented and No Motor Deficits
[2024-09-29 15:43] VITALS: BP 110/60
[2024-09-29] MEDS: LOVENOX 30 MG SC (17:43)
[2024-09-29 23:21] VITALS: BP 122/70
[2024-09-30 06:30] LABS: Hematocrit 32.5 % (37.0-47.0); Hemoglobin 11.3 g/dL (12.0-16.0); Mean Corp Hgb Conc. 34.8 g/dL (33.0-37.0); Mean Corpuscular Volume 91.0 fL (81.0-99.0); Platelet Count 231 10^3/uL (130-400); Red Cell Dist. Width 15.7 % (11.5-14.5)
[2024-09-30] MEDS: SYNTHROID 88 MCG PO (06:37)
[2024-09-30 06:50] LABS: Blood Urea Nitrogen 10 mg/dl (7-17); Calcium 9.0 mg/dl (8.4-10.2); Carbon Dioxide 25 mmol/L (22-30); Chloride 105 mmol/L (98-107); Estimated Creatinine Clearance 51 ml/min; Glucose 83 mg/dl (70-99); Potassium 4.2 mmol/L (3.5-5.1); Sodium 134 mmol/L (135-145); eGFR > 60.00
[2024-09-30] MEDS: COZAAR 50 MG PO (09:03)
[2024-09-30] MEDS: FLORASTOR 250 MG PO (09:04)
[2024-09-30] MEDS: PLAVIX 75 MG PO (09:04)
[2024-09-30] MEDS: LOW STRENGTH ASPIRIN 81 MG PO (09:04)
[2024-09-30] MEDS: LIPITOR 40 MG PO (09:04)
[2024-09-30] MEDS: FLOMAX 0.4 MG PO (09:04)
[2024-09-30 09:14] VITALS: BP 148/78
--- NOTE | 2024-09-30 11:22 | CM ---
CM met with Caro and her daughter at bedside. IMM provided, signed copy placed in chart and patient provided with the form.
Pt and daughter advised if Caro needs VN after discharge, PCP can order VN. They understand, and currently decline VN services.
Plan: Discharge to home with no identified needs.
--- NOTE | 2024-09-30 11:32 | W.PN.HOSP.TC ---
Today's Communication/Plan
-
d/c home
Assessment / Plan
Assessment / Plan
Ileus -resolved
- Took imodium for diarrhea, felt constipated.
- CT a/p showing ileus on admission imaging
- f/u abd xr showing contrast passing to colon
- Advanced to low residue diet, tolerated without problem
Chronic diarrhea
- patient have oxygen equipment preparer diarrhea with constipation in between
- C scope earlier this year showing sigmoid stricture
- Patent have constipation intermixed with diarrhea
- GI recommended outpatient colonoscopy
- Patient provided contact number of stem maker to follow-up with diet adjustment
- Although no clinical proof of this being biliary in nature, empirically trying cholestyramine dose
Blood in stool
- reported some blood mixed stool, small amount
- denies h/o of GIB in past
- no anemia, monitor Hbg
Hyponatremia
- suspect related to excess fluid intake as patient reports about 90oz per day
- Na improved to 132, was 130 yesterday, mointor.
Elevated Bilirubin
-isolated TBilli elevation
-CT scan without significant biliary duct dilation
-T sandy down to 2.2
Peripheral Arterial Disease
-Right Proximal SFA stent, Right Common Femoral Endarterectomy
-Continue aspirin and clopidogrel
-Continue atorvastatin
Essential Hypertension
-Continue losartan with hold parameters
Hypothyroidism
-Continue levothyroxine
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
-Continue bladder scans with intermittent straight cath
Hx Cervical Cancer s/p Surgery and XRT
DVT proph: Lovenox
Code Status: Full Code
More than 30 minutes spent in discharge including
Final examination of the patient
Summarizing hospital stay
Instructions for continuing care to all relevant caregivers
Preparation of discharge records, prescriptions, and referral forms
Total time spent (in minutes): 39 mins
Anticipated Discharge: Today
Subjective/Interval History
-
Date of Service: September 30, 2024
Able to tolerate regular diet
Having diarrhea overnight
Denies nausea vomiting
Objective Data
-
Labs:
Laboratory Results
09/30/24
05:47
WBC 4.8
Hgb 11.3 L
Hct 32.5 L
Plt Count 231
Sodium 134 L
Potassium 4.2
Chloride 105
Carbon Dioxide 25
BUN 10
Creatinine 0.5 L
Glucose 83
Calcium 9.0
Vital Signs:
Vital Signs
Temp Pulse Resp BP Pulse Ox
98 F 31 20 148/78 97
09/30/24 09:14 09/30/24 09:14 09/30/24 09:14 09/30/24 09:14 09/30/24 09:14
I&O
09/29/24 09/30/24 10/01/24
06:59 06:59 06:59
Intake Total 240 / 240 420 / 420
Output Total 1000 / 1000
Balance -760 / -760 420 / 420
Review of Systems
-
Respiratory: Reports No Symptoms
Cardiac: Reports No Symptoms
Abdomen/GI: Reports Diarrhea; Denies Abdominal Pain, Nausea or Vomiting
Physical Exam
-
General: Negative Appears Chronically Ill or Obese
HEENT: Negative Oxygen
Neuro: Awake, Alert, Oriented and No Motor Deficits
--- NOTE | 2024-09-30 13:51 | W.DCSUMMARY ---
Discharge Summary
Discharge Data
Date of Admission: 09/28/24
Date of Discharge: 09/30/24
-
Pending Results: No
Hospital Course
Discharging Physician : Dr Chidi Tam
Disposition : To home
Primary care physician : Dr Priscila Ramirez
Principal Discharge diagnosis :
Ileus
Chronic diarrhea
Acute hyponatremia
Chronic Discharge diagnosis :
Peripheral artery disease
Essential hypertension
Hypothyroidism
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
History of cervical cancer status postsurgery and radiation
Hospital Course :
Patient is a 83-year-old female with above-mentioned past medical history came to ER for having difficulty with bowel movement. Patient initially had problem with diarrhea which is somewhat of a long-term issue. Patient was taking Imodium from
which patient started noticing some constipation. Patient did resolve this through Metamucil and had diarrhea again. In the ER patient had a CT abdomen pelvis which showed dilated small bowel loop concerning of ileus. Patient was admitted to
medical floor and had a follow-up abdominal x-ray which showed contrast passing into the colon. Patient was concerned about having frequent episodes of diarrhea intermixed with constipation, GI was consulted for evaluation. GI recommended for
patient to have an outpatient colonoscopy. Patient diet was advanced slowly to regular diet and was able to tolerate without any issues. Patient was discharged home with plan for follow-up with GI in the office.
Important imaging findings :
None
Procedure findings :
None
Discharge Plan
-
Patient Disposition: Home (Routine Discharge)
Discharge Diagnosis/Procedures: Chronic diarrhea, ileus
Condition: Fair
Diet: Regular
Activity: As tolerated
Driving Restrictions: No driving
Bathing Restrictions: OK to Shower
Activity Restrictions/Additional Instructions:
Call to get an appointment with political scientist
Referrals:
Ya Diaz MD [Active, Gastroenterology]
Referral Note: call to arrange follow up with Dr. Diaz to discuss chronic diarrhea.
Priscila Ramirez MD [Family Provider, Family Practice] - in one week
Prescriptions:
New
cholestyramine 4 gram powder
2 g PO DAILY Qty: 201.6 0RF
Rx Instructions:
HOLD DOSE IF CONSTIPATED
Continued
losartan 50 mg tablet
50 mg PO DAILY
atorvastatin [Lipitor] 40 mg tablet
40 mg PO DAILY Qty: 30 0RF
calcium carbonate [Calcium 600] 600 mg calcium (1,500 mg) Tablet
600 mg PO DAILY
omega 5-smz-sii-fish oil [Fish Oil] 1,200 (144-216) mg Capsule
1 cap PO DAILY
levothyroxine [Synthroid] 88 mcg Tablet
88 mcg PO DAILY
aspirin 81 mg Tablet,Chewable
81 mg PO DAILY Qty: 0 0RF
loperamide 2 mg Capsule
2 mg PO Q6HPRN PRN (Reason: diarrhea)
acetaminophen [Tylenol Extra Strength] 500 mg Tablet
1,000 mg PO Q6H PRN (Reason: pain)
Saccharomyces boulardii [Florastor] 250 mg Capsule
250 mg PO DAILY Qty: 0
cholecalciferol (vitamin D3) [Vitamin D3] 25 mcg (1,000 unit) Tablet
25 mcg PO DAILY Qty: 0
ferrous sulfate 27 mg iron Tablet
27 mg PO DAILY
clopidogrel 75 mg Tablet
75 mg PO DAILY Qty: 90 0RF
therapeutic multivitamin Tablet
1 tab PO DAILY
cyanocobalamin (vitamin B-12) 1,000 mcg Tablet
1,000 mcg PO DAILY
tamsulosin [Flomax] 0.4 mg Capsule
0.4 mg PO DAILY
ascorbic acid (vitamin C) [Vitamin C] 250 mg Tablet
250 mg PO DAILY
docusate sodium [Colace] 100 mg Capsule
100 mg PO DAILY
Discontinued
sennosides-docusate sodium 8.6-50 mg Tablet
1 tab PO DAILYPRN PRN (Reason: constipation) Qty: 0 0RF
Metamucil Packet
1 packet PO DAILY Qty: 0
Discharge Orders:
Discharge Patient (As Directed); Ordered 09/30/24
Ordered By: Chidi Tam
Discharge Date and Time
Discharge Date/Time: 09/30/24 12:00
Print Language: ESTONIAN
== END 2024-09-30 12:00 | disposition home or self-care (01) | DRG 389 ==
LOC: 3 WEST ACU 12:50
PROVIDERS: Physician Assistant Medical; ADMITTING PHYSICIAN Internal Medicine; ATTENDING PHYSICIAN Hospitalist; CONSULT PHYSICIAN Internal Medicine Gastroenterology; EMERGENCY PHYSICIAN Emergency Medicine; FAMILY PHYSICIAN Family Medicine
DX: K56.7 Ileus, unspecified (principal); E87.1 Hypo-osmolality and hyponatremia; R17 Unspecified jaundice; N30.40 Irradiation cystitis without hematuria; I10 Essential (primary) hypertension; E78.5 Hyperlipidemia, unspecified; K21.9 Gastro-esophageal reflux disease without esophagitis; R63.0 Anorexia; G62.9 Polyneuropathy, unspecified; K64.4 Residual hemorrhoidal skin tags; I25.10 Atherosclerotic heart disease of native coronary artery without angina pectoris; K58.9 Irritable bowel syndrome, unspecified; R33.8 Other retention of urine; K64.8 Other hemorrhoids; E03.9 Hypothyroidism, unspecified; I73.9 Peripheral vascular disease, unspecified; Y84.2 Radiological procedure and radiotherapy as the cause of abnormal reaction of the patient, or of later complication, without mention of misadventure at the time of the procedure; Z85.41 Personal history of malignant neoplasm of cervix uteri; Z90.710 Acquired absence of both cervix and uterus; Z92.3 Personal history of irradiation; Z79.890 Hormone replacement therapy; Z79.82 Long term (current) use of aspirin; Z79.02 Long term (current) use of antithrombotics/antiplatelets; Z87.19 Personal history of other diseases of the digestive system
CPT/HCPCS: 74018; 74177; 80048; 80053; 82962; 83690; 83735; 83930; 84295; 84443; 85025; 85027; 87045; 87046; 87324; 87427; 87449; 99284; Q9967

== ENCOUNTER 2024-12-01 06:10 | Day surgery (SDC) | payer OTHER, BC, SELFPAY ==
[2024-12-01 12:40] VITALS: BMI 17.7
[2024-12-01 12:48] VITALS: BP 176/76
[2024-12-01 12:52] VITALS: BMI 17.7
[2024-12-01 14:33] VITALS: BP 118/78
[2024-12-01 14:45] VITALS: BP 124/66
== END 2024-12-01 15:30 | disposition home or self-care (01) ==
LOC: SDS 06:10
PROVIDERS: ATTENDING PHYSICIAN Internal Medicine Gastroenterology
DX: D12.3 Benign neoplasm of transverse colon (principal); D12.4 Benign neoplasm of descending colon; K57.30 Diverticulosis of large intestine without perforation or abscess without bleeding; Q43.8 Other specified congenital malformations of intestine; K64.0 First degree hemorrhoids
CPT/HCPCS: 45385; 88305

== ENCOUNTER 2024-12-01 21:44 | Inpatient (IN) | payer OTHER, BC, SELFPAY ==
[2024-12-01 19:39] VITALS: BP 122/60; BMI 17.7
--- NOTE | 2024-12-01 19:56 | ED.GENMED ---
History of Present Illness
General
Chief Complaint: Fainting/Passed Out
Source: patient, spouse, family and ambulance crew
Exam Limitations: none
Time Seen by Provider: 12/01/24 19:39
Nursing documentation reviewed up to this point in time: agreed with
History of Present Illness
History of Present Illness:
Note:
CHIEF COMPLAINT(S)
Fall and left leg pain.
HISTORY OF PRESENT ILLNESS
83-year-old female with a history of a pacemaker presents to the emergency department following a fall. The patient reported falling this morning and noted pain in the left leg, although she fell on her right side. Her daughter assisted her in
getting up. She mentions a prior leg surgery resulting in rough and lower leg areas. She has a [employer] pacemaker and a possible heart monitor at home. The patient is unable to bend her left leg without assistance. Concerns about electrolyte
imbalance were discussed, especially since she recently had a colonoscopy and may have undergone a bowel cleanout. Her blood pressure is reported to be okay, but further evaluation is planned.
ADDITIONAL HISTORY OBTAINED FROM SOURCES OTHER THAN THE PATIENT
The patients daughter assisted her after the fall, indicating she was unable to get up on her own.
SOCIAL DETERMINANTS AFFECTING HEALTH
The patient primarily consumes Gatorade, which was noted in the context of maintaining her hydration and electrolyte levels. It was suggested that Gatorade may not be the most effective rehydration solution.
REVIEW OF SYSTEMS
- Musculoskeletal: Pain in the left leg following a fall.
- Cardiovascular: History of pacemaker.
PHYSICAL EXAM
General: Alert, no acute distress.
Skin: Warm, dry.
Head: Normocephalic, atraumatic.
Neck: Supple, trachea midline.
Eye Ears, nose, mouth and throat: Oral mucosa moist.
Cardiovascular: Normal peripheral perfusion, No edema.
Respiratory: Respirations are non-labored.
Gastrointestinal : Abdomen nondistended.
Back: Normal range of motion, Normal alignment.
Musculoskeletal: full ROM in all extremities
Neurological: Alert and oriented to person, place, time, and situation, No focal neurological deficit observed.
Psychiatric: Cooperative, appropriate mood & affect.
PROBLEM LIST
Acute: Fall, left leg pain.
PLAN
- Conduct blood tests to evaluate electrolytes, given the recent colonoscopy and possible dehydration.
- Evaluate the Medtronic heart monitor to assess for any cardiac events.
- Consider overnight hospital admission for observation due to multiple episodes of passing out.
- Recommend trying a better rehydration solution like Pediolyte instead of Gatorade.
DIFFERENTIAL DIAGNOSIS
The Differential Diagnosis includes, in no particular order and is not limited to:
1. Electrolyte imbalance.
2. Dehydration.
3. Cardiac arrhythmia.
4. Orthostatic hypotension.
5. Pacemaker malfunction.
6. Stroke.
7. Lower extremity fracture.
8. Muscle strain.
9. Osteoporosis-related fracture.
10. Syncope due to vasovagal response.
EKG
My independent EKG interpretation is:
- Rhythm: Sinus bradycardia
- Heart Rate: Bradycardic
- HI Interval: Normal
- QRS Duration: Normal
- QT Interval: Normal
- [place]: Normal
- Abnormalities: None observed
Disposition:
SUMMARY OF ENCOUNTER
The patient, an 83-year-old female with a history of a pacemaker, presented to the emergency department due to multiple syncope episodes and left leg pain after a fall. Suspected causes include hyponatremia and hypovolemia, likely related to a
recent bowel cleanse for a colonoscopy. Initial EKG findings were normal, but further cardiac monitoring is necessary. The patients sodium level was noted at 128 mmol/L, indicating hyponatremia. Normal saline was ordered, and admission for further
evaluation, IV fluids, and cardiac monitoring was planned. XRAYs no signs of fracture
DISPOSITION
Admit to hospitalists for further evaluation and management.
ASSESSMENT
The patient experienced a fall and multiple episodes of syncope likely due to hyponatremia and hypovolemia post-bowel prep.
PLAN
- Administer normal saline to address hyponatremia.
- Admit for further evaluation and management, including IV fluids and cardiac monitoring.
- Await loop recorder interrogation to investigate any cardiac cause for syncope.
INDEPENDENT REVIEW OF LABS AND INTERPRETATION OF TESTS
- My independent review of BMP shows hyponatremia with a sodium level of 128 mmol/L.
- My independent EKG interpretation is: Rhythm: Sinus bradycardia, Heart Rate: Bradycardic, HI Interval: Normal, QRS Duration: Normal, QT Interval: Normal, [place]: Normal, No abnormalities observed.
FOLLOW-UP INSTRUCTIONS
Follow up with cardiology for review of loop recorder data and to evaluate any potential cardiac causes for syncope, as directed by the hospitalists post-admission.
MEDICAL DECISION MAKING
- Number and Complexity of Problems Addressed: Chronic conditions affecting care including history of a pacemaker and the recent colonoscopy preparation. Differential diagnosis includes: Electrolyte imbalance, Dehydration, Cardiac arrhythmia,
Orthostatic hypotension, Pacemaker malfunction, Stroke, Lower extremity fracture, Muscle strain, Osteoporosis-related fracture, Syncope due to vasovagal response.
- Data:
Category 1:
- My independent interpretation of EKG, normal findings.
- Sodium level reviewed indicating hyponatremia.
Category 2:
- Clinical information was obtained from the patients daughter who noted the inability of the patient to rise post-fall.
- Risk:
Care significantly affected by social determinants of health due to reliance on Gatorade for hydration which might not be optimal.
DIAGNOSIS
- Syncope [R55]
- Hyponatremia [E87.1]
- Hypovolemia [E86.0]
-left leg strain
Past History
Past History
ED Past Medical History: Cancer (Cervical cancer, treated with hysterectomy and radiation), HTN and Other (Kidney stones)
ED Past Surgical History: and Gynecological (Hysterectomy with retroperitoneal symone dissection 18 years ago.)
Social History
Tobacco: Non-smoker
Alcohol: None
Personal:
Living: with family
Family History
Family History: Hypertension; Negative Early CAD or CAD
Phy Exam
Physical Exam
Physical Exam:
.
Course
Orders/Labs/Results
Orders:
Orders
12/01/24 19:43
EKG [Electrocardiogram (*1)] Urgent
Reason for Study: Syncope
EKG- Treatment ONCE
12/01/24 19:53
IV Insert/Care/Rem.- Treatment PRN
Femur, Left 2 View [CR Femur - Left Min 2 Vw] Urgent
Comment:
Reason For Exam: fall, left thigh pain
Hip, Left 2-3 Views [CR Hip - LT w/wo Pel 2-3 Vw*] Urgent
Comment:
Reason For Exam: fall
Include a pelvis x-ray?: Yes
Pulse Ox/cont/shift [RESP] Stat
Quantity: 1
12/01/24 19:54
Cardiac Monitoring- Treatment ONCE
12/01/24 19:55
CR Chest - 2 Views Urgent
Comment:
Reason For Exam: syncope
12/01/24 19:58
Interrogate Pacemaker- Treatment ONCE
12/01/24 19:59
Complete Blood Count/With Diff Urgent
Comprehensive Metabolic Panel Urgent
Magnesium Urgent
Troponin I Urgent
12/01/24 21:01
0.9% Sodium Chloride 1000 ml [Nss] 1,000 ml IV BOLUS
Abnormal Lab Results
12/01/24
19:59
RBC 3.41 L 10^6/uL
(4.20-5.40)
Hgb 11.3 L g/dL
(12.0-16.0)
Hct 34.0 L %
(37.0-47.0)
MCV 99.7 H fL
(81.0-99.0)
MCH 33.1 H pg
(27.0-31.0)
Absolute Neuts (auto) 8.2 H 10^3/uL
(1.4-6.5)
Absolute Lymphs (auto) 0.6 L 10^3/uL
(1.2-3.4)
Absolute Monos (auto) 0.7 H 10^3/uL
(0.1-0.6)
Neutrophils % 85.7 H %
(42.2-75.2)
Lymphocytes % 5.7 L %
(20.5-51.1)
Sodium 128 L mmol/L
(135-145)
Chloride 97 L mmol/L
(98-107)
Glucose 114 H mg/dl
(70-99)
AST 61 H U/L
(14-36)
ALT 55 H U/L
(0-35)
12/01/24 19:59
12/01/24 19:59
Vital Signs
Initial and Last Documented VS:
Initial Vital Signs
Temp Pulse Resp BP Pulse Ox
97.5 F 58 16 122/60 98
12/01/24 19:39 12/01/24 19:39 12/01/24 19:39 12/01/24 19:39 12/01/24 19:39
Last Documented Vital Signs
Temp Pulse Resp BP Pulse Ox
97.5 F 63 19 116/63 98
12/01/24 19:39 12/01/24 20:15 12/01/24 20:15 12/01/24 20:00 12/01/24 20:15
*Radiology
Radiology exam reviewed: preliminary read by ED provider (cxr normal, no fracture on left hip, pelvis, femur xrays)
*Pulse Oximetry
SaO2: 98
Oxygen Mode of Delivery: Room air
Patient hypoxic: no
*Critical Care Note
Total Time (30-74mins, 75-104mins- exclusive of procedures): Not Applicable
ED Attending Note
-
Portions of this chart may have been created with voice recognition software.� Occasional wrong word or��sound alike� substitutions may have occurred due to the inherent limitations of voice recognition software.
Discharge Plan
Departure
Patient Disposition: Admit
Date of Disposition: 12/01/24
Time of Disposition: 21:05
Admit to: Telemetry
Presentation/result/management discussed w/ accepting MD/DO: Hospitalist
Patient with high blood pressure during this ER visit?: Yes
Condition: Good
Discharge Problem:
Syncope, Acute hyponatremia
Prescriptions:
No Action
losartan 50 mg tablet
50 mg PO DAILY
atorvastatin [Lipitor] 40 mg tablet
40 mg PO DAILY Qty: 30 0RF
calcium carbonate [Calcium 600] 600 mg calcium (1,500 mg) Tablet
600 mg PO DAILY
omega [id number] oil [Fish Oil] 1,200 (144-216) mg Capsule
1 cap PO DAILY
levothyroxine [Synthroid] 88 mcg Tablet
88 mcg PO DAILY
aspirin 81 mg Tablet,Chewable
81 mg PO DAILY Qty: 0 0RF
loperamide 2 mg Capsule
2 mg PO Q6HPRN PRN (Reason: diarrhea)
acetaminophen [Tylenol Extra Strength] 500 mg Tablet
1,000 mg PO Q6H PRN (Reason: pain)
cholecalciferol (vitamin D3) [Vitamin D3] 25 mcg (1,000 unit) Tablet
25 mcg PO DAILY Qty: 0
ferrous sulfate 27 mg iron Tablet
27 mg PO DAILY
clopidogrel 75 mg Tablet
75 mg PO DAILY Qty: 90 0RF
therapeutic multivitamin Tablet
1 tab PO DAILY
cyanocobalamin (vitamin B-12) 1,000 mcg Tablet
1,000 mcg PO DAILY
tamsulosin [Flomax] 0.4 mg Capsule
0.4 mg PO DAILY
ascorbic acid (vitamin C) [Vitamin C] 250 mg Tablet
250 mg PO DAILY
docusate sodium [Colace] 100 mg Capsule
100 mg PO PRN PRN (Reason: constipation)
escitalopram oxalate 5 mg Tablet
5 mg PO DAILY
Probiotic 3 billion cell Capsule
3,000 mmu cells PO DAILY
Referrals:
Priscila Ramirez MD [Family Provider, Family Practice]
Interventions
Interventions:
*Risk Screen - Suicide Last Done: 12/01/24 19:46
*General Assessment Last Done: 12/01/24 19:45
*Neglect/Abuse Screening Last Done: 12/01/24 19:46
*ED- Fall Risk Assessment Last Done: 12/01/24 19:45
*ED COVID-19 Vaccine History Last Done: 12/01/24 19:45
*ED Influenza Vaccine History Last Done: 12/01/24 19:45
ED- Cardiac Assessment Last Done: 12/01/24 19:46
ED- Neurological Assessment Last Done: 12/01/24 19:46
Discharge Date and Time
Print Language: ARABIC
[2024-12-01 20:00] VITALS: BP 116/63
[2024-12-01 20:09] LABS: Hematocrit 34.0 % (37.0-47.0); Hemoglobin 11.3 g/dL (12.0-16.0); Mean Corp Hgb Conc. 33.2 g/dL (33.0-37.0); Mean Corpuscular Volume 99.7 fL (81.0-99.0); Nucleated Red Blood Cells % 0 %; Platelet Count 226 10^3/uL (130-400); Red Cell Dist. Width 13.4 % (11.5-14.5)
[2024-12-01 20:29] LABS: Troponin I < 0.012 ng/ml
[2024-12-01 20:36] LABS: ALT (SGPT) 55 U/L (0-35); AST (SGOT) 61 U/L (14-36); Albumin 3.8 g/dl (3.5-5.0); Alkaline Phosphatase 92 U/L (38-126); Blood Urea Nitrogen 7 mg/dl (7-17); Calcium 9.3 mg/dl (8.4-10.2); Carbon Dioxide 26 mmol/L (22-30); Chloride 97 mmol/L (98-107); Estimated Creatinine Clearance 49 ml/min; Glucose 114 mg/dl (70-99); Magnesium 1.7 mg/dl (1.6-2.3); Potassium 3.8 mmol/L (3.5-5.1); Sodium 128 mmol/L (135-145); Total Protein 6.6 g/dl (6.3-8.2); eGFR > 60.00
--- NOTE | 2024-12-01 21:32 | HPS.HSE ---
Addendum entered and electronically signed by Carola Zee MD 12/01/24 22:23:
Interrogation of the pacemaker showed a pause greater than 5 seconds and an episode of tachycardia greater than 154. Cardiology consulted.
Original Note:
Family Physician
-
Family Physician: Priscila Ramirez
Chief Complaint
-
syncope
History of Present Illness
83-year-old female past medical history of pacemaker, chronic diarrhea, hyponatremia, peripheral arterial disease status post right proximal SFA stent/right common femoral endarterectomy, hypertension, hypothyroidism, cervical cancer status post
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
Patient had a colonoscopy today and she took colon prep yesterday and this morning significant amount of loose stool. She underwent a colonoscopy without complications. Colonoscopy was performed because there was some concern the patient had a
colonic stricture potentially requiring surgery. The colonoscopy today did show scarring but no other abnormalities. Today she felt dizzy when getting up and passed out and had 2 further episodes of syncope.
She last had a syncopal episode few months ago but did not have any workup performed. She denies any chest pain or shortness of breath.
She fell onto her right side but does have some soreness of her left hip. She normally ambulates with a walker.
She denies smoking or alcohol use.
Medical History
Past Medical History
Past Medical History: Reports Other (pacemaker, chronic diarrhea, hyponatremia, peripheral arterial disease status post right proximal SFA stent/right common femoral endarterectomy, hypertension, hypothyroidism, cervical cancer status post surgery
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
Past Surgical History: Reports None
Social History
Tobacco: Non-smoker
Alcohol: None
Drug: None
Family History
Family History: Not pertinent
Allergies / Home Medications
Allergies reflects when Allergies were last updated in [facility].
Home Medications with original date entered in [facility]
Allergy/Medication List:
Allergies
Allergy/AdvReac Type Severity Reaction Status Date / Time
No Known Allergies Allergy Verified 12/01/24 19:44
Home Medications
losartan 50 mg tablet 50 mg PO DAILY Blood pressure 12/04/21
atorvastatin 40 mg tablet (Lipitor) 40 mg PO DAILY #30 tabs 12/05/21
calcium carbonate (Calcium 600) 600 mg PO DAILY Supplement 02/08/24
omega [id number]-fish oil 1,200 mg (144 mg-216 mg) capsule (Fish Oil) 1 cap PO DAILY Supplement 02/08/24
levothyroxine 88 mcg tablet (Synthroid) 88 mcg PO DAILY Thyroid 02/13/24
aspirin 81 mg chewable tablet 81 mg PO DAILY #0 tabs 03/01/24
loperamide 2 mg capsule 2 mg PO Q6HPRN PRN diarrhea 05/10/24
acetaminophen 500 mg tablet (Tylenol Extra Strength) 1,000 mg PO Q6H PRN pain 05/31/24
cholecalciferol (vitamin D3) 25 mcg (1,000 unit) tablet (Vitamin D3) 25 mcg PO DAILY ##0 08/30/24
clopidogrel 75 mg tablet 75 mg PO DAILY #90 tabs 09/01/24
ferrous sulfate 27 mg iron tablet 27 mg PO DAILY 09/01/24
ascorbic acid (vitamin C) 250 mg tablet (Vitamin C) 250 mg PO DAILY 09/28/24
cyanocobalamin (vitamin B-12) 1,000 mcg tablet 1,000 mcg PO DAILY 09/28/24
docusate sodium 100 mg capsule (Colace) 100 mg PO PRN PRN constipation 09/28/24
tamsulosin 0.4 mg capsule (Flomax) 0.4 mg PO DAILY 09/28/24
therapeutic multivitamin 1 tab PO DAILY 09/28/24
escitalopram oxalate 5 mg tablet 5 mg PO DAILY 12/01/24
lactobacillus combination no.4 3 billion cell capsule (Probiotic) 3,000 mmu cells PO DAILY 12/01/24
Review of Systems
-
History Source: Patient
A 12 point ROS was completed and negative except as noted: Yes
Constitutional: Reports No Symptoms
EENT: Reports No Symptoms
Respiratory: Reports No Symptoms
Cardiac: Reports No Symptoms
Abdomen/GI: Reports No Symptoms
: Reports No Symptoms
Musculoskeletal: Reports See HPI
Skin: Reports No Symptoms
Neurological: Reports No Symptoms
Endocrine: Reports No Symptoms
Hematologic/Lymphatic: Reports No Symptoms
Psych: Reports No Symptoms
Physical Exam
Vital Signs
Vital Signs
Temp Pulse Resp BP Pulse Ox
97.5 F 63 19 116/63 98
12/01/24 19:39 12/01/24 20:15 12/01/24 20:15 12/01/24 20:00 12/01/24 20:15
Physical Exam
General: Well Developed, Well Nourished and No Apparent Distress
HEENT: NormoCephalic, Moist mucous membranes and Atraumatic
Respiratory: Clear
Cardiac: S1/S2 and Regular Rhythm; No Murmur or Rub
GI: Soft, Non Tender, Non Distended and Normal Bowel Sounds; No Organomegaly
Rectal: Deferred by Provider
Musculoskeletal: No Clubbing, No Cyanosis and No Edema
Skin: No Rash
Neuro: Nonfocal/grossly intact
Laboratory Results
-
12/01/24 19:59
12/01/24 19:59
Laboratory Results
Total Bilirubin 1.2 mg/dl (0.2-1.3) 12/01/24 19:59
AST 61 U/L (14-36) H 12/01/24 19:59
ALT 55 U/L (0-35) H 12/01/24 19:59
Alkaline Phosphatase 92 U/L (38-126) 12/01/24 19:59
Troponin I < 0.012 ng/ml 12/01/24 19:59
Data Reviewed
-
Lab Data: Labs Reviewed by me
Old Records: Reviewed
Impression/Plan
-
IMPRESSION:
PLAN:
# Syncopal episodes likely secondary to hypovolemia/orthostatic hypotension from prep from colonoscopy this morning/anesthesia
-EKG shows sinus bradycardia,
- Check orthostatic vital signs
- IV fluids given
- Pacemaker to be interrogated
- Telemetry monitoring
# Worsening of chronic hyponatremia secondary to GI losses
- Sodium of 128 from 134 previously
- Likely from volume losses
# Acute nondisplaced fracture of the greater trochanter of the left proximal femur
- Orthopedics consulted recommending CT scan to rule out atypical intertrochanteric extension
- Tylenol, Dilaudid as needed
- N.p.o. past midnight
-hold plavix
History of prior ileus
-Colonoscopy was reportedly performed due to concern for colonic stricture and potential need for surgery with ostomy
History of pacemaker
History of CVA
Cervical/endometrial cancer cancer status post surgery/radiation
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
Peripheral arterial disease status post right proximal SFA stent/right common femoral endarterectomy
- Continue aspirin
- Hold Plavix
- Continue statin
Essential hypertension
- Continue losartan
Hypothyroidism
- Continue levothyroxine
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
- Patient normally self catheterizes
- Bladder scan protocol
Anxiety/depression
- Continue Lexapro
Full code
DVT prophylaxis�SCDs
N.p.o. past midnight
t
[2024-12-01 21:46] VITALS: BP 148/71
[2024-12-01] MEDS: NSS 1000 IV (21:49)
[2024-12-01 22:21] VITALS: BP 132/82
[2024-12-01 22:50] VITALS: BP 150/71; BMI 17.3
[2024-12-02] VITALS (7 sets, daily range): BP systolic 94–144; BP diastolic 49–74; PULSE 64
--- NOTE | 2024-12-02 08:02 | W.PN.HOSP.TC ---
Today's Communication/Plan
-
see plan
Assessment / Plan
Assessment / Plan
Gen: NAD, AAOx3.
Eyes: EOMI, PERRLA, no scleral icterus.
Neck: supple.
CV: RRR, +S1/S2, 2/6 systolic murmur
Resp: CTAB, no rales, wheezes, or rhonchi.
Abd: +BS, soft, NT, ND
Skin: No rashes.
Neuro: CN 2-12 intact, non-focal.
Psych: Normal mood and affect.
Colonoscopy:Hemorrhoids found on perianal exam.
- The examined portion of the ileum was normal.
- One 5 mm polyp in the transverse colon, removed with a cold
snare. Resected and retrieved.
- Two 4 to 6 mm, non-bleeding polyps in the descending colon,
removed with a cold snare. Resected and retrieved.
- Diverticulosis in the sigmoid colon and in the descending colon.
- Tortuous colon. No obvious significant stenosis in the sigmoid
colon.
- Non-bleeding internal hemorrhoids
CT LLE: Acute fracture of the left greater femoral trochanter.
Syncopal episodes:
-PPM interrogation showed pause > 5 sec and an episode of tachy > 154
-also likely secondary to hypovolemia/orthostatic hypotension from prep from colonoscopy and anesthesia the morning of admission
-EKG with sinus bradycardia
-check orthostatic VS
-s/p 1L NS on admission
-c/s cards (needs to be seen by cards prior to OR)
-tele
Acute on chronic hyponatremia:
-likely secondary to GI losses
-Na improved to 134 after IVFs
Acute nondisplaced fracture of the greater trochanter of the L proximal femur:
-c/s ortho
-pain control
-holding Plavix
Other problems:
h/o PPM
h/o prior ileus: Colonoscopy was reportedly performed due to concern for colonic stricture and potential need for surgery with ostomy (see above)
h/o CVA: cont ASA/statin (plavix on hold as above)
Cervical/endometrial CA /sp surgery/radiation
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
PAD s/p R proximal SFA stent/R common femoral endarterectomy: cont ASA/Plavix/statin
Essential HTN: cont losartan
Hypothyroidism: cont Levoxyl
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
Anxiety/depression: cont Lexapro
FULL/SCDs
Anticipated Discharge: > 48 hours
Subjective/Interval History
-
Date of Service: December 02, 2024
Objective Data
-
Labs:
Laboratory Results
12/01/24 12/02/24
19:59 07:05
WBC 9.6 Pending
Hgb 11.3 L Pending
Hct 34.0 L Pending
Plt Count 226 Pending
Sodium 128 L Pending
Potassium 3.8 Pending
Chloride 97 L Pending
Carbon Dioxide 26 Pending
BUN 7 Pending
Creatinine 0.6 Pending
Glucose 114 H Pending
Calcium 9.3 Pending
Total Bilirubin 1.2 Pending
AST 61 H Pending
ALT 55 H Pending
Alkaline Phosphatase 92 Pending
Vital Signs:
Vital Signs
Temp Pulse Resp BP Pulse Ox
98.8 F 61 16 129/62 98
12/02/24 04:00 12/02/24 04:00 12/02/24 04:00 12/02/24 04:00 12/02/24 04:00
I&O
12/01/24 12/02/24 12/03/24
06:59 06:59 06:59
Output Total 400 / 400
Balance -400 / -400
[2024-12-02 08:12] LABS: Hematocrit 29.8 % (37.0-47.0); Hemoglobin 10.2 g/dL (12.0-16.0); Mean Corp Hgb Conc. 34.2 g/dL (33.0-37.0); Mean Corpuscular Volume 98.3 fL (81.0-99.0); Nucleated Red Blood Cells % 0 %; Platelet Count 217 10^3/uL (130-400); Red Cell Dist. Width 13.5 % (11.5-14.5)
[2024-12-02 08:46] LABS: ALT (SGPT) 49 U/L (0-35); AST (SGOT) 49 U/L (14-36); Albumin 3.4 g/dl (3.5-5.0); Alkaline Phosphatase 97 U/L (38-126); Blood Urea Nitrogen 8 mg/dl (7-17); Calcium 9.1 mg/dl (8.4-10.2); Carbon Dioxide 26 mmol/L (22-30); Chloride 102 mmol/L (98-107); Estimated Creatinine Clearance 48 ml/min; Glucose 91 mg/dl (70-99); Potassium 3.8 mmol/L (3.5-5.1); Sodium 132 mmol/L (135-145); Total Protein 6.2 g/dl (6.3-8.2); eGFR > 60.00
--- NOTE | 2024-12-02 10:52 | CON.CAR ---
Addendum entered and electronically signed by Shelton Saenz MD 12/02/24 13:44:
I saw and examined the patient independently, and performed majority of MDM.
The KIDNEY PULLER's note was reviewed and I agree with the note with changes/additions below.
Comment: 83 yo female with PMH of mild , cryptogenic stroke s/p ILR, PAD is admitted with syncope. She felt dizzy walking to the bathroom and then passed out yesterday. She had a colonoscopy earlier. She did fracture her hip with the fall. Exam
with RRR, II/ systolic murmur at RUSB, no edema. Tele: SR 60s.
Syncope: ILR did not show arrhythmia at time of event. There was a prior noted period of 5 second pause on 11/19, but review of strips shows artifact. Suspect orthostatic drop in BP caused the syncope. Agree with IVF.
Hip fracture: per ortho consult.
Original Note:
Consultation
Consultation Request
Date/Time Consultation Requested: 12/01/243
Date/Time Consultation Performed: 12/02/24 1040
Requesting Provider: Dr. Zee
Performing Provider: Nichelle DIAZ for Dr. Saenz
Reason for Consultation: pause on loop, syncope
Medical History
-
Chief Complaint: syncope/fall
History of Present Illness:
83 y/o female (patient of Dr. Floyd) with mild , hypertension, dyslipidemia, cryptogenic stroke (s/p ILR implant 2021), mild to moderate TR, DJD, PVD with right femoral endarterectomy with patch angio 2023 who is here for evaluation of syncopal
episodes x 3 with LLE fracture. Notably, she had a colonoscopy yesterday with prep prior. She did not eat or drink anything else, then around 730 PM, she was walking into the bathroom to self-catheterize, and she felt light-headed like she might
pass out. She went to call her daughter, then passed out. Her daughter helped her up and after she was upright, she noted her leg didn't feel right, then her daughter witnessed her pass out again. Her daughter and son in law started walking her to
the bedroom and she passed out a 3rd time. Therefore EMS was alerted. She is feeling fine now. She has had one other syncopal episode in her life, which was earlier this year. She remembers walking, feeling dizzy, then passing out. Loop recorder did
not show any correlating arrhythmia. We are consulted since pause reported on loop recorder; however, I have looked at this report from November 17 2024-December 01 2024, the only reported arrhythmia was December 09, 2024 and was reported as >5
second pause, but this was erroneous on my review of strips and report and there was no pause.
Past Medical History
Past Medical History: CVA, HTN, Hypercholesterolemia, Valvular Disease and Other (as above)
Social History
Tobacco: Non-Smoker
Family History
Family History: Reviewed & Not Pertinent
Allergies / Home Medications
Allergy/AdvReac Type Severity Reaction Status Date / Time
No Known Allergies Allergy Verified 12/01/24 19:44
�Medication �Instructions �Recorded �Confirmed �Type
losartan 50 mg tablet 50 mg PO DAILY Blood pressure 12/04/21 12/02/24 History
atorvastatin 40 mg tablet (Lipitor) 40 mg PO DAILY #30 tabs 12/05/21 12/02/24 Rx
calcium carbonate (Calcium 600) 600 mg PO DAILY Supplement 02/08/24 12/02/24 History
levothyroxine 88 mcg tablet 88 mcg PO DAILY Thyroid 02/13/24 12/02/24 History
(Synthroid)
aspirin 81 mg chewable tablet 81 mg PO DAILY #0 tabs 03/01/24 12/02/24 Rx
loperamide 2 mg capsule 2 mg PO Q6HPRN PRN diarrhea 05/10/24 12/02/24 History
acetaminophen 500 mg tablet 1,000 mg PO Q6H PRN pain 05/31/24 12/02/24 History
(Tylenol Extra Strength)
cholecalciferol (vitamin D3) 25 25 mcg PO DAILY ##0 08/30/24 12/02/24 History
mcg (1,000 unit) tablet (Vitamin
D3)
ascorbic acid (vitamin C) 250 mg 250 mg PO DAILY 09/28/24 12/02/24 History
tablet (Vitamin C)
cyanocobalamin (vitamin B-12) 1,000 mcg PO DAILY 09/28/24 12/02/24 History
1,000 mcg tablet
docusate sodium 100 mg capsule 100 mg PO PRN PRN constipation 09/28/24 12/02/24 History
(Colace)
tamsulosin 0.4 mg capsule (Flomax) 0.4 mg PO DAILY 09/28/24 12/02/24 History
therapeutic multivitamin 1 tab PO DAILY 09/28/24 12/02/24 History
escitalopram oxalate 5 mg tablet 5 mg PO DAILY 12/01/24 12/02/24 History
lactobacillus combination no.4 3 3,000 mmu cells PO DAILY 12/01/24 12/02/24 History
billion cell capsule (Probiotic)
Review of Systems
-
History Source: Patient
Cardiac: Syncope
Physical Exam
Vital Signs
Temp Pulse Resp BP Pulse Ox
98.6 F 64 18 139/63 96
12/02/24 08:47 12/02/24 08:47 12/02/24 08:47 12/02/24 08:47 12/02/24 10:37
Lab Results
12/02/24 07:05
12/02/24 07:05
Troponin I < 0.012 ng/ml 12/01/24 19:59
Physical Exam
General: Well Developed and No Apparent Distress
HEENT: Normocephalic and Anicteric
Respiratory: Clear and Non Labored Respirations
Cardiac: Regular Rhythm
Musculoskeletal: No Edema
Skin: Warm and Dry
Neuro: AO x 3
Psych: Calm
Impression / Plan
-
Acute fracture of the left greater femoral trochanter:
-this diagnosis is threat to bodily function
-ortho consulted- await consult note for plan
Syncope:
-preceded by light-headedness, and was in setting of colonoscopy prep Loop recorder did not show any correlating arrhythmia. We are consulted since pause reported on loop recorder; however, I have looked at this report from November 17 2024-November
2024, the only reported arrhythmia was December 09, 2024 and was reported as >5 second pause, but this was erroneous on my review of strips and report and there was no pause. There was no arrhythmia yesterday during the syncope. I will review
with materials technician.
-I suspect this was related to orthostasis. This may have been worsened in the setting of colonoscopy prep. Fluids given. She is feeling fine.
-would check orthos when able
-can update echo
-monitor telemetry
Mild :
-echo 04/27/23: Normal biventricular size and systolic function without regional wall motion abnormality. Estimated LVEF 55-60%. Mild aortic stenosis. Mild aortic regurgitation. Mild/moderate tricuspid regurgitation. Normal PASP.
-will update echo
Hyponatremia:
-improved
Data Reviewed
-
EKG: Tracing Personally Visualized and interpreted (SB at 59 BPM)
Radiology: Report Reviewed by me (CXR: No acute cardiopulmonary process.)
CT Scan: Report Reviewed by me (Acute fracture of the left greater femoral trochanter.)
Medical Tests (Nuc Med, Echo etc): Report Reviewed by me (Echo 04/27/23: Normal biventricular size and systolic function without regional wall motion abnormality. Estimated LVEF 55-60%. Mild aortic stenosis. Peak/mean gradients across the valve
are 23/12 mmHg. Using an LVOT of 2.0 cm the calculated valve area is 1.6 cm2. Mild aortic regurgitation. ) and Other (...Mild/moderate tricuspid regurgitation)
Labs: Labs Reviewed by me
[2024-12-02] MEDS: VITAMIN B-12 1000 MCG PO (11:24)
[2024-12-02] MEDS: LIPITOR 40 MG PO (11:25)
[2024-12-02] MEDS: VISBIOME 1 CAP PO (11:25)
[2024-12-02] MEDS: FLOMAX 0.4 MG PO (11:25)
[2024-12-02] MEDS: LOW STRENGTH ASPIRIN 81 MG PO (11:25)
[2024-12-02] MEDS: SYNTHROID 88 MCG PO (11:25)
[2024-12-02] MEDS: LEXAPRO 5 MG PO (11:25)
[2024-12-02] MEDS: TYLENOL 650 MG PO ×2 (11:34→16:35)
--- NOTE | 2024-12-02 12:43 | CON.ORTHO ---
Consultation
-
Date/Time Consultation Performed: 12/02/2024 1220 pm
Consultation - Orthopedics
History
HPI: 83-year-old female multiple medical comorbidities including history of pacemaker presented emergency department after syncopal episode with complaints of left hip pain and difficulty bearing weight. She was ultimately diagnosed with a
minimally displaced left greater trochanteric femur fracture. She was admitted to the hospitalist service for further workup of syncopal episode as well as for hip pain. Orthopedics was consulted for further evaluation and treatment. Patient
localizes pain to the lateral aspect of the left hip. She reports worsening pain with direct palpation affected area and with attempted ambulation. Pain improves at rest. She reports that she uses a walker at baseline for ambulatory assistance
lives at home with her .
Allergies / Home Medications
Past medical history: Hyponatremia, hypertension, CVA, cervical cancer, peripheral arterial disease
Past surgical history: Lower extremity stents, pacemaker
Family history: Not pertinent
Social history: Lives at home with , uses walker for ambulatory assistance
Allergy/AdvReac Type Severity Reaction Status Date / Time
No Known Allergies Allergy Verified 12/01/24 19:44
�Medication �Instructions �Recorded
losartan 50 mg tablet 50 mg PO DAILY Blood pressure 12/04/21
atorvastatin 40 mg tablet (Lipitor) 40 mg PO DAILY #30 tabs 12/05/21
calcium carbonate (Calcium 600) 600 mg PO DAILY Supplement 02/08/24
levothyroxine 88 mcg tablet 88 mcg PO DAILY Thyroid 02/13/24
(Synthroid)
aspirin 81 mg chewable tablet 81 mg PO DAILY #0 tabs 03/01/24
loperamide 2 mg capsule 2 mg PO Q6HPRN PRN diarrhea 05/10/24
acetaminophen 500 mg tablet 1,000 mg PO Q6H PRN pain 05/31/24
(Tylenol Extra Strength)
cholecalciferol (vitamin D3) 25 25 mcg PO DAILY ##0 08/30/24
mcg (1,000 unit) tablet (Vitamin
D3)
ascorbic acid (vitamin C) 250 mg 250 mg PO DAILY 09/28/24
tablet (Vitamin C)
cyanocobalamin (vitamin B-12) 1,000 mcg PO DAILY 09/28/24
1,000 mcg tablet
docusate sodium 100 mg capsule 100 mg PO PRN PRN constipation 09/28/24
(Colace)
tamsulosin 0.4 mg capsule (Flomax) 0.4 mg PO DAILY 09/28/24
therapeutic multivitamin 1 tab PO DAILY 09/28/24
escitalopram oxalate 5 mg tablet 5 mg PO DAILY 12/01/24
lactobacillus combination no.4 3 3,000 mmu cells PO DAILY 12/01/24
billion cell capsule (Probiotic)
Vital Signs / Lab Results
Temp Pulse Resp BP Pulse Ox
98.6 F 64 18 139/63 96
12/02/24 08:47 12/02/24 08:47 12/02/24 08:47 12/02/24 08:47 12/02/24 10:37
12/02/24 07:05
12/02/24 07:05
10 point review systems reviewed and negative unless otherwise stated
General: Pleasant, no acute distress at rest
Musculoskeletal left lower extremity
Skin intact, no erythema or ecchymotic staining
There is fairly discrete tenderness palpation of the lateral trochanteric flare
Really no tenderness palpation of the groin
No palpable ipsilateral knee effusion
Patient is able to straight leg raise
No gross motor or sensory deficits distally
No other areas of bony tenderness palpation or crepitation of long bones or joints of tertiary exam
Diagnostic studies
X-rays and CT scan left hip independently viewed by myself. Radiology report reviewed. There is evidence of mildly displaced greater trochanteric femur fracture. No evidence of extension to femoral neck or intertrochanteric region.
Assessment / Plan
83-year-old female history of ambulatory difficulties with minimally displaced left greater trochanteric femur fracture. I had a long and detailed discussion with the patient as well as her family at bedside regarding diagnosis and treatment
options. No indication for surgical intervention. This is explained in detail. I would recommend mobilization with physical therapy with a walker. Recommend abduction precautions. DVT prophylaxis of choice per primary team. Recommend
outpatient follow-up with myself in 2 to 3 weeks for repeat clinical assessment repeat radiographs.
Weightbearing as tolerated left lower extremity with walker
PT OT with abduction precautions
Pain control
Medical management per primary team
Plan to follow-up outpatient 2 to 3 weeks repeat clinical assessment
--- NOTE | 2024-12-02 15:11 | CM ---
Patient seen bedside, initial assessment completed. Patient is a 83-year-old female past medical history of pacemaker, chronic diarrhea, hyponatremia, peripheral arterial disease status post right proximal SFA stent/right common femoral
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
Patient resides w/ spouse, daughter, son in law and granddaughter in a 2STH, 2 steps to enter from the outside. Patient ambulates w/ a RW and cane. Independent w/ ADLs and personal care. Patient self catheterizes. VN hx, [facility] hx.
Patient does not want to go to rehab and would prefer to go home. She says she is 'self sufficient'.
Address, points of contact and insurance verified
PCP: Priscila Ramirez
Pharmacy: [facility]
Plan: Home, no needs anticipated
[2024-12-02] MEDS: ROXICODONE 5 MG PO (20:49)
[2024-12-03 03:14] VITALS: BP 116/64
[2024-12-03] MEDS: SYNTHROID 88 MCG PO (06:24)
[2024-12-03 07:35] VITALS: BP 124/64
--- NOTE | 2024-12-03 08:18 | W.PN.HOSP.TC ---
Today's Communication/Plan
-
see plan
Assessment / Plan
Assessment / Plan
Gen: NAD, AAOx3.
Eyes: EOMI, PERRLA, no scleral icterus.
Neck: supple.
CV: remains RRR, +S1/S2, 2/6 systolic murmur
Resp: CTAB anteriorly, no rales, wheezes, or rhonchi.
Abd: +BS, soft, NT, ND
Skin: No rashes.
Neuro: remains CN 2-12 intact, non-focal.
Psych: Normal mood and affect.
Colonoscopy:Hemorrhoids found on perianal exam.
- The examined portion of the ileum was normal.
- One 5 mm polyp in the transverse colon, removed with a cold
snare. Resected and retrieved.
- Two 4 to 6 mm, non-bleeding polyps in the descending colon,
removed with a cold snare. Resected and retrieved.
- Diverticulosis in the sigmoid colon and in the descending colon.
- Tortuous colon. No obvious significant stenosis in the sigmoid
colon.
- Non-bleeding internal hemorrhoids
CT LLE: Acute fracture of the left greater femoral trochanter.
Syncopal episodes:
-likely secondary to hypovolemia/orthostatic hypotension from prep from colonoscopy and anesthesia the morning of admission
-EKG with sinus bradycardia
-pt seen by cardiology. Interrogation of internal loop recorder without arrhythmia at the time of syncopal event. PPM interrogation showed pause > 5 sec on 11/19 but this was artifact.
-orthostatic VS NEG
-s/p 1L NS on admission
-tele
-echo tomorrow as per discussion with Dr. Saenz
Acute on chronic hyponatremia:
-likely secondary to GI losses
-Na improved to 132 after IVFs, now 129
-check serum Osm, UOsm, John'
-c/s renal
Acute nondisplaced fracture of the greater trochanter of the L proximal femur:
-ortho saw in c/s, no indication for surgical intervention at this time
-pain control
-PT/OT
Other problems:
h/o PPM
h/o prior ileus: Colonoscopy was reportedly performed due to concern for colonic stricture and potential need for surgery with ostomy (see above)
h/o CVA: cont ASA/statin (plavix on hold as above)
Cervical/endometrial CA /sp surgery/radiation
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
PAD s/p R proximal SFA stent/R common femoral endarterectomy: cont ASA/statin
Essential HTN: cont losartan
Hypothyroidism: cont Levoxyl
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
Anxiety/depression: cont Lexapro
FULL/SCDs + Lovenox
Anticipated Discharge: Within 24 hours
Subjective/Interval History
-
Date of Service: December 03, 2024
Objective Data
-
Vital Signs:
Vital Signs
Temp Pulse Resp BP Pulse Ox
99.5 F 64 16 116/64 94
12/03/24 03:14 12/03/24 03:14 12/03/24 03:14 12/03/24 03:14 12/03/24 03:14
I&O
12/02/24 12/03/24 12/04/24
06:59 06:59 06:59
Intake Total 240 / 240
Output Total 1050 / 1050
Balance -810 / -810
[2024-12-03] MEDS: LEXAPRO 5 MG PO (09:11)
[2024-12-03] MEDS: LIPITOR 40 MG PO (09:11)
[2024-12-03] MEDS: FLOMAX 0.4 MG PO (09:11)
[2024-12-03] MEDS: VITAMIN B-12 1000 MCG PO (09:12)
[2024-12-03] MEDS: VISBIOME 1 CAP PO (09:13)
[2024-12-03] MEDS: LOW STRENGTH ASPIRIN 81 MG PO (09:13)
[2024-12-03 09:23] LABS: Hematocrit 29.6 % (37.0-47.0); Hemoglobin 10.2 g/dL (12.0-16.0); Mean Corp Hgb Conc. 34.5 g/dL (33.0-37.0); Mean Corpuscular Volume 98.3 fL (81.0-99.0); Platelet Count 196 10^3/uL (130-400); Red Cell Dist. Width 13.7 % (11.5-14.5)
[2024-12-03 09:26] LABS: Blood Urea Nitrogen 10 mg/dl (7-17); Calcium 9.0 mg/dl (8.4-10.2); Carbon Dioxide 27 mmol/L (22-30); Chloride 100 mmol/L (98-107); Estimated Creatinine Clearance 48 ml/min; Glucose 92 mg/dl (70-99); Potassium 4.0 mmol/L (3.5-5.1); Sodium 129 mmol/L (135-145); eGFR > 60.00
--- NOTE | 2024-12-03 10:50 | W.PN.CD ---
Today's Communication / Plan
-
echo in AM
Impression / Plan
-
Acute fracture of the left greater femoral trochanter:
-no plans for OR per ortho
Syncope:
-preceded by light-headedness, and was in setting of colonoscopy prep; Loop recorder did not show any correlating arrhythmia. We are consulted since pause reported on loop recorder; looked at this report from November 17 2024-December 01 2024, the
only reported arrhythmia was November 19, 2024 and was reported as >5 second pause, but this was erroneous on my review of strips and report and there was no pause. There was no arrhythmia yesterday during the syncope.
-I suspect this was related to orthostasis. This may have been worsened in the setting of colonoscopy prep. Fluids given. She is back to baseline
-echo in AM
Mild :
-echo 04/27/23: Normal biventricular size and systolic function without regional wall motion abnormality. Estimated LVEF 55-60%. Mild aortic stenosis. Mild aortic regurgitation. Mild/moderate tricuspid regurgitation. Normal PASP.
-will update echo
Hyponatremia:
-per hospitalist
HTN
-BP is at goal: continue losartan 50mg daily
Physical Exam
Vital Signs/Labs
Vital Signs
Temp Pulse Resp BP Pulse Ox
98.6 F 60 16 124/64 97
12/03/24 07:35 12/03/24 07:35 12/03/24 07:35 12/03/24 07:35 12/03/24 07:35
12/02/24 12/03/24 12/04/24
06:59 06:59 06:59
Actual Weight 41.532 kg
12/03/24 08:52
12/03/24 08:52
Magnesium 1.7 mg/dl (1.6-2.3) 12/01/24 19:59
LAB Results
12/01/24
19:59
Troponin I < 0.012
Physical Exam
Constitutional: No acute distress and Comfortable
EENT: Moist mucous membranes
Cardiovascular: Rhythm & rate is regular, Pedal edema is absent, JVD pressure is normal and Systolic murmur present
Respiratory: Respiratory effort normal and Lungs clear to auscul.
Neuro/Psych: AO x 3
Data Reviewed
-
Date of Service: December 03, 2024
EKG: Other (Tele: SR, PVC's)
Labs: Labs Reviewed by me
[2024-12-03 11:29] VITALS: BP 106/55
[2024-12-03 15:25] VITALS: BP 107/65
--- NOTE | 2024-12-03 15:58 | W.CON.NEPH ---
Consultation
-
Date/Time Consultation Requested: December 03, 2024 9 AM
Date/Time Consultation Performed: December 03, 2024 12 PM
Requesting Provider: Juan Ramon Sapp
Performing Provider: Dr. Patel
Reason for Consultation: Hyponatremia
Medical History
-
Chief Complaint: Hyponatremia
History of Present Illness:
83-year-old female past medical history of pacemaker, chronic diarrhea, hyponatremia, peripheral arterial disease status post right proximal SFA stent/right common femoral endarterectomy, hypertension, hypothyroidism, cervical cancer status post
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
Patient had a colonoscopy 12/01 ook colon prep significant amount of loose stool. She underwent a colonoscopy without complications. Colonoscopy was performed because there was some concern the patient had a colonic stricture potentially
requiring surgery. The colonoscopy today did show scarring but no other abnormalities. Subsequently she felt dizzy when getting up and passed out and had 2 further episodes of syncope.
She last had a syncopal episode few months ago but did not have any workup performed.
Found to have a dislocated hip nonsurgical
Renal consult for hyponatremia 129.
She has a poor appetite does not seem to eat enough for solute and volume. She drinks about 60 ounces of liquid per day. Sodium initially was low improved with IV fluids and back down to 129.
Past Medical History
83-year-old female past medical history of pacemaker, chronic diarrhea, hyponatremia, peripheral arterial disease status post right proximal SFA stent/right common femoral endarterectomy, hypertension, hypothyroidism, cervical cancer status post
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
Social History
Tobacco: Non-Smoker
Alcohol: None
Family History
Family History: Not Pertinent
Allergies / Home Medications
Allergy/AdvReac Type Severity Reaction Status Date / Time
No Known Allergies Allergy Verified 12/01/24 19:44
�Medication �Instructions �Recorded �Confirmed �Type
losartan 50 mg tablet 50 mg PO DAILY Blood pressure 12/04/21 12/02/24 History
atorvastatin 40 mg tablet (Lipitor) 40 mg PO DAILY #30 tabs 12/05/21 12/02/24 Rx
calcium carbonate (Calcium 600) 600 mg PO DAILY Supplement 02/08/24 12/02/24 History
levothyroxine 88 mcg tablet 88 mcg PO DAILY Thyroid 02/13/24 12/02/24 History
(Synthroid)
aspirin 81 mg chewable tablet 81 mg PO DAILY #0 tabs 03/01/24 12/02/24 Rx
loperamide 2 mg capsule 2 mg PO Q6HPRN PRN diarrhea 05/10/24 12/02/24 History
acetaminophen 500 mg tablet 1,000 mg PO Q6H PRN pain 05/31/24 12/02/24 History
(Tylenol Extra Strength)
cholecalciferol (vitamin D3) 25 25 mcg PO DAILY ##0 08/30/24 12/02/24 History
mcg (1,000 unit) tablet (Vitamin
D3)
ascorbic acid (vitamin C) 250 mg 250 mg PO DAILY 09/28/24 12/02/24 History
tablet (Vitamin C)
cyanocobalamin (vitamin B-12) 1,000 mcg PO DAILY 09/28/24 12/02/24 History
1,000 mcg tablet
docusate sodium 100 mg capsule 100 mg PO PRN PRN constipation 09/28/24 12/02/24 History
(Colace)
tamsulosin 0.4 mg capsule (Flomax) 0.4 mg PO DAILY 09/28/24 12/02/24 History
therapeutic multivitamin 1 tab PO DAILY 09/28/24 12/02/24 History
escitalopram oxalate 5 mg tablet 5 mg PO DAILY 12/01/24 12/02/24 History
lactobacillus combination no.4 3 3,000 mmu cells PO DAILY 12/01/24 12/02/24 History
billion cell capsule (Probiotic)
Review of Systems
-
All other systems: Negative unless noted
Physical Exam
Vital Signs
Vital Signs
Temp Pulse Resp BP Pulse Ox
98.5 F 65 16 106/55 96
12/03/24 11:29 12/03/24 11:29 12/03/24 11:29 12/03/24 11:29 12/03/24 11:29
Lab Results
WBC 6.9 10^3/uL (4.8-10.8) 12/03/24 08:52
RBC 3.01 10^6/uL (4.20-5.40) L 12/03/24 08:52
Hgb 10.2 g/dL (12.0-16.0) L 12/03/24 08:52
Hct 29.6 % (37.0-47.0) L 12/03/24 08:52
Plt Count 196 10^3/uL (130-400) 12/03/24 08:52
Sodium 129 mmol/L (135-145) L 12/03/24 08:52
Potassium 4.0 mmol/L (3.5-5.1) 12/03/24 08:52
Chloride 100 mmol/L (98-107) 12/03/24 08:52
Carbon Dioxide 27 mmol/L (22-30) 12/03/24 08:52
BUN 10 mg/dl (7-17) 12/03/24 08:52
Creatinine 0.6 mg/dL (0.6-1.0) 12/03/24 08:52
eGFR > 60.00 12/03/24 08:52
Glucose 92 mg/dl (70-99) 12/03/24 08:52
Calcium 9.0 mg/dl (8.4-10.2) 12/03/24 08:52
Albumin 3.4 g/dl (3.5-5.0) L 12/02/24 07:05
Physical Exam
General no acute distress
HEENT no cephalic atraumatic extraocular muscle intact no scleral icterus no JVD neck supple
lungs clear to auscultation bilateral
heart regular S1-S2 positive
abdomen soft nontender positive bowel sounds
extremities no edema pulses present bilateral
Neurologically nonfocal alert and oriented x 3
Skin no lesions no abrasions no petechiae
Psych normal affect no bizarre behavior
Data Reviewed
-
Radiology: Image Personally Visualized and interpreted
Assessment/Plan
-
83-year-old female past medical history of pacemaker, chronic diarrhea, hyponatremia, peripheral arterial disease status post right proximal SFA stent/right common femoral endarterectomy, hypertension, hypothyroidism, cervical cancer status post
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
She status post colonoscopy presenting with syncope and fall dislocated hip and on surgical.
Impression
Hyponatremia mild. 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 Also has low normal blood pressure certainly contributing to increased ADH
Status post syncopal event.
Chronic urinary retention requiring self-catheterization.
Hip dislocation nonoperable.
Vasculopath.
Plan.
Discussed with the patient and family at bedside.
Suggest increase protein in her diet 60+ grams with fluid restriction 48 ounces patient states she wants to drink a lot of fluid because of self-catheterization I told her to drink a moderate amount as discussed.
Sodium has been low on 3 different occasions in the last admission in September at 129. Where she was admitted for suspected ileus
Echo pending
Blood pressure soft will need to consider midodrine once we had echo
Check TSH in the a.m.
[2024-12-03] MEDS: TYLENOL 650 MG PO (18:14)
[2024-12-03] MEDS: LOVENOX 40 MG SC (18:15)
[2024-12-03 19:45] VITALS: BP 106/57
[2024-12-03 23:54] VITALS: BP 120/61; BP 120/63; BP 124/63; PULSE 60; PULSE 63; PULSE 64
[2024-12-04] VITALS (8 sets, daily range): BP systolic 94–158; BP diastolic 51–82; PULSE 87; O2SAT 99; BMI 17.3
[2024-12-04] MEDS: SYNTHROID 88 MCG PO (06:23)
--- NOTE | 2024-12-04 07:39 | W.PN.CD ---
Today's Communication / Plan
-
echo today
reduced losartan to 25mg po daily
If echo stable cardiology will sign off
Impression / Plan
-
Cards: Dr Floyd
Acute fracture of the left greater femoral trochanter:
-no plans for OR per ortho
Syncope:
-preceded by light-headedness, and was in setting of colonoscopy prep; Loop recorder did not show any correlating arrhythmia. We are consulted since pause reported on loop recorder; looked at this report from November 17 2024-December 01 2024, the
only reported arrhythmia was November 19, 2024 and was reported as >5 second pause, but this was erroneous on my review of strips and report and there was no pause. There was no arrhythmia yesterday during the syncope.
-I suspect this was related to orthostasis. This may have been worsened in the setting of colonoscopy prep. Fluids given. She is back to baseline
-echo today
Mild :
-echo 04/27/23: Normal biventricular size and systolic function without regional wall motion abnormality. Estimated LVEF 55-60%. Mild aortic stenosis. Mild aortic regurgitation. Mild/moderate tricuspid regurgitation. Normal PASP.
-will update echo, I hear a second heart sound so doubt this jumped to severe
Hyponatremia:
-per hospitalist
HTN
-will reduce losartan to 25mg given nephrology c/f bp and suggesting midodrine, would first lower losartan dose
-she will watch bp at home and call office for rising values
Subj:
No dizziness but hasn't been oob yet
Physical Exam
Vital Signs/Labs
Vital Signs
Temp Pulse Resp BP Pulse Ox
99.2 F 61 16 120/63 95
12/04/24 03:55 12/04/24 03:55 12/04/24 03:55 12/04/24 03:55 12/04/24 03:55
Magnesium 1.7 mg/dl (1.6-2.3) 12/01/24 19:59
LAB Results
12/01/24
19:59
Troponin I < 0.012
Physical Exam
Constitutional: No acute distress
Cardiovascular: Rhythm & rate is regular, JVD pressure is normal and Systolic murmur present (2/6 crescendo decrescendo in RUSB clear A2)
Respiratory: Respiratory effort normal, Lungs clear to auscul., Wheeze Absent and Crackles Absent
Neuro/Psych: AO x 3
Data Reviewed
-
Date of Service: December 04, 2024
Medical Decision Making: Review of Case with other Provider (Dr Dumont,)
[2024-12-04 09:14] LABS: Hematocrit 30.7 % (37.0-47.0); Hemoglobin 10.2 g/dL (12.0-16.0); Mean Corp Hgb Conc. 33.2 g/dL (33.0-37.0); Mean Corpuscular Volume 100.3 fL (81.0-99.0); Platelet Count 193 10^3/uL (130-400); Red Cell Dist. Width 13.9 % (11.5-14.5)
--- NOTE | 2024-12-04 09:34 | W.PN.HOSP.TC ---
Today's Communication/Plan
-
Trend Na, discharge planning
Assessment / Plan
Assessment / Plan
Colonoscopy:Hemorrhoids found on perianal exam.
- The examined portion of the ileum was normal.
- One 5 mm polyp in the transverse colon, removed with a cold
snare. Resected and retrieved.
- Two 4 to 6 mm, non-bleeding polyps in the descending colon,
removed with a cold snare. Resected and retrieved.
- Diverticulosis in the sigmoid colon and in the descending colon.
- Tortuous colon. No obvious significant stenosis in the sigmoid
colon.
- Non-bleeding internal hemorrhoids
CT LLE: Acute fracture of the left greater femoral trochanter.
Syncopal episodes:
-likely secondary to hypovolemia/orthostatic hypotension from prep from colonoscopy and anesthesia the morning of admission
-EKG with sinus bradycardia
-pt seen by cardiology. Interrogation of internal loop recorder without arrhythmia at the time of syncopal event. PPM interrogation showed pause > 5 sec on 11/19 but this was artifact.
-orthostatic VS NEG
-appreciate cardiology input, losartan decreased to 25 mg daily, echocardiogram requested
Acute on chronic hyponatremia:
-likely secondary to GI losses
-appreciate nephrology input, urine studies suggestive of SIADH
-continue fluid restriction, trend sodium
Acute nondisplaced fracture of the greater trochanter of the L proximal femur:
-appreciate ortho input, no indication for surgical intervention at this time
-PT/OT rec SNF
Other problems:
h/o PPM
h/o prior ileus: Colonoscopy was reportedly performed due to concern for colonic stricture and potential need for surgery with ostomy (see above)
h/o CVA: cont ASA/statin (plavix on hold as above)
Cervical/endometrial CA /sp surgery/radiation
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
PAD s/p R proximal SFA stent/R common femoral endarterectomy: cont ASA/statin
Essential HTN: cont losartan
Hypothyroidism: cont Levoxyl
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
Anxiety/depression: cont Lexapro
DVT prophylaxis�subcu Lovenox
Full code
Total time spent to see the patient on the floor, examine the patient, review data and lab results, discuss treatment plan with patient, nursing staff around 40 minutes.
Physical Exam
General: No acute distress
HEENT: Normocephalic, Atraumatic, EOMI, MMM
Respiratory: Clear to Auscultation bilaterally
Cardiac: Normal S1/S2, Regular Rate and Rhythm
GI: Soft, Nontender, Nondistended, Normal Bowel Sounds
Extremities: No Clubbing, Cyanosis, or Edema
Neuro: Nonfocal/Grossly Intact
Anticipated Discharge: Within 24 hours
Subjective/Interval History
-
Date of Service: December 04, 2024
Patient denies hip pain. Denies dizziness, chest pain, or shortness of breath. No fever, no vomiting.
Objective Data
-
Labs:
Laboratory Results
12/04/24
08:31
WBC 5.5
Hgb 10.2 L
Hct 30.7 L
Plt Count 193
Sodium Pending
Potassium Pending
Chloride Pending
Carbon Dioxide Pending
BUN Pending
Creatinine Pending
Glucose Pending
Calcium Pending
Vital Signs:
Vital Signs
Temp Pulse Resp BP Pulse Ox
98.8 F 60 18 117/65 95
12/04/24 08:31 12/04/24 08:31 12/04/24 08:31 12/04/24 08:31 12/04/24 08:31
I&O
12/03/24 12/04/24 12/05/24
06:59 06:59 06:59
Intake Total 240 / 240 1200 / 1200
Output Total 1050 / 1050
Balance -810 / -810 1200 / 1200
[2024-12-04 10:04] LABS: Blood Urea Nitrogen 11 mg/dl (7-17); Calcium 9.1 mg/dl (8.4-10.2); Carbon Dioxide 28 mmol/L (22-30); Chloride 95 mmol/L (98-107); Estimated Creatinine Clearance 41 ml/min; Glucose 96 mg/dl (70-99); Potassium 4.3 mmol/L (3.5-5.1); Sodium 128 mmol/L (135-145); eGFR > 60.00
[2024-12-04] MEDS: LEXAPRO 5 MG PO (10:37)
[2024-12-04] MEDS: LIPITOR 40 MG PO (10:37)
[2024-12-04] MEDS: VISBIOME 1 CAP PO (10:37)
[2024-12-04] MEDS: LOW STRENGTH ASPIRIN 81 MG PO (10:37)
[2024-12-04] MEDS: COZAAR 25 MG PO (10:37)
[2024-12-04] MEDS: FLOMAX 0.4 MG PO (10:38)
[2024-12-04] MEDS: VITAMIN B-12 1000 MCG PO (10:38)
--- NOTE | 2024-12-04 11:01 | W.PN.NEPH.PH ---
Today's Communication / Plan
-
Placed 48 ounce fluid restriction
Follow-up BMP in a.m.
Assessment/Plan
-
83-year-old female past medical history of pacemaker, chronic diarrhea, hyponatremia, peripheral arterial disease status post right proximal SFA stent/right common femoral endarterectomy, hypertension, hypothyroidism, cervical cancer status post
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
She status post colonoscopy presenting with syncope and fall dislocated hip and on surgical.
Impression
Hyponatremia mild. 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 Also has low normal blood pressure certainly contributing to increased ADH
Status post syncopal event.
Chronic urinary retention requiring self-catheterization.
Hip dislocation nonoperable.
Vasculopath.
Plan.
Discussed with the patient
Sodium down to 128m urine awesome 322 urine sodium 53
I added 48 ounce fluid restriction today
Previous suggest increase protein in her diet 60+ grams with fluid restriction 48 ounces patient states she wants to drink a lot of fluid because of self-catheterization I told her to drink a moderate amount as discussed.
Sodium has been low on 3 different occasions in the last admission in September at 129. Where she was admitted for suspected ileus
Echo pending
Blood pressure soft will need to consider midodrine once we had echo
-
-
Date of Service: December 04, 2024
CC / HPI / ROS
-
Chief Complaint:
Hyponatremia
History of Present Illness:
Serum sodium down to 128
Hemodynamically stable
Review of Systems:
No chest pain or shortness of breath
No fevers
Labs
-
Labs:
WBC 5.5 10^3/uL (4.8-10.8) 12/04/24 08:31
RBC 3.06 10^6/uL (4.20-5.40) L 12/04/24 08:31
Hgb 10.2 g/dL (12.0-16.0) L 12/04/24 08:31
Hct 30.7 % (37.0-47.0) L 12/04/24 08:31
Plt Count 193 10^3/uL (130-400) 12/04/24 08:31
Sodium 128 mmol/L (135-145) L 12/04/24 08:31
Potassium 4.3 mmol/L (3.5-5.1) 12/04/24 08:31
Chloride 95 mmol/L (98-107) L 12/04/24 08:31
Carbon Dioxide 28 mmol/L (22-30) 12/04/24 08:31
BUN 11 mg/dl (7-17) 12/04/24 08:31
Creatinine 0.7 mg/dL (0.6-1.0) 12/04/24 08:31
eGFR > 60.00 12/04/24 08:31
Glucose 96 mg/dl (70-99) 12/04/24 08:31
Calcium 9.1 mg/dl (8.4-10.2) 12/04/24 08:31
Albumin 3.4 g/dl (3.5-5.0) L 12/02/24 07:05
Physical Exam
-
Vital Signs:
Vital Signs
Temp Pulse Resp BP Pulse Ox
98.8 F 60 18 117/65 95
12/04/24 08:31 12/04/24 08:31 12/04/24 08:31 12/04/24 10:37 12/04/24 08:31
Cardiovascular:: Regular rate and rhythm
Respiratory:: Bilateral: CTA
Lung Excursion:: Normal
Abdomen:: Nontender
Bowel Sounds:: Normal
Extremity Edema:: None: Bilateral:
Neal Catheter: No
[2024-12-04] MEDS: LOVENOX 40 MG SC (17:15)
--- NOTE | 2024-12-04 18:04 | CM ---
Pt remains on fluid restriction, labs are being monitored (low Na+). Pt on PO pain meds. Echo pending.
Pt has hx of SNF at [facility] and does not wish to return there. CM will meet with pt tomorrow and discuss snf recommendation and choices of facilities.
Plan:TBD
[2024-12-05] VITALS (10 sets, daily range): BP systolic 94–127; BP diastolic 52–67; PULSE 61–84; O2SAT 99–100
[2024-12-05] MEDS: SYNTHROID 88 MCG PO (05:12)
[2024-12-05 08:56] LABS: Blood Urea Nitrogen 16 mg/dl (7-17); Calcium 8.9 mg/dl (8.4-10.2); Carbon Dioxide 25 mmol/L (22-30); Chloride 99 mmol/L (98-107); Estimated Creatinine Clearance 48 ml/min; Glucose 89 mg/dl (70-99); Potassium 4.2 mmol/L (3.5-5.1); Sodium 130 mmol/L (135-145); eGFR > 60.00
[2024-12-05] MEDS: FLOMAX 0.4 MG PO (09:06)
[2024-12-05] MEDS: VITAMIN B-12 1000 MCG PO (09:06)
[2024-12-05] MEDS: LIPITOR 40 MG PO (09:06)
[2024-12-05] MEDS: LOW STRENGTH ASPIRIN 81 MG PO (09:07)
[2024-12-05] MEDS: LEXAPRO 5 MG PO (09:08)
[2024-12-05] MEDS: VISBIOME 1 CAP PO (09:09)
[2024-12-05] MEDS: COZAAR 25 MG PO (09:09)
--- NOTE | 2024-12-05 09:28 | W.PN.HOSP.TC ---
Today's Communication/Plan
-
see bold
Assessment / Plan
Assessment / Plan
Colonoscopy:Hemorrhoids found on perianal exam.
- The examined portion of the ileum was normal.
- One 5 mm polyp in the transverse colon, removed with a cold
snare. Resected and retrieved.
- Two 4 to 6 mm, non-bleeding polyps in the descending colon,
removed with a cold snare. Resected and retrieved.
- Diverticulosis in the sigmoid colon and in the descending colon.
- Tortuous colon. No obvious significant stenosis in the sigmoid
colon.
- Non-bleeding internal hemorrhoids
CT LLE: Acute fracture of the left greater femoral trochanter.
Syncopal episodes:
-likely secondary to hypovolemia/orthostatic hypotension from prep from colonoscopy and anesthesia the morning of admission
-EKG with sinus bradycardia
-pt seen by cardiology. Interrogation of internal loop recorder without arrhythmia at the time of syncopal event. PPM interrogation showed pause > 5 sec on 11/19 but this was artifact.
-orthostatic VS NEG
-appreciate cardiology input, losartan decreased to 25 mg daily, echocardiogram normal
Acute on chronic hyponatremia:
-likely secondary to GI losses
-appreciate nephrology input, urine studies suggestive of SIADH
-continue fluid restriction, trend sodium
Acute nondisplaced fracture of the greater trochanter of the L proximal femur:
-appreciate ortho input, no indication for surgical intervention at this time
-PT/OT rec SNF, CM on board
Acute abdominal distention:
- Patient having intermittent abdominal pain, she is passing gas and stool
- Acute obstruction series shows possible ileus versus partial small bowel obstruction
- Change regular diet to full liquids
Other problems:
h/o PPM
h/o prior ileus: Colonoscopy was reportedly performed due to concern for colonic stricture and potential need for surgery with ostomy (see above)
h/o CVA: cont ASA/statin (plavix on hold as above)
Cervical/endometrial CA /sp surgery/radiation
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
PAD s/p R proximal SFA stent/R common femoral endarterectomy: cont ASA/statin
Essential HTN: cont losartan
Hypothyroidism: cont Levoxyl
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
Anxiety/depression: cont Lexapro
DVT prophylaxis�subcu Lovenox
Full code
Total time spent to see the patient on the floor, examine the patient, review data and lab results, discuss treatment plan with patient, nursing staff around 51 minutes.
Physical Exam
General: No acute distress
HEENT: Normocephalic, Atraumatic, EOMI, MMM
Respiratory: Clear to Auscultation bilaterally
Cardiac: Normal S1/S2, Regular Rate and Rhythm
GI: Distended, nontender, tympanic to percussion, hypoactive bowel sounds
Extremities: No Clubbing, Cyanosis, or Edema
Neuro: Nonfocal/Grossly Intact
Anticipated Discharge: 24 - 48 hours
Subjective/Interval History
-
Date of Service: December 05, 2024
Patient complains of abdominal pain after eating. Denies nausea, denies vomiting. She is passing gas and stool. No fever.
Objective Data
-
Labs:
Laboratory Results
12/05/24
08:00
Sodium 130 L
Potassium 4.2
Chloride 99
Carbon Dioxide 25
BUN 16
Creatinine 0.6
Glucose 89
Calcium 8.9
Vital Signs:
Vital Signs
Temp Pulse Resp BP Pulse Ox
98.1 F 66 16 123/63 95
12/05/24 07:15 12/05/24 09:09 12/05/24 07:15 12/05/24 09:09 12/05/24 07:15
I&O
12/04/24 12/05/24 12/06/24
06:59 06:59 06:59
Intake Total 1200 / 1200
Balance 1200 / 1200
--- NOTE | 2024-12-05 11:54 | CM ---
Addendum entered by Nicolasa Ledesma 12/05/24 17:43:
[facility] has a SNF bed available tomorrow. Family aware. Auth started. Pending auth # [id number]
Dr Porter made aware of of bed availability. Stated pt may not be discharged tomorrow because the pt now has abdominal distention
Addendum entered by Nicolasa Ledesma 12/05/24 15:11:
Additional referrals placed: [facility], [facility] and [facility],
Original Note:
Presented pt with list of SNFs. Referrals placed with [facility] and [facility]; LM with [facility]. Will get more choices when pt returns from xray.
Plan: D/C to SNF when bed available. Will need auth.
[2024-12-05] MEDS: BENTYL 10 MG PO (13:37)
--- NOTE | 2024-12-05 15:23 | W.PN.NEPH.PH ---
Today's Communication / Plan
-
Maintain fluid restriction
Follow BMP daily
Assessment/Plan
-
83-year-old female past medical history of pacemaker, chronic diarrhea, hyponatremia, peripheral arterial disease status post right proximal SFA stent/right common femoral endarterectomy, hypertension, hypothyroidism, cervical cancer status post
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
She status post colonoscopy presenting with syncope and fall dislocated hip and on surgical.
Impression
Hyponatremia mild. 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 Also has low normal blood pressure certainly contributing to increased ADH
Status post syncopal event.
Chronic urinary retention requiring self-catheterization.
Hip dislocation nonoperable.
Vasculopath.
Plan.
Discussed with the patient
Sodium up to 130 on 48 ounce fluid restriction
Patient now diagnosed with ileus and only on fluid restriction
Previous suggest increase protein in her diet 60+ grams with fluid restriction 48 ounces patient states she wants to drink a lot of fluid because of self-catheterization I told her to drink a moderate amount as discussed.
Sodium has been low on 3 different occasions in the last admission in September at 129. Where she was admitted for suspected ileus
Echo appears predominantly normal
Cardiology reduced losartan which should help elevate MAP which will help with hyponatremia
-
-
Date of Service: December 05, 2024
CC / HPI / ROS
-
Chief Complaint:
Hyponatremia
History of Present Illness:
Serum sodium improved to 130
Hemodynamically stable
Review of Systems:
No chest pain or shortness of breath
No fevers
Labs
-
Labs:
WBC 5.5 10^3/uL (4.8-10.8) 12/04/24 08:31
RBC 3.06 10^6/uL (4.20-5.40) L 12/04/24 08:31
Hgb 10.2 g/dL (12.0-16.0) L 12/04/24 08:31
Hct 30.7 % (37.0-47.0) L 12/04/24 08:31
Plt Count 193 10^3/uL (130-400) 12/04/24 08:31
Sodium 130 mmol/L (135-145) L 12/05/24 08:00
Potassium 4.2 mmol/L (3.5-5.1) 12/05/24 08:00
Chloride 99 mmol/L (98-107) 12/05/24 08:00
Carbon Dioxide 25 mmol/L (22-30) 12/05/24 08:00
BUN 16 mg/dl (7-17) 12/05/24 08:00
Creatinine 0.6 mg/dL (0.6-1.0) 12/05/24 08:00
eGFR > 60.00 12/05/24 08:00
Glucose 89 mg/dl (70-99) 12/05/24 08:00
Calcium 8.9 mg/dl (8.4-10.2) 12/05/24 08:00
Albumin 3.4 g/dl (3.5-5.0) L 12/02/24 07:05
Physical Exam
-
Vital Signs:
Vital Signs
Temp Pulse Resp BP Pulse Ox
98.2 F 61 16 107/53 98
12/05/24 11:29 12/05/24 11:29 12/05/24 11:29 12/05/24 11:29 12/05/24 11:29
Cardiovascular:: Regular rate and rhythm
Respiratory:: Bilateral: CTA
Lung Excursion:: Normal
Abdomen:: Distended and Nontender
Bowel Sounds:: Decreased
Extremity Edema:: None: Bilateral:
Neal Catheter: No
--- NOTE | 2024-12-05 15:37 | PN.CDI ---
CDI
- -
CDI:
Physician Documentation Request
Admit Date: 12/01/24 21:44
Dear Doctor Do,
Clinical Indicators:
Patient admitted with syncope.
BMI 17.3
12/04 note/assessment:'Pts weight previous admission listed as 96 bs (09/28) reflective of a 5% weight loss in
two months.'
-Subcutaneous Loss: Rib cage, Tricep, Orbital- Severe
-Muscle Loss: Clavicle, Temporal - Severe
-'With < 75% estimated needs > 1 month and observed muscle and fat wasting pt
meets AND/ASPEN criteria for severe protein calorie malnutrition of chronic
illness.RD to add enriched pudding to lunch and dinner trays. '
Based on the above information and your assessment, which of the following most accurately represents the patient's nutritional status?
Severe Protein Calorie Malnutrition
Other (please specify)
[place] Criteria ([facility] Hospitalist 2017)
2 or more criteria must be present for either
non severe or severe malnutrition
Note that the criteria differs related to the
presence of an acute or chronic illness
Chronic Illness
Energy Intake Non Severe: <75% for >1 month
Severe: <75% for >1 month
Weight Loss Non Severe: 5% over 1 month
7.5% over 3 months
10% over 6 months
20% over 1 year
Severe: >5% over 1 month
>7.5% over 3 months
>10% over 6 months
>20% over 1 year
Body Fat Non Severe: Mild Loss
Severe: Severe Loss
Muscle Mass Non Severe: Mild Loss
Severe: Severe Loss
Fluid Accumulation Non Severe: Mild Accumulation
Severe: Moderate to severe
accumulation
Reduced [employer] Strength Non Severe: N/A
Severe: Measurably reduced
Additional criteria that can be used to Determine if Mild or Moderate Malnutrition (Merck Manual 2018)
Mild Moderate Severe
Albumin gm/dl <3.0 gm/dl <2.5 gm/dl <2.0 gm/dl
Pre Albumin mg/dl <15 gm/dl <10 mg/dl <5.0 mg/dl
BMI <18.5 <17 <16
Use of terms such as suspected, likely, concern for, or probable (associated with a specific diagnosis that is being evaluated, monitored, or treated as if it exists) are acceptable and can be coded in the inpatient setting, when documented at the
time of discharge.
Thank you,
JERMAN Pierce RN
CDI Specialist
available via tiger text
Please use your independent medical judgment in providing your response.
--- NOTE | 2024-12-05 15:44 | PN.CDI ---
CDI
- -
CDI:
Physician Documentation Request
Admit Date: 12/01/24 21:44
Dear Doctor Do,
Clinical Indicators:
Patient admitted with syncope.
12/02,12/03 RN skin wound assessments: Sacrum Stage 1 Pressure Injury, POA
Treatment: Silicone Border Foam dressing
Physician documentation of the type and location of wounds is required for compliant documentation. Based on the above clinical findings and your assessment, please provide the following in your progress note:
1. Location of the ulcer/wound, including laterality.
2. Type (etiology) of ulcer/wound:
- Diabetic ulcer
- Arterial (ischemic) ulcer
- Traumatic wound
- Venous stasis ulcer
- Pressure (decubitus) ulcer
- Non-healing surgical wound
- Other
- Unable to determine
3. If a pressure ulcer, please also include the stage* of the ulcer:
- Stage 1 - Skin intact, non-blanchable redness
- Stage 2 - Partial thickness loss of dermis, includes intact or open blister
- Stage 3 - Full thickness tissue not including bone, tendon or muscle
- Stage 4 - Full thickness tissue loss, including exposed bone, tendon or muscle
- Unstageable - Full thickness loss in which the base of the ulcer is covered by slough (yellow, leone, pantoja, green or brown) and/or eschar (leone, brown or black) in the wound bed.
- Unable to determine
Use of terms such as suspected, likely, concern for, or probable (associated with a specific diagnosis that is being evaluated, monitored, or treated as if it exists) are acceptable and can be coded in the inpatient setting, when documented at the
time of discharge.
Thank you,
JERMAN Pierce RN
CDI Specialist
available via tiger text
Please use your independent medical judgment in providing your response.
*Source: National Pressure Ulcer Advisory Panel (NPUAP)
[2024-12-05] MEDS: LOVENOX 40 MG SC (16:55)
[2024-12-06] VITALS (9 sets, daily range): BP systolic 89–128; BP diastolic 46–62; PULSE 58–87; O2SAT 100
--- NOTE | 2024-12-06 02:24 | DOWNTIME ---
There was a [employer] Downtime on 12/06/2024 from 0100 to 12/06/2024 at 0215. Downtime documentation of patient's care, including medication administrations, has been reconciled in the electronic record per guidelines. Refer to the
patient's paper chart under the miscellaneous tab to see printed paper medication records and downtime forms.
[2024-12-06] MEDS: SYNTHROID 88 MCG PO (05:46)
[2024-12-06] MEDS: VITAMIN B-12 1000 MCG PO (08:01)
[2024-12-06] MEDS: VISBIOME 1 CAP PO (08:01)
[2024-12-06] MEDS: COZAAR 25 MG PO (08:01)
[2024-12-06] MEDS: FLOMAX 0.4 MG PO (08:01)
[2024-12-06] MEDS: LEXAPRO 5 MG PO (08:01)
[2024-12-06] MEDS: LOW STRENGTH ASPIRIN 81 MG PO (08:02)
[2024-12-06] MEDS: LIPITOR 40 MG PO (08:02)
--- NOTE | 2024-12-06 09:23 | W.PN.HOSP.TC ---
Today's Communication/Plan
-
Patient is medically stable for discharge.
Discharge to short-term rehab when insurance authorization has been obtained.
Assessment / Plan
Assessment / Plan
Colonoscopy:Hemorrhoids found on perianal exam.
- The examined portion of the ileum was normal.
- One 5 mm polyp in the transverse colon, removed with a cold
snare. Resected and retrieved.
- Two 4 to 6 mm, non-bleeding polyps in the descending colon,
removed with a cold snare. Resected and retrieved.
- Diverticulosis in the sigmoid colon and in the descending colon.
- Tortuous colon. No obvious significant stenosis in the sigmoid
colon.
- Non-bleeding internal hemorrhoids
CT LLE: Acute fracture of the left greater femoral trochanter.
Syncopal episodes:
-likely secondary to hypovolemia/orthostatic hypotension from prep from colonoscopy and anesthesia the morning of admission
-EKG with sinus bradycardia
-pt seen by cardiology. Interrogation of internal loop recorder without arrhythmia at the time of syncopal event. PPM interrogation showed pause > 5 sec on 11/19 but this was artifact.
-orthostatic VS NEG
-appreciate cardiology input, losartan decreased to 25 mg daily, echocardiogram normal
Acute on chronic hyponatremia:
-likely secondary to GI losses
-appreciate nephrology input, urine studies suggestive of SIADH
-continue fluid restriction, trend sodium
Acute nondisplaced fracture of the greater trochanter of the L proximal femur:
-appreciate ortho input, no indication for surgical intervention at this time
-PT/OT rec SNF, CM on board
Acute abdominal distention:
- Acute obstruction series shows possible ileus versus partial small bowel obstruction
- Abdominal pain resolved, increase diet to regular
Severe protein calorie malnutrition of chronic illness
- Encourage oral intake
Sacrum Stage 1 Pressure Injury, POA
- Wound care, offloading
Other problems:
h/o PPM
h/o prior ileus: Colonoscopy was reportedly performed due to concern for colonic stricture and potential need for surgery with ostomy (see above)
h/o CVA: cont ASA/statin (plavix on hold as above)
Cervical/endometrial CA /sp surgery/radiation
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
PAD s/p R proximal SFA stent/R common femoral endarterectomy: cont ASA/statin
Essential HTN: cont losartan
Hypothyroidism: cont Levoxyl
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
Anxiety/depression: cont Lexapro
DVT prophylaxis�subcu Lovenox
Full code
Total time spent to see the patient on the floor, examine the patient, review data and lab results, discuss treatment plan with patient, nursing staff around 41 minutes.
Physical Exam
General: No acute distress
HEENT: Normocephalic, Atraumatic, EOMI, MMM
Respiratory: Clear to Auscultation bilaterally
Cardiac: Normal S1/S2, Regular Rate and Rhythm
GI: Distended, nontender, tympanic to percussion, hypoactive bowel sounds
Extremities: No Clubbing, Cyanosis, or Edema
Neuro: Nonfocal/Grossly Intact
Anticipated Discharge: Within 24 hours
Subjective/Interval History
-
Date of Service: December 06, 2024
Patient reports abdominal pain has resolved. She is passing gas and stool. Denies chest pain, denies shortness of breath. No fever, no vomiting.
Objective Data
-
Labs:
Laboratory Results
12/06/24
07:42
Sodium Pending
Potassium Pending
Chloride Pending
Carbon Dioxide Pending
BUN Pending
Creatinine Pending
Glucose Pending
Calcium Pending
Total Bilirubin Pending
AST Pending
ALT Pending
Alkaline Phosphatase Pending
Vital Signs:
Vital Signs
Temp Pulse Resp BP Pulse Ox
98.4 F 58 16 126/62 95
12/06/24 07:45 12/06/24 07:45 12/06/24 07:45 12/06/24 07:45 12/06/24 07:45
I&O
12/05/24 12/06/24 12/07/24
06:59 06:59 06:59
Intake Total 620 / 620
Balance 620 / 620
[2024-12-06 09:37] LABS: ALT (SGPT) 58 U/L (0-35); AST (SGOT) 81 U/L (14-36); Albumin 3.4 g/dl (3.5-5.0); Alkaline Phosphatase 116 U/L (38-126); Blood Urea Nitrogen 17 mg/dl (7-17); Calcium 8.8 mg/dl (8.4-10.2); Carbon Dioxide 26 mmol/L (22-30); Chloride 101 mmol/L (98-107); Estimated Creatinine Clearance 48 ml/min; Glucose 86 mg/dl (70-99); Potassium 3.8 mmol/L (3.5-5.1); Sodium 130 mmol/L (135-145); Total Protein 6.4 g/dl (6.3-8.2); eGFR > 60.00
--- NOTE | 2024-12-06 13:52 | W.PN.NEPH.PH ---
Today's Communication / Plan
-
Fluid restrict
Assessment/Plan
-
83-year-old female past medical history of pacemaker, chronic diarrhea, hyponatremia, peripheral arterial disease status post right proximal SFA stent/right common femoral endarterectomy, hypertension, hypothyroidism, cervical cancer status post
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
She status post colonoscopy presenting with syncope and fall dislocated hip and on surgical.
Impression
Hyponatremia mild. 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 Also has low normal blood pressure certainly contributing to increased ADH
Status post syncopal event.
Chronic urinary retention requiring self-catheterization.
Hip dislocation nonoperable.
Vasculopath.
Plan.
Discussed with the patient
Sodium up to 130 on 48 ounce fluid restriction
Patient now diagnosed with ileus and only on fluid restriction
Previous suggest increase protein in her diet 60+ grams with fluid restriction 48 ounces patient states she wants to drink a lot of fluid because of self-catheterization I told her to drink a moderate amount as discussed.
Sodium has been low on 3 different occasions in the last admission in September at 129. Where she was admitted for suspected ileus
Echo appears predominantly normal
Cardiology reduced losartan which should help elevate MAP which will help with hyponatremia
-
-
Date of Service: December 06, 2024
CC / HPI / ROS
-
Chief Complaint:
Hyponatremia
History of Present Illness:
Serum sodium improved to 130
Hemodynamically stable
Review of Systems:
No chest pain or shortness of breath
No fevers
Labs
-
Labs:
WBC 5.5 10^3/uL (4.8-10.8) 12/04/24 08:31
RBC 3.06 10^6/uL (4.20-5.40) L 12/04/24 08:31
Hgb 10.2 g/dL (12.0-16.0) L 12/04/24 08:31
Hct 30.7 % (37.0-47.0) L 12/04/24 08:31
Plt Count 193 10^3/uL (130-400) 12/04/24 08:31
Sodium 130 mmol/L (135-145) L 12/06/24 07:42
Potassium 3.8 mmol/L (3.5-5.1) 12/06/24 07:42
Chloride 101 mmol/L (98-107) 12/06/24 07:42
Carbon Dioxide 26 mmol/L (22-30) 12/06/24 07:42
BUN 17 mg/dl (7-17) 12/06/24 07:42
Creatinine 0.6 mg/dL (0.6-1.0) 12/06/24 07:42
eGFR > 60.00 12/06/24 07:42
Glucose 86 mg/dl (70-99) 12/06/24 07:42
Calcium 8.8 mg/dl (8.4-10.2) 12/06/24 07:42
Albumin 3.4 g/dl (3.5-5.0) L 12/06/24 07:42
Physical Exam
-
Vital Signs:
Vital Signs
Temp Pulse Resp BP Pulse Ox
97.9 F 67 18 97/54 99
12/06/24 11:07 12/06/24 11:07 12/06/24 11:07 12/06/24 11:07 12/06/24 11:07
Cardiovascular:: Regular rate and rhythm
Respiratory:: Bilateral: CTA
Lung Excursion:: Normal
Abdomen:: Distended and Nontender
Bowel Sounds:: Decreased
Extremity Edema:: None: Bilateral:
Neal Catheter: No
--- NOTE | 2024-12-06 14:00 | PTCARENOTE ---
Pt ate 100% low residue tray. Tolerated well. Denies any abd discomfort or nausea.
[2024-12-06] MEDS: VALIUM 2 MG PO (14:21)
--- NOTE | 2024-12-06 15:53 | W.PN.UPDATE ---
Update Note
Progress Note Update
Patient is medically stable for discharge to short-term rehab when insurance authorization has been obtained.
--- NOTE | 2024-12-06 16:55 | CM ---
IMM given and placed on chart. Pt can be discharged today if she tolerates food. Nurse reports she tolerated breakfast and lunch.
[employer] auth for SNF ( [facility]) denied. It is now with the pesticide use medical coordinator for review. Anticipate response by tomorrow. Pt and family aware. [facility] was also made aware
Pending Auth# [id number]
[2024-12-06] MEDS: LOVENOX 40 MG SC (18:02)
[2024-12-07 03:53] VITALS: BP 134/60
[2024-12-07] MEDS: SYNTHROID 88 MCG PO (05:01)
[2024-12-07 07:00] VITALS: BP 131/61
[2024-12-07 08:17] LABS: ALT (SGPT) 60 U/L (0-35); AST (SGOT) 87 U/L (14-36); Albumin 3.1 g/dl (3.5-5.0); Alkaline Phosphatase 107 U/L (38-126); Blood Urea Nitrogen 20 mg/dl (7-17); Calcium 8.7 mg/dl (8.4-10.2); Carbon Dioxide 26 mmol/L (22-30); Chloride 101 mmol/L (98-107); Estimated Creatinine Clearance 41 ml/min; Glucose 90 mg/dl (70-99); Potassium 3.9 mmol/L (3.5-5.1); Sodium 131 mmol/L (135-145); Total Protein 5.9 g/dl (6.3-8.2); eGFR > 60.00
--- NOTE | 2024-12-07 09:19 | W.PN.HOSP.TC ---
Today's Communication/Plan
-
Discharge to short-term rehab today
Assessment / Plan
Assessment / Plan
Colonoscopy:Hemorrhoids found on perianal exam.
- The examined portion of the ileum was normal.
- One 5 mm polyp in the transverse colon, removed with a cold
snare. Resected and retrieved.
- Two 4 to 6 mm, non-bleeding polyps in the descending colon,
removed with a cold snare. Resected and retrieved.
- Diverticulosis in the sigmoid colon and in the descending colon.
- Tortuous colon. No obvious significant stenosis in the sigmoid
colon.
- Non-bleeding internal hemorrhoids
CT LLE: Acute fracture of the left greater femoral trochanter.
Syncopal episodes:
-likely secondary to hypovolemia/orthostatic hypotension from prep from colonoscopy and anesthesia the morning of admission
-EKG with sinus bradycardia
-pt seen by cardiology. Interrogation of internal loop recorder without arrhythmia at the time of syncopal event. PPM interrogation showed pause > 5 sec on 11/19 but this was artifact.
-orthostatic VS NEG
-appreciate cardiology input, losartan decreased to 25 mg daily, echocardiogram normal
Acute on chronic hyponatremia:
-likely secondary to GI losses
-appreciate nephrology input, urine studies suggestive of SIADH
-continue fluid restriction, trend sodium
Acute nondisplaced fracture of the greater trochanter of the L proximal femur:
-appreciate ortho input, no indication for surgical intervention at this time
-PT/OT rec SNF, CM on board
Acute abdominal distention:
- Acute obstruction series shows possible ileus versus partial small bowel obstruction
- Abdominal pain resolved, increase diet to regular
Severe protein calorie malnutrition of chronic illness
- Encourage oral intake
Sacrum Stage 1 Pressure Injury, POA
- Wound care, offloading
Other problems:
h/o PPM
h/o prior ileus: Colonoscopy was reportedly performed due to concern for colonic stricture and potential need for surgery with ostomy (see above)
h/o CVA: cont ASA/statin (plavix on hold as above)
Cervical/endometrial CA /sp surgery/radiation
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
PAD s/p R proximal SFA stent/R common femoral endarterectomy: cont ASA/statin
Essential HTN: cont losartan
Hypothyroidism: cont Levoxyl
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
Anxiety/depression: cont Lexapro
DVT prophylaxis�subcu Lovenox
Full code
Physical Exam
General: No acute distress
HEENT: Normocephalic, Atraumatic, EOMI, MMM
Respiratory: Clear to Auscultation bilaterally
Cardiac: Normal S1/S2, Regular Rate and Rhythm
GI: Distended, nontender, tympanic to percussion, hypoactive bowel sounds
Extremities: No Clubbing, Cyanosis, or Edema
Neuro: Nonfocal/Grossly Intact
Anticipated Discharge: Today
Subjective/Interval History
-
Date of Service: December 07, 2024
Patient has been tolerating her solids, denies abdominal pain. Denies nausea, vomiting. She continues to pass gas and stool. No fever, no chest pain, no shortness of breath.
Objective Data
-
Labs:
Laboratory Results
12/07/24
06:32
Sodium 131 L
Potassium 3.9
Chloride 101
Carbon Dioxide 26
BUN 20 H
Creatinine 0.7
Glucose 90
Calcium 8.7
Total Bilirubin 4.4 H
AST 87 H
ALT 60 H
Alkaline Phosphatase 107
Vital Signs:
Vital Signs
Temp Pulse Resp BP Pulse Ox
98.6 F 57 20 131/61 98
12/07/24 07:00 12/07/24 07:00 12/07/24 07:00 12/07/24 07:00 12/07/24 07:00
I&O
12/06/24 12/07/24 12/08/24
06:59 06:59 06:59
Intake Total 620 / 620 480 / 480 120 / 120
Output Total 200 / 200
Balance 620 / 620 280 / 280 120 / 120
--- NOTE | 2024-12-07 09:25 | CM ---
Addendum entered by Cassie Plata 12/07/24 14:09:
TT from customer advisor specialist, peer to peer completed and skilled rehab approved.
Await TC fro [employer] with approval and dates approved, [facility] updated.
Original Note:
Late entry- TC from [facility] from [employer]
Skilled rehab has bee denied by their medical asst due to ileus and hyponatremia.
Peer to Peer # option 2 by noon 12/07/24
[employer] reference# ID# [id number]
TT to [facility] [employer] and peer to peer called in, await TCB and determination.
[2024-12-07] MEDS: LIPITOR 40 MG PO (09:37)
[2024-12-07] MEDS: COZAAR 25 MG PO (09:37)
[2024-12-07] MEDS: VISBIOME 1 CAP PO (09:37)
[2024-12-07] MEDS: FLOMAX 0.4 MG PO (09:37)
[2024-12-07] MEDS: LOW STRENGTH ASPIRIN 81 MG PO (09:37)
[2024-12-07] MEDS: LEXAPRO 5 MG PO (09:38)
[2024-12-07] MEDS: VITAMIN B-12 1000 MCG PO (09:38)
[2024-12-07 11:00] VITALS: BP 101/55
[2024-12-07 11:26] VITALS: BP 101/55; BP 113/53; BP 116/53; PULSE 63; PULSE 66; O2SAT 99
[2024-12-07 12:33] VITALS: BP 109/54; BP 95/53; BP 98/56; PULSE 57; PULSE 66; PULSE 71
--- NOTE | 2024-12-07 13:54 | W.DCSUMMARY ---
Discharge Summary
Discharge Data
Date of Admission: 12/01/24
Date of Discharge: 12/07/24
-
Pending Results: No
Hospital Course
Discharge diagnosis:
Syncope
Acute on chronic hyponatremia, likely from syndrome of inappropriate antidiuretic hormone secretion
Acute nondisplaced fracture of the greater trochanter of the L proximal femur
Abdominal distention suggestive of ileus
Severe protein calorie malnutrition of chronic illness
Stage I sacral pressure injury, present upon admission
Chronic urinary retention due to radiation requiring self-catheterization
History of cervical/endometrial cancer status post surgery and radiation
Consults: Nephrology, orthopaedic surgery
Hospital course:
83-year-old female with a past medical history of pacemaker, chronic diarrhea, hyponatremia, peripheral arterial disease, hypertension, hypothyroidism, cervical cancer status post surgery and radiation, prior CVA, and chronic urinary retention due
to radiation and self catheterizes, who presented with syncope after undergoing a bowel prep for her colonoscopy. Patient was found to have acute nondisplaced fracture of the greater trochanter of the left proximal femur from her syncope. Patient
likely had syncope secondary to hypovolemia from her colon prep. She was treated with IV fluids.
Patient was seen in conjunction with orthopedic surgery for her fracture. Orthopedic surgery recommends conservative management with pain control and PT.
Patient was also found to have acute on chronic hyponatremia. She was seen in conjunction with nephrology, who suspects she has SIADH. She was treated with a fluid restriction. Her sodium improved from 128 upon admission to 131 on the day of
discharge. She needs to continue her fluid restriction upon discharge.
Patient's hospital course was complicated by a mild ileus. Her diet was downgraded. She received bowel rest. The following day, her distention improved. She was passing gas and stool. She was advanced to a low residue diet. She tolerated her
diet.
Patient is medically stable for discharge. She needs to follow-up with her PCP 1 week after she leaves rehab, and orthopedic surgery in the office in 2 weeks.
Disposition: Short-term rehab
Discharge planning: Required 36-minutes
Discharge Plan
-
Patient Disposition: Snf/SNF
Discharge Diagnosis/Procedures: Syncope, acute on chronic hyponatremia, acute nondisplaced fracture of the left greater trochanter of the proximal femur
Condition: Good
Diet: Low Fiber and Restrict fluids to 48 oz
Additional Diets: Weightbearing as tolerated left lower extremity with walker.
Activity: As tolerated
Driving Restrictions: As prior to admission
Activity Restrictions/Additional Instructions:
Weightbearing as tolerated left lower extremity with walker.
PT OT with abduction precautions.
Please allow patient to self cath as needed.
Please follow-up with your primary care provider 1 week after you leave rehab.
Please follow-up with orthopedic surgery in the office in 2-3 weeks.
Referrals:
Demetri Nielsen MD [Active, Orthopedics] - in two to three weeks
Priscila Ramirez MD [Family Provider, Family Practice] - in one week
Prescriptions:
New
losartan 25 mg Tablet
25 mg PO DAILY Qty: 0 0RF
Continued
atorvastatin [Lipitor] 40 mg tablet
40 mg PO DAILY Qty: 30 0RF
calcium carbonate [Calcium 600] 600 mg calcium (1,500 mg) Tablet
600 mg PO DAILY
levothyroxine [Synthroid] 88 mcg Tablet
88 mcg PO DAILY
aspirin 81 mg Tablet,Chewable
81 mg PO DAILY Qty: 0 0RF
acetaminophen [Tylenol Extra Strength] 500 mg Tablet
1,000 mg PO Q6H PRN (Reason: pain)
cholecalciferol (vitamin D3) [Vitamin D3] 25 mcg (1,000 unit) Tablet
25 mcg PO DAILY Qty: 0
therapeutic multivitamin Tablet
1 tab PO DAILY
cyanocobalamin (vitamin B-12) 1,000 mcg Tablet
1,000 mcg PO DAILY
tamsulosin [Flomax] 0.4 mg Capsule
0.4 mg PO DAILY
ascorbic acid (vitamin C) [Vitamin C] 250 mg Tablet
250 mg PO DAILY
docusate sodium [Colace] 100 mg Capsule
100 mg PO PRN PRN (Reason: constipation)
escitalopram oxalate 5 mg Tablet
5 mg PO DAILY
Probiotic 3 billion cell Capsule
3,000 mmu cells PO DAILY
Discontinued
losartan 50 mg tablet
50 mg PO DAILY
loperamide 2 mg Capsule
2 mg PO Q6HPRN PRN (Reason: diarrhea)
Discharge Orders:
Discharge Patient (As Directed); Ordered 12/07/24
Ordered By: Abhijit Blake
Discharge Date and Time
Discharge Date/Time: 12/07/24 15:40
Print Language: OMANI
--- NOTE | 2024-12-07 14:06 | CM ---
Addendum entered by Cassie Plata 12/07/24 15:31:
Authorization # [id number]
Approved skilled rehab at [facility] start date 12/07/24, LCD 12/11/24, NRD 12/12/24
Updates via fax to [phone]
Kendall from [facility] updated.
Original Note:
Pt is discharged to [facility]. auth was approved. Daughter will bring clothes and drive her to [facility] who will meet them with a wheelchair at the entrance. Ana Laura Penny, is aware we are still waiting for the authorization
dates. cm will provide them once they are recieved
[facility]
Report:[id number]
[2024-12-07 14:46] VITALS: BP 101/56
== END 2024-12-07 15:40 | DRG 643 ==
LOC: 4 EAST ACU 21:44
PROVIDERS: Internal Medicine; Specialist; ADMITTING PHYSICIAN Hospitalist; ATTENDING PHYSICIAN Family Medicine; CONSULT PHYSICIAN Internal Medicine; CONSULT PHYSICIAN Internal Medicine Nephrology; CONSULT PHYSICIAN Orthopaedic Surgery; EMERGENCY PHYSICIAN Emergency Medicine; FAMILY PHYSICIAN Family Medicine
DX: E22.2 Syndrome of inappropriate secretion of antidiuretic hormone (principal); E43 Unspecified severe protein-calorie malnutrition; S72.115A Nondisplaced fracture of greater trochanter of left femur, initial encounter for closed fracture; Z68.1 Body mass index [BMI] 19.9 or less, adult; Z95.0 Presence of cardiac pacemaker; W19.XXXA Unspecified fall, initial encounter; E86.1 Hypovolemia; I95.1 Orthostatic hypotension; L89.151 Pressure ulcer of sacral region, stage 1; Z86.73 Personal history of transient ischemic attack (TIA), and cerebral infarction without residual deficits; I10 Essential (primary) hypertension; E03.9 Hypothyroidism, unspecified; F41.9 Anxiety disorder, unspecified; F32.A Depression, unspecified; R33.8 Other retention of urine; K52.9 Noninfective gastroenteritis and colitis, unspecified; Z85.41 Personal history of malignant neoplasm of cervix uteri; Z92.3 Personal history of irradiation; Z90.710 Acquired absence of both cervix and uterus; Z79.899 Other long term (current) drug therapy; Z79.890 Hormone replacement therapy; Z79.82 Long term (current) use of aspirin; E78.00 Pure hypercholesterolemia, unspecified
CPT/HCPCS: 51701; 71046; 73502; 73552; 73700; 74022; 80048; 80053; 83735; 83930; 83935; 84300; 84484; 85025; 85027; 93005; 93288; 93306; 94760; 96360; 97116; 97163; 97167; 97530; 97535; 99285

== ENCOUNTER → 2024-12-14 08:53 | Outpatient (REF) | payer OTHER, BC, SELFPAY ==
[2024-12-14 09:05] LABS: Hematocrit 28.9 % (37.0-47.0); Hemoglobin 9.8 g/dL (12.0-16.0); Mean Corp Hgb Conc. 33.9 g/dL (33.0-37.0); Mean Corpuscular Volume 99.3 fL (81.0-99.0); Nucleated Red Blood Cells % 0 %; Platelet Count 425 10^3/uL (130-400); Red Cell Dist. Width 13.4 % (11.5-14.5)
[2024-12-14 09:41] LABS: ALT (SGPT) 52 U/L (0-35); AST (SGOT) 55 U/L (14-36); Albumin 2.7 g/dl (3.5-5.0); Alkaline Phosphatase 148 U/L (38-126); Blood Urea Nitrogen 12 mg/dl (7-17); Calcium 8.6 mg/dl (8.4-10.2); Carbon Dioxide 28 mmol/L (22-30); Chloride 101 mmol/L (98-107); Glucose 76 mg/dl (70-99); Magnesium 1.9 mg/dl (1.6-2.3); Potassium 3.6 mmol/L (3.5-5.1); Sodium 132 mmol/L (135-145); Total Protein 5.7 g/dl (6.3-8.2); eGFR > 60.00
[2024-12-14 10:03] LABS: TSH 3.20 uIU/ml (0.47-4.68)
== END ==
LOC: OLABN 08:53
PROVIDERS: ATTENDING PHYSICIAN Student in an Organized Health Care Education/Training Program
DX: E87.1 Hypo-osmolality and hyponatremia (principal); I10 Essential (primary) hypertension; E03.9 Hypothyroidism, unspecified
CPT/HCPCS: 36415; 80053; 83735; 84439; 84443; 85025

== ENCOUNTER → 2024-12-21 10:00 | Outpatient (REF) | payer OTHER, BC, SELFPAY ==
[2024-12-21 13:21] LABS: Blood Urea Nitrogen 12 mg/dl (7-17); Calcium 8.8 mg/dl (8.4-10.2); Carbon Dioxide 29 mmol/L (22-30); Chloride 103 mmol/L (98-107); Glucose 78 mg/dl (70-99); Potassium 3.9 mmol/L (3.5-5.1); Sodium 137 mmol/L (135-145); eGFR > 60.00
== END ==
LOC: OLABN 10:00
PROVIDERS: ATTENDING PHYSICIAN Student in an Organized Health Care Education/Training Program
DX: E87.1 Hypo-osmolality and hyponatremia (principal)
CPT/HCPCS: 36415; 80048

== ENCOUNTER 2024-12-31 17:50 | Emergency (ER) | payer OTHER, BC, SELFPAY ==
[2024-12-31 17:52] VITALS: BP 143/68
[2024-12-31 19:32] VITALS: BP 151/73
[2024-12-31 20:00] VITALS: BP 132/68
[2024-12-31 20:37] LABS: Hematocrit 30.1 % (37.0-47.0); Hemoglobin 9.6 g/dL (12.0-16.0); Mean Corp Hgb Conc. 31.9 g/dL (33.0-37.0); Mean Corpuscular Volume 103.4 fL (81.0-99.0); Nucleated Red Blood Cells % 0 %; Platelet Count 273 10^3/uL (130-400); Red Cell Dist. Width 14.6 % (11.5-14.5)
[2024-12-31 20:39] LABS: Urine Character Slightly Cloudy (Clear)
[2024-12-31 20:54] LABS: Urine Red Blood Cell 80-90 /HPF (0-2); Urine Squamous Cell None seen /LPF (Few)
[2024-12-31 20:55] LABS: Urine White Cell 30-40 /HPF (0-5)
[2024-12-31 20:58] LABS: Blood Urea Nitrogen 12 mg/dl (7-17); Calcium 8.8 mg/dl (8.4-10.2); Carbon Dioxide 28 mmol/L (22-30); Chloride 107 mmol/L (98-107); Estimated Creatinine Clearance 55 ml/min; Glucose 87 mg/dl (70-99); Potassium 3.6 mmol/L (3.5-5.1); Sodium 138 mmol/L (135-145); eGFR > 60.00
[2024-12-31 21:46] VITALS: BP 139/68
--- NOTE | 2024-12-31 22:00 | ED.GENMED ---
Addendum entered and electronically signed by Luz Baxter PA-C 01/03/25 08:16:
Urine culture resulted gram-negative bacilli - final sensitivities pending. Discharged on Keflex
Original Note:
History of Present Illness
General
Chief Complaint: Urinary Symptoms
Source: patient
Exam Limitations: none
Time Seen by Provider: 12/31/24 20:02
Nursing documentation reviewed up to this point in time: agreed with
History of Present Illness
History of Present Illness:
85-year-old female presenting to the emergency department today with concerns of red discoloration in her Neal bag. Has some mild irritation at the site of the Neal insertion but denies any abdominal pain nausea vomiting or fevers. Not on blood
thinners.
Past History
Past History
ED Past Medical History: Cancer (Cervical cancer, treated with hysterectomy and radiation), HTN and Other (Kidney stones)
ED Past Surgical History: and Gynecological (Hysterectomy with retroperitoneal symone dissection 18 years ago.)
Social History
Tobacco: Non-smoker
Alcohol: None
Personal:
Living: with family
Family History
Family History: Hypertension; Negative Early CAD or CAD
Review of Systems
Review of Systems
Allergies reviewed?: Yes
All Other Systems: ROS reviewed and negative except as documented in HPI and ROS
Phy Exam
Physical Exam
Physical Exam:
GENERAL: Alert , in no apparent distress
EYE: pupils equal and reactive
NECK: Supple, no significant adenopathy.
ENT: o/p clr, mmm.
CARDIAC: Regular rate and rhythm .
LUNGS: Clear breath sounds bilaterally, no acute respiratory distress, no wheezes/rales/rhonchi
ABDOMEN: Soft, without focal tenderness, no r/g, no cvat
NEUROLOGICAL: Alert and oriented, no focal neuro deficits
SKIN: Warm and dry, skin intact.
MUSCULOSKELETAL: No edema, well perfused.
PSYCH: Normal and appropriate interaction.
Course
Orders/Labs/Results
Orders:
Orders
12/31/24 20:30
BMP [Basic Metabolic Panel] Urgent
CBC/With Diff [Complete Blood Count/With Diff] Urgent
Urinalysis Reflex To Culture Urgent
Date Specimen was Collected: 12/31/24
Time Specimen was Collected: 20:24
Urine Microscopic Reflex Cult Urgent
Urine Culture Urgent
SIDDHARTH Source: U
Specimen Description:
Date Specimen was Collected: 12/31/24
Time Specimen was Collected: 20:24
12/31/24 21:49
Cephalexin Monohydrate [Keflex] 500 mg PO NOW STA
Abnormal Lab Results
12/31/24
20:30
RBC 2.91 L 10^6/uL
(4.20-5.40)
Hgb 9.6 L g/dL
(12.0-16.0)
Hct 30.1 L %
(37.0-47.0)
MCV 103.4 H fL
(81.0-99.0)
MCH 33.0 H pg
(27.0-31.0)
MCHC 31.9 L g/dL
(33.0-37.0)
RDW 14.6 H %
(11.5-14.5)
Absolute Lymphs (auto) 1.1 L 10^3/uL
(1.2-3.4)
Absolute Monos (auto) 0.7 H 10^3/uL
(0.1-0.6)
Lymphocytes % 18.8 L %
(20.5-51.1)
Monocytes % 11.1 H %
(1.7-9.3)
Ur Occult Blood Reflex 4+ A
(Negative)
Leukocyte Esterase Rfl 1+ A
(Negative)
Urine RBC 80-90 A /HPF
(0-2)
Urine WBC (Reflex) 30-40 A /HPF
(0-5)
Urine Bacteria (Reflex) Few A
(Negative)
Urine Albumin (Reflex) 2+ A
(Neg - Trace)
12/31/24 20:30
12/31/24 20:30
Vital Signs
Initial and Last Documented VS:
Initial Vital Signs
Temp Pulse Resp BP Pulse Ox
97.6 F 54 14 143/68 100
12/31/24 17:52 12/31/24 17:52 12/31/24 17:52 12/31/24 17:52 12/31/24 17:52
Last Documented Vital Signs
Temp Pulse Resp BP Pulse Ox
97.6 F 76 18 132/68 99
12/31/24 17:52 12/31/24 20:42 12/31/24 20:42 12/31/24 20:00 12/31/24 22:02
MDM/Problems Addressed
MDM/Problems Addressed:
85-year-old female presenting to the emergency department today with concerns of red discoloration of the Neal bag. Here vital signs are normal. Labs unremarkable urinalysis potentially consistent with UTI Neal was replaced started on
antibiotics otherwise will follow-up closely as an outpatient with urologist. No evidence of retention no abdominal pain at this time.
*Pulse Oximetry
SaO2: 99
Oxygen Mode of Delivery: Room air
Patient hypoxic: no (99)
*Critical Care Note
Total Time (30-74mins, 75-104mins- exclusive of procedures): Not Applicable
ED Attending Note
-
Portions of this chart may have been created with voice recognition software.� Occasional wrong word or��sound alike� substitutions may have occurred due to the inherent limitations of voice recognition software.
Discharge Plan
Departure
Patient Disposition: Home (Routine Discharge)
Date of Disposition: 12/31/24
Time of Disposition: 22:09
Patient with high blood pressure during this ER visit?: No
Condition: Good
Covid-19: Not Applicable
Discharge Problem:
Hematuria, Acute UTI
Instructions: Urinary Tract Infection, Adult (DC), Blood in the Urine (Hematuria), Adult (DC)
Prescriptions:
New
cephalexin 500 mg capsule
500 mg PO TID 7 Days Qty: 21 0RF
No Action
atorvastatin [Lipitor] 40 mg tablet
40 mg PO DAILY Qty: 30 0RF
calcium carbonate [Calcium 600] 600 mg calcium (1,500 mg) Tablet
600 mg PO DAILY
levothyroxine [Synthroid] 88 mcg Tablet
88 mcg PO DAILY
aspirin 81 mg Tablet,Chewable
81 mg PO DAILY Qty: 0 0RF
acetaminophen [Tylenol Extra Strength] 500 mg Tablet
1,000 mg PO Q6H PRN (Reason: pain)
cholecalciferol (vitamin D3) [Vitamin D3] 25 mcg (1,000 unit) Tablet
25 mcg PO DAILY Qty: 0
therapeutic multivitamin Tablet
1 tab PO DAILY
cyanocobalamin (vitamin B-12) 1,000 mcg Tablet
1,000 mcg PO DAILY
tamsulosin [Flomax] 0.4 mg Capsule
0.4 mg PO DAILY
ascorbic acid (vitamin C) [Vitamin C] 250 mg Tablet
250 mg PO DAILY
docusate sodium [Colace] 100 mg Capsule
100 mg PO PRN PRN (Reason: constipation)
escitalopram oxalate 5 mg Tablet
5 mg PO DAILY
Probiotic 3 billion cell Capsule
3,000 mmu cells PO DAILY
losartan 25 mg Tablet
25 mg PO DAILY Qty: 0 0RF
Referrals:
Priscila Ramirez MD [Family Provider, Family Practice]
Activity Restrictions/Additional Instructions:
You came to the emergency department today with concerns of blood in your urine. This could be consistent with infection. Please take the antibiotic and follow-up closely with urology. Return for any worsening, new or concerning symptoms.
Interventions
Interventions:
*Risk Screen - Suicide Last Done: 12/31/24 17:52
*General Assessment Last Done: 12/31/24 17:52
*Neglect/Abuse Screening Last Done: 12/31/24 17:52
*ED- Fall Risk Assessment Last Done: 12/31/24 19:54
*ED COVID-19 Vaccine History Last Done: 12/31/24 17:52
*ED Influenza Vaccine History Last Done: 12/31/24 17:52
ED-Female Genitourinary Assessment Last Done: 12/31/24 19:54
Discharge Date and Time
Print Language: WALLISIAN
[2024-12-31] MEDS: KEFLEX 500 MG PO (22:05)
[2024-12-31 22:45] VITALS: BP 138/78
== END 2024-12-31 22:50 | disposition home or self-care (01) ==
LOC: EMR 17:50
PROVIDERS: Physician Assistant; EMERGENCY PHYSICIAN Student in an Organized Health Care Education/Training Program; FAMILY PHYSICIAN Family Medicine
DX: N39.0 Urinary tract infection, site not specified (principal); R31.9 Hematuria, unspecified; Z46.6 Encounter for fitting and adjustment of urinary device; I10 Essential (primary) hypertension; Z85.41 Personal history of malignant neoplasm of cervix uteri; Z90.710 Acquired absence of both cervix and uterus
CPT/HCPCS: 51702; 99283; 80048; 81003; 81015; 85025; 87077; 87086